=== PATIENT | male | born 1970 | race Caucasian/White ===

== ENCOUNTER 2020-11-07 16:34 | Emergency (ER) | payer SELFPAY ==
--- OUTSIDE RECORDS SUMMARY | 2020-11-07 16:38 | XMS REPORT | Continuity of Care Document ---
:1970 Author Organization [facility] t Address [address] [place] [address] Care Team Providers Name Role Phone DAVID Attending Clinician Unavailable LANA FABIAN Attending Clinician CHAGO Attending Clinician Unavailable Alba Coronado Attending Clinician Unavailable PROVIDER, TEMP Attending Clinician Unavailable Edita AYALA Attending Clinician Unavailable DAVID Admitting Clinician Unavailable Payers Payer Name Policy Type Policy Effective Date Expiration Date Sour ce Number MEDICAID [facility] PENDING [facility] Problems Condition Condition Condition Status Onset Resolution Last Treating Co mments Source Name Details Category Date Date Treatment Clinician Date Bipolar Bipolar Problem Active 2017-[address] [facility]) Suicidal Suicidal Problem [facility] Depressive Depressive Problem Active 2017-[address] [facility] ([facility]) 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[address] 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10[facility]09 [facility] ([facility]/SA) Allergies, Adverse Reactions, Alerts Allergy Allergy Status Severity Reaction(s) Onset Inactive Treating Comm ents Source Name Type Date Date Clinician No Known DA Active [facility] Social History Smoking Status Start Date Stop Date Source Never sm[facility] Medications This patient has no known medications. Immunizations Ordered Immunization Filled Immunization Date Status Commen ts Source Name Name NO UP TO DATE FLU NO UP TO DATE FLU Unknown Completed [facility] (LUF/LIOR/SA) Vital Signs Vital Name Observation Time Observation Value Comments Source Body Temperature 2018-08-08 05:01:00 98.9 F [facility] (LUF/LIOR/SA) Pulse Rate 2018-08-08 05:01:00 87 /min [facility] (LUF/LIOR/SA) Respiratory Rate 2018-08-08 05:01:00 18 /min [facility] (LUF/LIOR/SA) O2% BldC Oximetry 2018-08-08 05:01:00 98 % [facility] (LUF/LIOR/SA) BP Systolic 2018-08-08 05:01:00 160 mm[Hg] [facility] (LUF/LIOR/SA) BP Diastolic 2018-08-08 05:01:00 110 mm[Hg] [facility] (LUF/LIOR/SA) Height 2018-08-08 05:01:00 66 in [facility] (LUF/LIOR/SA) Weight Measured 2018-08-08 05:01:00 154.32 lbs [facility] Loren marsh [facility] (LUF/LIOR/SA) BMI (Body Mass Index) 2018-08-08 05:01:00 25 [facility] (LUF/LIOR/SA) Procedures This patient has no known procedures. Encounters Start End Encounter Admission Attending Care Care Encounter Source Date/Time Date/Time Type Type Clinicians Facility Department ID 2018-08-08 2018-08-08 Inpatient MARÍA ACICEDO [facility] [id number] [facility] [address] 04:58:00 11:31:00 [facility] - N, [address], [place]LU[place] [address] 2018-07-01 2018-07-01 Departed MIRELA SCHWARTZ [id number] [place] 19:23:00 20:28:00 [facility] Results Test Description Test Time Test Comments Results Result Comments Source SALICYLATES (Aspirin) 2018-08-08 06:47:00 Test Item Value Reference Range Interpretation Comme nts Salicylate (test code = SALI) 2.3 mg/dl 0.0-30.0 Salicylates Reference Ranges: Therapeutic 15 - 30 mg/dl Toxicity >30 mg/dl Lethal >70 mg/dl [id number] 06:42:00 Test Item Value Reference Range Interpretation Comments Glucose (test code 88 mg/dl 75-110 = GLU) BUN (test code = 15.0 mg/dl 6.0-17.0 BUN) Creatinine (test 0.8 mg/dl 0.4-1.2 code = CREA) Sodium (test code = 136 mmol/l 137-145 L NA) Potassium (test 3.6 mmol/l 3.5-5.0 code = K) Chloride (test code 102 mmol/l 98-107 = CL) CO2 (test code = 27 mmol/l 22-30 CO2) Calcium (test code 8.6 mg/dl 8.4-10.2 = CALC) T Protein (test 6.8 gm/dl 5.1-8.7 code = TP) Albumin (test code 3.6 gm/dl 3.5-4.6 = ALB) A/G Ratio (test 1.1 % 1.1-2.2 code = AGRAT) AST (SGOT) (test 20 U/L 11-36 code = AST) ALT (SGPT) (test 21 U/L 11-40 code = ALT) Alkaline Phos (test 63 U/L 47-114 code = ALKP) Total Bilirubin 0.6 mg/dl 0.2-1.2 (test code = TBIL) Globulin (test code 3.2 gm/dl 2.3-3.5 = GLOBU) Calcium, Corrected 8.9 mg/dl 8.4-10.2 Various f ormulas exist (test code = for corrected s isis CALCCORR) calcium results , each yielding differ ent values. This corrected resul t was based on the fo rmula: Corrected Calci um = SerumCalcium + [0.8 * ( 4 - SerumAlbu min)] EGFR if >60 Faroese (test code mL/min/1.73m\\ = EGFRAA) S\\2 EGFR if Non- >60 Estimate d Glomerular Faroese (test code mL/min/1.73m\\ Filtrat ion Rate (eGFR) = EGFRNA) S\\2 Reference Inter vals Decision Points for 18 years and older and average body ma ss: >= 60 Does not exc lude kidney disease. 30 - 59 Suggests modera te chronic kidney disease and indicat es the need for furthe r investigation including asses sment of proteinuria and cardiovascular factors. < 30 Usually in dicates a need for refe rral for assessment and management of c hronic kidney failure. ACETAMINOPHEN (Tyenol)2018-08-08 06:41:00 Test Item Value Reference Range Interpretation Comments Acetaminophen (test code = ACET) <2 ug/ml 10-25 L ALCOHOL, [id number] 06:41:00 Test Item Value Reference Range Interpretation Comments Alcohol % (test code = 0 % 0.00-0.00 N Dereck ol % 0.00 - 0.10 ALCPC) Sub-clinical 0.11 - 0.20 Emotional Instability 0.21 - 0.30 Confusion 0.31 - 0.40 Stupor 0.41 - 0.50 Coma >.50 Fatal CBC WITH AUTO [id number] 06:13:00 Test Item Value Reference Range Interpretation Comments WBC (test code = 11.63 4.80-10.80 H WBC) 10\\S\\3/ul RBC (test code = 4.80 10\\S\\6/ul 4.70-6.10 RBC) Hemoglobin (test 15.0 gm/dl 14.0-18.0 code = HGB) Hematocrit (test 43.4 % 42.0-50.0 code = HCT) MCV (test code = 90.4 fL 80.0-94.0 MCV) MCH (test code = 31.3 pg 27.0-31.0 H MCH) MCHC (test code = 34.6 gm/dl 33.0-37.0 MCHC) RDW (test code = 12.2 % 11.5-14.5 RDWVC) Platelet (test code 271 10\\S\\3/ul 130-400 = PLT) MPV (test code = 9.1 fL 7.4-10.4 A "NOT MEASUR ED" MPV) RESULTS ARE DIS PLAYED WHEN THE INSTRU MENT HAS A SUPPRESSE D OR UNREPORTABLE RE SULT. THIS WILL MOST OFTEN HAPPEN WITH THE MPV WHEN THERE IS A N ABNORMAL PLATEL ET DISTRIBUTION DU E TO A CRITICAL LOW VA LUE OR PLATELET CLUMPI NG. THE RDW MAY BE SUPPRESSED IF T HERE ARE MULTIPLE PE AKS PRESENT ON THE RBC HISTOGRAM. IN THIS CASE, A MANUAL REVIEW OF THE SLIDE WI LL BE PERFORMED, AND RBC MORPHOLOGY WILL BE NOTED ON THE RE PORT. NE% (test code = 76.5 % 42.0-75.0 H NE) LY% (test code = 11.9 % 13.0-42.0 L LY) MO% (test code = 9.3 % 4.0-14.0 MO) EO% (test code = 1.6 % 1.0-5.0 EO) BA% (test code = 0.3 % 0.0-3.0 BA) IG% (test code = 0.4 % 0.0-0.4 IG%) [id number] 08:45:00 Test Item Value Reference Range Interpretation Comments Coagulation (test 12.7 SEC 12.0-14.7 N code = PT-T) Coagulation (test 0.9 ATTENTION: code = INR) READ CAREFULLY-- The recommended the rapeutic ranges for oral anticoagulanttr eatments are: ------ Low Intensity: 1.5 - 2.0 Moderate In tensity: 2.0 - 3.0 High Intensity (1): 2.5 - 3.5 High In tensity (2): 3.0 - 4. 0 CRITICAL: > 4.0 Anticoagulant? NONEMedical Necessity SUSPECT COAGULOPATHYAnticoagulant? NONEMedical Necessity: SUSP [id number] 08:45:00 Test Item Value Reference Range Interpretation Comments Coagulation (test code = PTT) 27.2 SEC 22.9-36.1 N Anticoagulant? NONEMedical Necessity SUSPECT COAGULOPATHYAnticoagulant? NONEMedical Necessity: SUSP [id number] 08:44:00 Test Item Value Reference Range Interpretation Comments Chemistry (test 2.9 ng/mL 0-6.6 N code = CKMBM-T) Chemistry (test 0.015 ng/mL < 0.028 code = TROPI-T) Reference Ra nge 0.0 0 - 0.028 ng/mL Negative 0.0 29 - 0.29 ng/mL Indeterminate Greater or Equal to 0.3 ng/mL Strongly sugge sts [place] [id number] 08:40:00 Test Item Value Reference Range Interpretation Comments Chemistry (test 140 mmol/L 136-145 N code = NA-T) Chemistry (test 3.3 mmol/L 3.5-5.1 L code = K-T) Chemistry (test 104 mmol/L 98-107 N code = CL) Chemistry (test 27 mmol/L 22-29 N code = CO2) Chemistry (test 12 mmol/L 10-20 N code = ANGP) Chemistry (test 14 mg/dL 8.9-20.6 N code = BUN) Chemistry (test 0.85 mg/dL 0.7-1.3 N code = CREATT) Chemistry (test Greater than 90 Referenc e Range for code = EGFRMDRD) Estimated G FR: Gre ater than 90 mL/min/ 1.73 m2NOTE:The MDRD equation has no t been validated for use with theeld erly (over 70 years of age), women, patients with serious comorbi d condition or pe rsons with extremes o fbody size, muscle ma ss, or nutritional status. Chemistry (test 79 mg/dL 70-105 N code = GLU-T) Chemistry (test 9.1 mg/dL 7.8-10.44 N code = CA) Chemistry (test 0.7 mg/dL 0.2-1.2 N code = TBILI) Chemistry (test 6.7 g/dL 6.0-8.3 N code = TP) Chemistry (test 4.2 g/dL 3.5-5.0 N code = ALB) Chemistry (test 2.5 g/dL 2.4-3.5 N code = GLOB) Chemistry (test 1.7 g/dL 1.2-2.2 N code = AG) Chemistry (test 52 U/L 40-150 N code = ALP) Chemistry (test 18 U/L 5-34 N code = AST) Chemistry (test 17 U/L 8-55 N code = ALT) [id number] 08:40:00 Test Item Value Reference Range Interpretation Comments Chemistry (test code = CK) 119 U/L 30-200 N [id number] 08:23:00 Test Item Value Reference Range Interpretation Comments Hematology (test code = WBCT) 8.0 thou/uL 4.8-10.8 N Hematology (test code = RBCT) 5.16 mill/uL 4.70-6.10 N Hematology (test code = HGBT) 15.9 g/dL 14.0-18.0 N Hematology (test code = HCTT) 47.9 % 42.0-52.0 N Hematology (test code = MCV) 92.8 fL 78.0-98.0 N Hematology (test code = MCH) 30.8 pg 27.0-31.0 N Hematology (test code = MCHC) 33.2 g/dL 32.0-36.0 N Hematology (test code = RDW) 11.5 % 11.5-14.5 N Hematology (test code = PLTT) 331 thou/uL 130-400 N Hematology (test code = MPV) 6.6 fL 7.4-10.4 L Hematology (test code = %NEUT) 68.1 % 42.0-75.0 N Hematology (test code = %LYMPH) 20.7 % 21.0-51.0 L Hematology (test code = %MONO) 7.5 % 0.0-10.0 N Hematology (test code = %EOS) 2.6 % 0.0-10.0 N Hematology (test code = %BASO) 1.1 % 0.0-1.0 H Hematology (test code = NEUT#) 5.4 thou/uL 1.40-6.50 N Hematology (test code = LYMPH#) 1.7 thou/uL 1.20-3.40 N Hematology (test code = MONO#) 0.6 thou/uL 0.11-0.59 H Hematology (test code = EOS#) 0.2 thou/uL 0.0-0.7 N Hematology (test code = BASO#) 0.1 thou/uL 0.0-0.2 N [id number] 19:03:00 Test Item Value Reference Range Interpretation Comments Chemistry (test code 145 mmol/L 136-145 N = NA-T) Chemistry (test code 4.8 mmol/L 3.5-5.1 N = K-T) Chemistry (test code 106 mmol/L 98-107 N = CL) Chemistry (test code 27 mmol/L 22-29 N = CO2) Chemistry (test code 17 mmol/L 10-20 N = ANGP) Chemistry (test code 22 mg/dL 8.9-20.6 H = BUN) Chemistry (test code 1.25 mg/dL 0.7-1.3 N = CREATT) Chemistry (test code 62 Referen ce Range for = EGFRMDRD) Estimated GFR: Great er than 90 mL/min/1.73 m2NOTE:The MDRD equation has no t been validated for u se with theelderly (ove r 70 years of age), women, patientswith se rious comorbid condit ion or persons with ex tremes ofbody size, mu scle mass, or nutrit ional status. Chemistry (test code 101 mg/dL 70-105 N = GLU-T) Chemistry (test code 9.2 mg/dL 7.8-10.44 N = CA) Chemistry (test code 0.2 mg/dL 0.2-1.2 N = TBILI) Chemistry (test code 6.5 g/dL 6.0-8.3 N = TP) Chemistry (test code 4.0 g/dL 3.5-5.0 N = ALB) Chemistry (test code 2.5 g/dL 2.4-3.5 N = GLOB) Chemistry (test code 1.6 g/dL 1.2-2.2 N = AG) Chemistry (test code 51 U/L 40-150 N = ALP) Chemistry (test code 16 U/L 5-34 N = AST) Chemistry (test code 16 U/L 8-55 N = ALT) [id number] 18:46:00 Test Item Value Reference Range Interpretation Comments Hematology (test code = WBCT) 7.3 thou/uL 4.8-10.8 N Hematology (test code = RBCT) 4.70 mill/uL 4.70-6.10 N Hematology (test code = HGBT) 14.3 g/dL 14.0-18.0 N Hematology (test code = HCTT) 42.6 % 42.0-52.0 N Hematology (test code = MCV) 90.7 fL 78.0-98.0 N Hematology (test code = MCH) 30.5 pg 27.0-31.0 N Hematology (test code = MCHC) 33.6 g/dL 32.0-36.0 N Hematology (test code = RDW) 11.6 % 11.5-14.5 N Hematology (test code = PLTT) 257 thou/uL 130-400 N Hematology (test code = MPV) 6.6 fL 7.4-10.4 L Hematology (test code = %NEUT) 53.4 % 42.0-75.0 N Hematology (test code = %LYMPH) 32.7 % 21.0-51.0 N Hematology (test code = %MONO) 7.5 % 0.0-10.0 N Hematology (test code = %EOS) 5.4 % 0.0-10.0 N Hematology (test code = %BASO) 1.0 % 0.0-1.0 N Hematology (test code = NEUT#) 3.9 thou/uL 1.40-6.50 N Hematology (test code = LYMPH#) 2.4 thou/uL 1.20-3.40 N Hematology (test code = MONO#) 0.6 thou/uL 0.11-0.59 H Hematology (test code = EOS#) 0.4 thou/uL 0.0-0.7 N Hematology (test code = BASO#) 0.1 thou/uL 0.0-0.2 N [id number] 18:45:00 Test Item Value Reference Range Interpretation Comments Urinalysis (test code = UACLR) Yellow Yellow Urinalysis (test code = UACLY) Hazy Clear Urinalysis (test code = SPGR) 1.020 1.005-1.030 N Urinalysis (test code = CYNDI) 8.0 5.0-9.0 N Urinalysis (test code = UALEU) Trace Negative A Urinalysis (test code = UANIT) Negative Negative Urinalysis (test code = Negative mg/dL Neg-Trace PROUADIP) Urinalysis (test code = GLUCU) Negative mg/dL Negative Urinalysis (test code = KETU) Negative mg/dL Negative Urinalysis (test code = 1.0 mg/dL 0.2-1.0 UAUROB) Urinalysis (test code = UABIL) Negative Negative Urinalysis (test code = UABLD) Negative Negative Comment clear yellowUrine Source: Urine [id number] 18:45:00 Test Item Value Reference Range Interpretation Comments Urinalysis (test code = UARBC) 0-3 HPF 0-3 Urinalysis (test code = UAWBC) 4-6 HPF 0-3 A Urinalysis (test code = UASQUAM) 0-3 HPF 0-3 Urinalysis (test code = UABAC) 1+ HPF None Seen A Comment clear yellowUrine Source: Urine [id number] 20:56:00 Test Item Value Reference Range Interpretation Comments Urinalysis (test code = YELLOW Yellow UACLR) Urinalysis (test code = CLEAR Clear UACLY) Urinalysis (test code = 1.024 1.002-1.036 N SPGR) Urinalysis (test code = 6.0 5.0-9.0 N CYNDI) Urinalysis (test code = Moderate Negative A UALEU) Urinalysis (test code = Negative Negative UANIT) Urinalysis (test code = Negative mg/dL Neg-Trace PROUADIP) Urinalysis (test code = Negative mg/dL Negative GLUCU) Urinalysis (test code = Negative mg/dL Negative KETU) Urinalysis (test code = 1.0 mg/dL 0.2-1.0 UAUROB) Urinalysis (test code = Negative Negative UABIL) Urinalysis (test code = Negative Negative UABLD) Urinalysis (test code = 0-3 HPF 0-3 UARBC) Urinalysis (test code = 7-10 HPF 0-3 A UAWBC) Urinalysis (test code = 0-3 HPF 0-3 UASQUAM) Urinalysis (test code = None Seen HPF None Seen UABAC) Urinalysis (test code = 0-3 HYALINE CAST LPF 0-3 Hyaline UACAST) Urine Source: Urine [id number] 19:22:00 Test Item Value Reference Range Interpretation Comments Chemistry (test Less than < 0.028 code = TROPI-T) 0.010 ng/mL Reference Ra nge 0. 00 - 0.028 ng/mL Negative 0.029 - 0.29 n g/mL Indeterminate Greater or Equa l to 0.3 ng/mL [facility] Comment Pls draw at 7 pm.[id number] 16:36:00 Test Item Value Reference Range Interpretation Comments Coagulation (test 12.7 SEC 12.0-14.7 N code = PT-T) Coagulation (test 0.9 ATTENTION: code = INR) READ CAREFULLY-- The recommended the rapeutic ranges for oral anticoagulanttr eatments are: ------ Low Intensity: 1.5 - 2.0 Moderate In tensity: 2.0 - 3.0 High Intensity (1): 2.5 - 3.5 High In tensity (2): 3.0 - 4. 0 CRITICAL: > 4.0 Anticoagulant? NONEMedical Necessity SUSPECT COAGULOPATHYAnticoagulant? NONEMedical Necessity: SUSP [id number] 16:36:00 Test Item Value Reference Range Interpretation Comments Coagulation (test code = PTT) 26.2 SEC 22.9-36.1 N Anticoagulant? NONEMedical Necessity SUSPECT COAGULOPATHYAnticoagulant? NONEMedical Necessity: SUSP [id number] 16:34:00 Test Item Value Reference Range Interpretation Comments Chemistry (test 2.5 ng/mL 0-6.6 N code = CKMBM-T) Chemistry (test Less than < 0.028 code = TROPI-T) 0.010 ng/mL Reference Ra nge 0. 00 - 0.028 ng/mL Negative 0.029 - 0.29 n g/mL Indeterminate Greater or Equa l to 0.3 ng/mL [facility] [place] [id number] 16:31:00 Test Item Value Reference Range Interpretation Comments Chemistry (test code 142 mmol/L 136-145 N = NA-T) Chemistry (test code 3.7 mmol/L 3.5-5.1 N = K-T) Chemistry (test code 103 mmol/L 98-107 N = CL) Chemistry (test code 26 mmol/L 22-29 N = CO2) Chemistry (test code 17 mmol/L 10-20 N = ANGP) Chemistry (test code 16 mg/dL 8.9-20.6 N = BUN) Chemistry (test code 1.11 mg/dL 0.7-1.3 N = CREATT) Chemistry (test code 71 Referen ce Range for = EGFRMDRD) Estimated GFR: Great er than 90 mL/min/1.73 m2NOTE:The MDRD equation has no t been validated for u se with theelderly (ove r 70 years of age), women, patientswith se rious comorbid condit ion or persons with ex tremes ofbody size, mu scle mass, or nutrit ional status. Chemistry (test code 79 mg/dL 70-105 N = GLU-T) Chemistry (test code 9.7 mg/dL 7.8-10.44 N = CA) Chemistry (test code 0.5 mg/dL 0.2-1.2 N = TBILI) Chemistry (test code 7.1 g/dL 6.0-8.3 N = TP) Chemistry (test code 4.3 g/dL 3.5-5.0 N = ALB) Chemistry (test code 2.8 g/dL 2.4-3.5 N = GLOB) Chemistry (test code 1.5 g/dL 1.2-2.2 N = AG) Chemistry (test code 55 U/L 40-150 N = ALP) Chemistry (test code 19 U/L 5-34 N = AST) Chemistry (test code 17 U/L 8-55 N = ALT) [id number] 16:13:00 Test Item Value Reference Range Interpretation Comments Hematology (test code = WBCT) 7.9 thou/uL 4.8-10.8 N Hematology (test code = RBCT) 4.92 mill/uL 4.70-6.10 N Hematology (test code = HGBT) 15.3 g/dL 14.0-18.0 N Hematology (test code = HCTT) 44.5 % 42.0-52.0 N Hematology (test code = MCV) 90.5 fl 80.0-94.0 N Hematology (test code = MCH) 31.2 pg 27.0-31.0 H Hematology (test code = MCHC) 34.4 g/dL 32.0-36.0 N Hematology (test code = RDW) 11.6 % 11.5-14.5 N Hematology (test code = PLTT) 291 thou/uL 130-400 N Hematology (test code = MPV) 6.6 fL 7.4-10.4 L Hematology (test code = %NEUT) 62.7 % 42.0-75.0 N Hematology (test code = %LYMPH) 26.4 % 21.0-51.0 N Hematology (test code = %MONO) 5.6 % 0.0-10.0 N Hematology (test code = %EOS) 4.5 % 0.0-10.0 N Hematology (test code = %BASO) 0.8 % 0.0-1.0 N Hematology (test code = NEUT#) 5.0 thou/uL 1.40-6.50 N Hematology (test code = LYMPH#) 2.1 thou/uL 1.20-3.40 N Hematology (test code = MONO#) 0.4 thou/uL 0.11-0.59 N Hematology (test code = EOS#) 0.4 thou/uL 0.0-0.7 N Hematology (test code = BASO#) 0.1 thou/uL 0.0-0.2 N
--- NOTE | 2020-11-07 17:35 | ER ---
Nurse's Notes [facility] [place] Name: Jasmin Haley Age: 50 yrs Sex: Male : 1970 Arrival Date: 11/07/2020 Time: 16:48 Bed 6 Private MD: Diagnosis: Dental caries Presentation: 11/07 16:48 Chief complaint: Patient states: R lower jaw tooth pain for 3 days. No fever or ll1 swelling noted. Coronavirus screen: Client denies travel out of the [place] in the last 14 days. At this time, the client does not indicate any symptoms associated with coronavirus-19. Ebola Screen: Patient denies travel to an Ebola-affected area in the 21 days before illness onset. Initial Sepsis Screen: Does the patient meet any 2 criteria? HR > 90 bpm. No. Patient's initial sepsis screen is negative. Does the patient have a suspected source of infection? Yes: Other: tooth infection. Risk Assessment: Do you want to hurt yourself or someone else? Patient reports no desire to harm self or others. Onset of symptoms was November 05, 2020. 16:48 Method Of Arrival: Ambulatory ll1 16:48 Acuity: GISELA 4 ll1 Historical: - Allergies: 16:50 No Known Allergies; ll1 - PMHx: 16:50 bipolar/schizo; Hypertension; ll1 - PSHx: 16:50 None; ll1 - Immunization history:: Flu vaccine is not up to date. - Social history:: Smoking status: Patient reports the use of cigarette tobacco products, smokes one pack cigarettes per day. Vital Signs: 16:48 BP 147 / 108; Pulse 91; Resp 17; Temp 99.1; Pulse Ox 97% ; Weight 70.76 kg; Height 5 ll1 ft. 6 in. (167.64 cm); Pain 10/10; 16:48 Body Mass Index 25.18 (70.76 kg, 167.64 cm) ll1 ED Course: 16:48 Patient arrived in ED. ll1 16:49 Triage completed. ll1 16:50 Arm band placed on. ll1 17:25 Tony Palacio PA is PHCP. xiomara 17:25 Ravindra Glass MD is Attending Physician. xiomara Administered Medications: No medications were administered Outcome: 17:35 Discharge ordered by . xiomara 18:10 Patient left the ED. vg1 Signatures: Tony Palacio PA PA jmm Garcia, Victoria, RN RN vg1 Martha Schwartz RN RN ll1
--- NOTE | 2020-11-07 17:35 | EDPHYS ---
Physician Documentation [facility] Name: Jasmin Haley Age: 50 yrs Sex: Male : 1970 Arrival Date: 11/07/2020 Time: 16:48 Bed 6 Private MD: ED Physician Ravindra Glass HPI: 11/07 17:32 This 50 yrs old Male presents to ER via Ambulatory with complaints of jmm Toothache. 17:32 The patient presents with pain. Onset: The symptoms/episode began/occurred gradually, 2 jmm day(s) ago. Duration: The symptoms are continuous. Modifying factors: The symptoms are alleviated by nothing, the symptoms are aggravated by nothing. Associated signs and symptoms: Pertinent negatives: fever, redness in area, swelling, vomiting. Historical: - Allergies: 16:50 No Known Allergies; ll1 - PMHx: 16:50 bipolar/schizo; Hypertension; ll1 - PSHx: 16:50 None; ll1 - Immunization history:: Flu vaccine is not up to date. - Social history:: Smoking status: Patient reports the use of cigarette tobacco products, smokes one pack cigarettes per day. ROS: 17:32 Constitutional: Negative for fever, chills, and weight loss. jmm 17:32 Neck: Negative for injury, pain, and swelling, Cardiovascular: Negative for chest pain, palpitations, and edema, Respiratory: Negative for shortness of breath, cough, wheezing, and pleuritic chest pain, Abdomen/GI: Negative for abdominal pain, nausea, vomiting, diarrhea, and constipation, Back: Negative for injury and pain, Neuro: Negative for headache, weakness, numbness, tingling, and seizure. 17:32 ENT: Positive for dental pain. 17:32 All other systems are negative. Exam: 17:32 Constitutional: This is a well developed, well nourished patient who is awake, alert, jmm and in no acute distress. Head/Face: atraumatic. Eyes: EOMI, no conjunctival erythema appreciated 17:32 Chest/axilla: Normal chest wall appearance and motion. Cardiovascular: Regular rate and rhythm. No edema appreciated Respiratory: Normal respirations, no respiratory distress appreciated Abdomen/GI: Non distended, soft Back: Normal ROM Skin: General appearance color normal MS/ Extremity: Moves all extremities, no obvious deformities appreciated, no edema noted to the lower extremities Neuro: Awake and alert, normal gait Psych: Behavior is normal, Mood is normal, Patient is cooperative and pleasant 17:32 ENT: Dental exam: dental caries, that is moderate, specifically in the lower right first molar (#30) and lower right second molar (#31). Vital Signs: 16:48 BP 147 / 108; Pulse 91; Resp 17; Temp 99.1; Pulse Ox 97% ; Weight 70.76 kg; Height 5 ll1 ft. 6 in. (167.64 cm); Pain 10/10; 16:48 Body Mass Index 25.18 (70.76 kg, 167.64 cm) ll1 MDM: 17:32 Patient medically screened. [facility] 17:34 Data reviewed: vital signs, nurses notes. Counseling: I had a detailed discussion with xiomara the patient and/or guardian regarding: the historical points, exam findings, and any diagnostic results supporting the discharge/admit diagnosis, the need for outpatient follow up, to return to the emergency department if symptoms worsen or persist or if there are any questions or concerns that arise at home. ED course: Patient is alert and non toxic in appearance in the ED. No signs of resp distress or sepsis. . Administered Medications: No medications were administered Disposition: 11/08 07:24 Co-signature as Attending Physician, Ravindra Glass MD I agree with the assessment and kdr plan of care. Disposition: 11/07/20 17:35 Discharged to Home. Impression: Dental caries. - Condition is Stable. - Discharge Instructions: Dental Pain. - Prescriptions for Amoxicillin 875 mg Oral Tablet - take 1 tablet by ORAL route every 12 hours for 10 days; 20 tablet. Ultracet 37.5- 325 mg Oral Tablet - take 1 tablet by ORAL route every 6 hours - for up to 5 days; do not exceed 8 tablets per day.; 12 tablet. - Work release form, Medication Reconciliation Form, Thank You Letter, Antibiotic Education, Prescription Opioid Use form. - Follow up: Private Physician; When: 2 - 3 days; Reason: Recheck today's complaints, Continuance of care, Re-evaluation by your physician. Signatures: Ravindra Glass MD MD [facility] Tony Palacio PA PA jmm Garcia, Victoria, RN RN 1 Martha Schwartz RN RN ll1 Corrections: (The following items were deleted from the chart) 11/07 18:10 17:35 11/07/2020 17:35 Discharged to Home. Impression: Dental caries. Condition is vg1 Stable. Forms are Medication Reconciliation Form, Thank You Letter, Antibiotic Education, Prescription Opioid Use. Follow up: Private Physician; When: 2 - 3 days; Reason: Recheck today's complaints, Continuance of care, Re-evaluation by your physician. xiomara
[2020-11-08 10:19] VITALS: BP 147/108; TEMP 99.1; O2SAT 97
== END 2020-11-07 18:10 | disposition home or self-care (01) ==
LOC: ER 16:34
DX: K02.9 Dental caries, unspecified (principal); F17.210 Nicotine dependence, cigarettes, uncomplicated
CPT/HCPCS: 99281

== ENCOUNTER 2020-12-17 01:48 | Emergency (ER) | payer SELFPAY ==
--- OUTSIDE RECORDS SUMMARY | 2020-12-17 01:51 | XMS REPORT | Continuity of Care Document ---
:1970 Author Organization [facility] t Address [address] [place] [address] Care Team Providers Name Role Phone DAVID Attending Clinician Unavailable LANA FABIAN Attending Clinician CHAGO Attending Clinician Unavailable Alba Coronado Attending Clinician Unavailable PROVIDER, TEMRaj Attending Clinician Unavailable Edita AYALA Attending Clinician Unavailable DAVID Admitting Clinician Unavailable Payers Payer Name Policy Type Policy Effective Date Expiration Date Sour ce Number MEDICAID NA [facility] JOVANNA CARE NA [facility] Problems Condition Condition Condition Status Onset Resolution [...] NO UP TO DATE FLU Unknown Completed [facility] (LUF/LIOR/SA) Vital Signs Vital Name Observation Time Observation Value Comments Source Body Temperature 2018-08-08 05:01:00 98.9 F [facility] (LUF/LIOR/SA) Pulse Rate 2018-08-08 05:01:00 87 /min [facility] (LUF/LIOR/SA) Respiratory Rate 2018-08-08 05:01:00 18 /min [facility] (LUF/LIOR/SA) O2% BldC Oximetry 2018-08-08 05:01:00 98 % [facility] (LUF/LIOR/SA) BP Systolic 2018-08-08 05:01:00 160 mm[Hg] [facility] (LUF/LIOR/SA) BP Diastolic 2018-08-08 05:01:00 110 mm[Hg] [facility] (LUF/LIOR/SA) Height 2018-08-08 05:01:00 66 in [facility] (LUF/LIOR/SA) Weight Measured 2018-08-08 05:01:00 154.32 lbs [facility] (LUF/LIOR/SA) BMI (Body Mass Index) 2018-08-08 05:01:00 25 [facility] (LUF/LIOR/SA) Procedures This patient has no known procedures. Encounters Start End Encounter Admission Attending Care Care Encounter Source Date/Time Date/Time Type Type Clinicians Facility Department ID 2018-08-08 2018-08-08 Inpatient MARÍA CAICEDO [facility] [id number] [facility] [address] 04:58:00 11:31:00 [facility] [place], [address] [place], [place] [address] 2018-07-01 2018-07-01 Departed MIRELA SCHWARTZ [id number] [place] 19:23:00 20:28:00 Emergency [facility] [address] [facility] Results Test Description Test Time Test Comments Results Result Comments Source SALICYLATES (Aspirin) 2018-08-08 06:47:00 Test Item Value Reference Range Interpretation Comme nts Salicylate (test code = SALI) 2.3 mg/dl 0.0-30.0 Salicylates Reference Ranges: Therapeutic 15 - 30 mg/dl Toxicity >30 mg/dl Lethal >70 mg/dl [id number] 06:42:00 Test Item Value Reference Range Interpretation [...] 4 - SerumAlbu min)] EGFR if >60 [place] (test code mL/min/1.73m\\ = EGFRAA) S\\2 EGFR if Non- >60 Estimate d Glomerular [place] (test code mL/min/1.73m\\ Filtrat ion Rate (eGFR) [...] = ACET) <2 ug/ml 10-25 L ALCOHOL, [id number] 06:41:00 Test Item Value Reference Range Interpretation Comments Alcohol % (test code = 0 % 0.00-0.00 N Dereck ol % 0.00 - 0.10 ALCPC) Sub-clinical 0.11 - 0.20 Emotional Instability 0.21 - 0.30 Confusion 0.31 - 0.40 Stupor 0.41 - 0.50 Coma >.50 Fatal CBC WITH AUTO [id number] 06:13:00 Test Item Value Reference Range Interpretation [...] (test code = 0.4 % 0.0-0.4 IG%) [id number] 08:45:00 Test Item Value Reference Range Interpretation [...] NONEMedical Necessity SUSPECT COAGULOPATHYAnticoagulant? NONEMedical Necessity: SUSP [id number] 08:45:00 Test Item Value Reference Range Interpretation Comments Coagulation (test code = PTT) 27.2 SEC 22.9-36.1 N Anticoagulant? NONEMedical Necessity SUSPECT COAGULOPATHYAnticoagulant? NONEMedical Necessity: SUSP [id number] 08:44:00 Test Item Value Reference Range Interpretation Comments Chemistry (test 2.9 ng/mL 0-6.6 N code = CKMBM-T) Chemistry (test 0.015 ng/mL < 0.028 code = TROPI-T) Reference Ra nge 0.0 0 - 0.028 ng/mL Negative 0.0 29 - 0.29 ng/mL Indeterminate Greater or Equal to 0.3 ng/mL Strongly sugge sts NM [id number] 08:40:00 Test Item Value Reference Range Interpretation [...] 17 U/L 8-55 N code = ALT) [id number] 08:40:00 Test Item Value Reference Range Interpretation Comments Chemistry (test code = CK) 119 U/L 30-200 N [id number] 08:23:00 Test Item Value Reference Range Interpretation [...] code = BASO#) 0.1 thou/uL 0.0-0.2 N [id number] 19:03:00 Test Item Value Reference Range Interpretation [...] code 16 U/L 8-55 N = ALT) [id number] 18:46:00 Test Item Value Reference Range Interpretation [...] code = BASO#) 0.1 thou/uL 0.0-0.2 N [id number] 18:45:00 Test Item Value Reference Range Interpretation [...] Negative Negative Comment clear yellowUrine Source: Urine [id number] 18:45:00 Test Item Value Reference Range Interpretation Comments Urinalysis (test code = UARBC) 0-3 HPF 0-3 Urinalysis (test code = UAWBC) 4-6 HPF 0-3 A Urinalysis (test code = UASQUAM) 0-3 HPF 0-3 Urinalysis (test code = UABAC) 1+ HPF None Seen A Comment clear yellowUrine Source: Urine [id number] 20:56:00 Test Item Value Reference Range Interpretation [...] LPF 0-3 Hyaline UACAST) Urine Source: Urine [id number] 19:22:00 Test Item Value Reference Range Interpretation Comments Chemistry (test Less than < 0.028 code = TROPI-T) 0.010 ng/mL Reference Ra nge 0. 00 - 0.028 ng/mL Negative 0.029 - 0.29 n g/mL Indeterminate Greater or Equa l to 0.3 ng/mL [facility] Comment Pls draw at 7 pm.[id number] 16:36:00 Test Item Value Reference Range Interpretation [...] NONEMedical Necessity SUSPECT COAGULOPATHYAnticoagulant? NONEMedical Necessity: SUSP [id number] 16:36:00 Test Item Value Reference Range Interpretation Comments Coagulation (test code = PTT) 26.2 SEC 22.9-36.1 N Anticoagulant? NONEMedical Necessity SUSPECT COAGULOPATHYAnticoagulant? NONEMedical Necessity: SUSP [id number] 16:34:00 Test Item Value Reference Range Interpretation Comments Chemistry (test 2.5 ng/mL 0-6.6 N code = CKMBM-T) Chemistry (test Less than < 0.028 code = TROPI-T) 0.010 ng/mL Reference Ra nge 0. 00 - 0.028 ng/mL Negative 0.029 - 0.29 n g/mL Indeterminate Greater or Equa l to 0.3 ng/mL [facility] [place] suggests NM [id number] 16:31:00 Test Item Value Reference Range Interpretation [...] code 17 U/L 8-55 N = ALT) [id number] 16:13:00 Test Item Value Reference Range Interpretation [...]
--- NOTE | 2020-12-17 02:53 | ER ---
Nurse's Notes [facility] Name: Jasmin Haley Age: 50 yrs Sex: Male : 1970 Arrival Date: 12/17/2020 Time: 01:50 Bed 6 Private MD: Diagnosis: Dental caries Presentation: 12/17 02:17 Chief complaint: Patient states: he has had a toothache x 2 days now has swollen glands bb in jaw and he is unable to sleep. Coronavirus screen: At this time, the client does not indicate any symptoms associated with coronavirus-19. Ebola Screen: No symptoms or risks identified at this time. Initial Sepsis Screen: Does the patient meet any 2 criteria? No. Patient's initial sepsis screen is negative. Does the patient have a suspected source of infection? No. Patient's initial sepsis screen is negative. Risk Assessment: Do you want to hurt yourself or someone else? Patient reports no desire to harm self or others. Onset of symptoms was December 14, 2020. 02:17 Method Of Arrival: Ambulatory bb 02:17 Acuity: GISELA 2 bb Triage Assessment: 02:20 General: Appears in no apparent distress. uncomfortable, Behavior is calm, cooperative. bb Pain: Complains of pain in right lower jaw Pain currently is 10 out of 10 on a pain scale. EENT: Reports pain in right jaw. Neuro: Level of Consciousness is awake, alert, obeys commands, Oriented to person, place, time, situation. Cardiovascular: Reports he does not take his blood pressure medicine. Respiratory: Airway is patent Respiratory effort is even, unlabored, Respiratory pattern is regular. GI: No signs and/or symptoms were reported involving the gastrointestinal system. Derm: Skin is pink, warm \T\ dry. Musculoskeletal: Circulation, motion, and sensation intact. Historical: - Allergies: 02:20 No Known Allergies; bb - Home Meds: 02:20 None [Active]; bb - PMHx: 02:20 bipolar/schizo; Hypertension; bb - PSHx: 02:20 None; bb - Immunization history:: Adult Immunizations up to date. - Social history:: Smoking status: Patient reports the use of cigarette tobacco products, smokes 1.5 packs per day, Patient uses alcohol, occasionally. street drugs, marijuana, Patient/guardian denies using alcohol, street drugs, The patient lives with family. - Family history:: not pertinent. Screenin:31 Abuse screen: Denies threats or abuse. Nutritional screening: No deficits noted. bb Tuberculosis screening: No symptoms or risk factors identified. Fall Risk None identified. Assessment: 02:31 Reassessment: No changes from previously documented assessment. see triage assessment. Vital Signs: 02:17 BP 182 / 109; Pulse 67; Resp 16 S; Temp 98.2(O); Pulse Ox 99% on R/A; Weight 74.84 kg bb (R); Height 5 ft. 6 in. (167.64 cm) (R); Pain 10/10; 03:01 BP 169 / 105; Pulse 72; Resp 18; Pulse Ox 99% on R/A; wh 02:17 Body Mass Index 26.63 (74.84 kg, 167.64 cm) ED Course: 01:50 Patient arrived in ED. cl3 02:20 Triage completed. 02:20 Arm band placed on Patient placed in an exam room, on a stretcher. Family accompanied bb patient. 02:31 Patient has correct armband on for positive identification. Bed in low position. Call bb light in reach. Pulse ox on. NIBP on. Warm blanket given. 02:40 Nery Grey MD is Attending Physician. [facility] [place] 02:53 Joselito Orozco, GISELLE is Primary Nurse. 03:01 No provider procedures requiring assistance completed. Patient did not have IV access during this emergency room visit. Administered Medications: 03:00 Drug: [place] (HYDROcodone-acetaminophen) 10 mg-325 mg 1 tabs Route: PO; 03:02 Follow up: Response: No adverse reaction 03:01 Drug: Augmentin (Amoxicillin-Clavulanate) 875 mg Route: PO; 03:02 Follow up: Response: No adverse reaction Outcome: 02:53 Discharge ordered by . ma2 03:01 Discharged to home ambulatory, with family. 03:01 Condition: stable 03:01 Discharge instructions given to patient, family, Instructed on discharge instructions, follow up and referral plans. medication usage, POC Demonstrated understanding of instructions, follow-up care, medications, POC Prescriptions given X 2. 03:02 Patient left the ED. Signatures: Ana Paula Wilcox RN RN bb Habalo, Winsy, RN RN Nery Grey MD MD ma2 Navdeep Schwartz cl3
--- NOTE | 2020-12-17 02:53 | EDPHYS ---
Physician Documentation [facility] Name: Jasmin Haley Age: 50 yrs Sex: Male : 1970 Arrival Date: 12/17/2020 Time: 01:50 Bed 6 Private MD: ED Physician Nery Grey HPI: 12/17 02:51 This 50 yrs old Male presents to ER via Ambulatory with complaints of ma2 Toothache. 02:51 The patient presents with broken tooth/teeth. Onset: The symptoms/episode ma2 began/occurred suddenly, 2 day(s) ago. Associated signs and symptoms: Pertinent negatives: dysphagia, nausea, redness in area. Severity of symptoms: At their worst the symptoms were moderate, in the emergency department the symptoms are unchanged. The patient has experienced similar episodes in the past. Historical: - Allergies: 02:20 No Known Allergies; bb - Home Meds: 02:20 None [Active]; bb - PMHx: 02:20 bipolar/schizo; Hypertension; bb - PSHx: 02:20 None; bb - Immunization history:: Adult Immunizations up to date. - Social history:: Smoking status: Patient reports the use of cigarette tobacco products, smokes 1.5 packs per day, Patient uses alcohol, occasionally. street drugs, marijuana, Patient/guardian denies using alcohol, street drugs, The patient lives with family. - Family history:: not pertinent. ROS: 02:51 Constitutional: Negative for fever, chills, and weight loss. ma2 02:51 All other systems are negative. Exam: 02:51 Constitutional: This is a well developed, well nourished patient who is awake, alert, ma2 and in no acute distress. Head/Face: Normocephalic, atraumatic. Eyes: Pupils equal round and reactive to light, extra-ocular motions intact. Lids and lashes normal. Conjunctiva and sclera are non-icteric and not injected. Cornea within normal limits. Periorbital areas with no swelling, redness, or edema. ENT: broken uper right 2nd molar, with dental carries and erosion, Nares patent. No nasal discharge, no septal abnormalities noted. Tympanic membranes are normal and external auditory canals are clear. Oropharynx with no redness, swelling, or masses, exudates, or evidence of obstruction, uvula midline. Mucous membranes moist. Neck: Trachea midline, no thyromegaly or masses palpated, and no cervical lymphadenopathy. Supple, full range of motion without nuchal rigidity, or vertebral point tenderness. No Meningismus. Chest/axilla: Normal chest wall appearance and motion. Nontender with no deformity. No lesions are appreciated. Cardiovascular: Regular rate and rhythm with a normal S1 and S2. No gallops, murmurs, or rubs. Normal PMI, no JVD. No pulse deficits. Respiratory: Lungs have equal breath sounds bilaterally, clear to auscultation and percussion. No rales, rhonchi or wheezes noted. No increased work of breathing, no retractions or nasal flaring. Abdomen/GI: Soft, non-tender, with normal bowel sounds. No distension or tympany. No guarding or rebound. No evidence of tenderness throughout. Vital Signs: 02:17 BP 182 / 109; Pulse 67; Resp 16 S; Temp 98.2(O); Pulse Ox 99% on R/A; Weight 74.84 kg bb (R); Height 5 ft. 6 in. (167.64 cm) (R); Pain 10/10; 03:01 BP 169 / 105; Pulse 72; Resp 18; Pulse Ox 99% on R/A; wh 02:17 Body Mass Index 26.63 (74.84 kg, 167.64 cm) bb MDM: 02:40 Patient medically screened. ma2 02:51 Differential diagnosis: dental caries, gingivitis, pericoronitis, gingivostomatitis. ma2 Data reviewed: vital signs, nurses notes. Counseling: I had a detailed discussion with the patient and/or guardian regarding: the historical points, exam findings, and any diagnostic results supporting the discharge/admit diagnosis, the presence of at least one elevated blood pressure reading (>120/80) during this emergency department visit, the need for outpatient follow up. Response to treatment: the patient's symptoms have markedly improved after treatment. Administered Medications: 03:00 Drug: [place] (HYDROcodone-acetaminophen) 10 mg-325 mg 1 tabs Route: PO; 03:02 Follow up: Response: No adverse reaction 03:01 Drug: Augmentin (Amoxicillin-Clavulanate) 875 mg Route: PO; 03:02 Follow up: Response: No adverse reaction Disposition: 12/17/20 02:53 Discharged to Home. Impression: Dental caries. - Condition is Stable. - Discharge Instructions: Dental Pain. - Prescriptions for Augmentin 875- 125 mg Oral Tablet - take 1 tablet by ORAL route every 12 hours for 10 days; 20 tablet. Diclofenac Sodium 75 mg Oral Tablet Sustained Release - take 1 tablet by ORAL route 2 times per day; 30 tablet. - Medication Reconciliation Form, Thank You Letter, Antibiotic Education, Prescription Opioid Use form. - Follow up: Private Physician; When: Tomorrow; Reason: Wound Recheck, If symptoms return. Signatures: Ana Paula Wilcox RN RN bb Joselito Orozco RN RN wh Nery Grey MD MD ma2 Corrections: (The following items were deleted from the chart) 03:02 02:53 12/17/2020 02:53 Discharged to Home. Impression: Dental caries. Condition is wh Stable. Forms are Medication Reconciliation Form, Thank You Letter, Antibiotic Education, Prescription Opioid Use. Follow up: Private Physician; When: Tomorrow; Reason: Wound Recheck, If symptoms return. ma2
[2020-12-17] MEDS ORDERED: HYDROCODONE/APAP 10/325 TAB ONE (03:15)
[2020-12-17] MEDS ORDERED: AMOX/K CLAV 875 MG TAB ONE (03:15)
[2020-12-17 03:47] VITALS: TEMP 98.2; O2SAT 99
[2020-12-17 03:49] VITALS: BP 169/105
== END 2020-12-17 03:02 | disposition home or self-care (01) ==
LOC: ER 01:48
DX: K02.9 Dental caries, unspecified (principal); I10 Essential (primary) hypertension; F17.210 Nicotine dependence, cigarettes, uncomplicated
CPT/HCPCS: 99283

== ENCOUNTER 2021-01-18 15:11 | Emergency (ER) | payer SELFPAY ==
--- OUTSIDE RECORDS SUMMARY | 2021-01-18 15:15 | XMS REPORT | Continuity of Care Document ---
:1970 Author Organization [facility] t Address [address] [place] [address] Care Team Providers Name Role Phone DAVID Attending Clinician Unavailable LANA FABIAN Attending Clinician CHAGO Attending Clinician Unavailable Alba Coronado Attending Clinician Unavailable PROVIDER, TEMP Attending Clinician Unavailable Edita AYALA Attending Clinician Unavailable DAVID Admitting Clinician Unavailable Payers Payer Name Policy Type Policy Effective Date Expiration Date Sour ce Number MEDICAID [facility] PENDING [facility] JOVANNA CARE [facility]END[facility] Problems Condition Condition Condition Status Onset Resolution [...] NO UP TO DATE FLU Unknown Completed [facility] (LUF/LIOR/SA) Vital Signs Vital Name Observation Time Observation Value Comments Source Body Temperature 2018-08-08 05:01:00 98.9 F [facility] (LUF/LIOR/SA) Pulse Rate 2018-08-08 05:01:00 87 /min [facility] (LUF/LIOR/SA) Respiratory Rate 2018-08-08 05:01:00 18 /min [facility] (LUF/LIOR/SA) O2% BldC Oximetry 2018-08-08 05:01:00 98 % [facility] (LUF/LIOR/SA) BP Systolic 2018-08-08 05:01:00 160 mm[Hg] [facility] (LUF/LIOR/SA) BP Diastolic 2018-08-08 05:01:00 110 mm[Hg] [facility] (LUF/LIOR/SA) Height 2018-08-08 05:01:00 66 in [facility] (LUF/LIOR/SA) Weight Measured 2018-08-08 05:01:00 154.32 lbs [facility] Loren marsh [facility] (LUF/LIOR/SA) BMI (Body Mass Index) 2018-08-08 05:01:00 25 [facility] (LUF/LIOR/SA) Procedures This patient has no known procedures. Encounters Start End Encounter Admission Attending Care Care Encounter Source Date/Time Date/Time Type Type Clinicians Facility Department ID 2018-08-08 2018-08-08 Inpatient MARÍA CAICEDO [facility] [id number] [facility] [address] 04:58:00 11:31:00 [facility] - N, [address], [place] [address] 2018-07-01 2018-07-01 Departed MIRELA SCHWARTZ [id number] [place] 19:23:00 20:28:00 [facility] Results Test Description Test Time Test Comments Results Result Comments Source SALICYLATES (Aspirin) 2018-08-08 06:47:00 Test Item Value Reference Range Interpretation Comme nts Salicylate (test code = SALI) 2.3 mg/dl 0.0-30.0 Salicylates Reference Ranges: Therapeutic 15 - 30 mg/dl Toxicity >30 mg/dl Lethal >70 mg/dl [id number] 06:42:00 Test Item Value Reference Range Interpretation [...] 4 - SerumAlbu min)] EGFR if >60 German (test code mL/min/1.73m\\ = EGFRAA) S\\2 EGFR if Non- >60 Estimate d Glomerular German (test code mL/min/1.73m\\ Filtrat ion Rate (eGFR) [...] = ACET) <2 ug/ml 10-25 L ALCOHOL, [id number] 06:41:00 Test Item Value Reference Range Interpretation Comments Alcohol % (test code = 0 % 0.00-0.00 N Dereck ol % 0.00 - 0.10 ALCPC) Sub-clinical 0.11 - 0.20 Emotional Instability 0.21 - 0.30 Confusion 0.31 - 0.40 Stupor 0.41 - 0.50 Coma >.50 Fatal CBC WITH AUTO [id number] 06:13:00 Test Item Value Reference Range Interpretation [...] (test code = 0.4 % 0.0-0.4 IG%) [id number] 08:45:00 Test Item Value Reference Range Interpretation [...] NONEMedical Necessity SUSPECT COAGULOPATHYAnticoagulant? NONEMedical Necessity: SUSP [id number] 08:45:00 Test Item Value Reference Range Interpretation Comments Coagulation (test code = PTT) 27.2 SEC 22.9-36.1 N Anticoagulant? NONEMedical Necessity SUSPECT COAGULOPATHYAnticoagulant? NONEMedical Necessity: SUSP [id number] 08:44:00 Test Item Value Reference Range Interpretation Comments Chemistry (test 2.9 ng/mL 0-6.6 N code = CKMBM-T) Chemistry (test 0.015 ng/mL < 0.028 code = TROPI-T) Reference Ra nge 0.0 0 - 0.028 ng/mL Negative 0.0 29 - 0.29 ng/mL Indeterminate Greater or Equal to 0.3 ng/mL Strongly sugge sts SD [id number] 08:40:00 Test Item Value Reference Range Interpretation [...] 17 U/L 8-55 N code = ALT) [id number] 08:40:00 Test Item Value Reference Range Interpretation Comments Chemistry (test code = CK) 119 U/L 30-200 N [id number] 08:23:00 Test Item Value Reference Range Interpretation [...] code = BASO#) 0.1 thou/uL 0.0-0.2 N [id number] 19:03:00 Test Item Value Reference Range Interpretation [...] code 16 U/L 8-55 N = ALT) [id number] 18:46:00 Test Item Value Reference Range Interpretation [...] code = BASO#) 0.1 thou/uL 0.0-0.2 N [id number] 18:45:00 Test Item Value Reference Range Interpretation [...] Negative Negative Comment clear yellowUrine Source: Urine [id number] 18:45:00 Test Item Value Reference Range Interpretation Comments Urinalysis (test code = UARBC) 0-3 HPF 0-3 Urinalysis (test code = UAWBC) 4-6 HPF 0-3 A Urinalysis (test code = UASQUAM) 0-3 HPF 0-3 Urinalysis (test code = UABAC) 1+ HPF None Seen A Comment clear yellowUrine Source: Urine [id number] 20:56:00 Test Item Value Reference Range Interpretation [...] LPF 0-3 Hyaline UACAST) Urine Source: Urine [id number] 19:22:00 Test Item Value Reference Range Interpretation Comments Chemistry (test Less than < 0.028 code = TROPI-T) 0.010 ng/mL Reference Ra nge 0. 00 - 0.028 ng/mL Negative 0.029 - 0.29 n g/mL Indeterminate Greater or Equa l to 0.3 ng/mL [facility] Comment Pls draw at 7 pm.[id number] 16:36:00 Test Item Value Reference Range Interpretation [...] NONEMedical Necessity SUSPECT COAGULOPATHYAnticoagulant? NONEMedical Necessity: SUSP [id number] 16:36:00 Test Item Value Reference Range Interpretation Comments Coagulation (test code = PTT) 26.2 SEC 22.9-36.1 N Anticoagulant? NONEMedical Necessity SUSPECT COAGULOPATHYAnticoagulant? NONEMedical Necessity: SUSP [id number] 16:34:00 Test Item Value Reference Range Interpretation Comments Chemistry (test 2.5 ng/mL 0-6.6 N code = CKMBM-T) Chemistry (test Less than < 0.028 code = TROPI-T) 0.010 ng/mL Reference Ra nge 0. 00 - 0.028 ng/mL Negative 0.029 - 0.29 n g/mL Indeterminate Greater or Equa l to 0.3 ng/mL St [place] suggests SD [id number] 16:31:00 Test Item Value Reference Range Interpretation [...] code 17 U/L 8-55 N = ALT) [id number] 16:13:00 Test Item Value Reference Range Interpretation [...]
--- NOTE | 2021-01-18 15:59 | EDPHYS ---
Physician Documentation [facility] Name: Jasmin Haley Age: 50 yrs Sex: Male : 1970 Arrival Date: 01/18/2021 Time: 15:16 Bed 26 Private MD: ED Physician Avelino Sanford HPI: 01/18 16:19 This 50 yrs old Male presents to ER via Ambulatory with complaints of Skin kb Problem, Rash. 16:19 The patient's rash thought to be caused by Dermatitis. The rash is located on the right kb arm and left arm. The rash can be described as erythematous, papular. Onset: The symptoms/episode began/occurred 2 day(s) ago. Associated signs and symptoms: Pertinent positives: itching. Severity of symptoms: At their worst the symptoms were moderate in the emergency department the symptoms are unchanged. The patient has not experienced similar symptoms in the past. The patient has not recently seen a physician. Pt reports he got into poison [place] 2 days ago. c/o itchy rash to bilateral arms. Historical: - Allergies: 15:36 No Known Allergies; jd3 - Home Meds: 15:36 None [Active]; jd3 - PMHx: 15:36 bipolar/schizo; Hypertension; jd3 - PSHx: 15:36 None; jd3 - Immunization history:: Adult Immunizations up to date. - Social history:: Smoking status: Patient reports the use of cigarette tobacco products, smokes one-half pack cigarettes per day. ROS: 16:18 Constitutional: Negative for fever, chills, and weight loss, ENT: Negative for injury, kb pain, and discharge, Respiratory: Negative for shortness of breath, cough, wheezing, and pleuritic chest pain, MS/Extremity: Negative for injury and deformity, Neuro: Negative for headache, weakness, numbness, tingling, and seizure. 16:18 Skin: Positive for rash, swelling, of the left arm and right arm. Exam: 16:18 Constitutional: This is a well developed, well nourished patient who is awake, alert, kb and in no acute distress. Head/Face: Normocephalic, atraumatic. ENT: Moist Mucous membranes Respiratory: Respirations even and unlabored. No increased work of breathing, no retractions or nasal flaring. MS/ Extremity: Pulses equal, no cyanosis. Neurovascular intact. Full, normal range of motion. Neuro: Awake and alert, GCS 15, oriented to person, place, time, and situation. Moves all extremities. Normal gait. Psych: Awake, alert, with orientation to person, place and time. Behavior, mood, and affect are within normal limits. 16:18 Skin: rash a moderate rash is noted, consistent with contact dermatitis, on the right arm and left arm. Vital Signs: 15:36 BP 160 / 102; Pulse 81; Resp 18 S; Temp 98.0(TE); Pulse Ox 98% on R/A; Weight 71.67 kg jd3 (R); Height 5 ft. 6 in. (167.64 cm) (R); Pain 8/10; 15:36 Body Mass Index 25.50 (71.67 kg, 167.64 cm) jd3 MDM: 15:44 Patient medically screened. kb 16:18 Data reviewed: vital signs, nurses notes. Data interpreted: Pulse oximetry: on room air kb is 98 %. Interpretation: normal. Counseling: I had a detailed discussion with the patient and/or guardian regarding: the historical points, exam findings, and any diagnostic results supporting the discharge/admit diagnosis, the need for outpatient follow up, a family practitioner, to return to the emergency department if symptoms worsen or persist or if there are any questions or concerns that arise at home. Administered Medications: 16:11 Drug: predniSONE 40 mg Route: PO; zb 16:12 Follow up: Response: Medication administered at discharge. zb 16:11 Drug: Pepcid (famotidine) 20 mg Route: PO; zb 16:12 Follow up: Response: Medication administered at discharge. zb Disposition: 01/19 07:44 Co-signature as Attending Physician, Avelino Sanford MD I agree with the assessment and lilia plan of care. Disposition: 01/18/21 15:58 Discharged to Home. Impression: Allergic contact dermatitis due to plants, except food. - Condition is Stable. - Discharge Instructions: Poison [place] Dermatitis, Contact Dermatitis, Xcfs-tc-Kbqj. - Prescriptions for Pepcid 20 mg Oral Tablet - take 1 tablet by ORAL route every 12 hours for 5 days; 10 tablet. Prednisone 20 mg Oral Tablet - take 1 tablet by ORAL route once daily for 5 days; 5 tablet. - Medication Reconciliation Form, Thank You Letter, Antibiotic Education, Prescription Opioid Use form. - Follow up: Emergency Department; When: As needed; Reason: Worsening of condition. Follow up: Private Physician; When: 2 - 3 days; Reason: Recheck today's complaints, Continuance of care, Re-evaluation by your physician. Signatures: Dina Bowden, LIBRARY SPECIALIST-C LIBRARY SPECIALIST-Davidb Avelino Sanford MD MD cha Davies, Jonathon RN RN Jud Kyle RN RN zb Corrections: (The following items were deleted from the chart) 01/18 16:19 15:58 01/18/2021 15:58 Discharged to Home. Impression: Allergic contact dermatitis due zb to plants, except food. Condition is Stable. Forms are Medication Reconciliation Form, Thank You Letter, Antibiotic Education, Prescription Opioid Use. Follow up: Emergency Department; When: As needed; Reason: Worsening of condition. Follow up: Private Physician; When: 2 - 3 days; Reason: Recheck today's complaints, Continuance of care, Re-evaluation by your physician. kb
--- NOTE | 2021-01-18 15:59 | ER ---
Nurse's Notes [facility] Name: Jasmin Haley Age: 50 yrs Sex: Male : 1970 Arrival Date: 01/18/2021 Time: 15:16 Bed 26 Private MD: Diagnosis: Allergic contact dermatitis due to plants, except food Presentation: 01/18 15:34 Chief complaint: Patient states: "I got into some poison [place]ac while under a house for jd3 my job. I have two pretty bad spots on my arms.". Coronavirus screen: At this time, the client does not indicate any symptoms associated with coronavirus-19. Ebola Screen: Patient negative for fever greater than or equal to 101.5 degrees Fahrenheit, and additional compatible Ebola Virus Disease symptoms. Initial Sepsis Screen: Does the patient meet any 2 criteria? No. Patient's initial sepsis screen is negative. Does the patient have a suspected source of infection? No. Patient's initial sepsis screen is negative. Risk Assessment: Do you want to hurt yourself or someone else? Patient reports no desire to harm self or others. Onset of symptoms was January 15, 2021. 15:34 Method Of Arrival: Ambulatory jd3 15:34 Acuity: GISELA 4 jd3 Historical: - Allergies: 15:36 No Known Allergies; jd3 - Home Meds: 15:36 None [Active]; jd3 - PMHx: 15:36 bipolar/schizo; Hypertension; jd3 - PSHx: 15:36 None; jd3 - Immunization history:: Adult Immunizations up to date. - Social history:: Smoking status: Patient reports the use of cigarette tobacco products, smokes one-half pack cigarettes per day. Screenin:18 Abuse screen: Denies threats or abuse. Denies injuries from another. Nutritional zb screening: No deficits noted. Tuberculosis screening: No symptoms or risk factors identified. Fall Risk None identified. Assessment: 16:16 Reassessment:. General: Appears in no apparent distress. comfortable, Behavior is calm, zb cooperative, appropriate for age. Pain: Complains of pain in right arm and left arm Quality of pain is described as burning. Neuro: Level of Consciousness is awake, alert, obeys commands, Oriented to person, place, time, situation. Cardiovascular: Patient's skin is warm and dry. Respiratory: No deficits noted. GI: No deficits noted. : No deficits noted. EENT: No deficits noted. Derm: Wound noted palmar aspect of right forearm and left bicep Wound is black and scabbed. Musculoskeletal: Circulation, motion, and sensation intact. Range of motion: intact in all extremities. Vital Signs: 15:36 BP 160 / 102; Pulse 81; Resp 18 S; Temp 98.0(TE); Pulse Ox 98% on R/A; Weight 71.67 kg jd3 (R); Height 5 ft. 6 in. (167.64 cm) (R); Pain 8/10; 15:36 Body Mass Index 25.50 (71.67 kg, 167.64 cm) jd3 ED Course: 15:16 Patient arrived in ED. am2 15:35 Triage completed. jd3 15:37 Arm band placed on. jd3 15:44 Dina Bowden FNP-C is [facility]. kb 15:44 Avelino Sanford MD is Attending Physician. kb 15:58 Jud Crump RN is Primary Nurse. zb 16:18 No provider procedures requiring assistance completed. Patient did not have IV access zb during this emergency room visit. 16:19 Patient has correct armband on for positive identification. zb Administered Medications: 16:11 Drug: predniSONE 40 mg Route: PO; zb 16:12 Follow up: Response: Medication administered at discharge. zb 16:11 Drug: Pepcid (famotidine) 20 mg Route: PO; zb 16:12 Follow up: Response: Medication administered at discharge. zb Outcome: 15:58 Discharge ordered by . kb 16:18 Discharged to home ambulatory. zb 16:18 Condition: stable 16:18 Discharge instructions given to patient, Instructed on discharge instructions, follow up and referral plans. medication usage, Demonstrated understanding of instructions, follow-up care, medications, Prescriptions given X 2. 16:19 Patient left the ED. zb Signatures: Dina Bowden FNP-C FNP-Tasha Carlos am2 Avel Canales RN RN jd3 Brown, Zipporah, RN RN zb
[2021-01-18] MEDS ORDERED: FAMOTIDINE 20 MG TAB ONE (16:22)
[2021-01-18] MEDS ORDERED: predniSONE 20 MG TAB ONE (16:22)
[2021-01-18 16:49] VITALS: BP 160/102; TEMP 98; O2SAT 98
== END 2021-01-18 16:19 | disposition home or self-care (01) ==
LOC: ER 15:11
DX: L25.5 Unspecified contact dermatitis due to plants, except food (principal); F31.9 Bipolar disorder, unspecified; F20.9 Schizophrenia, unspecified; I10 Essential (primary) hypertension; F17.210 Nicotine dependence, cigarettes, uncomplicated
CPT/HCPCS: 99283; J7512

== ENCOUNTER 2021-01-25 11:39 | Emergency (ER) | payer SELFPAY ==
--- OUTSIDE RECORDS SUMMARY | 2021-01-25 11:42 | XMS REPORT | Continuity of Care Document ---
:1970 Author Organization [facility] t Address [address] [place] [address] Care Team Providers Name Role Phone DAVID Attending Clinician Unavailable LANA FABIAN Attending Clinician CHAGO Attending Clinician Unavailable Alba Coronado Attending Clinician Unavailable PROVIDER, TEMP Attending Clinician Unavailable Edita AYALA Attending Clinician Unavailable DAVID Admitting Clinician Unavailable Payers Payer Name Policy Type Policy Effective Date Expiration Date Sour ce Number MEDICAID [facility] PENDING [facility] JOVANNA CARE [facility] PENDING [facility] Problems Condition Condition Condition Status Onset Resolution [...] NO UP TO DATE FLU Unknown Completed [facility] (LUF/LIOR/SA) Vital Signs Vital Name Observation Time Observation Value Comments Source Body Temperature 2018-08-08 05:01:[address] [facility] (LUF/LIOR/SA) Pulse Rate 2018-08-08 05:01:00 87 /min [facility] (LUF/LIOR/SA) Respiratory Rate 2018-08-08 05:01:00 18 /min [facility] (LUF/LIOR/SA) O2% BldC Oximetry 2018-08-08 05:01:00 98 % [facility] (LUF/LIOR/SA) BP Systolic 2018-08-08 05:01:00 160 mm[Hg] [facility] (LUF/LIOR/SA) BP Diastolic 2018-08-08 05:01:00 110 mm[Hg] [facility] (LUF/LIOR/SA) Height 2018-08-08 05:01:00 66 in [facility] (LUF/LIOR/SA) Weight Measured 2018-08-08 05:01:00 154.32 lbs [facility] Loren marsh [facility] (LUF/LIOR/SA) BMI (Body Mass Index) 2018-08-08 05:01:[address] [facility] (LUF/LIOR/SA) Procedures This patient has no known procedures. Encounters Start End Encounter Admission Attending Care Care Encounter Source Date/Time Date/Time Type Type Clinicians Facility Department ID 2018-08-08 2018-08-08 Inpatient MARÍA CAICEDO [facility] [id number] [facility] [address] 04:58:00 11:31:00 [facility] - N, [address] [place] [address] 2018-07-01 2018-07-01 Departed MIRELA SCHWARTZ [id number] [place] 19:23:00 20:28:00 [facility] Results Test Description Test Time Test Comments Results Result Comments Source SALICYLATES (Aspirin) 2018-08-08 06:47:00 Test Item Value Reference Range Interpretation Comme nts Salicylate (test code = SALI) 2.3 mg/dl 0.0-30.0 Salicylates Reference Ranges: Therapeutic 15 - 30 mg/dl Toxicity >30 mg/dl Lethal >70 mg/dl [id number] 06:42:00 Test Item Value Reference Range Interpretation [...] 4 - SerumAlbu min)] EGFR if >60 Singaporean (test code mL/min/1.73m\\ = EGFRAA) S\\2 EGFR if Non- >60 Estimate d Glomerular Singaporean (test code mL/min/1.73m\\ Filtrat ion Rate (eGFR) [...] = ACET) <2 ug/ml 10-25 L ALCOHOL, [id number] 06:41:00 Test Item Value Reference Range Interpretation Comments Alcohol % (test code = 0 % 0.00-0.00 N Dereck ol % 0.00 - 0.10 ALCPC) Sub-clinical 0.11 - 0.20 Emotional Instability 0.21 - 0.30 Confusion 0.31 - 0.40 Stupor 0.41 - 0.50 Coma >.50 Fatal CBC WITH AUTO [id number] 06:13:00 Test Item Value Reference Range Interpretation [...] (test code = 0.4 % 0.0-0.4 IG%) [id number] 08:45:00 Test Item Value Reference Range Interpretation [...] NONEMedical Necessity SUSPECT COAGULOPATHYAnticoagulant? NONEMedical Necessity: SUSP [id number] 08:45:00 Test Item Value Reference Range Interpretation Comments Coagulation (test code = PTT) 27.2 SEC 22.9-36.1 N Anticoagulant? NONEMedical Necessity SUSPECT COAGULOPATHYAnticoagulant? NONEMedical Necessity: SUSP [id number] 08:44:00 Test Item Value Reference Range Interpretation Comments Chemistry (test 2.9 ng/mL 0-6.6 N code = CKMBM-T) Chemistry (test 0.015 ng/mL < 0.028 code = TROPI-T) Reference Ra nge 0.0 0 - 0.028 ng/mL Negative 0.0 29 - 0.29 ng/mL Indeterminate Greater or Equal to 0.3 ng/mL Strongly sugge sts NE [id number] 08:40:00 Test Item Value Reference Range Interpretation [...] 17 U/L 8-55 N code = ALT) [id number] 08:40:00 Test Item Value Reference Range Interpretation Comments Chemistry (test code = CK) 119 U/L 30-200 N [id number] 08:23:00 Test Item Value Reference Range Interpretation [...] code = BASO#) 0.1 thou/uL 0.0-0.2 N [id number] 19:03:00 Test Item Value Reference Range Interpretation [...] code 16 U/L 8-55 N = ALT) [id number] 18:46:00 Test Item Value Reference Range Interpretation [...] code = BASO#) 0.1 thou/uL 0.0-0.2 N [id number] 18:45:00 Test Item Value Reference Range Interpretation [...] Negative Negative Comment clear yellowUrine Source: Urine [id number] 18:45:00 Test Item Value Reference Range Interpretation Comments Urinalysis (test code = UARBC) 0-3 HPF 0-3 Urinalysis (test code = UAWBC) 4-6 HPF 0-3 A Urinalysis (test code = UASQUAM) 0-3 HPF 0-3 Urinalysis (test code = UABAC) 1+ HPF None Seen A Comment clear yellowUrine Source: Urine [id number] 20:56:00 Test Item Value Reference Range Interpretation [...] LPF 0-3 Hyaline UACAST) Urine Source: Urine [id number] 19:22:00 Test Item Value Reference Range Interpretation Comments Chemistry (test Less than < 0.028 code = TROPI-T) 0.010 ng/mL Reference Ra nge 0. 00 - 0.028 ng/mL Negative 0.029 - 0.29 n g/mL Indeterminate Greater or Equa l to 0.3 ng/mL [facility] Comment Pls draw at 7 pm.[id number] 16:36:00 Test Item Value Reference Range Interpretation [...] NONEMedical Necessity SUSPECT COAGULOPATHYAnticoagulant? NONEMedical Necessity: SUSP [id number] 16:36:00 Test Item Value Reference Range Interpretation Comments Coagulation (test code = PTT) 26.2 SEC 22.9-36.1 N Anticoagulant? NONEMedical Necessity SUSPECT COAGULOPATHYAnticoagulant? NONEMedical Necessity: SUSP [id number] 16:34:00 Test Item Value Reference Range Interpretation Comments Chemistry (test 2.5 ng/mL 0-6.6 N code = CKMBM-T) Chemistry (test Less than < 0.028 code = TROPI-T) 0.010 ng/mL Reference Ra nge 0. 00 - 0.028 ng/mL Negative 0.029 - 0.29 n g/mL Indeterminate Greater or Equa l to 0.3 ng/mL [facility] [place] suggests NE [id number] 16:31:00 Test Item Value Reference Range Interpretation [...] code 17 U/L 8-55 N = ALT) [id number] 16:13:00 Test Item Value Reference Range Interpretation [...]
--- NOTE | 2021-01-25 13:12 | EDPHYS ---
Physician Documentation [facility] Name: Jasmin Haley Age: 50 yrs Sex: Male : 1970 Arrival Date: 01/25/2021 Time: 11:40 Bed 21 Private MD: ED Physician Ravindra Glass HPI: 01/25 14:21 This 50 yrs old Male presents to ER via Ambulatory with complaints of Rash. jr8 14:21 Patient stated that he was treated last week for contact dermatitis. Stated that the jr8 prednisone helped but only had a prescription for 5 days. Still having rash and itching but overall has improved . Historical: - Allergies: 12:16 No Known Allergies; em - PMHx: 12:16 bipolar/schizo; Hypertension; em - PSHx: 12:16 None; em - Immunization history:: Adult Immunizations up to date. - Social history:: Smoking status: Patient reports the use of cigarette tobacco products, smokes one-half pack cigarettes per day. ROS: 14:21 Eyes: Negative for injury, pain, redness, and discharge, ENT: Negative for injury, jr8 pain, and discharge, Neck: Negative for injury, pain, and swelling, Cardiovascular: Negative for chest pain, palpitations, and edema, Respiratory: Negative for shortness of breath, cough, wheezing, and pleuritic chest pain, Abdomen/GI: Negative for abdominal pain, nausea, vomiting, diarrhea, and constipation, Back: Negative for injury and pain, MS/Extremity: Negative for injury and deformity, Neuro: Negative for headache, weakness, numbness, tingling, and seizure. 14:21 Skin: Positive for rash. Exam: 14:21 Constitutional: This is a well developed, well nourished patient who is awake, alert, jr8 and in no acute distress. Cardiovascular: Regular rate and rhythm with a normal S1 and S2. No gallops, murmurs, or rubs. Normal PMI, no JVD. No pulse deficits. Respiratory: Lungs have equal breath sounds bilaterally, clear to auscultation and percussion. No rales, rhonchi or wheezes noted. No increased work of breathing, no retractions or nasal flaring. MS/ Extremity: Pulses equal, no cyanosis. Neurovascular intact. Full, normal range of motion. Neuro: Awake and alert, GCS 15, oriented to person, place, time, and situation. 14:21 Skin: rash a mild rash is noted, rash can be described as erythematous, papular, on the right hand, left hand, right arm and left arm. Vital Signs: 12:12 BP 118 / 92; Pulse 75; Resp 18; Temp 97.8; Pulse Ox 98% on R/A; Weight 63.5 kg; Height em 5 ft. 6 in. (167.64 cm); Pain 0/10; 12:12 Body Mass Index 22.60 (63.50 kg, 167.64 cm) em MDM: 12:54 Patient medically screened. jr8 13:11 Data reviewed: vital signs, nurses notes, and as a result, I will discharge patient. jr8 Data interpreted: Pulse oximetry: on room air is 98 %. Interpretation: normal. Counseling: I had a detailed discussion with the patient and/or guardian regarding: the historical points, exam findings, and any diagnostic results supporting the discharge/admit diagnosis, the need for outpatient follow up, a family practitioner, to return to the emergency department if symptoms worsen or persist or if there are any questions or concerns that arise at home. Administered Medications: No medications were administered Disposition: 15:08 Co-signature as Attending Physician, Ravindra Glass MD I agree with the assessment and kdr plan of care. Disposition: 01/25/21 13:11 Discharged to Home. Impression: Allergic contact dermatitis. - Condition is Stable. - Discharge Instructions: Contact Dermatitis. - Prescriptions for Medrol (Alfredo) 4 mg Oral Tablets, Dose Pack - take 1 tablet by ORAL route as directed - follow package instructions; 1 packet. - Medication Reconciliation Form, Thank You Letter, Antibiotic Education, Prescription Opioid Use form. - Follow up: Private Physician; When: 1 week; Reason: Recheck today's complaints, Continuance of care, Re-evaluation by your physician. - Problem is new. - Symptoms have improved. Signatures: Ravindra Glass MD MD [facility] Regis Villagomez, RN RN em Kev Dolan PA PA jr8 Waqas Londono RN RN jl7 Corrections: (The following items were deleted from the chart) 13:31 13:11 01/25/2021 13:11 Discharged to Home. Impression: Allergic contact dermatitis. jl7 Condition is Stable. Forms are Medication Reconciliation Form, Thank You Letter, Antibiotic Education, Prescription Opioid Use. Follow up: Private Physician; When: 1 week; Reason: Recheck today's complaints, Continuance of care, Re-evaluation by your physician. Problem is new. Symptoms have improved. jr8
--- NOTE | 2021-01-25 13:12 | ER ---
Nurse's Notes [facility] Name: Jasmin Haley Age: 50 yrs Sex: Male : 1970 Arrival Date: 01/25/2021 Time: 11:40 Bed 21 Private MD: Diagnosis: Allergic contact dermatitis Presentation: 01/25 12:12 Chief complaint: Patient states: got into [facility] [place] 5 days ago, was given em Solu-Medrol and prednisone, reports itchiness on left arm, denies shortness of breath. Coronavirus screen: Client denies travel out of the [place] in the last 14 days. Ebola Screen: Patient negative for fever greater than or equal to 101.5 degrees Fahrenheit, and additional compatible Ebola Virus Disease symptoms Patient denies exposure to infectious person. Patient denies travel to an Ebola-affected area in the 21 days before illness onset. No symptoms or risks identified at this time. Initial Sepsis Screen: Does the patient meet any 2 criteria? No. Patient's initial sepsis screen is negative. Does the patient have a suspected source of infection? No. Patient's initial sepsis screen is negative. Risk Assessment: Do you want to hurt yourself or someone else? Patient reports no desire to harm self or others. Onset of symptoms was January 25, 2021. 12:12 Method Of Arrival: Ambulatory em 12:12 Acuity: GISELA 4 em Historical: - Allergies: 12:16 No Known Allergies; em - PMHx: 12:16 bipolar/schizo; Hypertension; em - PSHx: 12:16 None; em - Immunization history:: Adult Immunizations up to date. - Social history:: Smoking status: Patient reports the use of cigarette tobacco products, smokes one-half pack cigarettes per day. Screenin:00 Abuse screen: Denies threats or abuse. Denies injuries from another. Nutritional jl7 screening: No deficits noted. Tuberculosis screening: No symptoms or risk factors identified. Fall Risk None identified. Assessment: 13:00 General: Appears in no apparent distress. uncomfortable, Behavior is calm, cooperative, jl7 appropriate for age. Pain: Denies pain. Neuro: Level of Consciousness is awake, alert, obeys commands, Oriented to person, place, time, situation. Cardiovascular: Patient's skin is warm and dry. Respiratory: Airway is patent is compromised Respiratory effort is even, unlabored, Respiratory pattern is. Derm: Skin is pink, warm \T\ dry. Vital Signs: 12:12 BP 118 / 92; Pulse 75; Resp 18; Temp 97.8; Pulse Ox 98% on R/A; Weight 63.5 kg; Height em 5 ft. 6 in. (167.64 cm); Pain 0/10; 12:12 Body Mass Index 22.60 (63.50 kg, 167.64 cm) em ED Course: 11:40 Patient arrived in ED. ds1 12:15 Triage completed. em 12:16 Arm band placed on. em 12:41 Waqas Londono RN is Primary Nurse. jl7 12:53 Kev Dolan PA is PHCP. jr8 12:53 Ravindra Glass MD is Attending Physician. jr8 13:00 Patient has correct armband on for positive identification. Bed in low position. Call jl7 light in reach. Side rails up X 1. 13:30 No provider procedures requiring assistance completed. Patient did not have IV access jl7 during this emergency room visit. Administered Medications: No medications were administered Outcome: 13:11 Discharge ordered by . jr8 13:30 Discharged to home ambulatory. jl7 13:30 Condition: stable 13:30 Discharge instructions given to patient, Instructed on discharge instructions, follow up and referral plans. medication usage, Demonstrated understanding of instructions, follow-up care, medications, Prescriptions given X 1. 13:31 Patient left the ED. jl7 Signatures: Regis Villagomez, RN RN Nica Xiong ds1 Kev Dolan PA PA jrWaqas Torre RN RN jl7
[2021-01-25 13:39] VITALS: BP 118/92; TEMP 97.8; O2SAT 98
== END 2021-01-25 13:31 | disposition home or self-care (01) ==
LOC: ER 11:39
DX: L23.9 Allergic contact dermatitis, unspecified cause (principal); I10 Essential (primary) hypertension; F17.210 Nicotine dependence, cigarettes, uncomplicated
CPT/HCPCS: 99282

== ENCOUNTER 2021-03-07 01:09 | Emergency (ER) | payer SELFPAY ==
--- OUTSIDE RECORDS SUMMARY | 2021-03-07 01:15 | XMS REPORT | Continuity of Care Document ---
:1970 Author Organization [facility] t Address [address] [place] [address] Care Team Providers Name Role Phone DAVID Attending Clinician Unavailable LANA FABIAN Attending Clinician CHAGO Attending Clinician Unavailable Alba Coronado Attending Clinician Unavailable PROVIDER, TEMP Attending Clinician Unavailable Edita AYALA Attending Clinician Unavailable DAVID Admitting Clinician Unavailable Payers Payer Name Policy Type Policy Effective Date Expiration Date Sour ce Number MEDICAID [facility] PENDING [facility] JOVANNA CARE [facility] PENDING [facility] Problems Condition Condition Condition Status Onset Resolution [...] NO UP TO DATE FLU Unknown Completed [facility] (LUF/LIOR/SA) Vital Signs Vital Name Observation Time Observation Value Comments Source Body Temperature 2018-08-08 05:01:00 98.9 F [facility] (LUF/LIOR/SA) Pulse Rate 2018-08-08 05:01:00 87 /min [facility] (LUF/LIOR/SA) Respiratory Rate 2018-08-08 05:01:00 18 /min [facility] (LUF/LIOR/SA) O2% BldC Oximetry 2018-08-08 05:01:00 98 % [facility] (LUF/LIOR/SA) BP Systolic 2018-08-08 05:01:00 160 mm[Hg] [facility] (LUF/LIOR/SA) BP Diastolic 2018-08-08 05:01:00 110 mm[Hg] [facility] (LUF/LIOR/SA) Height 2018-08-08 05:01:00 66 in [facility] (LUF/LIOR/SA) Weight Measured 2018-08-08 05:01:00 154.32 lbs [facility] (LUF/LIOR/SA) BMI (Body Mass Index) 2018-08-08 05:01:00 25 [facility] (LUF/LIOR/SA) Procedures This patient has no known procedures. Encounters Start End Encounter Admission Attending Care Care Encounter Source Date/Time Date/Time Type Type Clinicians Facility Department ID 2018-08-08 2018-08-08 Inpatient MARÍA CAICEDO [facility] [id number] [facility] [address] 04:58:00 11:31:00 [facility] [place], [address], [place] [id number] 2018-07-01 2018-07-01 Departed MIRELA SCHWARTZ [id number] [place] 19:23:00 20:28:00 Emergency [facility] [address] [facility] Results Test Description Test Time Test Comments Results Result Comments Source SALICYLATES (Aspirin) 2018-08-08 06:47:00 Test Item Value Reference Range Interpretation Comme nts Salicylate (test code = SALI) 2.3 mg/dl 0.0-30.0 Salicylates Reference Ranges: Therapeutic 15 - 30 mg/dl Toxicity >30 mg/dl Lethal >70 mg/dl [id number] 06:42:00 Test Item Value Reference Range Interpretation [...] 4 - SerumAlbu min)] EGFR if >60 [place]i (test code mL/min/1.73m\\ = EGFRAA) S\\2 EGFR if Non- >60 Estimate d Glomerular [place]i (test code mL/min/1.73m\\ Filtrat ion Rate (eGFR) [...] = ACET) <2 ug/ml 10-25 L ALCOHOL, [id number] 06:41:00 Test Item Value Reference Range Interpretation Comments Alcohol % (test code = 0 % 0.00-0.00 N Dereck ol % 0.00 - 0.10 ALCPC) Sub-clinical 0.11 - 0.20 Emotional Instability 0.21 - 0.30 Confusion 0.31 - 0.40 Stupor 0.41 - 0.50 Coma >.50 Fatal CBC WITH AUTO [id number] 06:13:00 Test Item Value Reference Range Interpretation [...] (test code = 0.4 % 0.0-0.4 IG%) [id number] 08:45:00 Test Item Value Reference Range Interpretation [...] NONEMedical Necessity SUSPECT COAGULOPATHYAnticoagulant? NONEMedical Necessity: SUSP [id number] 08:45:00 Test Item Value Reference Range Interpretation Comments Coagulation (test code = PTT) 27.2 SEC 22.9-36.1 N Anticoagulant? NONEMedical Necessity SUSPECT COAGULOPATHYAnticoagulant? NONEMedical Necessity: SUSP [id number] 08:44:00 Test Item Value Reference Range Interpretation Comments Chemistry (test 2.9 ng/mL 0-6.6 N code = CKMBM-T) Chemistry (test 0.015 ng/mL < 0.028 code = TROPI-T) Reference Ra nge 0.0 0 - 0.028 ng/mL Negative 0.0 29 - 0.29 ng/mL Indeterminate Greater or Equal to 0.3 ng/mL Strongly sugge sts CO [id number] 08:40:00 Test Item Value Reference Range Interpretation [...] 17 U/L 8-55 N code = ALT) [id number] 08:40:00 Test Item Value Reference Range Interpretation Comments Chemistry (test code = CK) 119 U/L 30-200 N [id number] 08:23:00 Test Item Value Reference Range Interpretation [...] code = BASO#) 0.1 thou/uL 0.0-0.2 N [id number] 19:03:00 Test Item Value Reference Range Interpretation [...] code 16 U/L 8-55 N = ALT) [id number] 18:46:00 Test Item Value Reference Range Interpretation [...] code = BASO#) 0.1 thou/uL 0.0-0.2 N [id number] 18:45:00 Test Item Value Reference Range Interpretation [...] Negative Negative Comment clear yellowUrine Source: Urine [id number] 18:45:00 Test Item Value Reference Range Interpretation Comments Urinalysis (test code = UARBC) 0-3 HPF 0-3 Urinalysis (test code = UAWBC) 4-6 HPF 0-3 A Urinalysis (test code = UASQUAM) 0-3 HPF 0-3 Urinalysis (test code = UABAC) 1+ HPF None Seen A Comment clear yellowUrine Source: Urine [id number] 20:56:00 Test Item Value Reference Range Interpretation [...] LPF 0-3 Hyaline UACAST) Urine Source: Urine [id number] 19:22:00 Test Item Value Reference Range Interpretation Comments Chemistry (test Less than < 0.028 code = TROPI-T) 0.010 ng/mL Reference Ra nge 0. 00 - 0.028 ng/mL Negative 0.029 - 0.29 n g/mL Indeterminate Greater or Equa l to 0.3 ng/mL [facility] Comment Pls draw at 7 pm.[id number] 16:36:00 Test Item Value Reference Range Interpretation [...] NONEMedical Necessity SUSPECT COAGULOPATHYAnticoagulant? NONEMedical Necessity: SUSP [id number] 16:36:00 Test Item Value Reference Range Interpretation Comments Coagulation (test code = PTT) 26.2 SEC 22.9-36.1 N Anticoagulant? NONEMedical Necessity SUSPECT COAGULOPATHYAnticoagulant? NONEMedical Necessity: SUSP [id number] 16:34:00 Test Item Value Reference Range Interpretation Comments Chemistry (test 2.5 ng/mL 0-6.6 N code = CKMBM-T) Chemistry (test Less than < 0.028 code = TROPI-T) 0.010 ng/mL Reference Ra nge 0. 00 - 0.028 ng/mL Negative 0.029 - 0.29 n g/mL Indeterminate Greater or Equa l to 0.3 ng/mL [facility] suggests CO [id number] 16:31:00 Test Item Value Reference Range Interpretation [...] code 17 U/L 8-55 N = ALT) [id number] 16:13:00 Test Item Value Reference Range Interpretation [...]
[2021-03-07] MEDS ORDERED: NA CHLORIDE 0.9% 1,000 ML ONE (02:00)
[2021-03-07 02:02] LABS: Absolute Lymphocytes (CBC) 1.8 K/uL (0.7-4.9); Basophils % 0.7 % (0-1.3); Hematocrit 42.8 % (39.6-49.0); Lymphocytes % 13.5 % (15.3-44.8); MPV 7.6 fL (7.6-11.3); RBC Red Blood Cell Count 4.74 M/uL (4.33-5.43)
[2021-03-07 02:16] LABS: Protime INR 0.95
[2021-03-07 02:35] LABS: ALT/SGPT 24 U/L (12-78); Albumin 3.7 g/dL (3.4-5.0); Alkaline Phosphatase 57 U/L (45-117); BUN Blood Urea Nitrogen 24 mg/dL (7-18); Bicarbonate 29 mmol/L (21-32); Bilirubin Direct 0.1 mg/dL (0-0.2); Bilirubin Total 0.4 mg/dL (0.2-1.0); Glucose Level 87 mg/dL (74-106); Protein, Total 7.4 g/dL (6.4-8.2); Sodium Level 139 mmol/L (136-145)
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
[2021-03-07 02:41] LABS: AST/SGOT 21 U/L (15-37); Potassium 3.7 mmol/L (3.5-5.1)
[2021-03-07 03:39] VITALS: TEMP 97.7
[2021-03-07 03:44] VITALS: BP 124/69; O2SAT 99
--- NOTE | 2021-03-07 09:09 | RAD REPORT ---
EXAM DESCRIPTION: RAD - Wrist Left 3 View - 03/07/2021 2:26 am CLINICAL HISTORY: PAIN Pain COMPARISON: No comparisons FINDINGS: Fracture fragment along the ulnar aspect of the dorsal wrist is most compatible with a tri quetrum fracture. Mild soft tissue swelling is noted. No dislocation evident. IMPRESSION: Triquetrum fracture.
--- NOTE | 2021-03-08 06:21 | EKG ---
Test Date: 2021-03-07 Test Time: 01:47:43 Manager Special Events: SADAF MEASUREMENT RESULTS: Intervals: Rate: 66 LA: 160 QRSD: 84 QT: 444 QTc: 465 [place]: P: 67 LA: 160 QRS: 78 T: 72 INTERPRETIVE STATEMENTS: Normal sinus rhythm Minimal voltage criteria for LVH, may be normal variant Borderline ECG No previous ECG available for comparison Electronically Signed On 03-08-21 06:18:02 CDT by Mateus Gonsalez
== END 2021-03-07 03:28 | disposition home or self-care (01) ==
LOC: ER 01:09
DX: S63.592A Other specified sprain of left wrist, initial encounter (principal); W22.8XXA Striking against or struck by other objects, initial encounter; F17.210 Nicotine dependence, cigarettes, uncomplicated
CPT/HCPCS: 36415; 80048; 80076; 80320; 80329; 85025; 85610; 85730; 93005; 99284; J7030

== ENCOUNTER 2021-07-09 11:39 | Emergency (ER) | payer SELFPAY ==
[2021-07-09] MEDS ORDERED: KETOROLAC 30 MG/ML INJ ONE (13:29)
--- NOTE | 2021-07-09 13:49 | RAD REPORT ---
EXAM DESCRIPTION: RAD - Ribs Right - 07/09/2021 1:42 pm CLINICAL HISTORY: fall COMPARISON: No comparisons FINDINGS: No displaced rib fractures are seen. No underlying pneumothorax.
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
[2021-07-09 14:34] VITALS: TEMP 98.5
[2021-07-09 14:36] VITALS: BP 144/88; O2SAT 100
--- OUTSIDE RECORDS SUMMARY | 2021-07-20 08:09 | XMS REPORT | Continuity of Care Document ---
:[address] [facility] t Address [address] [place] [address] Care Team Providers Name Role Phone Stephen Attending Clinician Unavailable Bruno Attending Clinician Unavailable DAVID Attending Clinician Unavailable LANA FABIAN Attending Clinician CHAGO Attending Clinician Unavailable Alba Coronado Attending Clinician Unavailable PROVIDER, TEMRaj Attending Clinician Unavailable Edita AYALA Attending Clinician Unavailable DAVID Admitting Clinician Unavailable Payers Payer Name Policy Type Policy Effective Date Expiration Date Sour ce Number MEDICAID NA [place] PENDING [facility] JOVANNA CARE NA [place] PENDING [facility] Problems Condition Condition Condition Status Onset Resolution Last Treating Co mments Source Name Details Category Date Date Treatment Clinician Date Bipolar Bipolar Problem Active 2017-[address] [facility] [facility] (LUF/LI V/SA) Suicidal Suicidal Problem [facility] (LUF/LI V/SA) Depressive Depressive Problem Active 2017-[address] [facility] (LUF/LI V/SA) 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 Immunizations Ordered Immunization Filled Immunization Date Status Commen ts Source Name Name NO UP TO DATE FLU NO UP TO DATE FLU Unknown Completed [facility] (LUF/LIOR/SA) Vital Signs Vital Name Observation Time Observation Value Comments Source Body Temperature 2018-08-08 05:01:00 98.9 F [facility] (LUF/LIOR/SA) Pulse Rate 2018-08-08 05:01:00 87 /min [facility] (LUF/LIOR/SA) Respiratory Rate 2018-08-08 05:01:00 18 /min [facility] (LUF/LIOR/SA) O2% BldC Oximetry 2018-08-08 05:01:00 98 % [facility] (LUF/LIOR/SA) BP Systolic 2018-08-08 05:01:00 160 mm[Hg] [facility] (LUF/LIOR/SA) BP Diastolic 2018-08-08 05:01:00 110 mm[Hg] [facility] (LUF/LIOR/SA) Height 2018-08-08 05:01:00 66 in [facility] (LUF/LIOR/SA) Weight Measured 2018-08-08 05:01:[address] [facility] Loren [facility] (LUF/LIOR/SA) BMI (Body Mass Index) 2018-08-08 05:01:00 25 [facility] (F/LIOR/SA) Procedures This patient has no known procedures. Encounters Start End Encounter Admission Attending Care Care Encounter Source Date/Time Date/Time Type Type Clinicians Facility Department ID 2021-06-16 2021-06-16 Emergency ER StephenTOMI wahl [id number] [address] 02:24:00 02:24:00 Karlene [id number] [place] [facility] (Emigdio[facility] n) 2021-06-15 2021-06-15 Emergency ER Zafar TOMI PRIMITIVO [id number] 15:02:00 15:02:00 Karlene -[id number] [facility] ([place]) 2021-05-28 2021-05-28 Emergency ER TOMI Carr [id number] [address] 13:51:00 13:51:00 Roshni -[id number] [facility] (mEigdioiso n) 2018-08-08 2018-08-08 Inpatient MARÍA CAICEDO [facility] [id number] 04:58:00 11:31:00 [facility] L u[facility] - N, [address], [place] [address] 2018-07-01 2018-07-01 Departed MIRELA SCHWARTZ [facility] [id number] [place] 19:23:00 20:28:00 [facility] Results Test Description Test Time Test Comments Results Result Comments Source Chemistry 2021-06-15 16:05:00 Test Item Value Reference Range Interpretation Comme nts Chemistry (test code = CKMBM-T) 2.2 ng/mL 0-6.6 N [id number] 16:04:00 Test Item Value Reference Range Interpretation Comments Chemistry (test code 139 mmol/L 136-145 N = NA-T) Chemistry (test code 4.2 mmol/L 3.5-5.1 N = K-T) Chemistry (test code 101 mmol/L 98-107 N = CL) Chemistry (test code 27 mmol/L 22-29 N = CO2) Chemistry (test code 15 mmol/L 10-20 N = ANGP) Chemistry (test code 14 mg/dL 8.9-20.6 N = BUN) Chemistry (test code 1.05 mg/dL 0.7-1.3 N = CREATT) Chemistry (test code 75 Referen ce Range for = EGFRMDRD) Estimated GFR: Great er than 90 mL/min/1.73 m2NOTE:The MDRD equation has no t been validated for u se with theelderly (ove r 70 years of age), women, patientswith se rious comorbid condit ion or persons with ex tremes ofbody size, mu scle mass, or nutrit ional status. Chemistry (test code 148 mg/dL 70-105 H = GLU-T) Chemistry (test code 9.8 mg/dL 7.8-10.44 N = CA) Chemistry (test code 0.5 mg/dL 0.2-1.2 N = TBILI-T) Chemistry (test code 6.9 g/dL 6.0-8.3 N = TP) Chemistry (test code 4.2 g/dL 3.5-5.0 N = ALB) Chemistry (test code 2.7 g/dL 2.4-3.5 N = GLOB) Chemistry (test code 1.6 g/dL 1.2-2.2 N = AG) Chemistry (test code 49 U/L 40-110 N = ALP) Chemistry (test code 13 U/L 5-34 N = AST) Chemistry (test code 13 U/L 8-55 N = ALT) [id number] 16:04:00 Test Item Value Reference Range Interpretation Comments Chemistry (test code = CK) 95 U/L 30-200 N [id number] 16:04:00 Test Item Value Reference Range Interpretation Comments Chemistry (test Less than < 0.028 code = TROPI-R) 0.010 ng/mL Reference Ra nge 0. 00 - 0.028 ng/mL Negative 0.029 - 0.29 n g/mL Indeterminate Greater or Equa l to 0.3 ng/mL [facility] [id number] 15:47:00 Test Item Value Reference Range Interpretation Comments Hematology (test code = WBCT) 10.0 thou/uL 4.8-10.8 N Hematology (test code = RBCT) 5.06 mill/uL 4.70-6.10 N Hematology (test code = HGBT) 15.6 g/dL 14.0-18.0 N Hematology (test code = HCTT) 47.8 % 42.0-52.0 N Hematology (test code = MCV) 94.5 fL 78.0-98.0 N Hematology (test code = MCH) 30.8 pg 27.0-31.0 N Hematology (test code = MCHC) 32.6 g/dL 32.0-36.0 N Hematology (test code = RDW) 11.5 % 11.5-14.5 N Hematology (test code = PLTT) 319 thou/uL 130-400 N Hematology (test code = MPV) 6.4 fL 7.4-10.4 L Hematology (test code = %NEUT) 75.9 % 42.0-75.0 H Hematology (test code = %LYMPH) 13.6 % 21.0-51.0 L Hematology (test code = %MONO) 6.9 % 0.0-10.0 N Hematology (test code = %EOS) 2.4 % 0.0-10.0 N Hematology (test code = %BASO) 1.3 % 0.0-1.0 H Hematology (test code = NEUT#) 7.6 thou/uL 1.40-6.50 H Hematology (test code = LYMPH#) 1.4 thou/uL 1.20-3.40 N Hematology (test code = MONO#) 0.7 thou/uL 0.11-0.59 H Hematology (test code = EOS#) 0.2 thou/uL 0.0-0.7 N Hematology (test code = BASO#) 0.1 thou/uL 0.0-0.2 N SALICYLATES (Aspirin)2018-08-08 06:47:00 Test Item Value Reference Range Interpretation Comments Salicylate (test code 2.3 mg/dl 0.0-30.0 Salicy lates Reference = SALI) Ranges: Therap eutic 15 - 30 mg/dl Toxicity >30 mg/dl Leth al >70 mg/dl [id number] 06:42:00 Test Item Value Reference Range Interpretation [...] 4 - SerumAlbu min)] EGFR if >60 Cambodian (test code mL/min/1.73m\\ = EGFRAA) S\\2 EGFR if Non- >60 Estimate d Glomerular Cambodian (test code mL/min/1.73m\\ Filtrat ion Rate (eGFR) [...] = ACET) <2 ug/ml 10-25 L ALCOHOL, [id number] 06:41:00 Test Item Value Reference Range Interpretation Comments Alcohol % (test code = 0 % 0.00-0.00 N Dereck ol % 0.00 - 0.10 ALCPC) Sub-clinical 0.11 - 0.20 Emotional Instability 0.21 - 0.30 Confusion 0.31 - 0.40 Stupor 0.41 - 0.50 Coma >.50 Fatal CBC WITH AUTO [id number] 06:13:00 Test Item Value Reference Range Interpretation [...] (test code = 0.4 % 0.0-0.4 IG%) [id number] 08:45:00 Test Item Value Reference Range Interpretation [...] NONEMedical Necessity SUSPECT COAGULOPATHYAnticoagulant? NONEMedical Necessity: SUSP [id number] 08:45:00 Test Item Value Reference Range Interpretation Comments Coagulation (test code = PTT) 27.2 SEC 22.9-36.1 N Anticoagulant? NONEMedical Necessity SUSPECT COAGULOPATHYAnticoagulant? NONEMedical Necessity: SUSP [id number] 08:44:00 Test Item Value Reference Range Interpretation Comments Chemistry (test 2.9 ng/mL 0-6.6 N code = CKMBM-T) Chemistry (test 0.015 ng/mL < 0.028 code = TROPI-T) Reference Ra leandro 0.0 0 - 0.028 ng/mL Negative 0.0 29 - 0.29 ng/mL Indeterminate Greater or Equal to 0.3 ng/mL Strongly sugge sts [place] [id number] 08:40:00 Test Item Value Reference Range Interpretation [...] 17 U/L 8-55 N code = ALT) [id number] 08:40:00 Test Item Value Reference Range Interpretation Comments Chemistry (test code = CK) 119 U/L 30-200 N [id number] 08:23:00 Test Item Value Reference Range Interpretation [...] code = BASO#) 0.1 thou/uL 0.0-0.2 N [id number] 19:03:00 Test Item Value Reference Range Interpretation [...] code 16 U/L 8-55 N = ALT) [id number] 18:46:00 Test Item Value Reference Range Interpretation [...] code = BASO#) 0.1 thou/uL 0.0-0.2 N [id number] 18:45:00 Test Item Value Reference Range Interpretation [...] Negative Negative Comment clear yellowUrine Source: Urine [id number] 18:45:00 Test Item Value Reference Range Interpretation Comments Urinalysis (test code = UARBC) 0-3 HPF 0-3 Urinalysis (test code = UAWBC) 4-6 HPF 0-3 A Urinalysis (test code = UASQUAM) 0-3 HPF 0-3 Urinalysis (test code = UABAC) 1+ HPF None Seen A Comment clear yellowUrine Source: Urine [id number] 20:56:00 Test Item Value Reference Range Interpretation [...] LPF 0-3 Hyaline UACAST) Urine Source: Urine [id number] 19:22:00 Test Item Value Reference Range Interpretation Comments Chemistry (test Less than < 0.028 code = TROPI-T) 0.010 ng/mL Reference Ra nge 0. 00 - 0.028 ng/mL Negative 0.029 - 0.29 n g/mL Indeterminate Greater or Equa l to 0.3 ng/mL St [place] suggests [place] Comment Pls draw at 7 pm.[id number] 16:36:00 Test Item Value Reference Range Interpretation [...] NONEMedical Necessity SUSPECT COAGULOPATHYAnticoagulant? NONEMedical Necessity: SUSP [id number] 16:36:00 Test Item Value Reference Range Interpretation Comments Coagulation (test code = PTT) 26.2 SEC 22.9-36.1 N Anticoagulant? NONEMedical Necessity SUSPECT COAGULOPATHYAnticoagulant? NONEMedical Necessity: SUSP [id number] 16:34:00 Test Item Value Reference Range Interpretation Comments Chemistry (test 2.5 ng/mL 0-6.6 N code = CKMBM-T) Chemistry (test Less than < 0.028 code = TROPI-T) 0.010 ng/mL Reference Ra nge 0. 00 - 0.028 ng/mL Negative 0.029 - 0.29 n g/mL Indeterminate Greater or Equa l to 0.3 ng/mL St [place]ongly suggests [place] [id number] 16:31:00 Test Item Value Reference Range Interpretation [...] code 17 U/L 8-55 N = ALT) [id number] 16:13:00 Test Item Value Reference Range Interpretation [...] code = BASO#) 0.1 thou/uL 0.0-0.2 N XR Chest 1 View Portable [facility] : 1970 [facility]: [facility] Pt Name: KERRY QUIR[address]Z [address] Phys: Karl[place] [address] : 1970 Age: 50 SEX:M [phone] Exam Date: 06/15/21 Status: REG ER Acct: [id number] Loc: [facility] Pt Unit #: [id number] Report #: [id number] CC: aKrlene Stephen MD IMAGING SERVICES REPORT Order # Category/Exam [id number] RAD/XR Chest1 View Portable ([id number]): . Results XR Chest 1 View Portable History: Chest pain Comparison: None. Findings: Lungs are clear. No pneumothorax or effusion. Cardiac silhouetteand mediastinal contoursare within normal limits. Impression: No acute intrathoracic abnormality. Reported By: KARLENE COMER Electronically Signed Date/Time: 06/15/21 155 Technologist: Dictated Date/Time: 06/15/211550 Transcribed Date/Time:
== END 2021-07-09 14:26 | disposition home or self-care (01) ==
LOC: ER 11:39
DX: S20.211A Contusion of right front wall of thorax, initial encounter (principal); V18.0XXA Pedal cycle driver injured in noncollision transport accident in nontraffic accident, initial encounter; I10 Essential (primary) hypertension; F20.9 Schizophrenia, unspecified; F17.210 Nicotine dependence, cigarettes, uncomplicated; Z79.82 Long term (current) use of aspirin
CPT/HCPCS: 96372; 99284

== ENCOUNTER 2021-07-23 03:31 | Emergency (ER) | payer SELFPAY ==
--- OUTSIDE RECORDS SUMMARY | 2021-07-23 03:34 | XMS REPORT | Continuity of Care Document ---
:1970 Author Organization [facility] t Address [address] [place] [address] Care Team Providers Name Role Phone Zafar Attending Clinician Unavailable Bruno Attending Clinician Unavailable DAVID Attending Clinician Unavailable LANA FABIAN Attending Clinician CHAGO Attending Clinician Unavailable Alba Coronado Attending Clinician Unavailable PROVIDER, CAROLYN Attending Clinician Unavailable Edita AYALA Attending Clinician Unavailable DAVID Admitting Clinician Unavailable Payers Payer Name Policy Type Policy Effective Date Expiration Date Sour ce Number MEDICAID [facility] PENDING [facility] JOVANNA CARE NA [place] PENDING [facility] Problems Condition Condition Condition Status Onset Resolution Last Treating Co mments Source Name Details Category Date Date Treatment Clinician Date Bipolar Bipolar Problem Active 2017-[address] [facility] 2[facility] (LUF/LI V/SA) Suicidal Suicidal Problem [facility] (LUF/LI V/SA) Depressive Depressive Problem Active 2017-[address] [facility] disorder [facility] - [facility] [...] Start Date Stop Date Source Never smoker [facility] (LUF/LIOR/SA) Medications This patient has no known medications. Immunizations Ordered Immunization Filled Immunization Date Status Commen ts Source Name Name NO UP TO DATE FLU NO UP TO DATE FLU Unknown Completed [facility] (LUF/LIOR/SA) Vital Signs Vital Name Observation Time Observation Value Comments Source Body Temperature 2018-08-08 05:01:00 98.9 F [facility] (LUF/LIOR/SA) Pulse Rate 2018-08-08 05:01:00 87 /min [facility] (LUF/LIOR/SA) Respiratory Rate 2018-08-08 05:01:00 18 /min [facility] (LUF/LIOR/SA) O2% BldC Oximetry 2018-08-08 05:01:00 98 % [facility] (LUF/LIOR/SA) BP Systolic 2018-08-08 05:01:00 160 mm[Hg] [facility] (LUF/LIOR/SA) BP Diastolic 2018-08-08 05:01:00 110 mm[Hg] [facility] (LUF/LIOR/SA) Height 2018-08-08 05:01:00 66 in [facility] (LUF/LIOR/SA) Weight Measured 2018-08-08 05:01:00 154.32 lbs [facility] S [facility] (LUF/LIOR/SA) BMI (Body Mass Index) 2018-08-08 05:01:00 25 [facility] (LUF/LIOR/SA) Procedures This patient has no known procedures. Encounters Start End Encounter Admission Attending Care Care Encounter Source Date/Time Date/Time Type Type Clinicians Facility Department ID 2021-06-16 2021-06-16 Emergency ER TOMI Stephen [id number] [address] [facility] [address] 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 15:02:00 15:02:00 Karlene -[id number] [facility] ([place]) 2021-05-28 2021-05-28 Emergency ER TOMI Carr [id number] [address] 13:51:00 13:51:00 Roshni -[id number] [facility] ([place]) 2018-08-08 2018-08-08 Inpatient MARÍA CAICEDO [facility] [id number] 04:58:00 11:31:00 [facility] L [facility] - N, [address], [place] [address] 2018-07-01 2018-07-01 Departed MIRELA SCHWARTZ [facility] [id number] [place] 19:23:00 20:28:00 Emergency [facility] Results Test Description Test Time Test Comments Results Result Comments Source Chemistry 2021-06-15 16:05:00 Test Item Value Reference Range Interpretation Comme nts Chemistry (test code = CKMBM-T) 2.2 ng/mL 0-6.6 N [id number] 16:04:00 Test Item Value Reference Range Interpretation [...] code 13 U/L 8-55 N = ALT) [id number] 16:04:00 Test Item Value Reference Range Interpretation Comments Chemistry (test code = CK) 95 U/L 30-200 N [id number] 16:04:00 Test Item Value Reference Range Interpretation Comments Chemistry (test Less than < 0.028 code = TROPI-R) 0.010 ng/mL Reference Ra nge 0. 00 - 0.028 ng/mL Negative 0.029 - 0.29 n g/mL Indeterminate Greater or Equa l to 0.3 ng/mL St [place] suggests [place] [id number] 15:47:00 Test Item Value Reference Range Interpretation [...] Toxicity >30 mg/dl Leth al >70 mg/dl [id number] 06:42:00 Test Item Value Reference Range Interpretation [...] 4 - SerumAlbu min)] EGFR if >60 Nigerien (test code mL/min/1.73m\\ = EGFRAA) S\\2 EGFR if Non- >60 Estimate d Glomerular Nigerien (test code mL/min/1.73m\\ Filtrat ion Rate (eGFR) [...] = ACET) <2 ug/ml 10-25 L ALCOHOL, [id number] 06:41:00 Test Item Value Reference Range Interpretation Comments Alcohol % (test code = 0 % 0.00-0.00 N Dereck ol % 0.00 - 0.10 ALCPC) Sub-clinical 0.11 - 0.20 Emotional Instability 0.21 - 0.30 Confusion 0.31 - 0.40 Stupor 0.41 - 0.50 Coma >.50 Fatal CBC WITH AUTO [id number] 06:13:00 Test Item Value Reference Range Interpretation [...] (test code = 0.4 % 0.0-0.4 IG%) [id number] 08:45:00 Test Item Value Reference Range Interpretation [...] NONEMedical Necessity SUSPECT COAGULOPATHYAnticoagulant? NONEMedical Necessity: SUSP [id number] 08:45:00 Test Item Value Reference Range Interpretation Comments Coagulation (test code = PTT) 27.2 SEC 22.9-36.1 N Anticoagulant? NONEMedical Necessity SUSPECT COAGULOPATHYAnticoagulant? NONEMedical Necessity: SUSP [id number] 08:44:00 Test Item Value Reference Range Interpretation Comments Chemistry (test 2.9 ng/mL 0-6.6 N code = CKMBM-T) Chemistry (test 0.015 ng/mL < 0.028 code = TROPI-T) Reference Ra jaciele 0.0 0 - 0.028 ng/mL Negative 0.0 29 - 0.29 ng/mL Indeterminate Greater or Equal to 0.3 ng/mL Strongly sugge [facility] [id number] 08:40:00 Test Item Value Reference Range Interpretation [...] 17 U/L 8-55 N code = ALT) [id number] 08:40:00 Test Item Value Reference Range Interpretation Comments Chemistry (test code = CK) 119 U/L 30-200 N [id number] 08:23:00 Test Item Value Reference Range Interpretation [...] code = BASO#) 0.1 thou/uL 0.0-0.2 N [id number] 19:03:00 Test Item Value Reference Range Interpretation [...] code 16 U/L 8-55 N = ALT) [id number] 18:46:00 Test Item Value Reference Range Interpretation [...] code = BASO#) 0.1 thou/uL 0.0-0.2 N [id number] 18:45:00 Test Item Value Reference Range Interpretation [...] Negative Negative Comment clear yellowUrine Source: Urine [id number] 18:45:00 Test Item Value Reference Range Interpretation Comments Urinalysis (test code = UARBC) 0-3 HPF 0-3 Urinalysis (test code = UAWBC) 4-6 HPF 0-3 A Urinalysis (test code = UASQUAM) 0-3 HPF 0-3 Urinalysis (test code = UABAC) 1+ HPF None Seen A Comment clear yellowUrine Source: Urine [id number] 20:56:00 Test Item Value Reference Range Interpretation [...] LPF 0-3 Hyaline UACAST) Urine Source: Urine [id number] 19:22:00 Test Item Value Reference Range Interpretation Comments Chemistry (test Less than < 0.028 code = TROPI-T) 0.010 ng/mL Reference Ra nge 0. 00 - 0.028 ng/mL Negative 0.029 - 0.29 n g/mL Indeterminate Greater or Equa l to 0.3 ng/mL St [place] suggests [place] Comment Pls draw at 7 pm.[id number] 16:36:00 Test Item Value Reference Range Interpretation [...] NONEMedical Necessity SUSPECT COAGULOPATHYAnticoagulant? NONEMedical Necessity: SUSP [id number] 16:36:00 Test Item Value Reference Range Interpretation Comments Coagulation (test code = PTT) 26.2 SEC 22.9-36.1 N Anticoagulant? NONEMedical Necessity SUSPECT COAGULOPATHYAnticoagulant? NONEMedical Necessity: SUSP [id number] 16:34:00 Test Item Value Reference Range Interpretation Comments Chemistry (test 2.5 ng/mL 0-6.6 N code = CKMBM-T) Chemistry (test Less than < 0.028 code = TROPI-T) 0.010 ng/mL Reference Ra nge 0. 00 - 0.028 ng/mL Negative 0.029 - 0.29 n g/mL Indeterminate Greater or Equa l to 0.3 ng/mL St [place] suggests [place] [id number] 16:31:00 Test Item Value Reference Range Interpretation [...] code 17 U/L 8-55 N = ALT) [id number] 16:13:00 Test Item Value Reference Range Interpretation [...] 0.0-0.2 N XR Chest 1 View Portable [facility]: GBARIELLAKERRY BENIGNO : 1970 Sex: [facility] Pt Name: KERRY QUIROZ [address] Phys: [place] [address] : 1970 Age: 50 SEX:M [phone] Exam Date: 06/15/21 Status: REG ER Acct: [id number] Loc: [place] Pt Unit #: [id number] Report #: [id number] CC: Karlene Stephen MD IMAGING SERVICES REPORT Order # Category/Exam [id number] RAD/XR Chest1 View Portable ([id number]): . Results XR Chest 1 View Portable History: Chest pain Comparison: None. Findings: Lungs are clear. No pneumothorax or effusion. Cardiac silhouetteand mediastinal contoursare within normal limits. Impression: No acute intrathoracic abnormality. Reported By: KARLENE COMER Electronically Signed Date/Time: 06/15/211550 Technologist: Dictated Date/Time: 06/15/211550 Transcribed Date/Time:
[2021-07-23] MEDS ORDERED: METHYLPREDNISOLONE 125 MG INJ ONE (04:13)
[2021-07-23] MEDS ORDERED: NA CHLORIDE 0.9% 1,000 ML ONE (04:13)
[2021-07-23] MEDS ORDERED: NA CHLORIDE 0.9% 500 ML ONE (04:13)
[2021-07-23] MEDS ORDERED: IPRATROPIUM BROM 0.5MG/2.5ML ONE (04:13)
[2021-07-23] MEDS ORDERED: LEVALBUTEROL 1.25 MG/3 ML NEB ONE (04:13)
[2021-07-23] MEDS ORDERED: predniSONE 20 MG TAB ONE (04:13)
[2021-07-23 04:22] LABS: Basophils % 0.8 % (0-1.3); Hematocrit 43.8 % (39.6-49.0); Lymphocytes % 18.9 % (15.3-44.8); RBC Red Blood Cell Count 4.83 M/uL (4.33-5.43)
[2021-07-23 04:25] LABS: Protime INR 1.08
[2021-07-23] MEDS ORDERED: AMLODIPINE 10 MG TAB ONE (05:01)
[2021-07-23 05:17] LABS: ALT/SGPT 21 U/L (12-78); AST/SGOT 17 U/L (15-37); Albumin 3.7 g/dL (3.4-5.0); Alkaline Phosphatase 66 U/L (45-117); BUN Blood Urea Nitrogen 14 mg/dL (7-18); Bicarbonate 27 mmol/L (21-32); Bilirubin Direct 0.2 mg/dL (0-0.2); Bilirubin Total 0.5 mg/dL (0.2-1.0); Glucose Level 101 mg/dL (74-106); Magnesium 2.1 mg/dL (1.8-2.4); NT PRO-BNP 83 pg/mL (<125); Potassium 3.4 mmol/L (3.5-5.1); Protein, Total 7.3 g/dL (6.4-8.2); Sodium Level 142 mmol/L (136-145)
[2021-07-23 05:30] LABS: Troponin (Emerg Dept Use Only) < 0.02 ng/mL (0.0-0.045)
[2021-07-23] MEDS ORDERED: POTASSIUM 25 MEQ EFFERV TAB ONE (05:41)
--- NOTE | 2021-07-23 05:43 | EDPHYS ---
Physician Documentation [facility] Name: Jasmin Haley Age: 50 yrs Sex: Male : 1970 Arrival Date: 07/23/2021 Time: 03:36 Bed 13 Private MD: Avelino Diallo HPI: 07/23 04:14 This 50 yrs old Male presents to ER via Ambulatory with complaints of Cough. lilia 04:14 The patient or guardian reports cough, difficulty breathing. Onset: The lilia symptoms/episode began/occurred 2 day(s) ago. Historical: - Allergies: 03:44 No Known Allergies; df1 - Home Meds: 03:44 aspirin 81 mg Oral tab 81 mg daily [Active]; df1 - PMHx: 03:44 bipolar/schizo; Hypertension; stroke; df1 - PSHx: 03:44 None; df1 - Immunization history:: Adult Immunizations up to date, Client reports having NOT received the Covid vaccine. - Social history:: Smoking status: Patient reports the use of cigarette tobacco products, smokes one pack cigarettes per day. Patient uses alcohol, street drugs, marijuana. ROS: 04:16 Constitutional: Negative for fever, chills, and weight loss, Eyes: Negative for injury, lilia pain, redness, and discharge, ENT: Negative for injury, pain, and discharge, Neck: Negative for injury, pain, and swelling, Cardiovascular: Negative for chest pain, palpitations, and edema, Abdomen/GI: Negative for abdominal pain, nausea, vomiting, diarrhea, and constipation, Back: Negative for injury and pain, : Negative for injury, bleeding, discharge, and swelling, MS/Extremity: Negative for injury and deformity, Skin: Negative for injury, rash, and discoloration, Neuro: Negative for headache, weakness, numbness, tingling, and seizure, Psych: Negative for depression, anxiety, suicide ideation, homicidal ideation, and hallucinations, Allergy/Immunology: Negative for hives, rash, and allergies, Endocrine: Negative for neck swelling, polydipsia, polyuria, polyphagia, and marked weight changes, Hematologic/Lymphatic: Negative for swollen nodes, abnormal bleeding, and unusual bruising. 04:16 Respiratory: Positive for cough, with no reported sputum. Exam: 04:16 Constitutional: This is a well developed, well nourished patient who is awake, alert, lilia and in no acute distress. Head/Face: Normocephalic, atraumatic. Eyes: Pupils equal round and reactive to light, extra-ocular motions intact. Lids and lashes normal. Conjunctiva and sclera are non-icteric and not injected. Cornea within normal limits. Periorbital areas with no swelling, redness, or edema. ENT: Nares patent. No nasal discharge, no septal abnormalities noted. Tympanic membranes are normal and external auditory canals are clear. Oropharynx with no redness, swelling, or masses, exudates, or evidence of obstruction, uvula midline. Mucous membranes moist. Neck: Trachea midline, no thyromegaly or masses palpated, and no cervical lymphadenopathy. Supple, full range of motion without nuchal rigidity, or vertebral point tenderness. No Meningismus. Chest/axilla: Normal chest wall appearance and motion. Nontender with no deformity. No lesions are appreciated. Cardiovascular: Regular rate and rhythm with a normal S1 and S2. No gallops, murmurs, or rubs. Normal PMI, no JVD. No pulse deficits. Respiratory: Lungs have equal breath sounds bilaterally, clear to auscultation and percussion. No rales, rhonchi or wheezes noted. No increased work of breathing, no retractions or nasal flaring. Abdomen/GI: Soft, non-tender, with normal bowel sounds. No distension or tympany. No guarding or rebound. No evidence of tenderness throughout. Back: No spinal tenderness. No costovertebral tenderness. Full range of motion. Skin: Warm, dry with normal turgor. Normal color with no rashes, no lesions, and no evidence of cellulitis. MS/ Extremity: Pulses equal, no cyanosis. Neurovascular intact. Full, normal range of motion. Neuro: Awake and alert, GCS 15, oriented to person, place, time, and situation. Cranial nerves II-XII grossly intact. Motor strength 5/5 in all extremities. Sensory grossly intact. Cerebellar exam normal. Normal gait. Psych: Awake, alert, with orientation to person, place and time. Behavior, mood, and affect are within normal limits. 04:30 ECG was reviewed by the Attending Physician. [facility] Vital Signs: 03:42 BP 157 / 92; Pulse 85; Resp 20; Temp 98.4; Pulse Ox 98% on R/A; Weight 73.03 kg; Height df1 5 ft. 6 in. (167.64 cm); Pain 0/10; 04:26 BP 177 / 96; Pulse 80; Resp 18; Temp 98.6(O); Pulse Ox 100% on R/A; Pain 0/10; kc4 05:05 BP 153 / 108; Pulse 88; Resp 18; Temp 98.6; Pulse Ox 100% on R/A; Pain 0/10; kc4 05:38 BP 141 / 84 LA Sitting (auto/reg); Pulse 80; Resp 18; Temp 98.8(O); Pulse Ox 100% on kc4 R/A; Pain 0/10; 03:42 Body Mass Index 25.99 (73.03 kg, 167.64 cm) df1 Rahul Coma Score: 04:26 Eye Response: spontaneous(4). Verbal Response: oriented(5). Motor Response: obeys kc4 commands(6). Total: 15. MDM: 03:51 Patient medically screened. [facility] 04:31 Differential Diagnosis: Bronchitis Upper Respiratory Infection Pharyngitis Asthma lilia Exacerbation Viral Syndrome Pneumonia. Data reviewed: vital signs, nurses notes, lab test result(s), EKG, radiologic studies, plain films. Data interpreted: radiation monitor: rate is 80 beats/min, rhythm is regular, Pulse oximetry: on room air is 100 %. Test interpretation: by ED physician or midlevel provider: ECG, plain radiologic studies. Counseling: I had a detailed discussion with the patient and/or guardian regarding: the historical points, exam findings, and any diagnostic results supporting the discharge/admit diagnosis, lab results, radiology results, the need for outpatient follow up, for definitive care, a family practitioner, a glued wood tester. 07/23 04:06 Order name: Basic Metabolic Panel; Complete Time: 05:42 [facility] 07/23 04:06 Order name: CBC with Diff; Complete Time: 04:50 [facility] 07/23 04:06 Order name: LFT's; Complete Time: 05:42 [facility] 07/23 04:06 Order name: Magnesium; Complete Time: 05:42 [facility] 07/23 04:06 Order name: NT PRO-BNP; Complete Time: 05:42 [facility] 07/23 04:06 Order name: PT-INR; Complete Time: 04:50 [facility] 07/23 04:06 Order name: Troponin (emerg Dept Use Only); Complete Time: 05:42 [facility] 07/23 04:06 Order name: XRAY Chest (1 view) [facility] 07/23 04:15 Order name: D-Dimer [facility] 07/23 04:21 Order name: D-Dimer; Complete Time: 04:50 [facility] 07/23 04:06 Order name: EKG; Complete Time: 04:07 [facility] 07/23 04:06 Order name: Cardiac monitoring; Complete Time: 04:32 [facility] 07/23 04:06 Order name: EKG - Nurse/Tech; Complete Time: 04:32 [facility] 07/23 04:06 Order name: IV Saline Lock; Complete Time: 04:20 [facility] 07/23 04:06 Order name: Labs collected and sent; Complete Time: 04:20 [facility] 07/23 04:06 Order name: O2 Per Protocol; Complete Time: 04:20 [facility] 07/23 04:06 Order name: O2 Sat Monitoring; Complete Time: 04:20 [facility] EC:30 Rate is 69 beats/min. Rhythm is regular. QRS [place] is Normal. [place] interval is normal. QRS lilia interval is normal. QT interval is normal. No Q waves. T waves are Normal. No ST changes noted. Clinical impression: NSR w/ Non-specific ST/T Changes and No evidence of ischemia. Interpreted by me. Reviewed by me. Administered Medications: 04:19 Drug: NS 0.9% 500 ml Route: IV; Rate: bolus; Site: right antecubital; kc4 05:14 Follow up: Response: No adverse reaction kc4 05:56 Follow up: IV Status: Completed infusion kc4 04:19 Drug: SOLU-Medrol (methylPrednisoLONE) 125 mg Route: IVP; Site: right antecubital; kc4 05:13 Follow up: Response: No adverse reaction kc4 04:19 Drug: predniSONE 40 mg Route: PO; kc4 05:57 Follow up: Response: No adverse reaction kc4 04:19 Drug: Xopenex (levalbuterol) 3.75 mg Route: Inhalation; kc4 05:13 Follow up: Response: No adverse reaction kc4 04:19 Drug: AtroVENT (ipratropium) Aerosol 0.5 mg Route: Inhalation; kc4 05:13 Follow up: Response: No adverse reaction kc4 04:32 Drug: NS 0.9% 1000 ml Route: IV; Rate: 125 ml/hr; Site: right antecubital; kc4 05:54 Follow up: IV Status: Completed infusion kc4 05:54 Follow up: Response: No adverse reaction kc4 05:05 Drug: Norvasc (amlodipine) 10 mg Route: PO; kc4 05:51 Follow up: Response: No adverse reaction; Blood pressure is lowered kc4 05:46 Drug: Potassium Effervescent Tablet 25 mEq Route: PO; kc4 05:51 Follow up: Response: No adverse reaction kc4 Disposition Summary: 07/23/21 05:42 Discharge Ordered Location: Home lliia Problem: new lilia Symptoms: have improved lilia Condition: Stable lilia Diagnosis - Mild persistent asthma lilia - Cough lilia - Essential (primary) hypertension lilia - Hypokalemia lilia Followup: lilia - With: Private Physician - When: 2 - 3 days - Reason: Recheck today's complaints, Continuance of care, Re-evaluation by your physician Followup: lilia - With: - When: 2 - 3 days - Reason: Recheck today's complaints, Continuance of care, Re-evaluation by your physician Discharge Instructions: - Discharge Summary Sheet lilia - Asthma, Adult lilia - Cool Mist Vaporizer lilia - Hypertension, Adult lilia - Hypertension, Adult, [id number] lilia - Potassium Content of Foods lilia - Asthma, Adult, Nhsb-nq-Ntol lilia - Tobacco Use Disorder lilia - Cough, Adult, Odve-ex-Vudh lilia - Cough, Adult lilia - Smoking Tobacco Information, Adult lilia - Hypokalemia [facility] Forms: - Medication Reconciliation Form lilia - Thank You Letter lilia - Antibiotic Education lilia - Prescription Opioid Use lilia Prescriptions: - albuterol sulfate 90 mcg/actuation Inhalation HFA aerosol inhaler - inhale 2 puff by INHALATION route every 4-6 hours; 1 Pump; Refills: 0, Product lilia Selection Permitted - Norvasc 5 mg Oral Tablet - take 1 tablet by ORAL route once daily; 20 tablet; Refills: 0, Product lilia Selection Permitted - Albuterol Sulfate 2.5 mg /3 mL (0.083 %) Inhalation Solution for Nebulization - inhale 1 unit by NEBULIZATION route every 8 hours As needed; 1 box; Refills: 0, [facility] Product Selection Permitted - Zithromax Z-Alfredo 250 mg Oral Tablet - take 1 tablet by ORAL route as directed for 5 days Day 1 - take two (2) tablets lilia one time. Day 2, 3, 4 , 5 take one (1) tablet once daily.; 6 tablet; Refills: 0, Product Selection Permitted - Prednisone 20 mg Oral Tablet - take 2 tablets by ORAL route once daily for 5 days; 10 tablet; Refills: 0, lilia Product Selection Permitted - Guaifenesin AC 10-100 mg/5 mL Oral Liquid - take 10 milliliters by ORAL route every 4 hours As needed; 160 milliliter; lilia Refills: 0, Product Selection Permitted Signatures: Dispatcher [employer] EDAvelino Metzger MD MD cha Chuman, Kourtney kc4 Robyn Francisco df1 Corrections: (The following items were deleted from the chart) 04:20 04:15 D-Dimer ordered. [facility]
--- NOTE | 2021-07-23 05:43 | ER ---
Nurse's Notes [facility] Name: Jasmin Haley Age: 50 yrs Sex: Male : 1970 Arrival Date: 07/23/2021 Time: 03:36 Bed 13 Private MD: Diagnosis: Mild persistent asthma;Cough;Essential (primary) hypertension;Hypokalemia Presentation: 07/23 03:42 Chief complaint: Patient states: cough at night x 2 weeks difficult to sleep. df1 Coronavirus screen: Vaccine status: Patient reports being unvaccinated. Client denies travel out of the [place] in the last 14 days. Client presents with at least one sign or symptom that may indicate coronavirus-19. Standard/surgical mask placed on the client. Ebola Screen: Patient negative for fever greater than or equal to 101.5 degrees Fahrenheit, and additional compatible Ebola Virus Disease symptoms Patient denies exposure to infectious person. Patient denies travel to an Ebola-affected area in the 21 days before illness onset. Initial Sepsis Screen: Does the patient meet any 2 criteria? No. Patient's initial sepsis screen is negative. Does the patient have a suspected source of infection? No. Patient's initial sepsis screen is negative. Risk Assessment: Do you want to hurt yourself or someone else? Patient reports no desire to harm self or others. Onset of symptoms was July 08, 2021. 03:42 Method Of Arrival: Ambulatory df1 03:42 Acuity: GISELA 3 df1 Historical: - Allergies: 03:44 No Known Allergies; df1 - Home Meds: 03:44 aspirin 81 mg Oral tab 81 mg daily [Active]; df1 - PMHx: 03:44 bipolar/schizo; Hypertension; stroke; df1 - PSHx: 03:44 None; df1 - Immunization history:: Adult Immunizations up to date, Client reports having NOT received the Covid vaccine. - Social history:: Smoking status: Patient reports the use of cigarette tobacco products, smokes one pack cigarettes per day. Patient uses alcohol, street drugs, marijuana. Screenin:26 Abuse screen: Denies threats or abuse. Denies injuries from another. Nutritional kc4 screening: No deficits noted. On no prescribed diet Difficulty chewing/swallowing? No. Tuberculosis screening: No symptoms or risk factors identified. Never had TB. Possible symptoms: None Risk factors: None. Fall Risk None identified. No fall in past 12 months (0 pts). No secondary diagnosis (0 pts). IV access (20 points). Ambulatory Aid- None/Bed Rest/Nurse Assist (0 pts). Gait- Normal/Bed Rest/Wheelchair (0 pts) Mental Status- Oriented to own ability (0 pts). Total Connor Fall Scale indicates No Risk (0-24 pts). Assessment: 04:26 General: Appears in no apparent distress. comfortable, slender, well groomed, Behavior kc4 is calm, cooperative, appropriate for age. Pain: Denies pain. Neuro: No deficits noted. Cardiovascular: No deficits noted. Respiratory: Reports cough that is non-productive, dry, pain with cough since 2 weeks Airway is patent Trachea midline Respiratory effort is even, unlabored, Respiratory pattern is regular, symmetrical, Breath sounds are clear bilaterally. Denies shortness of breath labored breathing, pain with respiration, pain with movement, air hunger. GI: No deficits noted. No signs and/or symptoms were reported involving the gastrointestinal system. : No deficits noted. No signs and/or symptoms were reported regarding the genitourinary system. EENT: No deficits noted. No signs and/or symptoms were reported regarding the EENT system. Derm: No deficits noted. No signs and/or symptoms reported regarding the dermatologic system. Musculoskeletal: No deficits noted. No signs and/or symptoms reported regarding the musculoskeletal system. Vital Signs: 03:42 BP 157 / 92; Pulse 85; Resp 20; Temp 98.4; Pulse Ox 98% on R/A; Weight 73.03 kg; Height df1 5 ft. 6 in. (167.64 cm); Pain 0/10; 04:26 BP 177 / 96; Pulse 80; Resp 18; Temp 98.6(O); Pulse Ox 100% on R/A; Pain 0/10; kc4 05:05 BP 153 / 108; Pulse 88; Resp 18; Temp 98.6; Pulse Ox 100% on R/A; Pain 0/10; kc4 05:38 BP 141 / 84 LA Sitting (auto/reg); Pulse 80; Resp 18; Temp 98.8(O); Pulse Ox 100% on kc4 R/A; Pain 0/10; 03:42 Body Mass Index 25.99 (73.03 kg, 167.64 cm) df1 Vitals: 04:26 Cardiac Rhythm Assessment Regular Sinus rhythm. kc4 [place] Coma Score: 04:26 Eye Response: spontaneous(4). Verbal Response: oriented(5). Motor Response: obeys kc4 commands(6). Total: 15. ED Course: 03:36 Patient arrived in ED. wm 03:44 Triage completed. df1 03:51 Avelino Sanford MD is Attending Physician. lilia 04:15 Inserted saline lock: 18 gauge in right antecubital area, using aseptic technique. kc4 Blood collected. 04:19 Margarita Ayala is Primary Nurse. kc4 04:19 D-Dimer Sent. kc4 04:20 Basic Metabolic Panel Sent. kc4 04:20 CBC with Diff Sent. kc4 04:20 LFT's Sent. kc4 04:20 Magnesium Sent. kc4 04:20 NT PRO-BNP Sent. kc4 04:20 PT-INR Sent. kc4 04:20 Troponin (emerg Dept Use Only) Sent. kc4 04:22 XRAY Chest (1 view) In Process Unspecified. EDMS 04:26 Nebulizer. kc4 04:26 Patient has correct armband on for positive identification. Placed in gown. Bed in low kc4 position. Call light in reach. Side rails up X 1. Pulse ox on. NIBP on. 05:42 Louis Brizuela MD is Referral Physician. lilia 05:51 IV discontinued, intact, bleeding controlled, No redness/swelling at site. Pressure kc4 dressing applied. 05:53 Arm band placed on right wrist. kc4 Administered Medications: 04:19 Drug: NS 0.9% 500 ml Route: IV; Rate: bolus; Site: right antecubital; kc4 05:14 Follow up: Response: No adverse reaction kc4 05:56 Follow up: IV Status: Completed infusion kc4 04:19 Drug: SOLU-Medrol (methylPrednisoLONE) 125 mg Route: IVP; Site: right antecubital; kc4 05:13 Follow up: Response: No adverse reaction kc4 04:19 Drug: predniSONE 40 mg Route: PO; kc4 05:57 Follow up: Response: No adverse reaction kc4 04:19 Drug: Xopenex (levalbuterol) 3.75 mg Route: Inhalation; kc4 05:13 Follow up: Response: No adverse reaction kc4 04:19 Drug: AtroVENT (ipratropium) Aerosol 0.5 mg Route: Inhalation; kc4 05:13 Follow up: Response: No adverse reaction kc4 04:32 Drug: NS 0.9% 1000 ml Route: IV; Rate: 125 ml/hr; Site: right antecubital; kc4 05:54 Follow up: IV Status: Completed infusion kc4 05:54 Follow up: Response: No adverse reaction kc4 05:05 Drug: Norvasc (amlodipine) 10 mg Route: PO; kc4 05:51 Follow up: Response: No adverse reaction; Blood pressure is lowered kc4 05:46 Drug: Potassium Effervescent Tablet 25 mEq Route: PO; kc4 05:51 Follow up: Response: No adverse reaction kc4 Outcome: 05:42 Discharge ordered by MD. rodrigues 05:51 Discharged to home ambulatory, with family. kc4 05:51 Condition: stable 05:51 Discharge instructions given to patient, significant other, Instructed on discharge instructions, follow up and referral plans. medication usage, Demonstrated understanding of instructions, follow-up care, medications, Prescriptions given X 6 05:55 Patient left the ED. kc4 Signatures: Dispatcher [employer] EDMS Avelino Sanford MD MD cha Marsh, Wendy wm Chuman, Kourtney kc4 Robyn Francisco df1 Corrections: (The following items were deleted from the chart) 04:20 04:19 D-Dimer drawn and sent. 4 EDWI
[2021-07-23 06:11] VITALS: O2SAT 100
[2021-07-23 06:14] VITALS: BP 141/84; TEMP 98.8
--- NOTE | 2021-07-23 07:25 | RAD REPORT ---
EXAM DESCRIPTION: Layla Single View07/23/2021 4:22 am CLINICAL HISTORY: Cough COMPARISON: none FINDINGS: The lungs appear clear of acute infiltrate. The heart is normal size IMPRESSION: No acute abnormalities displayed
--- NOTE | 2021-07-23 16:52 | EKG ---
Test Date: 2021-07-23 Test Time: 04:25:37 Anode Rebuilder: ZOË MEASUREMENT RESULTS: Intervals: Rate: 69 ID: [id number] QRSD: 84 QT: 414 QTc: 443 [place]: P: 69 ID: [id number] QRS: 74 T: 74 INTERPRETIVE STATEMENTS: Normal sinus rhythm Normal ECG Compared to ECG 03/07/2021 01:47:43 Left ventricular hypertrophy no longer present Electronically Signed On 07-23-21 16:51:02 SUPPLIER ENGINEER by Mateus Gonsalez
== END 2021-07-23 05:55 | disposition home or self-care (01) ==
LOC: ER 03:31
DX: J45.31 Mild persistent asthma with (acute) exacerbation (principal); E87.6 Hypokalemia; I10 Essential (primary) hypertension
CPT/HCPCS: 36415; 71045; 80048; 80076; 83735; 83880; 84484; 85025; 85379; 85610; 93005; 96361; 96374; 99284; J2930; J7030; J7040; J7512

== ENCOUNTER 2021-09-18 08:22 | Emergency (ER) | payer SELFPAY ==
--- OUTSIDE RECORDS SUMMARY | 2021-09-18 08:26 | XMS REPORT | Continuity of Care Document ---
:1970 Author Organization [facility] t Address [address] [place] [address] Care Team Providers Name Role Phone Zafar Attending Clinician Unavailable Bruno Attending Clinician Unavailable DAVID Attending Clinician Unavailable LANA FABIAN Attending Clinician CHAGO Attending Clinician Unavailable Alba Coronado Attending Clinician Unavailable PROVIDER, CAROLYN Attending Clinician Unavailable Edita AYALA Attending Clinician Unavailable DAVID Admitting Clinician Unavailable Payers Payer Name Policy Type Policy Effective Date Expiration Date Sour ce Number MEDICAID [facility] PENDING [facility] JOVANNA CARE [facility] PENDING [facility] Problems Condition Condition Condition [...] NO UP TO DATE FLU Unknown Completed [facility] (LUF/LIOR/SA) Vital Signs Vital Name Observation Time Observation Value Comments Source Body Temperature 2018-08-08 05:01:00 98.9 F [facility] (LUF/LIOR/SA) Pulse Rate 2018-08-08 05:01:00 87 /min [facility] (LUF/LIOR/SA) Respiratory Rate 2018-08-08 05:01:00 18 /min [facility] (LUF/LIOR/SA) O2% BldC Oximetry 2018-08-08 05:01:00 98 % [facility] (LUF/LIOR/SA) BP Systolic 2018-08-08 05:01:00 160 mm[Hg] [facility] (LUF/LIOR/SA) BP Diastolic 2018-08-08 05:01:00 110 mm[Hg] [facility] (LUF/LIOR/SA) Height 2018-08-08 05:01:00 66 in [facility] (LUF/LIOR/SA) Weight Measured 2018-08-08 05:01:00 154.32 lbs S [facility] (LUF/LIOR/SA) BMI (Body Mass Index) 2018-08-08 05:01:00 25 [facility] (LUF/LIOR/SA) Procedures This patient has no known procedures. Encounters Start End Encounter Admission Attending Care Care Encounter Source Date/Time Date/Time Type Type Clinicians Facility Department ID 2021-06-16 2021-06-16 Emergency ER TOMI Stephen [id number] [address] 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 15:02:00 15:02:00 Karlene -[id number] [facility] ([place] 2021-05-28 2021-05-28 Emergency ER TOMI Carr [id number] [address] 13:51:00 13:51:00 Roshni -[id number] [facility] ([place]) 2018-08-08 2018-08-08 In[address]ÍA [address] [facility] [id number] 04:58:00 11:31:00 [facility] - [place], [address] [place], [place] [address] 2018-07-01 2018-07-01 Departed MIRELA SCHWARTZ [facility] [id number] [place] 19:23:00 20:28:00 Emergency [facility] Results Test Description Test Time Test Comments Results Result Comments Source Chemistry 2021-06-15 16:05:00 Test Item Value Reference Range Interpretation Comme nts Chemistry (test code = CKMBM-T) 2.2 ng/mL 0-6.6 N [id number] 16:04:00 Test Item Value Reference Range Interpretation [...] code 13 U/L 8-55 N = ALT) [id number] 16:04:00 Test Item Value Reference Range Interpretation Comments Chemistry (test code = CK) 95 U/L 30-200 N [id number] 16:04:00 Test Item Value Reference Range Interpretation Comments Chemistry (test Less than < 0.028 code = TROPI-R) 0.010 ng/mL Reference Ra nge 0. 00 - 0.028 ng/mL Negative 0.029 - 0.29 n g/mL Indeterminate Greater or Equa l to 0.3 ng/mL St rongly suggests ID [id number] 15:47:00 Test Item Value Reference Range Interpretation [...] Toxicity >30 mg/dl Leth al >70 mg/dl [id number] 06:42:00 Test Item Value Reference Range Interpretation [...] 4 - SerumAlbu min)] EGFR if >60 [place] (test code mL/min/1.73m\\ = EGFRAA) S\\2 EGFR if Non- >60 Estimate d Glomerular [place] (test code mL/min/1.73m\\ Filtrat ion Rate (eGFR) [...] = ACET) <2 ug/ml 10-25 L ALCOHOL, [id number] 06:41:00 Test Item Value Reference Range Interpretation Comments Alcohol % (test code = 0 % 0.00-0.00 N Dereck ol % 0.00 - 0.10 ALCPC) Sub-clinical 0.11 - 0.20 Emotional Instability 0.21 - 0.30 Confusion 0.31 - 0.40 Stupor 0.41 - 0.50 Coma >.50 Fatal CBC WITH AUTO [id number] 06:13:00 Test Item Value Reference Range Interpretation [...] (test code = 0.4 % 0.0-0.4 IG%) [id number] 08:45:00 Test Item Value Reference Range Interpretation [...] NONEMedical Necessity SUSPECT COAGULOPATHYAnticoagulant? NONEMedical Necessity: SUSP [id number] 08:45:00 Test Item Value Reference Range Interpretation Comments Coagulation (test code = PTT) 27.2 SEC 22.9-36.1 N Anticoagulant? NONEMedical Necessity SUSPECT COAGULOPATHYAnticoagulant? NONEMedical Necessity: SUSP [id number] 08:44:00 Test Item Value Reference Range Interpretation Comments Chemistry (test 2.9 ng/mL 0-6.6 N code = CKMBM-T) Chemistry (test 0.015 ng/mL < 0.028 code = TROPI-T) Reference Ra jaciele 0.0 0 - 0.028 ng/mL Negative 0.0 29 - 0.29 ng/mL Indeterminate Greater or Equal to 0.3 ng/mL Strongly sugge [facility] [id number] 08:40:00 Test Item Value Reference Range Interpretation [...] 17 U/L 8-55 N code = ALT) [id number] 08:40:00 Test Item Value Reference Range Interpretation Comments Chemistry (test code = CK) 119 U/L 30-200 N [id number] 08:23:00 Test Item Value Reference Range Interpretation [...] code = BASO#) 0.1 thou/uL 0.0-0.2 N [id number] 19:03:00 Test Item Value Reference Range Interpretation [...] code 16 U/L 8-55 N = ALT) [id number] 18:46:00 Test Item Value Reference Range Interpretation [...] code = BASO#) 0.1 thou/uL 0.0-0.2 N [id number] 18:45:00 Test Item Value Reference Range Interpretation [...] Negative Negative Comment clear yellowUrine Source: Urine [id number] 18:45:00 Test Item Value Reference Range Interpretation Comments Urinalysis (test code = UARBC) 0-3 HPF 0-3 Urinalysis (test code = UAWBC) 4-6 HPF 0-3 A Urinalysis (test code = UASQUAM) 0-3 HPF 0-3 Urinalysis (test code = UABAC) 1+ HPF None Seen A Comment clear yellowUrine Source: Urine [id number] 20:56:00 Test Item Value Reference Range Interpretation [...] LPF 0-3 Hyaline UACAST) Urine Source: Urine [id number] 19:22:00 Test Item Value Reference Range Interpretation Comments Chemistry (test Less than < 0.028 code = TROPI-T) 0.010 ng/mL Reference Ra nge 0. 00 - 0.028 ng/mL Negative 0.029 - 0.29 n g/mL Indeterminate Greater or Equa l to 0.3 ng/mL St rongly suggests ID Comment Pls draw at 7 pm.[id number] 16:36:00 Test Item Value Reference Range Interpretation [...] NONEMedical Necessity SUSPECT COAGULOPATHYAnticoagulant? NONEMedical Necessity: SUSP [id number] 16:36:00 Test Item Value Reference Range Interpretation Comments Coagulation (test code = PTT) 26.2 SEC 22.9-36.1 N Anticoagulant? NONEMedical Necessity SUSPECT COAGULOPATHYAnticoagulant? NONEMedical Necessity: SUSP [id number] 16:34:00 Test Item Value Reference Range Interpretation Comments Chemistry (test 2.5 ng/mL 0-6.6 N code = CKMBM-T) Chemistry (test Less than < 0.028 code = TROPI-T) 0.010 ng/mL Reference Ra nge 0. 00 - 0.028 ng/mL Negative 0.029 - 0.29 n g/mL Indeterminate Greater or Equa l to 0.3 ng/mL St rongly suggests ID [id number] 16:31:00 Test Item Value Reference Range Interpretation [...] code 17 U/L 8-55 N = ALT) [id number] 16:13:00 Test Item Value Reference Range Interpretation [...] 0.0-0.2 N XR Chest 1 View Portable [facility]: GABRIELLAKERRY BENIGNO : 1970 [facility] Pt Name: KERRY QUIROZ [address] Phys: [place] [address] : 1970 Age: 50 SEX:M [phone] Exam Date: 06/15/21 Status: REG ER Acct: [id number] Loc: [place] Pt Unit #: [id number] Report #: [id number] CC: Karlene Stephen MD IMAGING SERVICES REPORT Order # Category/Exam [id number] RAD/XR Chest1 View Portable ([id number]): . Results XR Chest 1 View Portable History: Chest pain Comparison: None. Findings: Lungs are clear. No pneumothorax or effusion. Cardiac silhouetteand mediastinal contoursare within normal limits. Impression: No acute intrathoracic abnormality. Reported By: KARLENE COMER Electronically Signed Date/Time: 06/15/211550 Technologist: Dictated Date/Time: 06/15/211550 Transcribed Date/Time:
[2021-09-18] MEDS ORDERED: NA CHLORIDE 0.9% 500 ML ONE (08:55)
[2021-09-18] MEDS ORDERED: LORazepam 2 MG/ML VIAL ONE (08:55)
[2021-09-18 09:10] LABS: Absolute Lymphocytes (CBC) 0.9 K/uL (0.7-4.9); Hematocrit 45.2 % (39.6-49.0); Lymphocytes % 17.3 % (15.3-44.8); MPV 7.1 fL (7.6-11.3); RBC Red Blood Cell Count 4.92 M/uL (4.33-5.43)
[2021-09-18 09:17] LABS: Protime INR 0.96
[2021-09-18 09:37] LABS: Magnesium 2.5 mg/dL (1.8-2.4); Potassium 3.4 mmol/L (3.5-5.1); Troponin High Sensitivity 8.5 pg/mL (<58.9)
--- NOTE | 2021-09-18 09:53 | ER ---
Nurse's Notes [facility] Name: Jasmin Haley Age: 51 yrs Sex: Male : 1970 Arrival Date: 09/18/2021 Time: 08:25 Bed 20 Private MD: Diagnosis: Essential (primary) hypertension;Adverse effect of amphetamines;Chest pain, unspecified Presentation: 09/18 08:30 Chief complaint: Patient states: High blood pressure this morning at 204 systolic, jl7 rested to try and get it to go down. Haven't taken my BP medication in about a month. Reports non-radiating CP started last night, feels like pressure. Coronavirus screen: At this time, the client does not indicate any symptoms associated with coronavirus-19. Ebola Screen: No symptoms or risks identified at this time. Initial Sepsis Screen: Does the patient meet any 2 criteria? No. Patient's initial sepsis screen is negative. Does the patient have a suspected source of infection? No. Patient's initial sepsis screen is negative. Risk Assessment: Do you want to hurt yourself or someone else? Patient reports no desire to harm self or others. Onset of symptoms was September 18, 2021. 08:30 Method Of Arrival: Ambulatory [facility] 08:30 Acuity: GISELA 2 7 08:33 Chief complaint: Pt reports "I was introduced to meth 4 days ago and maybe that's why jl7 it's high.". Triage Assessment: 08:33 General: Appears in no apparent distress. uncomfortable, Behavior is calm, cooperative, jl7 appropriate for age. Pain: Complains of pain in anterior aspect of left upper chest Pain does not radiate. Pain currently is 8 out of 10 on a pain scale. Historical: - Allergies: 08:33 No Known Allergies; jl7 - Home Meds: 08:33 aspirin 81 mg Oral tab 81 mg daily [Active]; jl7 - PMHx: 08:33 bipolar/schizo; Hypertension; stroke; jl7 - Immunization history:: Client reports receiving the 2nd dose of the Covid vaccine, Pfizer. - Social history:: Smoking status: Patient reports the use of cigarette tobacco products, smokes two packs cigarettes per day. Patient uses street drugs, marijuana, Methamphetamine (Meth). - Family history:: not pertinent. - Hospitalizations: : No recent hospitalization is reported. Screenin:30 Abuse screen: Denies threats or abuse. Denies injuries from another. Nutritional eo2 screening: No deficits noted. Tuberculosis screening: No symptoms or risk factors identified. Fall Risk None identified. Assessment: 09:31 General: Appears in no apparent distress. comfortable, Behavior is cooperative, eo2 anxious. Neuro: Level of Consciousness is awake, alert, obeys commands, Oriented to person, place, time, situation, Reports high blood pressure, states "I get in a mood, makes my body hot, and I get agitated". Pt also reports "I was introduced to meth", last use 4 days ago. Denies dizziness, headache. Neuro: Reports. Cardiovascular: Reports chest tightness Heart tones S1 S2 Capillary refill < 3 seconds Rhythm is sinus rhythm. Respiratory: Reports cough that is dry, mild SOB Airway is patent Breath sounds are clear bilaterally. GI: No deficits noted. No signs and/or symptoms were reported involving the gastrointestinal system. : No deficits noted. No signs and/or symptoms were reported regarding the genitourinary system. Vital Signs: 08:30 BP 157 / 108; Pulse 85; Resp 17; Temp 97.2; Pulse Ox 100% on R/A; Weight 69.4 kg; jl7 Height 5 ft. 5 in. (165.10 cm); Pain 8/10; 08:45 BP 161 / 109; Pulse 72; Resp 22; Pulse Ox 100% ; eo2 09:00 BP 176 / 107; Pulse 72; Resp 18; Pulse Ox 100% on R/A; eo2 09:30 BP 147 / 94; Pulse 68; Resp 16; Pulse Ox 100% ; Pain 8/10; eo2 08:30 Body Mass Index 25.46 (69.40 kg, 165.10 cm) jl7 Vitals: 09:31 Cardiac Rhythm Assessment Regular Sinus rhythm. eo2 ED Course: 08:25 Patient arrived in ED. as 08:33 Triage completed. jl7 08:33 Arm band placed on right wrist. jl7 08:36 Li Jurado, RN is Primary Nurse. eo2 08:36 Bairon Olsen MD is Attending Physician. rn 08:48 EKG done, by ED staff, reviewed by Bairon Olsen MD. lt3 09:04 Basic Metabolic Panel Sent. mh5 09:05 CBC with Diff Sent. mh5 09:05 Magnesium Sent. 5 09:05 PT-INR Sent. [facility] 09:05 Troponin HS Sent. [facility] 09:05 Initial lab(s) drawn, by me, sent to lab. EKG done, by ED staff, reviewed by Bairon Olsen MD. Inserted saline lock: 20 gauge in left antecubital area, using aseptic technique. Blood collected. 09:19 XRAY Chest (1 view) In Process Unspecified. EDMS 09:30 Patient has correct armband on for positive identification. traffic monitor specialist on. Pulse eo2 ox on. NIBP on. Door closed. Noise minimized. Warm blanket given. 09:30 No provider procedures requiring assistance completed. eo2 10:14 IV discontinued, intact. eo2 Administered Medications: 09:06 Drug: Ativan (LORazepam) 0.5 mg Route: IVP; Site: left antecubital; eo2 10:10 Follow up: Response: No adverse reaction; Anxiety decreased eo2 09:06 Drug: NS 0.9% 500 ml Route: IV; Rate: bolus; Site: left antecubital; eo2 10:00 Follow up: Response: No adverse reaction; IV Status: Completed infusion; IV Intake: eo2 500ml Intake: 10:00 IV: 500ml; Total: 500ml. eo2 Outcome: 09:53 Discharge ordered by . rn 10:14 Discharged to home ambulatory. eo2 10:14 Condition: stable 10:14 Discharge instructions given to patient, family, Instructed on discharge instructions, follow up and referral plans. medication usage, Demonstrated understanding of instructions, follow-up care, medications, Prescriptions given X 1. 10:15 Patient left the ED. eo2 Signatures: Dispatcher [employer] Ernestine Santiago Roman, MD MD rn Martinez, Maria mh5 Leal, Jahala RN RN nathan7 Anya Rodriguez Eunice RN RN eo2
--- NOTE | 2021-09-18 09:53 | EDPHYS ---
Physician Documentation [facility] Name: Jasmin Haley Age: 51 yrs Sex: Male : 1970 Arrival Date: 09/18/2021 Time: 08:25 Bed 20 Private MD: ED Physician Bairon Olsen HPI: 09/18 08:45 This 51 yrs old Male presents to ER via Ambulatory with complaints of High Blood rn Pressure. 08:45 The patient has elevated blood pressure and discovered this. rn 08:45 The patient or guardian reports chest pain that is located primarily in the anterior rn chest wall, left. Onset: 3 day(s) ago. The pain does not radiate. Associated signs and symptoms: Pertinent negatives: abdominal pain, cough, diaphoresis, headache, near syncope, palpitations, shortness of breath, syncope, vomiting. The chest pain is described as a pressure. Duration: The patient or guardian reports a single episode, that is still ongoing. Modifying factors: The symptoms are alleviated by nothing. the symptoms are aggravated by nothing. Severity of pain: At its worst the pain was mild in the emergency department the pain is unchanged. The patient has not experienced similar symptoms in the past. The patient has not recently seen a physician. Patient reports about 3 days of ongoing chest pain, has never gone away, started about the day or maybe the day after using meth for the first time. Also reports has hypertension and has not been on medication for some time. Also reports increased stress and lack of sleep over the last 2 days. Called 911 this morning and ambulance went by house, told him his blood pressure was high but patient did not want to be transported. convinced him to come in this morning for evaluation.. Historical: - Allergies: 08:33 No Known Allergies; jl7 - Home Meds: 08:33 aspirin 81 mg Oral tab 81 mg daily [Active]; jl7 - PMHx: 08:33 bipolar/schizo; Hypertension; stroke; jl7 - Immunization history:: Client reports receiving the 2nd dose of the Covid vaccine, Pfizer. - Social history:: Smoking status: Patient reports the use of cigarette tobacco products, smokes two packs cigarettes per day. Patient uses street drugs, marijuana, Methamphetamine (Meth). - Family history:: not pertinent. - Hospitalizations: : No recent hospitalization is reported. ROS: 08:45 Constitutional: Negative for fever, chills, and weight loss, Eyes: Negative for injury, rn pain, redness, and discharge, Neck: Negative for injury, pain, and swelling, Cardiovascular: Positive for chest pain Respiratory: Negative for shortness of breath, cough, wheezing, and pleuritic chest pain, Abdomen/GI: Negative for abdominal pain, nausea, vomiting, diarrhea, and constipation, Back: Negative for injury and pain, : Negative for injury, bleeding, discharge, and swelling, MS/Extremity: Negative for injury and deformity, Skin: Negative for injury, rash, and discoloration, Neuro: Negative for headache, weakness, numbness, tingling, and seizure. Exam: 08:45 Constitutional: This is a well developed, well nourished patient who is awake, alert, rn and in no acute distress. Ambulatory to room without assistance Head/Face: Normocephalic, atraumatic. Eyes: Periorbital areas with no swelling, redness, or edema. Neck: Trachea midline, no masses palpated, and no cervical lymphadenopathy. Supple, full range of motion without nuchal rigidity, or vertebral point tenderness. No Meningismus. Cardiovascular: Regular rate and rhythm. No pulse deficits. Respiratory: No increased work of breathing, no retractions or nasal flaring. Abdomen/GI: Soft, non-tender Skin: Warm, dry MS/ Extremity: Pulses equal, no cyanosis. Neurovascular intact. Full, normal range of motion. Equal circumference. Neuro: Awake and alert, GCS 15, oriented to person, place, time, and situation. Cranial nerves II-XII grossly intact. Motor strength 5/5 in all extremities. Sensory grossly intact. Cerebellar exam normal. Normal gait. 08:48 ECG was reviewed by the Attending Physician. rn Vital Signs: 08:30 BP 157 / 108; Pulse 85; Resp 17; Temp 97.2; Pulse Ox 100% on R/A; Weight 69.4 kg; jl7 Height 5 ft. 5 in. (165.10 cm); Pain 8/10; 08:45 BP 161 / 109; Pulse 72; Resp 22; Pulse Ox 100% ; eo2 09:00 BP 176 / 107; Pulse 72; Resp 18; Pulse Ox 100% on R/A; eo2 09:30 BP 147 / 94; Pulse 68; Resp 16; Pulse Ox 100% ; Pain 8/10; eo2 08:30 Body Mass Index 25.46 (69.40 kg, 165.10 cm) jl7 MDM: 08:36 Patient medically screened. rn 09:49 Differential diagnosis: acute myocardial infarction, acute pericarditis, anxiety, rn coronary artery disease gastroesophageal reflux disease (GERD), pleurisy, pneumothorax, stable angina. HEART Score: History: Slightly Suspicious (0), ECG: Normal (0), Age: > 45 and < 65 years (1), Risk Factors: 1 or 2 risk factors (1), Troponin: < or = 1 x Normal Limit (0), Total Score = 2. Data reviewed: vital signs, nurses notes, lab test result(s), EKG, radiologic studies, plain films, and as a result, I will discharge patient. Data interpreted: Pulse oximetry: on room air is 100 %. Interpretation: normal. Counseling: I had a detailed discussion with the patient and/or guardian regarding: the historical points, exam findings, and any diagnostic results supporting the discharge/admit diagnosis, lab results, radiology results, the need for outpatient follow up, to return to the emergency department if symptoms worsen or persist or if there are any questions or concerns that arise at home. Response to treatment: the patient's symptoms have markedly improved after treatment, and as a result, I will discharge patient. Special discussion: I discussed with the patient/guardian in detail that at this point there is no indication for admission to the hospital. It is understood, however, that if the symptoms persist or worsen the patient needs to return immediately for re-evaluation. Based on the history and exam findings, there is no indication for further emergent testing or inpatient evaluation. I discussed with the patient/guardian the need to see the ceramics machine operator for further evaluation of the symptoms. I discussed with the patient/guardian the need to see the primary care provider for further evaluation of the symptoms. ED course: No acute findings on blood work/chest x-ray/EKG. Will discharge home with counseling to stop drugs. We will refill his Norvasc. Patient comfortable, asymptomatic, sleeping comfortably, blood pressure now 147/94.. 09/18 08:43 Order name: Basic Metabolic Panel; Complete Time: 09:43 rn 09/18 08:43 Order name: CBC with Diff; Complete Time: 09:27 rn 09/18 08:43 Order name: Magnesium; Complete Time: 09:43 rn 09/18 08:43 Order name: PT-INR; Complete Time: 09:27 rn 09/18 08:43 Order name: Troponin HS; Complete Time: 09:43 rn 09/18 08:43 Order name: XRAY Chest (1 view); Complete Time: 10:00 rn 09/18 08:43 Order name: EKG; Complete Time: 08:44 rn 09/18 08:43 Order name: Cardiac monitoring; Complete Time: 08:48 rn 09/18 08:43 Order name: EKG - Nurse/Tech; Complete Time: 08:48 rn 09/18 08:43 Order name: IV Saline Lock; Complete Time: 09:04 rn 09/18 08:43 Order name: Labs collected and sent; Complete Time: 09:04 rn 09/18 08:43 Order name: O2 Per Protocol; Complete Time: 08:49 rn 09/18 08:43 Order name: O2 Sat Monitoring; Complete Time: 08:49 rn EC:48 Rate is 66 beats/min. Rhythm is regular. QRS [place] is Normal. [place] interval is normal. QRS rn interval is normal. QT interval is normal. No Q waves. T waves are Normal. No ST changes noted. Clinical impression: Normal ECG. Interpreted by me. Reviewed by me. Administered Medications: 09:06 Drug: Ativan (LORazepam) 0.5 mg Route: IVP; Site: left antecubital; eo2 10:10 Follow up: Response: No adverse reaction; Anxiety decreased eo2 09:06 Drug: NS 0.9% 500 ml Route: IV; Rate: bolus; Site: left antecubital; eo2 10:00 Follow up: Response: No adverse reaction; IV Status: Completed infusion; IV Intake: eo2 500ml Disposition Summary: 09/18/21 09:53 Discharge Ordered Location: Home rn Problem: new rn Symptoms: have improved rn Condition: Stable rn Diagnosis - Essential (primary) hypertension rn - Adverse effect of amphetamines rn - Chest pain, unspecified rn Followup: rn - With: Private Physician - When: As needed - Reason: Recheck today's complaints, Re-evaluation by your physician Discharge Instructions: - Discharge Summary Sheet rn - Nonspecific Chest Pain, Adult rn - Hypertension, Adult rn Forms: - Medication Reconciliation Form rn - Thank You Letter rn - Antibiotic rn psych - Prescription Opioid Use rn Prescriptions: - Norvasc 5 mg Oral Tablet - take 1 tablet by ORAL route once daily; 60 tablet; Refills: 0, Product rn Selection Permitted Signatures: Dispatcher [employer] Bairon Jones MD MD rn Leal, Jahala RN RN jl7 Li Jurado RN RN eo2
--- NOTE | 2021-09-18 09:56 | RAD REPORT ---
EXAM DESCRIPTION: RAD - Chest Single View - 09/18/2021 9:18 am CLINICAL HISTORY: CHEST PAIN COMPARISON: Portable 07/23/2021 TECHNIQUE: AP portable chest image was obtained 09/18/2021 9:18 am . FINDINGS: No peripheral mass consolidation. Perihilar interstitial markings are mildly prominent but not substantially different from comparison. Minimal peribronchial thickening changes are seen. Trac hea is midline. Heart and vasculature are normal. No measurable pleural effusion and no pneumothorax. No acute bony abnormality seen. No acute aortic findings suspected. IMPRESSION: Mild viral infiltrate changes are identifiable. No peripheral infiltrate to suspect bacterial pneumonia.
[2021-09-18 10:29] VITALS: TEMP 97.2; O2SAT 100
[2021-09-18 10:35] VITALS: BP 147/94
== END 2021-09-18 10:15 | disposition home or self-care (01) ==
LOC: ER 08:22
DX: I10 Essential (primary) hypertension (principal); T43.625A Adverse effect of amphetamines, initial encounter; F17.210 Nicotine dependence, cigarettes, uncomplicated; Z79.82 Long term (current) use of aspirin
CPT/HCPCS: 36415; 71045; 80048; 83735; 84484; 85025; 85610; 93005; J7040

== ENCOUNTER 2021-11-27 21:09 | Emergency (ER) | payer SELFPAY ==
--- OUTSIDE RECORDS SUMMARY | 2021-11-27 21:12 | XMS REPORT | Continuity of Care Document ---
:[address] [facility] t Address [address] [place] [address] Care Team Providers Name Role Phone Zafar Attending Clinician Unavailable Bruno Attending Clinician Unavailable DAVID Attending Clinician Unavailable LANA FABIAN Attending Clinician CHAGO Attending Clinician Unavailable Alba Coronado Attending Clinician Unavailable PROVIDER, CAROLYN Attending Clinician Unavailable Edita AYALA Attending Clinician Unavailable DAVID Ponceitting Clinician Unavailable Payers Payer Name Policy Type Policy Effective Date Expiration Date Sour ce Number MEDICAID NA [place] [facility] Problems Condition Condition Condition Status Onset [...] Start Date Stop Date Source Never smoker [facility] (LUF/LIOR/SA) Medications This patient has no known medications. Immunizations Ordered Immunization Filled Immunization Date Status Commen ts Source Name Name NO UP TO DATE FLU NO UP TO DATE FLU Unknown Completed [facility] (LUF/LIOR/SA) Vital Signs Vital Name Observation Time Observation Value Comments Source Body Temperature 2018-08-08 05:01:00 98.9 F [facility] (LUF/LIOR/SA) Pulse Rate 2018-08-08 05:01:00 87 /min [facility] (F/LIRO/SA) Respiratory Rate 2018-08-08 05:01:00 18 /min [facility] (F/LIOR/SA) O2% BldC Oximetry 2018-08-08 05:01:00 98 % [facility] (LUF/LIOR/SA) BP Systolic 2018-08-08 05:01:00 160 mm[Hg] [facility] (LUF/LIOR/SA) BP Diastolic 2018-08-08 05:01:00 110 mm[Hg] [facility] (LUF/LIOR/SA) Height 2018-08-08 05:01:00 66 in [facility] (F/LIOR/SA) Weight Measured 2018-08-08 05:01:[address] [facility] Loren [facility] (LUF/LIOR/SA) BMI (Body Mass Index) 2018-08-08 05:01:00 25 [facility] (F/LIOR/SA) Procedures This patient has no known procedures. Encounters Start End Encounter Admission Attending Care Care Encounter Source Date/Time Date/Time Type Type Clinicians Facility Department ID 2021-06-16 2021-06-16 Emergency ER TOMI Stephen LSJM [id number] [facility]. 02:24:00 02:24:00 Karlene [id number] [facility] ([place]) 2021-06-15 2021-06-15 Emergency ER TOMI Stephen STPRIMITIVOYvon [id number] 15:02:00 15:02:00 Karlene -[id number] Leighton Perla ([place]) 2021-05-28 2021-05-28 Emergency ER TOMI Carr STBRANDEE [id number] [address] 13:51:00 16:10:00 Roshni -[id number] Leighton Perla ([place]) 2018-08-08 2018-08-08 Inpatient MARÍA CAICEDO [facility] [id number] 04:58:00 11:31:00 [facility] [place], [address] [place], [place] [address] 2018-07-01 2018-07-01 Departed MIRELA SCHWARTZ [facility] [id number] [place] 19:23:00 20:28:00 [facility] Results Test Description Test Time Test Comments Results Result Comments Source Chemistry 2021-06-15 16:05:00 Test Item Value Reference Range Interpretation Comme nts Chemistry (test code = CKMBM-T) 2.2 ng/mL 0-6.6 N [id number] 16:04:00 Test Item Value Reference Range Interpretation [...] t been validated for u se with [facility] (ove r 70 years of age), women, [...] code 13 U/L 8-55 N = ALT) [id number] 16:04:00 Test Item Value Reference Range Interpretation Comments Chemistry (test code = CK) 95 U/L 30-200 N [id number] 16:04:00 Test Item Value Reference Range Interpretation Comments Chemistry (test Less than < 0.028 code = TROPI-R) 0.010 ng/mL Reference Ra nge 0. 00 - 0.028 ng/mL Negative 0.029 - 0.29 n g/mL Indeterminate Greater or Equa l to 0.3 ng/mL St rongly suggests NV [id number] 15:47:00 Test Item Value Reference Range Interpretation [...] Toxicity >30 mg/dl Leth al >70 mg/dl [id number] 06:42:00 Test Item Value Reference Range Interpretation [...] 4 - SerumAlbu min)] EGFR if >60 Belgian (test code mL/min/1.73m\\ = EGFRAA) S\\2 EGFR if Non- >60 Estimate d Glomerular Belgian (test code mL/min/1.73m\\ Filtrat ion Rate (eGFR) [...] = ACET) <2 ug/ml 10-25 L ALCOHOL, [id number] 06:41:00 Test Item Value Reference Range Interpretation Comments Alcohol % (test code = 0 % 0.00-0.00 N Dereck ol % 0.00 - 0.10 ALCPC) Sub-clinical 0.11 - 0.20 Emotional Instability 0.21 - 0.30 Confusion 0.31 - 0.40 Stupor 0.41 - 0.50 Coma >.50 Fatal CBC WITH AUTO [id number] 06:13:00 Test Item Value Reference Range Interpretation [...] (test code = 0.4 % 0.0-0.4 IG%) [id number] 08:45:00 Test Item Value Reference Range Interpretation [...] NONEMedical Necessity SUSPECT COAGULOPATHYAnticoagulant? NONEMedical Necessity: SUSP [id number] 08:45:00 Test Item Value Reference Range Interpretation Comments Coagulation (test code = PTT) 27.2 SEC 22.9-36.1 N Anticoagulant? NONEMedical Necessity SUSPECT COAGULOPATHYAnticoagulant? NONEMedical Necessity: SUSP [id number] 08:44:00 Test Item Value Reference Range Interpretation Comments Chemistry (test 2.9 ng/mL 0-6.6 N code = CKMBM-T) Chemistry (test 0.015 ng/mL < 0.028 code = TROPI-T) Reference Ra nge 0.0 0 - 0.028 ng/mL Negative 0.0 29 - 0.29 ng/mL Indeterminate Greater or Equal to 0.3 ng/mL Strongly sugge sts NV [id number] 08:40:00 Test Item Value Reference Range Interpretation [...] 17 U/L 8-55 N code = ALT) [id number] 08:40:00 Test Item Value Reference Range Interpretation Comments Chemistry (test code = CK) 119 U/L 30-200 N [id number] 08:23:00 Test Item Value Reference Range Interpretation [...] code = BASO#) 0.1 thou/uL 0.0-0.2 N [id number] 19:03:00 Test Item Value Reference Range Interpretation [...] code 16 U/L 8-55 N = ALT) [id number] 18:46:00 Test Item Value Reference Range Interpretation [...] code = BASO#) 0.1 thou/uL 0.0-0.2 N [id number] 18:45:00 Test Item Value Reference Range Interpretation [...] Negative Negative Comment clear yellowUrine Source: Urine [id number] 18:45:00 Test Item Value Reference Range Interpretation Comments Urinalysis (test code = UARBC) 0-3 HPF 0-3 Urinalysis (test code = UAWBC) 4-6 HPF 0-3 A Urinalysis (test code = UASQUAM) 0-3 HPF 0-3 Urinalysis (test code = UABAC) 1+ HPF None Seen A Comment clear yellowUrine Source: Urine [id number] 20:56:00 Test Item Value Reference Range Interpretation [...] LPF 0-3 Hyaline UACAST) Urine Source: Urine [id number] 19:22:00 Test Item Value Reference Range Interpretation Comments Chemistry (test Less than < 0.028 code = TROPI-T) 0.010 ng/mL Reference Ra nge 0. 00 - 0.028 ng/mL Negative 0.029 - 0.29 n g/mL Indeterminate Greater or Equa l to 0.3 ng/mL St felicitygly suggests NV Comment Pls draw at 7 pm.[id number] 16:36:00 Test Item Value Reference Range Interpretation [...] NONEMedical Necessity SUSPECT COAGULOPATHYAnticoagulant? NONEMedical Necessity: SUSP [id number] 16:36:00 Test Item Value Reference Range Interpretation Comments Coagulation (test code = PTT) 26.2 SEC 22.9-36.1 N Anticoagulant? NONEMedical Necessity SUSPECT COAGULOPATHYAnticoagulant? NONEMedical Necessity: SUSP [id number] 16:34:00 Test Item Value Reference Range Interpretation Comments Chemistry (test 2.5 ng/mL 0-6.6 N code = CKMBM-T) Chemistry (test Less than < 0.028 code = TROPI-T) 0.010 ng/mL Reference Ra nge 0. 00 - 0.028 ng/mL Negative 0.029 - 0.29 n g/mL Indeterminate Greater or Equa l to 0.3 ng/mL St rongly suggests NV [id number] 16:31:00 Test Item Value Reference Range Interpretation [...] code 17 U/L 8-55 N = ALT) [id number] 16:13:00 Test Item Value Reference Range Interpretation [...] 0.0-0.2 N XR Chest 1 View Portable [facility]Z : 1970 [facility] Pt Name: KERRY QUIROZ [address] Phys: [place] [address] : 1970 Age: 50 SEX:M [phone] Exam Date: 06/15/21 Status: REG ER Acct: [id number] Loc: [place] Pt Unit #: [id number] Report #: [id number] CC: Karlene Stephen MD IMAGING SERVICES REPORT Order # Category/Exam [id number] RAD/XR Chest1 View Portable ([id number]): . Results XR Chest 1 View Portable History: Chest pain Comparison: None. Findings: Lungs are clear. No pneumothorax or effusion. Cardiac silhouetteand mediastinal contoursare within normal limits. Impression: No acute intrathoracic abnormality. Reported By: KARLENE COMER Electronically Signed Date/Time: 06/15/21 155 Technologist: Dictated Date/Time: 06/15/211550 Transcribed Date/Time:
[2021-11-27 22:59] LABS: Absolute Lymphocytes (CBC) 2.6 K/uL (0.7-4.9); Hematocrit 39.2 % (39.6-49.0); MPV 7.1 fL (7.6-11.3); RBC Red Blood Cell Count 4.41 M/uL (4.33-5.43)
[2021-11-27 23:10] LABS: Magnesium 2.1 mg/dL (1.8-2.4); Potassium 4.1 mmol/L (3.5-5.1)
[2021-11-27 23:26] LABS: SARS-COV-2 RT PCR NEGATIVE (NEGATIVE)
--- NOTE | 2021-11-27 23:51 | EDPHYS ---
Physician Documentation [facility] Name: Jasmin Haley Age: 51 yrs Sex: Male : 1970 Arrival Date: 11/27/2021 Time: 21:12 Bed 13 Private MD: ED Physician Avelino Sanford HPI: 11/27 22:07 This 51 yrs old Male presents to ER via Ambulatory with complaints of Breathing jr8 Difficulty. 22:07 The patient has shortness of breath at rest, with light activity. Onset: The jr8 symptoms/episode began/occurred gradually, 1 month(s) ago. Duration: The symptoms are intermittent. The patient's shortness of breath is aggravated by light activity. Associated signs and symptoms: Pertinent positives: diaphoresis. Severity of symptoms: At their worst the symptoms were moderate. The patient has not experienced similar symptoms in the past. The patient has not recently seen a physician. This is a 51-year-old male patient with a history of hypertension, strokes, schizophrenia that presented to emergency room with ongoing complaints of shortness of breath both at rest and with exertion. Patient stated that he stopped smoking about a month and a half ago and since then has had increasing shortness of breath. Also noted to have on and off night sweats. Stated that he has not been able to follow-up with any sort of primary care but did recently establish to try and get back on his blood pressure medications and antipsychotics. Getting concerned that the shortness of breath is not going away. Historical: - Allergies: 21:35 No Known Allergies; lp1 - Home Meds: 21:35 None [Active]; lp1 - PMHx: 21:35 bipolar/schizo; Hypertension; stroke; CVA; lp1 - PSHx: 21:35 None; lp1 - Social history:: Smoking status: Patient/guardian denies using tobacco, Stopped _ months ago 1. ROS: 22:07 Eyes: Negative for injury, pain, redness, and discharge, ENT: Negative for injury, jr8 pain, and discharge, Neck: Negative for injury, pain, and swelling, Cardiovascular: Negative for chest pain, palpitations, and edema, Abdomen/GI: Negative for abdominal pain, nausea, vomiting, diarrhea, and constipation, Back: Negative for injury and pain, MS/Extremity: Negative for injury and deformity, Skin: Negative for injury, rash, and discoloration, Neuro: Negative for headache, weakness, numbness, tingling, and seizure. 22:07 Respiratory: Positive for dyspnea on exertion, shortness of breath. Exam: 22:07 Constitutional: This is a well developed, well nourished patient who is awake, alert, jr8 and in no acute distress. Neck: Trachea midline, no thyromegaly or masses palpated, and no cervical lymphadenopathy. Supple, full range of motion without nuchal rigidity, or vertebral point tenderness. No Meningismus. Chest/axilla: Normal chest wall appearance and motion. Nontender with no deformity. No lesions are appreciated. Cardiovascular: Regular rate and rhythm with a normal S1 and S2. No gallops, murmurs, or rubs. Normal PMI, no JVD. No pulse deficits. Abdomen/GI: Soft, non-tender, with normal bowel sounds. No distension or tympany. No guarding or rebound. No evidence of tenderness throughout. Back: No spinal tenderness. No costovertebral tenderness. Full range of motion. Skin: Warm, dry with normal turgor. Normal color with no rashes, no lesions, and no evidence of cellulitis. MS/ Extremity: Pulses equal, no cyanosis. Neurovascular intact. Full, normal range of motion. Neuro: Awake and alert, GCS 15, oriented to person, place, time, and situation. Cranial nerves II-XII grossly intact. Motor strength 5/5 in all extremities. Sensory grossly intact. Cerebellar exam normal. Normal gait. 22:07 Respiratory: the patient does not display signs of respiratory distress, Respirations: normal, Breath sounds: are clear throughout, no bronchial sounds, no decreased breath sounds, no rales, rhonchi, no stridor, no wheezing. Vital Signs: 21:32 BP 159 / 95; Pulse 69; Resp 22; Temp 98.2(O); Pulse Ox 98% on R/A; Weight 73.48 kg (R); lp1 Height 5 ft. 6 in. (167.64 cm); 22:30 BP 135 / 88; Pulse 69; Pulse Ox 96% on R/A; ab2 23:56 BP 145 / 91; Pulse 72; Resp 18; Temp 98.1; Pulse Ox 100% on R/A; ab2 21:32 Body Mass Index 26.15 (73.48 kg, 167.64 cm) lp1 MDM: 21:30 Patient medically screened. [facility] 23:27 Data reviewed: vital signs, nurses notes, lab test result(s), EKG, radiologic studies, jr8 plain films. Data interpreted: Pulse oximetry: on room air is 96 %. Interpretation: normal. Counseling: I had a detailed discussion with the patient and/or guardian regarding: the historical points, exam findings, and any diagnostic results supporting the discharge/admit diagnosis, lab results, radiology results, the need for outpatient follow up, a well drill operator, to return to the emergency department if symptoms worsen or persist or if there are any questions or concerns that arise at home. ED course: Discussed with patient that there is mild prominence in the pulmonary vasculature on his chest x-ray but that his BNP remains normal along with all other cardiac enzymes. Remainder of his labs also unremarkable. EKG without acute findings. Recommended following up with cardiology at this point to rule out any cardiac related problems that would be causing his shortness of breath. If normal needs to see pulmonology as well. Patient good with this and will follow up. Knows to come back if you are worse in any point time.. 11/27 21:51 Order name: Basic Metabolic Panel; Complete Time: 23:15 [facility] 11/27 21:51 Order name: CBC with Diff; Complete Time: 23:15 11/27 21:51 Order name: D-Dimer; Complete Time: 23:15 11/27 21:51 Order name: Magnesium; Complete Time: 23:15 11/27 21:51 Order name: NT PRO-BNP; Complete Time: 23:15 11/27 21:51 Order name: Troponin HS; Complete Time: 23:15 11/27 21:51 Order name: XRAY Chest (1 view) 11/27 21:51 Order name: EKG; Complete Time: 21:52 11/27 21:51 Order name: Cardiac monitoring; Complete Time: 23:30 11/27 21:51 Order name: EKG - Nurse/Tech; Complete Time: 22:42 11/27 21:51 Order name: IV Saline Lock; Complete Time: 23:30 11/27 21:51 Order name: Labs collected and sent; Complete Time: 22:42 jr8 11/27 21:51 Order name: O2 Per Protocol; Complete Time: 23:30 jr8 11/27 22:39 Order name: COVID-19/FLU A+B (Document "Date of Onset" if Symptomatic); Complete Time: cs9 23:29 11/27 21:51 Order name: O2 Sat Monitoring; Complete Time: 23:31 jr8 Administered Medications: No medications were administered Disposition Summary: 11/27/21 23:50 Discharge Ordered Location: Home jr8 Problem: new jr8 Symptoms: are unchanged jr8 Condition: Stable jr8 Diagnosis - Dyspnea jr8 Followup: jr8 - With: Mateus Gonsalez MD - When: 2 - 3 days - Reason: Recheck today's complaints, Continuance of care, Re-evaluation by your physician Followup: jr8 - With: Louis Brizuela MD - When: 2 - 3 days - Reason: Recheck today's complaints, Continuance of care, Re-evaluation by your physician Discharge Instructions: - Discharge Summary Sheet jr8 - Shortness of Breath, Adult jr8 Forms: - Medication Reconciliation Form jr8 - Thank You Letter jr8 - Antibiotic Education jr8 - Prescription Opioid Use jr8 Addendum: 11/29/2021 05:31 Co-signature as Attending Physician, Avelino Sanford MD I agree with the assessment and c wood plan of care. Signatures: Dispatcher [employer] Avelino Gonzales MD MD cha Pena, Laura, RN RN lp1 Kev Dolan PA PA jr8 Corrections: (The following items were deleted from the chart) 11/27 23:29 22:07 Respiratory: the patient does not display signs of respiratory distress, jr8 Respirations: normal, Breath sounds: rhonchi, that are mild, are scattered, jr8
--- NOTE | 2021-11-27 23:51 | ER ---
Nurse's Notes [facility] Name: Jasmin Haley Age: 51 yrs Sex: Male : 1970 Arrival Date: 11/27/2021 Time: 21:12 Bed 13 Private MD: Diagnosis: Dyspnea Presentation: 11/27 21:32 Chief complaint: Patient states: Difficulty breathing, fever at night with sweating x 1 lp1 week; Reports shortness of breath on exertion. Coronavirus screen: difficulty breathing, fever, shortness of breath. Ebola Screen: No symptoms or risks identified at this time. Initial Sepsis Screen: Does the patient meet any 2 criteria? No. Patient's initial sepsis screen is negative. Does the patient have a suspected source of infection? No. Patient's initial sepsis screen is negative. Risk Assessment: Do you want to hurt yourself or someone else? Patient reports no desire to harm self or others. Onset of symptoms was November 27, 2021. 21:32 Method Of Arrival: Ambulatory lp1 21:32 Acuity: GISELA 3 lp1 Triage Assessment: 22:00 General: Appears in no apparent distress. Behavior is fussy. Respiratory: Reports ab2 shortness of breath Onset: The symptoms/episode began/occurred today, the patient has mild shortness of breath. Historical: - Allergies: 21:35 No Known Allergies; lp1 - Home Meds: 21:35 None [Active]; lp1 - PMHx: 21:35 bipolar/schizo; Hypertension; stroke; CVA; lp1 - PSHx: 21:35 None; lp1 - Social history:: Smoking status: Patient/guardian denies using tobacco, Stopped _ months ago 1. Screenin:50 Abuse screen: Denies threats or abuse. Nutritional screening: No deficits noted. ab2 Tuberculosis screening: No symptoms or risk factors identified. Fall Risk None identified. Assessment: 22:30 Cardiovascular: Rhythm is sinus rhythm. Respiratory: Airway is patent Trachea midline ab2 Respiratory effort is even, unlabored, Breath sounds are clear bilaterally. 22:30 Pain: Denies pain. ab2 Vital Signs: 21:32 BP 159 / 95; Pulse 69; Resp 22; Temp 98.2(O); Pulse Ox 98% on R/A; Weight 73.48 kg (R); lp1 Height 5 ft. 6 in. (167.64 cm); 22:30 BP 135 / 88; Pulse 69; Pulse Ox 96% on R/A; ab2 23:56 BP 145 / 91; Pulse 72; Resp 18; Temp 98.1; Pulse Ox 100% on R/A; ab2 21:32 Body Mass Index 26.15 (73.48 kg, 167.64 cm) lp1 ED Course: 21:12 Patient arrived in ED. es 21:30 Kev Dolan PA is PHCP. jr8 21:30 Avelino Sanford MD is Attending Physician. jr8 21:34 Triage completed. lp1 21:34 Arm band placed on. lp1 21:34 Bed in low position. ab2 21:47 Rodríguez Evans RN is Primary Nurse. ke1 22:00 Primary Nurse role handed off by Rodríguez Evans RN ab2 22:00 Anderson Rios is Primary Nurse. ab2 22:20 Missed attempt(s): 20 gauge antecubital area. ab2 22:26 Missed attempt(s): 20 gauge in right antecubital area. ab2 22:42 CBC with Diff Sent. cs9 22:42 Basic Metabolic Panel Sent. cs9 22:42 COVID-19/FLU A+B (Document "Date of Onset" if Symptomatic) Sent. cs9 22:42 D-Dimer Sent. cs9 22:42 Magnesium Sent. cs9 22:42 NT PRO-BNP Sent. cs9 22:42 Troponin HS Sent. cs9 22:57 XRAY Chest (1 view) In Process Unspecified. EDMS 23:50 Mateus Gonsalez MD is Referral Physician. jr8 23:50 Louis Brziuela MD is Referral Physician. jr8 23:52 No provider procedures requiring assistance completed. ab2 11/28 00:01 IV discontinued. ab2 Administered Medications: No medications were administered Outcome: 11/27 23:50 Discharge ordered by . jr8 11/28 00:00 Discharged to home ambulatory. ab2 Condition: good Discharge instructions given to patient. 00:01 Patient left the ED. ab2 Signatures: Dispatcher [employer] EDMS Rehana Mackey Laura, RN RN lp1 Kev Dolan PA PA jrIwona Mayes9 Anderson Rios ab2 Rodríguez Evans, RN RN ke1 Corrections: (The following items were deleted from the chart) 11/27 23:59 23:56 BP 145 / 91; Pulse 72bpm; Resp 18bpm; Pulse Ox 100% RA; ab2 ab2
[2021-11-28 01:33] VITALS: BP 145/91; TEMP 98.1; O2SAT 100
--- NOTE | 2021-11-28 07:43 | EKG ---
Test Date: 2021-11-27 Test Time: 22:36:25 Ordering Machine Operator: ANUSHKA MEASUREMENT RESULTS: Intervals: Rate: 64 MS: 148 QRSD: 84 QT: 398 QTc: 410 [place]: P: 63 MS: 148 QRS: 66 T: 58 INTERPRETIVE STATEMENTS: Normal sinus rhythm Normal ECG Compared to ECG 09/18/2021 08:47:45 No significant changes Electronically Signed On 11-28-21 07:41:20 CDT by Mateus Gonsalez
--- NOTE | 2021-11-28 16:32 | RAD REPORT ---
EXAM DESCRIPTION: RAD - Chest Single View - 11/27/2021 10:55 pm CLINICAL HISTORY: 51-year-old male with dyspnea. TECHNIQUE: Single view, AP portable chest was obtained. COMPARISON: None. FINDINGS: Unremarkable cardiac and mediastinal silhouette. Heart size is normal. Tortuous atheroscle rotic thoracic aorta. Diffuse interstitial prominence raising the possibility of mild pulmonary vascular congestion versus viral/atypical infectious process. Lungs are clear without focal opacity, pneumothorax or pleural effusions. The visualized bones are within normal limits. IMPRESSION: Diffuse interstitial prominence raising the possibility of mild pulmonary vascular conge stion versus viral/atypical infectious process. Electronically signed by: Dang Weldon MD 11/27/2021 11:09 PM CDT Due to temporary technical issues with the PACS/Fluency reporting system, reports are being signed by the in house radiologists without review as a courtesy to insure prompt reporting. The interpreting radiologist is fully responsible for the content of the report.
== END 2021-11-28 00:01 | disposition home or self-care (01) ==
LOC: ER 21:09
DX: R06.00 Dyspnea, unspecified (principal); I10 Essential (primary) hypertension; Z87.891 Personal history of nicotine dependence; Z20.822 Contact with and (suspected) exposure to COVID-19
CPT/HCPCS: 0240U; 36415; 71045; 80048; 83735; 83880; 84484; 85025; 85379; 93005; 99284

== ENCOUNTER 2022-03-24 19:35 | Emergency (ER) | payer SELFPAY ==
--- NOTE | 2022-03-24 22:34 | ER ---
Nurse's Notes [facility] Name: Jasmin Haley Age: 51 yrs Sex: Male : 1970 Arrival Date: 03/24/2022 Time: 19:37 Bed Waiting Private MD: Diagnosis: Coronavirus infection, unspecified Presentation: 03/24 19:49 Chief complaint: Fever, cough, congestion, nausea, body aches, headache, and chills hb upon waking today. TMAX 104. Coronavirus screen: Client presents with at least one sign or symptom that may indicate coronavirus-19. Standard/surgical mask placed on the client. Provider contacted for isolation considerations. Ebola Screen: No symptoms or risks identified at this time. Initial Sepsis Screen: Does the patient meet any 2 criteria? No. Patient's initial sepsis screen is negative. Does the patient have a suspected source of infection? No. Patient's initial sepsis screen is negative. Risk Assessment: Do you want to hurt yourself or someone else? Patient reports no desire to harm self or others. Onset of symptoms was March 24, 2022. 19:49 Method Of Arrival: Ambulatory hb 19:49 Acuity: GISELA 4 hb Historical: - Allergies: 19:53 No Known Allergies; hb - PMHx: 19:53 bipolar/schizo; CVA; stroke; Hypertension; hb - Immunization history:: Client reports receiving the 2nd dose of the Covid vaccine. - Social history:: Smoking status: Patient reports the use of cigarette tobacco products, smokes one-half pack cigarettes per day. Vital Signs: 19:49 BP 111 / 75; Pulse 89; Resp 20; Temp 100.4(TE); Pulse Ox 96% on R/A; Weight 66.22 kg; hb Height 5 ft. 6 in. (167.64 cm); Pain 10/10; 19:49 Body Mass Index 23.56 (66.22 kg, 167.64 cm) hb ED Course: 19:37 Patient arrived in ED. jj6 19:38 [facility] Bowden [facility]-C [facility] kb 19:38 Bairon Olsen MD is Attending Physician. kb 19:49 Patient's name was called from ER lobby. No response. hb 19:53 Triage completed. hb 19:53 Arm band placed on. hb 22:30 Notified Nurse Practitioner and/or Physician Burner Technician of a critical lab result(s), bb Covid positive Dina Bowden RISK INVESTIGATOR notified. Administered Medications: No medications were administered Outcome: 22:33 Discharge ordered by . kb 22:37 Patient left the ED. hb Signatures: Dina Bowden, NATIVIDAD MEEKS-Ana Paula Puente, RN RN bb Lindy Stark RN RN Jeanette Ramsey jj6
--- NOTE | 2022-03-24 22:34 | EDPHYS ---
Physician Documentation [facility] Name: Jasmin Haley Age: 51 yrs Sex: Male : 1970 Arrival Date: 03/24/2022 Time: 19:37 Bed Waiting Private MD: ED Physician Bairon Olsen HPI: 03/25 00:48 This 51 yrs old Male presents to ER via Ambulatory with complaints of Fever, Chest kb Tightness. 00:48 The patient or guardian reports cough, that is intermittent, described as mild, flu kb symptoms, low-grade fever, myalgias. Onset: The symptoms/episode began/occurred today. Severity of symptoms: At their worst the symptoms were moderate, in the emergency department the symptoms are unchanged. Modifying factors: The symptoms are alleviated by nothing, the symptoms are aggravated by nothing. Associated signs and symptoms: Pertinent positives: fever. The patient has not experienced similar symptoms in the past. The patient has not recently seen a physician. Pt reports cough, congestion, bodyaches, fever, chills, headache and nausea that started today. Historical: - Allergies: 03/24 19:53 No Known Allergies; hb - PMHx: 19:53 bipolar/schizo; CVA; stroke; Hypertension; hb - Immunization history:: Client reports receiving the 2nd dose of the Covid vaccine. - Social history:: Smoking status: Patient reports the use of cigarette tobacco products, smokes one-half pack cigarettes per day. ROS: 03/25 00:47 Cardiovascular: Negative for chest pain, palpitations, and edema. kb Constitutional: Positive for body aches, chills, fatigue, fever, malaise. ENT: Positive for sinus congestion. Respiratory: Positive for cough, Negative for dyspnea on exertion, hemoptysis, orthopnea, pleurisy, shortness of breath, sputum production, wheezing. Abdomen/GI: Positive for nausea, Negative for abdominal pain, vomiting, diarrhea. Neuro: Positive for headache. All other systems are negative. Exam: 00:47 Constitutional: This is a well developed, well nourished patient who is awake, alert, kb and in no acute distress. Head/Face: Normocephalic, atraumatic. ENT: Moist Mucous membranes Cardiovascular: Regular rate and rhythm with a normal S1 and S2. No gallops, murmurs, or rubs. No pulse deficits. Respiratory: Respirations even and unlabored. No increased work of breathing. Talking in full sentences Abdomen/GI: Soft, non-tender. No distention Skin: Warm, dry with normal turgor. Normal color. MS/ Extremity: Pulses equal, no cyanosis. Neurovascular intact. Full, normal range of motion. Neuro: Awake and alert, GCS 15, oriented to person, place, time, and situation. Moves all extremities. Normal gait. Psych: Awake, alert, with orientation to person, place and time. Behavior, mood, and affect are within normal limits. Vital Signs: 03/24 19:49 BP 111 / 75; Pulse 89; Resp 20; Temp 100.4(TE); Pulse Ox 96% on R/A; Weight 66.22 kg; hb Height 5 ft. 6 in. (167.64 cm); Pain 10/10; 19:49 Body Mass Index 23.56 (66.22 kg, 167.64 cm) hb MDM: 19:54 Patient medically screened. kb 03/25 00:48 Data reviewed: vital signs, nurses notes. Data interpreted: Pulse oximetry: on room air kb is 96 %. Interpretation: normal. Counseling: I had a detailed discussion with the patient and/or guardian regarding: the historical points, exam findings, and any diagnostic results supporting the discharge/admit diagnosis, lab results, the need for outpatient follow up, a family practitioner, to return to the emergency department if symptoms worsen or persist or if there are any questions or concerns that arise at home. 03/24 19:54 Order name: Flu; Complete Time: 21:03 kb 03/24 19:54 Order name: COVID-19 SARS RT PCR (Document "Date of Onset" if Symptomatic); Complete kb Time: 22:32 Administered Medications: No medications were administered Disposition: 04:24 Co-signature as Attending Physician, Bairon Olsen MD. rn Disposition Summary: 03/24/22 22:33 Discharge Ordered Location: Home kb Condition: Stable kb Diagnosis - Coronavirus infection, unspecified kb Followup: kb - With: Emergency Department - When: As needed - Reason: Worsening of condition Followup: kb - With: Private Physician - When: 2 - 3 days - Reason: Recheck today's complaints, Continuance of care, Re-evaluation by your physician Discharge Instructions: - Discharge Summary Sheet kb - Viral Respiratory Infection, [id number] kb - COVID-19 kb Forms: - Medication Reconciliation Form kb - Thank You Letter kb - Antibiotic Education kb - Prescription Opioid Use kb Signatures: Dispatcher [employer] Dina La, MARIA DE JESUSC Bairon Cole MD MD rn Lindy Stark RN RN
[2022-03-24 23:10] VITALS: BP 111/75; TEMP 100.4; O2SAT 96
== END 2022-03-24 22:37 | disposition home or self-care (01) ==
LOC: ER 19:35
DX: U07.1 COVID-19 (principal); I10 Essential (primary) hypertension
CPT/HCPCS: 87804; 99281; U0003

== ENCOUNTER 2022-04-09 22:14 | Emergency (ER) | payer SELFPAY ==
--- OUTSIDE RECORDS SUMMARY | 2022-04-09 22:19 | XMS REPORT | Continuity of Care Document ---
:1970 Author Organization [facility] t Address [address] [place] [address] Care Team Providers Name Role Phone Pcp, Patient Does Not Have A Primary Care Physician [id number] Yadira Muniz DO Attending Clinician YADIRA MUNIZ Attending Clinician Unavailable Karlene Stephen Attending Clinician Unavailable Roshni Carr Attending Clinician Unavailable MARÍA HERNANDEZ Attending Clinician Unavailable MIMI SCHWARTZ MD Attending Clinician MARIUM ANDERS Attending Clinician Unavailable Daniel Coronado Attending Clinician Unavailable PROVIDER, ED TEMP Attending Clinician Unavailable JM AYALA Attending Clinician Unavailable MARÍA HERNANDEZ Admitting Clinician Unavailable Payers Payer Name Policy Type Policy Effective Date Expiration Date Sour ce Number MEDICAID NA [place] [facility] JOVANNA CARE NA [place] [facility] Problems Condition Condition Condition Status Onset Resolution Last Treating Co mments Source Name Details Category Date Date Treatment Clinician Date Bipolar Bipolar Problem Active 2017-[address] [facility] [address] [facility] ([facility]LI V/SA) Suicidal Suicidal Problem [facility] (LUF/LI V/SA) Depressive Depressive Problem Active 2017-[address] [facility] (LUF/LI V/SA) 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[address] 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[facility] abuse abuse [facility] (LUF/LI V/SA) Allergies, Adverse Reactions, Alerts Allergy Allergy Status Severity Reaction(s) Onset Inactive Treating Comm ents Source Name Type Date Date Clinician No Known DA Active [facility] NO KNOWN Drug Active [facility] ALLERGIE Class [facility] [place] [facility] Social History Social Habit Start Date Stop Date Quantity Comments Source Exposure to 2022-03-24 2022-04-03 Not sure [facility] SARS-CoV-2 (event) 00:00:00 00:24:00 Medica l Branch Sex Assigned At [birth year] [facility] 00:00:00 00:00:00 Medical Branch Smoking Status Start Date Stop Date Source Tobacco smoking consumption [facility] Medical unknown Branch Never smoker [facility] orisd ([facility]/LIOR/SA) Medications Ordered Filled Start Stop Current Ordering Indication Dosage Frequency Signature Comments Components Source Medication Medication Date Date Medication? Clinician (SIG) Name Name NaCl 0.9% 2021- No 500mL at 999 Univ ers (NS) bolus 04-03 mL/hr, 500 it y of infusion 07:00: 07:04 mL, IV [place] 500 mL 00 :00 Infusion, Medical ONCE, 1 Branch dose, On Thu04/03/22 at 0200, STAT maalox:diph 2021- No 15mL 15 mL, Uni vers enhydrAMINE 04-03 Oral, ity of :lidocaine 06:00: 06:12 ONCE, 1 Larry as 2 % viscous 00 :00 dose, On Medi von 1:1:1 Roxana Branch ([facility]OUT 04/03/22 at [facility] 0100, oral Routine suspension 15 mL Immunizations Ordered Immunization Filled Immunization Date Status Commen ts Source Name Name NO UP TO DATE FLU NO UP TO DATE FLU Unknown Completed [facility] (LUF/LIOR/SA) Vital Signs Vital Name Observation Time Observation Value Comments Source Systolic blood 2022-04-03 05:26:00 157 mm[Hg] Univer sity of pressure [facility] Diastolic blood 2022-04-03 05:26:00 100 mm[Hg] Unive rsity of pressure [facility] Heart rate 2022-04-03 05:26:00 71 /min [facility] Body temperature 2022-04-03 05:26:00 36.56 [facility] rate 2022-04-03 05:26:00 18 /min [facility] Body height 2022-04-03 05:26:00 167.6 cm [facility] Body weight 2022-04-03 05:26:00 66.225 kg [facility] BMI 2022-04-03 05:26:00 23.57 kg/m2 [facility] Oxygen saturation in 2022-04-03 05:26:00 97 /min [facility] Arterial blood by [facility] Pulse oximetry [place] Body Temperature 2018-08-08 05:01:00 98.9 F [facility] (F/LIOR/SA) Pulse Rate 2018-08-08 05:01:00 87 /min [facility] (F/LIOR/SA) Respiratory Rate 2018-08-08 05:01:00 18 /min [facility] (F/LIOR/SA) O2% BldC Oximetry 2018-08-08 05:01:00 98 % [facility] (F/LIOR/SA) BP Systolic 2018-08-08 05:01:00 160 mm[Hg] [facility] (LUF/LIOR/SA) BP Diastolic 2018-08-08 05:01:00 110 mm[Hg] [facility] (F/LIOR/SA) Height 2018-08-08 05:01:00 66 in [facility] (F/LIOR/SA) Weight Measured 2018-08-08 05:01:00 154.32 lbs [facility] S t [facility] (LUF/LIOR/SA) BMI (Body Mass 2018-08-08 05:01:00 25 [facility] (LUF/LIOR/SA) Procedures Procedure Date / Time Performed Performing Clinician Carlene e TROPONIN I 2022-04-03 06:11:00 Yadira Muniz [facility] COMP. METABOLIC PANEL 2022-04-03 06:11:00 Yadira Muniz [facility] ([id number]) [facility] CBC WITH DIFF 2022-04-03 06:11:00 Yadira Muniz [facility] NOTICE OF PRIVACY 2022-04-03 05:18:55 Doctor Unassigned, No Univ [facility] PRACTICES Name [facility] Branch CONSENT/REFUSAL FOR 2022-04-03 05:18:14 Doctor Unassigned, No [facility] DIAGNOSIS AND Name Medical Branch TREATMENT Encounters Start End Encounter Admission Attending Care Care Encounter Source Date/Time Date/Time Type Type Clinicians Facility Department ID 2022-04-03 2022-04-03 [facility] [id number] Univers 00:20:00 02:21:00 Yadira [place] [id number] i [facility] [id number] [facility] [id number] [facility] 084 Branch 2022-04-03 2022-04-03 Emergency X [facility] ERT [id number] Univers 00:20:00 02:21:00 YADIRA [facility] 2021-06-16 2021-06-16 Emergency ER [facility] [id number] 02:24:00 02:24:00 Karlene [id number] [facility] 2021-06-15 2021-06-15 Emergency ER Stephen, STLSJ [facility] [id number] 15:02:00 15:02:00 Karlene [id number] [facility] 2021-05-28 2021-05-28 Emergency ER Bruno, STPRIMITIVOJ [facility] [id number] 13:51:00 16:10:00 Roshni [id number] [facility] 2018-08-08 2018-08-08 Inpatient MARÍA CAICEDO [facility] [id number] 04:58:00 11:31:00 [place] REY L ukes N, [address] [place], (LUF/LI [place] V/SA) KARON Holm [id number] 2018-07-01 2018-07-01 Departed MIRELA SCHWARTZ [facility] [id number] [place] 19:23:00 20:28:00 Emergency [facility] Results Test Description Test Time Test Comments Results Result Comments Source TROPONIN I 2022-04-03 06:45:15 Test Item Value Reference Range Interpretation Comme nts TROPONIN I (test code = 0.001 ng/mL See_Comment [Au tomated message] The 8390197493) system which ge nerated this result tra nsmitted reference range : <=0.034. The reference r paul was not used to int erpret this result as normal/abnormal . APOLINAR (test code = APOLINAR) Reference (Normal) Range (defined by the 99th percentile reference limit): <= 0.034 ng/mL Note: Cardiac troponin begins to rise 3-4 hours after the onset of ischemia. Repeat in 4-6 hours if the sample was drawn within 3-4 hours of the onset of the symptom and found normal. Diagnosis of myocardial injury is made with acute changes in cTn concentrations with at least one serial sample above the 99th percentile upper reference limit (URL), taken together with the patient's clinical presentation. Biotin has been reported to cause a negative bias, interpret results relative to patient's use of biotin. Lab Interpretation Normal (test code = 93634-4) [facility]. METABOLIC PANEL ([id number])2022-04-03 06:33:58 Test Item Value Reference Range Interpretation Comments NA (test code = 138 mmol/L 135-145 1371159870) K (test code = 3.8 mmol/L 3.5-5 8268169932) CL (test code = 106 mmol/L 98-108 7295157793) CO2 TOTAL (test code = 26 mmol/L 23-31 7373214170) AGAP (test code = 2-16 6620685128) BUN (test code = 16 mg/dL 7-23 2995262833) GLUCOSE (test code = 118 mg/dL 70-110 H 0623977432) CREATININE (test code = 0.96 mg/dL 0.6-1.25 6921424096) TOTAL BILI (test code = 0.1 mg/dL 0.1-1.2 4399638884) CALCIUM (test code = 8.5 mg/dL 8.6-10.6 L 5767377122) T PROTEIN (test code = 5.5 g/dL 6.3-8.2 L 1018283240) ALBUMIN (test code = 3.4 g/dL 3.5-5 L 1132018182) ALK PHOS (test code = 45 U/L 34-122 4100784145) ALTv (test code = 16 U/L 5-50 1742-6) AST(SGOT) (test code = 16 U/L 13-40 5435111566) eGFR (test code = mL/min/1.73m2 7663793780) APOLINAR (test code = APOLINAR) Association of Glomerular Filtration Rate (GFR) and Staging of Kidney Disease* + --+ --+ ------+| GFR (mL/min/1.73 m2) ?| With Kidney Damage ?| ?Without Kidney Damage+ --------+ --------+ +| ?>90 ?| ?Stage one ?| ? Normal ?+ ---+ ---+ -------+| ?60-89 ?| ?Stage two ?| ? Decreased GFR ? + --+ --+ ------+| ?30-59 ?| ?Stage three ?| ? Stage three ? + --+ --+ ------+| ?15-29 ?| ?Stage four ? | ? Stage four ?+ ---+ ---+ -------+| ?<15 (or dialysis) ? ?| ?Stage five ? | ? Stage five ?+ ---+ ---+ -------+ *Each stage assumes the associated GFR level has been in effect for at least three months. ?Stages 1 to 5, with or without kidney disease, indicate chronic kidney disease. Notes: Determination of stages one and two (with eGFR >59mL/min/1.73 m2) requires estimation of kidney damage for at least three months as defined by structural or functional abnormalities of the kidney, manifested by either:Pathological abnormalities or Markers of kidney damage (including abnormalities in the composition of the blood or urine or abnormalities in imaging tests). Lab Interpretation Abnormal (test code = 07376-5) [facility] WITH [id number] 06:21:14 Test Item Value Reference Range Interpretation Comments WBC (test code = See_Comment [Automated 6690-2) message] The sy stem which generated this result transmitted reference range : 4.20 - 10.70 10*3/?L. The reference range was not used to interpret this result as normal/abnormal . RBC (test code = See_Comment [Automated 789-8) message] The sy stem which generated this result transmitted reference range : 4.26 - 5.52 10*6/?L. The reference range was not used to interpret this result as normal/abnormal . HGB (test code = 13.5 g/dL 12.2-16.4 718-7) HCT (test code = 38.8 % 38.4-49.3 4544-3) MCV (test code = 89.6 fL 81.7-95.6 787-2) MCH (test code = 31.2 pg 26.1-32.7 785-6) MCHC (test code = 34.8 g/dL 31.2-35 786-4) RDW-SD (test code = 39.1 fL 38.5-51.6 38712-5) RDW-CV (test code = 11.9 % 12.1-15.4 L 788-0) PLT (test code = See_Comment [Automated 777-3) message] The sy stem which generated this result transmitted reference range : 150 - 328 10*3/ ?L. The reference r paul was not used to interpret this result as normal/abnormal . MPV (test code = 9.6 fL 9.8-13 L 30755-1) NRBC/100 WBC (test See_Comment [Automat ed code = 5112450971) message] The system which generated this result transmitted reference range : 0.0 - 10.0 /100 WBCs. The refer ence range was not u sed to interpret th is result as normal/abnormal . NRBC x10^3 (test code See_Comment [Auto mated = 5343748641) message] The s ystem which generated this result transmitted reference range : 10*3/?L. The reference range was not used to interpret this result as normal/abnormal . GRAN MAT (NEUT) % 53.1 % (test code = 770-8) IMM GRAN % (test code 0.20 % = 8208393078) LYMPH % (test code = 33.2 % 736-9) MONO % (test code = 7.6 % 5905-5) EOS % (test code = 5.7 % 713-8) BASO % (test code = 0.2 % 706-2) GRAN MAT x10^3(ANC) 3.37 10*3/uL 1.99-6.95 (test code = 0598497118) IMM GRAN x10^3 (test 0-0.06 code = 4467467401) LYMPH x10^3 (test code 2.10 10*3/uL 1.09-3.23 = 731-0) MONO x10^3 (test code 0.48 10*3/uL 0.36-1.02 = 742-7) EOS x10^3 (test code = 0.36 10*3/uL 0.06-0.53 711-2) BASO x10^3 (test code 0.01-0.09 = 704-7) Lab Interpretation Abnormal (test code = 29486-6) [facility] 16:05:00 Test Item Value Reference Range Interpretation Comments Chemistry (test code = CKMBM-T) 2.2 ng/mL 0-6.6 N [id number] 16:04:00 Test Item Value Reference Range Interpretation [...] ce Range for = EGFRMDRD) Estimated GFR: Greater than 90 mL/min/ 1.73 m2NOTE:The MDRD equation has no t been validated for u se with theelderly (ove r 70 years of age), women, patients with serious comorbi d condition or pe rsons with extremes o fbody size, muscle ma ss, or nutritional sta tus. Chemistry (test code 148 mg/dL 70-105 H [...] code 13 U/L 8-55 N = ALT) [id number] 16:04:00 Test Item Value Reference Range Interpretation Comments Chemistry (test code = CK) 95 U/L 30-200 N [id number] 16:04:00 Test Item Value Reference Range Interpretation Comments Chemistry (test Less than < 0.028 code = TROPI-R) 0.010 ng/mL Reference Ra nge 0.00 - 0.028 ng /mL Negative 0.029 - 0.29 ng/mL Indetermi jakob Greater or Equa l to 0.3 ng/mL Stron gly suggests ND [id number] 15:47:00 Test Item Value Reference Range Interpretation [...] 0.0-30.0 Salicy lates Reference = SALI) Ranges: Therape utic 15 - 30 mg/dl [place] >30 mg/dl Nesha l >70 mg/dl [id number] 06:42:00 Test Item Value Reference Range Interpretation [...] , each yielding differ ent values. This co rrected result was base d on the formula: Co rrected Calcium = Serum Calcium + [0.8 * ( 4 - SerumAlbumin)] EGFR if >60 [place] (test code mL/min/1.73m\\ = EGFRAA) S\\2 EGFR if Non- >60 Estimate d Glomerular [place] (test code mL/min/1.73m\\ Filtrat ion Rate (eGFR) = EGFRNA) S\\2 Reference Inter vals Decision Points for 18 years and older and average body ma ss: >= 60 Does not exc lude kidney disease. 30 - 59 Suggests mod erate chronic kidney disease and indicates t he need for further investigation including asses sment of proteinuria and cardiovascular factors. < 30 U sually indicates a nee d for referral for assessment and management of c hronic kidney failure. ACETAMINOPHEN (Tyenol)2018-08-08 06:41:00 Test Item Value Reference Range Interpretation Comments Acetaminophen (test code = ACET) <2 ug/ml 10-25 L ALCOHOL, [id number] 06:41:00 Test Item Value Reference Range Interpretation Comments Alcohol % (test code = 0 % 0.00-0.00 N Dereck ol % 0.00 - 0.10 ALCPC) Sub-clinical 0. 11 - 0.20 Emotional Insta bility 0.21 - 0.30 Confusio n 0.31 - 0.40 Stupor 0.4 1 - 0.50 Coma >.50 Fatal CBC WITH AUTO [id number] 06:13:00 Test Item Value Reference Range Interpretation [...] AKS PRESENT ON THE RBC HISTOGRAM. IN T HIS CASE, A MANUAL REVIEW OF THE SLIDE [...] (test code = 0.4 % 0.0-0.4 IG%) [id number] 08:45:00 Test Item Value Reference Range Interpretation Comments Coagulation (test 12.7 SEC 12.0-14.7 N code = PT-T) Coagulation (test 0.9 ATTE NTION: READ code = INR) CAREFULLY-- The recommended the rapeutic ranges for oral anticoagulanttr eatments are: ------ Low Inte nsity: 1.5 - 2.0 Moderate In tensity: 2.0 - 3.0 High Intens ity (1): 2.5 - 3.5 High Intens ity (2): 3.0 - 4.0 CRITICAL: > 4.0 Anticoagulant? NONEMedical Necessity SUSPECT COAGULOPATHYAnticoagulant? NONEMedical Necessity: SUSP [id number] 08:45:00 Test Item Value Reference Range Interpretation Comments Coagulation (test code = PTT) 27.2 SEC 22.9-36.1 N Anticoagulant? NONEMedical Necessity SUSPECT COAGULOPATHYAnticoagulant? NONEMedical Necessity: SUSP [id number] 08:44:00 Test Item Value Reference Range Interpretation Comments Chemistry (test 2.9 ng/mL 0-6.6 N code = CKMBM-T) Chemistry (test 0.015 ng/mL < 0.028 code = TROPI-T) Reference Ra nge 0.00 - 0.028 ng /mL Negative 0.029 - 0.29 ng/mL Indetermi jakob Greater or Equa l to 0.3 ng/mL Strongly suggests ND [id number] 08:40:00 Test Item Value Reference Range Interpretation [...] = CREATT) Chemistry (test Greater than 90 Reference Range for code = EGFRMDRD) Estimated G FR: Greater than 90 mL/min/1.73 m2NOTE:The MDRD equation has [...] 17 U/L 8-55 N code = ALT) [id number] 08:40:00 Test Item Value Reference Range Interpretation Comments Chemistry (test code = CK) 119 U/L 30-200 N [id number] 08:23:00 Test Item Value Reference Range Interpretation [...] code = BASO#) 0.1 thou/uL 0.0-0.2 N [id number] 19:03:00 Test Item Value Reference Range Interpretation [...] ce Range for = EGFRMDRD) Estimated GFR: Greater than 90 mL/min/ 1.73 m2NOTE:The MDRD equation has no t been validated for u se with theelderly (ove r 70 years of age), women, patients with serious comorbi d condition or pe rsons with extremes o fbody size, muscle ma ss, or nutritional sta tus. Chemistry (test code 101 mg/dL 70-105 N [...] code 16 U/L 8-55 N = ALT) [id number] 18:46:00 Test Item Value Reference Range Interpretation [...] code = BASO#) 0.1 thou/uL 0.0-0.2 N [id number] 18:45:00 Test Item Value Reference Range Interpretation [...] Negative Negative Comment clear yellowUrine Source: Urine [id number] 18:45:00 Test Item Value Reference Range Interpretation Comments Urinalysis (test code = UARBC) 0-3 HPF 0-3 Urinalysis (test code = UAWBC) 4-6 HPF 0-3 A Urinalysis (test code = UASQUAM) 0-3 HPF 0-3 Urinalysis (test code = UABAC) 1+ HPF None Seen A Comment clear yellowUrine Source: Urine [id number] 20:56:00 Test Item Value Reference Range Interpretation [...] LPF 0-3 Hyaline UACAST) Urine Source: Urine [id number] 19:22:00 Test Item Value Reference Range Interpretation Comments Chemistry (test Less than < 0.028 code = TROPI-T) 0.010 ng/mL Reference Ra nge 0.00 - 0.028 ng /mL Negative 0.029 - 0.29 ng/mL Indetermi jakob Greater or Equa l to 0.3 ng/mL Stron gly suggests ND Comment Pls draw at 7 pm.[id number] 16:36:00 Test Item Value Reference Range Interpretation Comments Coagulation (test 12.7 SEC 12.0-14.7 N code = PT-T) Coagulation (test 0.9 ATTE NTION: READ code = INR) CAREFULLY-- The recommended the rapeutic ranges for oral anticoagulanttr eatments are: ------ Low Inte nsity: 1.5 - 2.0 Moderate In tensity: 2.0 - 3.0 High Intens ity (1): 2.5 - 3.5 High Intens ity (2): 3.0 - 4.0 CRITICAL: > 4.0 Anticoagulant? NONEMedical Necessity SUSPECT COAGULOPATHYAnticoagulant? NONEMedical Necessity: SUSP [id number] 16:36:00 Test Item Value Reference Range Interpretation Comments Coagulation (test code = PTT) 26.2 SEC 22.9-36.1 N Anticoagulant? NONEMedical Necessity SUSPECT COAGULOPATHYAnticoagulant? NONEMedical Necessity: SUSP [id number] 16:34:00 Test Item Value Reference Range Interpretation Comments Chemistry (test 2.5 ng/mL 0-6.6 N code = CKMBM-T) Chemistry (test Less than < 0.028 code = TROPI-T) 0.010 ng/mL Reference Ra nge 0.00 - 0.028 n g/mL Negative 0.029 - 0.29 ng/mL Indetermi jakob Greater or Equa l to 0.3 ng/mL Stron gly suggests ND [id number] 16:31:00 Test Item Value Reference Range Interpretation [...] ce Range for = EGFRMDRD) Estimated GFR: Greater than 90 mL/min/ 1.73 m2NOTE:The MDRD equation has no t been validated for u se with theelderly (ove r 70 years of age), women, patients with serious comorbi d condition or pe rsons with extremes o fbody size, muscle ma ss, or nutritional sta tus. Chemistry (test code 79 mg/dL 70-105 N [...] code 17 U/L 8-55 N = ALT) [id number] 16:13:00 Test Item Value Reference Range Interpretation [...] 0.0-0.2 N XR Chest 1 [facility] Portable [facility] 1970 Sex: [facility] Pt Name: KERRY QUIROZ [address] Phys: [place] [address] : 1970 Age: 50 SEX:M [phone] Exam Date: 06/15/21 Status: REG ER Acct: [id number] Loc: [facility] Pt Unit #: [id number] Report #: [id number] CC: Karlene Stephen MDIMAGING SERVICES REPORT Order # Category/Exam [id number] RAD/XR Chest 1 View Portable ([id number]): . Results XR Chest 1 View Portable History: Chest pain Comparison: None. Findings: Lungs are clear. Nopneumothorax or effusion. Cardiac silhouette and mediastinal contoursare within normal limits. Impression: No acute intrathoracic abnormality. Reported By: KARLENE HARP Electronically Signed Date/Time: 06/15/21 155 Technologist: Dictated Date/Time: 06/15/211550 Transcribed Date/Time:
--- NOTE | 2022-04-09 22:29 | ER ---
Nurse's Notes [facility] Name: Jasmin Haley Age: 51 yrs Sex: Male : 1970 Arrival Date: 04/09/2022 Time: 22:15 Bed Waiting Private MD: Diagnosis: Pain in throat;Disorder of teeth and supporting structures, unspecified Presentation: 04/09 22:21 Chief complaint: Patient states: "I have been clean for two years, I was at a gathering tw5 and the drinks had something in them and I have not been able to eat for three days.". Coronavirus screen: Vaccine status: Patient reports receiving the 2nd dose of the covid vaccine. m2p-labs. Ebola Screen:. Initial Sepsis Screen: Does the patient meet any 2 criteria? No. Patient's initial sepsis screen is negative. Does the patient have a suspected source of infection? No. Patient's initial sepsis screen is negative. Risk Assessment: Do you want to hurt yourself or someone else? Patient reports no desire to harm self or others. Onset of symptoms was April 07, 2022. 22:21 Method Of Arrival: Ambulatory tw5 22:21 Acuity: GISELA 5 tw5 Triage Assessment: 22:25 General: Appears uncomfortable, Behavior is calm, cooperative, appropriate for age. tw5 Pain: Complains of pain in tongue and lower right second molar Pain currently is 10 out of 10 on a pain scale. GI: Reports intolerance of food. Historical: - Allergies: 22:25 No Known Allergies; tw5 - PMHx: 22:25 bipolar/schizo; CVA; Hypertension; stroke; tw5 - Immunization history:: Flu vaccine is not up to date. - Social history:: Smoking status: Patient reports the use of cigarette tobacco products, smokes one pack cigarettes per day. Screenin:26 Abuse screen: Denies threats or abuse. Denies injuries from another. Nutritional tw5 screening: No deficits noted. Tuberculosis screening: No symptoms or risk factors identified. Fall Risk None identified. Assessment: 22:27 GI: Bowel sounds present X 4 quads. Abd is soft and non tender. tw5 Vital Signs: 22:21 BP 161 / 100; Pulse 82; Resp 18; Temp 98.4; Pulse Ox 97% on R/A; Weight 64.41 kg; tw5 Height 5 ft. 6 in. (167.64 cm); Pain 10/10; 22:21 Body Mass Index 22.92 (64.41 kg, 167.64 cm) tw5 ED Course: 22:15 Patient arrived in ED. ja2 22:16 Dina Bowden FNP-C is PSYCHIATRICP. kb 22:16 Bairon Olsen MD is Attending Physician. kb 22:25 Triage completed. tw5 22:25 Arm band placed on. tw5 22:26 Patient has correct armband on for positive identification. tw5 22:26 No provider procedures requiring assistance completed. Patient did not have IV access tw5 during this emergency room visit. Administered Medications: 22:36 Drug: GI Cocktail without - (Maalox Suspension 30 ml, Lidocaine Liquid 2 % 15 tw5 ml) Route: PO; 22:38 Follow up: Response: No adverse reaction; Medication administered at discharge. tw5 22:38 Drug: traMADol 50 mg Route: PO; tw5 22:38 Follow up: Response: No adverse reaction; Medication administered at discharge.; RASS: tw5 Alert and Calm (0) Medication: 22:27 VIS not applicable for this client. tw5 Outcome: 22:29 Discharge ordered by . kb 22:40 Patient left the ED. tw5 22:40 Discharged to home ambulatory, with family. tw5 22:40 Condition: good 22:40 Discharge instructions given to patient, Instructed on discharge instructions, follow up and referral plans. medication usage, Demonstrated understanding of instructions, follow-up care, medications, Prescriptions given X 1. Signatures: Dina Bowden FNP-C FNP-Lindy Taylor 2 Roxy Waggoner tw5 Corrections: (The following items were deleted from the chart) 22:38 22:34 traMADol 50 mg PO tw5 tw5 22:38 22:38 Response: No adverse reaction; Adverse reaction, Physician notified; Medication tw5 administered at discharge. tw5
--- NOTE | 2022-04-09 22:29 | EDPHYS ---
Physician Documentation [facility] Name: Jasmin Haley Age: 51 yrs Sex: Male : 1970 Arrival Date: 04/09/2022 Time: 22:15 Bed Waiting Private MD: ED Physician Bairon Olsen HPI: 04/10 00:39 This 51 yrs old Male presents to ER via Ambulatory with complaints of Abdominal Pain, kb Decreased Appetite. 00:39 The patient presents with sore throat. The patient describes throat pain as constant. kb Onset: The symptoms/episode began/occurred 3 day(s) ago. Severity of symptoms: At their worst the symptoms were moderate, in the emergency department the symptoms are unchanged. Modifying factors: The symptoms are alleviated by nothing, the symptoms are aggravated by swallowing, Patient's oral intake status: unable to tolerate foods. Associated signs and symptoms: Pertinent positives: Sore throat. The patient has not experienced similar symptoms in the past. The patient has not recently seen a physician. Historical: - Allergies: 04/09 22:25 No Known Allergies; tw5 - PMHx: 22:25 bipolar/schizo; CVA; Hypertension; stroke; tw5 - Immunization history:: Flu vaccine is not up to date. - Social history:: Smoking status: Patient reports the use of cigarette tobacco products, smokes one pack cigarettes per day. ROS: 04/10 00:38 Abdomen/GI: Negative for abdominal pain, nausea, vomiting, diarrhea, and constipation. kb Constitutional: Positive for body aches, malaise, poor PO intake. ENT: Positive for dental pain, sore throat. All other systems are negative. Exam: 00:38 Constitutional: This is a well developed, well nourished patient who is awake, alert, kb and in no acute distress. Head/Face: Normocephalic, atraumatic. ENT: Moist Mucous membranes Cardiovascular: Regular rate and rhythm with a normal S1 and S2. No gallops, murmurs, or rubs. No pulse deficits. Respiratory: Respirations even and unlabored. No increased work of breathing. Talking in full sentences Abdomen/GI: Soft, non-tender. No distention Skin: Warm, dry with normal turgor. Normal color. MS/ Extremity: Pulses equal, no cyanosis. Neurovascular intact. Full, normal range of motion. Neuro: Awake and alert, GCS 15, oriented to person, place, time, and situation. Moves all extremities. Normal gait. Psych: Awake, alert, with orientation to person, place and time. Behavior, mood, and affect are within normal limits. 00:38 ENT: Dental exam: dental caries, that is mild, diffusely, pain, that is moderate, specifically in the lower right second molar (#31). Vital Signs: 04/09 22:21 BP 161 / 100; Pulse 82; Resp 18; Temp 98.4; Pulse Ox 97% on R/A; Weight 64.41 kg; tw5 Height 5 ft. 6 in. (167.64 cm); Pain 10/10; 22:21 Body Mass Index 22.92 (64.41 kg, 167.64 cm) tw5 MDM: 22:27 Patient medically screened. kb 04/10 00:38 Data reviewed: vital signs, nurses notes. Data interpreted: Pulse oximetry: on room air kb is 97 %. Interpretation: normal. Counseling: I had a detailed discussion with the patient and/or guardian regarding: the historical points, exam findings, and any diagnostic results supporting the discharge/admit diagnosis, the need for outpatient follow up, a family practitioner, to return to the emergency department if symptoms worsen or persist or if there are any questions or concerns that arise at home. Administered Medications: 04/09 22:36 Drug: GI Cocktail without - (Maalox Suspension 30 ml, Lidocaine Liquid 2 % 15 tw5 ml) Route: PO; 22:38 Follow up: Response: No adverse reaction; Medication administered at discharge. tw5 22:38 Drug: traMADol 50 mg Route: PO; tw5 22:38 Follow up: Response: No adverse reaction; Medication administered at discharge.; RASS: tw5 Alert and Calm (0) Disposition: 04/10 00:39 Co-signature as Attending Physician, Bairon Olsen MD. rn Disposition Summary: 04/09/22 22:29 Discharge Ordered Location: Home kb Condition: Stable kb Diagnosis - Pain in throat kb - Disorder of teeth and supporting structures, unspecified kb Followup: kb - With: Emergency Department - When: As needed - Reason: Worsening of condition Followup: kb - With: Private Physician - When: 2 - 3 days - Reason: Recheck today's complaints, Continuance of care, Re-evaluation by your physician Discharge Instructions: - Discharge Summary Sheet kb - Dental Pain, Dlxz-ic-Kxuw kb - Sore Throat, Rskx-is-Evvw kb Forms: - Medication Reconciliation Form kb - Thank You Letter kb - Antibiotic Education kb - Prescription Opioid Use kb Prescriptions: - Augmentin 875-125 mg Oral Tablet - take 1 tablet by ORAL route every 12 hours for 10 days; 20 tablet; Refills: 0, kb Product Selection Permitted Signatures: Dina Bowden, Bairon Diaz MD MD rn Wood, Tiffany tw5
[2022-04-09] MEDS ORDERED: LIDOCAINE VISCOUS 2% SOLN 15 ML UDC ONE (22:38)
[2022-04-09] MEDS ORDERED: MAGNES/ALUMIN/SIMET 30ML UCUP ONE (22:38)
[2022-04-09] MEDS ORDERED: TRAMADOL HCL 50 MG TAB ONE (22:38)
[2022-04-09 23:45] VITALS: BP 161/100; TEMP 98.4; O2SAT 97
== END 2022-04-09 22:40 | disposition home or self-care (01) ==
LOC: ER 22:14
DX: R07.0 Pain in throat (principal); K08.89 Other specified disorders of teeth and supporting structures; I10 Essential (primary) hypertension; F17.210 Nicotine dependence, cigarettes, uncomplicated

== ENCOUNTER 2022-04-23 22:14 | Emergency (ER) | payer SELFPAY ==
--- OUTSIDE RECORDS SUMMARY | 2022-04-23 22:17 | XMS REPORT | Continuity of Care Document ---
:1970 Author Organization [facility] t Address [address] [place] [address] Care Team Providers Name Role Phone PCP, PATIENT DOES NOT HAVE A Primary Care Physician Unavaila TANYA Buckner Attending Clinician Unavailable Tanya Muniz DO Attending Clinician Karlene Stephen Attending Clinician Unavailable Roshni Carr Attending Clinician Unavailable MARÍA HERNANDEZ Attending Clinician Unavailable MIMI SCHWARTZ MD Attending Clinician MARIUM ANDERS Attending Clinician Unavailable Daniel Coronado Attending Clinician Unavailable PROVIDER, ED TEMP Attending Clinician Unavailable JM AYALA Attending Clinician Unavailable MARÍA HERNANDEZ Admitting Clinician Unavailable Payers Payer Name Policy Type Policy Effective Date Expiration Date Sour ce Number MEDICAID NA [place] PENDING [facility] JOVANNA CARE NA Lafe PENDING [facility] Problems Condition Condition Condition Status Onset [...] Active 2017-[address] disorder disorder 2[facility]02 [facility] (LUF/LI V/SA) [...] Active [facility] [place] [facility] Social History Social Habit Start Date Stop Date Quantity Comments Source Exposure to 2022-03-24 2022-04-03 Not sure [facility] SARS-CoV-2 (event) 00:00:00 00:24:00 Medica l Branch Sex Assigned At [birth year] [facility] 00:00:00 00:00:00 Medical Branch Smoking Status Start Date Stop Date Source Tobacco smoking consumption [facility] Medical unknown Branch Never smoker [facility] oriwi ([facility]/LIOR/SA) Medications Ordered Filled Start Stop Current Ordering Indication Dosage Frequency Signature Comments Components Source Medication Medication Date Date Medication? Clinician (SIG) Name Name NaCl 0.9% 2021- No 500mL at 999 Univ ers (NS) bolus 04-03 mL/hr, 500 it y of infusion 07:00: 07:04 mL, IV [place] 500 mL 00 :00 Infusion, Medical ONCE, 1 Branch dose, On Roxana 04/03/22 at 0200, STAT maalox:diph 2021- No 15mL 15 mL, Uni vers enhydrAMINE 04-03 Oral, ity of :lidocaine 06:00: 06:12 ONCE, 1 Larry as 2 % viscous 00 :00 dose, On Medi von 1:1:1 [place] Branch ([facility] 04/03/22 at [facility]) 0100, oral Routine suspension 15 mL Immunizations Ordered Immunization Filled Immunization Date Status Commen ts Source Name Name NO UP TO DATE FLU NO UP TO DATE FLU Unknown Completed [facility] ([facility]/LIOR/SA) Vital Signs Vital Name Observation Time Observation Value Comments Source Systolic blood 2022-04-03 05:26:00 157 mm[Hg] Univer sity of pressure [facility] Diastolic blood 2022-04-03 05:26:00 100 mm[Hg] Unive rsity of pressure [facility] Heart rate 2022-04-03 05:26:00 71 /min [facility] Body temperature 2022-04-03 05:26:00 36.56 [facility] Respiratory rate 2022-04-03 05:26:00 18 /min [facility] Body height 2022-04-03 05:26:00 167.6 cm [facility] Body weight 2022-04-03 05:26:00 66.225 kg [facility] BMI 2022-04-03 05:26:00 23.57 kg/m2 [facility] Oxygen saturation in 2022-04-03 05:26:00 97 /min [facility] Arterial blood by [facility] Pulse oximetry [place] Body Temperature 2018-08-08 05:01:00 98.9 F [facility] (LUF/LIOR/SA) Pulse Rate 2018-08-08 05:01:00 87 /min [facility] ([facility]/LIOR/) Respiratory Rate 2018-08-08 05:01:00 18 /min [facility] (F/LIOR/SA) O2% BldC Oximetry 2018-08-08 05:01:00 98 % [facility] (F/LIOR/SA) BP Systolic 2018-08-08 05:01:00 160 mm[Hg] [facility] (F/LIOR/SA) BP Diastolic 2018-08-08 05:01:00 110 mm[Hg] [facility] (F/LIOR/SA) Height 2018-08-08 05:01:00 66 in [facility] ([facility]/LIOR/SA) Weight Measured 2018-08-08 05:01:00 154.32 lbs [facility] (F/LIOR/SA) BMI (Body Mass 2018-08-08 05:01:00 25 [facility] (LUF/LIOR/SA) Procedures Procedure Date / Time Performed Performing Clinician Sourc e TROPONIN I 2022-04-03 06:11:00 Tanya [facility] COMP. METABOLIC PANEL 2022-04-03 06:11:00 Tanya Muniz [facility] ([id number]) [facility] CBC WITH DIFF 2022-04-03 06:11:00 Tanya [facility] NOTICE OF PRIVACY 2022-04-03 05:18:55 Doctor Unassigned, No Univ [facility] PRACTICES Name [facility] Branch CONSENT/REFUSAL FOR 2022-04-03 05:18:14 Doctor Unassigned, No [facility] DIAGNOSIS AND Name [facility] TREATMENT Encounters Start End Encounter Admission Attending Care Care Encounter Source Date/Time Date/Time Type Type Clinicians Facility Department ID 2022-04-03 2022-04-03 Emergency X FLAVIO FLBRITTNEY ERT [id number] [facility] 00:20:00 02:21:00 TANYA sanders [facility] 2022-04-03 2022-04-03 Emergency Flavio [facility] [id number] Univers 00:20:00 02:21:00 Tanya GOLDEN [id number] i [facility] [id number] [facility] [id number] [address] 2021-06-16 2021-06-16 Emergency ER Zafar, STPRIMITIVOJM [facility] [id number] 02:24:00 02:24:00 Karlene [id number] [facility] 2021-06-15 2021-06-15 Emergency ER [facility] [id number] 15:02:00 15:02:00 Karlene [id number] [facility] 2021-05-28 2021-05-28 Emergency ER Bruno, STPRIMITIVOJYvon [facility] [id number] 13:51:00 16:10:00 Roshni [id number] [facility] 2018-08-08 2018-08-08 Inpatient MARÍA CAICEDO [facility] [id number] 04:58:00 11:31:00 [place] REY L aimee N, [address], [place]LUF[place] [address] 2018-07-01 2018-07-01 Departed MIRELA SCHWARTZ [facility] [id number] 19:23:00 20:28:00 Emergency [facility] Results Test Description Test Time Test Comments Results Result Comments Source TROPONIN I 2022-04-03 06:45:15 Test Item Value Reference Range Interpretation Comme nts TROPONIN I (test code = 0.001 ng/mL See_Comment [Au tomated message] The [id number]) system which ge nerated this result tra [...] biotin. Lab Interpretation Normal (test code = 34762-4) [facility]. METABOLIC PANEL (90635)2022-04-03 06:33:58 Test Item Value Reference Range Interpretation Comments NA (test code = 138 mmol/L 135-145 2782297457) K (test code = 3.8 mmol/L 3.5-5 5924933805) CL (test code = 106 mmol/L 98-108 3229861921) CO2 TOTAL (test code = 26 mmol/L 23-31 7858479201) AGAP (test code = 2-16 9705930715) BUN (test code = 16 mg/dL 7-23 8163257969) GLUCOSE (test code = 118 mg/dL 70-110 H 3625495886) CREATININE (test code = 0.96 mg/dL 0.6-1.25 8321590399) TOTAL BILI (test code = 0.1 mg/dL 0.1-1.9 0853642946) CALCIUM (test code = 8.5 mg/dL 8.6-10.6 L 1830449241) T PROTEIN (test code = 5.5 g/dL 6.3-8.2 L 7775085785) ALBUMIN (test code = 3.4 g/dL 3.5-5 L 3025386190) ALK PHOS (test code = 45 U/L 34-122 4052291941) ALTv (test code = 16 U/L 5-50 1742-6) AST(SGOT) (test code = 16 U/L 13-40 0519788992) eGFR (test code = mL/min/1.73m2 0969822224) APOLINAR (test code = APOLINAR) Association of [...] tests). Lab Interpretation Abnormal (test code = 63925-0) [facility] WITH [id number] 06:21:14 Test Item Value Reference Range Interpretation [...] RDW-SD (test code = 39.1 fL 38.5-51.6 76492-9) RDW-CV (test code = 11.9 % 12.1-15.4 L 788-0) PLT (test code = See_Comment [Automated 777-3) message] The sy stem which generated this result transmitted reference range : 150 - 328 10*3/ ?L. The reference r paul was not used to interpret this result as normal/abnormal . MPV (test code = 9.6 fL 9.8-13 L 95187-6) NRBC/100 WBC (test See_Comment [Automat ed code = 2637720388) message] The system which generated this result transmitted reference range : 0.0 - 10.0 /100 WBCs. The refer ence range was not u sed to interpret th is result as normal/abnormal . NRBC x10^3 (test code See_Comment [Auto mated = 5375151776) message] The s ystem which generated this result transmitted reference range : 10*3/?L. The reference range was not used to interpret this result as normal/abnormal . GRAN MAT (NEUT) % 53.1 % (test code = 770-8) IMM GRAN % (test code 0.20 % = 6812506505) LYMPH % (test code = 33.2 % 736-9) MONO % (test code = 7.6 % 5905-5) EOS % (test code = 5.7 % 713-8) BASO % (test code = 0.2 % 706-2) GRAN MAT x10^3(ANC) 3.37 10*3/uL 1.99-6.95 (test code = 8439092614) IMM GRAN x10^3 (test 0-0.06 code = 5284651808) LYMPH x10^3 (test code 2.10 10*3/uL 1.09-3.23 = 731-0) MONO x10^3 (test code 0.48 10*3/uL 0.36-1.02 = 742-7) EOS x10^3 (test code = 0.36 10*3/uL 0.06-0.53 711-2) BASO x10^3 (test code 0.01-0.09 = 704-7) Lab Interpretation Abnormal (test code = 16198-3) [facility]00 Test Item Value Reference Range Interpretation Comments Chemistry (test code = CKMBM-T) 2.2 ng/mL 0-6.6 N [id number] 16:04:00 Test Item Value Reference Range Interpretation [...] code 13 U/L 8-55 N = ALT) [id number] 16:04:00 Test Item Value Reference Range Interpretation Comments Chemistry (test code = CK) 95 U/L 30-200 N [id number] 16:04:00 Test Item Value Reference Range Interpretation Comments Chemistry (test Less than < 0.028 code = TROPI-R) 0.010 ng/mL Reference Ra nge 0.00 - 0.028 ng /mL Negative 0.029 - 0.29 ng/mL Indetermi jakob Greater or Equa l to 0.3 ng/mL Stron gly suggests [place] [id number] 15:47:00 Test Item Value Reference Range Interpretation [...] city >30 mg/dl Nesha l >70 mg/dl [id number] 06:42:00 Test Item Value Reference Range Interpretation [...] ( 4 - SerumAlbumin)] EGFR if >60 [place] (test code mL/min/1.73m\\ = EGFRAA) S\\2 EGFR if Non- >60 Estimate d Glomerular [place] (test code mL/min/1.73m\\ Filtrat ion Rate (eGFR) [...] = ACET) <2 ug/ml 10-25 L ALCOHOL, [id number] 06:41:00 Test Item Value Reference Range Interpretation Comments Alcohol % (test code = 0 % 0.00-0.00 N Dereck ol % 0.00 - 0.10 ALCPC) Sub-clinical 0. 11 - 0.20 Emotional Insta bility 0.21 - 0.30 Confusio n 0.31 - 0.40 Stupor 0.4 1 - 0.50 Coma >.50 Fatal CBC WITH AUTO [id number] 06:13:00 Test Item Value Reference Range Interpretation [...] (test code = 0.4 % 0.0-0.4 IG%) [id number] 08:45:00 Test Item Value Reference Range Interpretation [...] NONEMedical Necessity SUSPECT COAGULOPATHYAnticoagulant? NONEMedical Necessity: SUSP [id number] 08:45:00 Test Item Value Reference Range Interpretation Comments Coagulation (test code = PTT) 27.2 SEC 22.9-36.1 N Anticoagulant? NONEMedical Necessity SUSPECT COAGULOPATHYAnticoagulant? NONEMedical Necessity: SUSP [id number] 08:44:00 Test Item Value Reference Range Interpretation Comments Chemistry (test 2.9 ng/mL 0-6.6 N code = CKMBM-T) Chemistry (test 0.015 ng/mL < 0.028 code = TROPI-T) Reference Ra nge 0.00 - 0.028 ng /mL Negative 0.029 - 0.29 ng/mL Indetermi jakob Greater or Equa l to 0.3 ng/mL Strongly suggests [place] [id number] 08:40:00 Test Item Value Reference Range Interpretation [...] 17 U/L 8-55 N code = ALT) [id number] 08:40:00 Test Item Value Reference Range Interpretation Comments Chemistry (test code = CK) 119 U/L 30-200 N [id number] 08:23:00 Test Item Value Reference Range Interpretation [...] code = BASO#) 0.1 thou/uL 0.0-0.2 N [id number] 19:03:00 Test Item Value Reference Range Interpretation [...] code 16 U/L 8-55 N = ALT) [id number] 18:46:00 Test Item Value Reference Range Interpretation [...] code = BASO#) 0.1 thou/uL 0.0-0.2 N [id number] 18:45:00 Test Item Value Reference Range Interpretation [...] Negative Negative Comment clear yellowUrine Source: Urine [id number] 18:45:00 Test Item Value Reference Range Interpretation Comments Urinalysis (test code = UARBC) 0-3 HPF 0-3 Urinalysis (test code = UAWBC) 4-6 HPF 0-3 A Urinalysis (test code = UASQUAM) 0-3 HPF 0-3 Urinalysis (test code = UABAC) 1+ HPF None Seen A Comment clear yellowUrine Source: Urine [id number] 20:56:00 Test Item Value Reference Range Interpretation [...] LPF 0-3 Hyaline UACAST) Urine Source: Urine [id number] 19:22:00 Test Item Value Reference Range Interpretation Comments Chemistry (test Less than < 0.028 code = TROPI-T) 0.010 ng/mL Reference Ra nge 0.00 - 0.028 ng /mL Negative 0.029 - 0.29 ng/mL Indetermi jakob Greater or Equa l to 0.3 ng/mL Stron gly suggests [place] Comment Pls draw at 7 pm.[id number] 16:36:00 Test Item Value Reference Range Interpretation [...] NONEMedical Necessity SUSPECT COAGULOPATHYAnticoagulant? NONEMedical Necessity: SUSP [id number] 16:36:00 Test Item Value Reference Range Interpretation Comments Coagulation (test code = PTT) 26.2 SEC 22.9-36.1 N Anticoagulant? NONEMedical Necessity SUSPECT COAGULOPATHYAnticoagulant? NONEMedical Necessity: SUSP [id number] 16:34:00 Test Item Value Reference Range Interpretation Comments Chemistry (test 2.5 ng/mL 0-6.6 N code = CKMBM-T) Chemistry (test Less than < 0.028 code = TROPI-T) 0.010 ng/mL Reference Ra nge 0.00 - 0.028 n g/mL Negative 0.029 - 0.29 ng/mL Indetermi jakob Greater or Equa l to 0.3 ng/mL Stron gly suggests [place] [id number] 16:31:00 Test Item Value Reference Range Interpretation [...] code 17 U/L 8-55 N = ALT) [id number] 16:13:00 Test Item Value Reference Range Interpretation [...] 0.0-0.2 N XR Chest 1 [facility] Portable [facility] 1970 [facility] Pt Name: KERRY QUIROZ [address] Phys: [place] [address] : 1970 Age: 50 SEX:M [phone] Exam Date: 06/15/21 Status: REG ER Acct: [id number] Loc: [facility] Pt Unit #: [id number] Report #: [id number] CC: Karlene Stephen MDIMAGING SERVICES REPORT Order # Category/Exam [id number] RAD/XR Chest 1 View Portable ([id number]): . Results XR Chest 1 View Portable History: Chest pain Comparison: None. Findings: Lungs are clear. Nopneumothorax or effusion. Cardiac silhouette and mediastinal contoursare within normal limits. Impression: No acute intrathoracic abnormality. Reported By: KARLENE HARP Electronically Signed Date/Time: 06/15/211550 Technologist: Dictated Date/Time: 06/15/211550 Transcribed Date/Time:
--- NOTE | 2022-04-23 23:14 | EDPHYS ---
Physician Documentation [facility] Name: Jasmin Haley Age: 51 yrs Sex: Male : 1970 Arrival Date: 04/23/2022 Time: 22:16 Bed 9 Private MD: ED Physician Bairon Olsen HPI: 04/23 23:04 This 51 yrs old Male presents to ER via Unassigned with complaints of POSSIBLE SHINGLES jmm ON TORSO/LOW EXTREMITIES. 23:04 The patient's rash thought to be caused by an unknown cause. The rash is located on the jmm body diffusely. 23:12 Onset: The symptoms/episode began/occurred gradually. Associated signs and symptoms: jmm Pertinent positives: itching, Pertinent negatives: swelling of lips, swelling of throat, swelling of tongue, vomiting, wheezing. The patient has experienced a previous episode. Historical: - Allergies: 23:16 No Known Allergies; vc1 - Home Meds: 23:16 lithium carbonate 300 mg Oral tab 1 tab 2 times per day [Active]; prazosin 1 mg Oral vc1 cap 1 cap nightly [Active]; - PMHx: 23:16 bipolar/schizo; CVA; Hypertension; stroke; vc1 - PSHx: 23:16 None; vc1 - Immunization history:: Adult Immunizations up to date, Client reports having NOT received the Covid vaccine. - Social history:: Smoking status: unknown. ROS: 23:12 Constitutional: Negative for fever, chills, and weight loss, Cardiovascular: Negative jmm for chest pain, palpitations, and edema, Respiratory: Negative for shortness of breath, cough, wheezing, and pleuritic chest pain. 23:12 Skin: Positive for rash. 23:12 All other systems are negative. Exam: 23:12 Constitutional: This is a well developed, well nourished patient who is awake, alert, jmm and in no acute distress. Head/Face: atraumatic. Eyes: EOMI, no conjunctival erythema appreciated ENT: Moist Mucus Membranes Neck: Trachea midline, Supple Chest/axilla: Normal chest wall appearance and motion. Cardiovascular: Regular rate and rhythm. No edema appreciated Respiratory: Normal respirations, no respiratory distress appreciated Abdomen/GI: Non distended Back: Normal ROM 23:12 Skin: Diffuse papular erythematous rash noted to the trunk including the right and left axillary regions, the lower back.. 23:12 Neuro: Orientation: is normal, Mentation: is normal, Memory: is normal. 23:12 Psych: Behavior/mood is pleasant, cooperative. Vital Signs: 23:03 BP 130 / 74; Pulse 71; Resp 16; Temp 97.9; Pulse Ox 98% ; Weight 66.22 kg; Height 5 ft. zm 6 in. (167.64 cm); 23:03 Body Mass Index 23.56 (66.22 kg, 167.64 cm) zm MDM: 23:04 Patient medically screened. [facility] 23:13 Data reviewed: vital signs, nurses notes. Counseling: I had a detailed discussion with xiomara the patient and/or guardian regarding: the historical points, exam findings, and any diagnostic results supporting the discharge/admit diagnosis, the need for outpatient follow up, to return to the emergency department if symptoms worsen or persist or if there are any questions or concerns that arise at home. Administered Medications: 23:24 Drug: Decadron (dexamethasone) 10 mg Route: IM; Site: right deltoid; vc1 23:29 Drug: hydrOXYzine 50 mg Route: PO; vc1 Disposition: 04/24 03:33 Co-signature as Attending Physician, Bairon Olsen MD. rn Disposition Summary: 04/23/22 23:13 Discharge Ordered Location: Home [facility] Condition: Stable [facility] Diagnosis - Rash and other nonspecific skin eruption [facility] Followup: [facility] - With: Private Physician - When: 2 - 3 days - Reason: Recheck today's complaints, Continuance of care, Re-evaluation by your physician Discharge Instructions: - Discharge Summary Sheet [facility] - Rash, Adult m Forms: - Medication Reconciliation Form [facility] - Thank You Letter [facility] - Antibiotic Education [facility] - Prescription Opioid Use [facility] Prescriptions: - Elimite 5 % Topical Cream - apply 1 application by TOPICAL route one time Wash after 12 hours.; 60 gram; [facility] Refills: 0, Product Selection Permitted - Hydroxyzine HCl 25 mg Oral Tablet - take 1 tablet by ORAL route every 6 hours As needed; 30 tablet; Refills: 0, [facility] Product Selection Permitted - Prednisone 20 mg Oral Tablet - take 3 tablets by ORAL route once daily for 5 days; 15 tablet; Refills: 0, [facility] Product Selection Permitted Signatures: Tony Palacio PA PA jmm Nieto, Roman, MD MD rn CalcLucretia brandt RN RN vc1
--- NOTE | 2022-04-23 23:14 | ER ---
Nurse[facility] Name: Jasmin Haley Age: 51 yrs Sex: Male : 1970 Arrival Date: 04/23/2022 Time: 22:16 Bed 9 Private MD: Diagnosis: Rash and other nonspecific skin eruption Presentation: 04/23 23:13 Chief complaint: Patient states: "About 4-5 days ago I started breaking out with this vc1 rash, I am not sure if it is shingles or not but I have tried all kinds of creams and nothing is helping.". Coronavirus screen: At this time, the client does not indicate any symptoms associated with coronavirus-19. Ebola Screen: No symptoms or risks identified at this time. Initial Sepsis Screen: Does the patient meet any 2 criteria? No. Patient's initial sepsis screen is negative. Does the patient have a suspected source of infection? No. Patient's initial sepsis screen is negative. Risk Assessment: Do you want to hurt yourself or someone else? Patient reports no desire to harm self or others. Onset of symptoms is unknown. 23:13 Method Of Arrival: Ambulatory vc1 23:13 Acuity: GISELA 5 vc1 Triage Assessment: 23:14 General: Appears in no apparent distress. uncomfortable, slender, Behavior is calm, vc1 cooperative, appropriate for age. Pain: Denies pain. EENT: No deficits noted. Neuro: Level of Consciousness is awake, alert, obeys commands, Oriented to person, place, time, situation, Appropriate for age. Cardiovascular: No deficits noted. Respiratory: Airway is patent Respiratory effort is even, unlabored, Respiratory pattern is regular, symmetrical. GI: No deficits noted. : No deficits noted. Derm: Rash noted that is itchy, red, on low back area, anterior aspect of left lateral abdomen and posterior aspect of left lateral abdomen. Historical: - Allergies: 23:16 No Known Allergies; vc1 - Home Meds: 23:16 lithium carbonate 300 mg Oral tab 1 tab 2 times per day [Active]; prazosin 1 mg Oral vc1 cap 1 cap nightly [Active]; - PMHx: 23:16 bipolar/schizo; CVA; Hypertension; stroke; vc1 - PSHx: 23:16 None; vc1 - Immunization history:: Adult Immunizations up to date, Client reports having NOT received the Covid vaccine. - Social history:: Smoking status: unknown. Screenin:14 Abuse screen: Denies threats or abuse. Nutritional screening: No deficits noted. vc1 Tuberculosis screening: No symptoms or risk factors identified. Fall Risk None identified. Assessment: 23:15 Reassessment: See triage assessment. vc1 Vital Signs: 23:03 BP 130 / 74; Pulse 71; Resp 16; Temp 97.9; Pulse Ox 98% ; Weight 66.22 kg; Height 5 ft. zm 6 in. (167.64 cm); 23:03 Body Mass Index 23.56 (66.22 kg, 167.64 cm) ED Course: 22:16 Patient arrived in ED. [email or web address] 22:21 Tony Palacio PA is PHCP. xiomara 22:22 Bairon Olsen MD is Attending Physician. [facility] 23:14 Triage completed. vc1 23:16 Arm band placed on right wrist. vc1 23:16 Patient has correct armband on for positive identification. vc1 23:16 No provider procedures requiring assistance completed. Patient did not have IV access vc1 during this emergency room visit. Administered Medications: 23:24 Drug: Decadron (dexamethasone) 10 mg Route: IM; Site: right deltoid; vc1 23:29 Drug: hydrOXYzine 50 mg Route: PO; vc1 Medication: 23:18 VIS not applicable for this client. vc1 Outcome: 23:13 Discharge ordered by . jm 23:16 Condition: good vc1 23:33 Discharged to home ambulatory, with significant other. vc1 23:33 Discharge instructions given to patient, Instructed on discharge instructions, follow up and referral plans. medication usage, Demonstrated understanding of instructions, follow-up care, medications, Prescriptions given X 3. 23:34 Patient left the ED. vc1 Signatures: Tony Palacio PA PA jmm Jeffries, Jennifer [id number] Lucretia Carrizales RN RN vc1 Manuela Pride
[2022-04-23] MEDS ORDERED: hydrOXYzine HCL 25 MG TAB ONE (23:30)
[2022-04-23] MEDS ORDERED: dexAMETHasone 10 MG/ML VIAL ONE (23:31)
[2022-04-24 02:45] VITALS: BP 130/74; TEMP 97.9; O2SAT 98
== END 2022-04-23 23:34 | disposition home or self-care (01) ==
LOC: ER 22:14
DX: R21 Rash and other nonspecific skin eruption (principal); I10 Essential (primary) hypertension; F20.9 Schizophrenia, unspecified; Z86.73 Personal history of transient ischemic attack (TIA), and cerebral infarction without residual deficits
CPT/HCPCS: J1100

== ENCOUNTER → 2023-11-23 | Emergency (ER) | payer SELFPAY ==
[~2023-11-23] MED LIST: LORAZEPAM 1 MG TABLET ONE
--- OUTSIDE RECORDS SUMMARY | 2023-11-23 14:06 | XMS REPORT | Continuity of Care Document ---
Author Name Unknown Address [address] [facility] [address] [place] [address] [facility] thconnect Address [address] [facility] [address] [place] [address] Care Team Providers Care Research Psychologist Name Role Phone PCP, PATIENT DOES NOT HAVE A Primary Care Physic floyd Unavailable TANYA MUNIZ Attending Clinician Unavailab Tanya Estevez DO Attending Clinician [phone] Karlene Stephen Attending Clinician Unavailable Roshni Carr Attending Clinician Unavailable MARÍA HERNANDEZ Attending Clinician Unavailable MIMI SCHWARTZ MD Attending Clinician [phone] MARIUM ANDERS Attending Clinician Unavailable Daniel Coronado Attending Clinician Unavailable PROVIDER, ED TEMP Attending Clinician UnavailJM Tracy Attending Clinician UnavailMARÍA Trujillo Admitting Clinician Unavailable Payers Payer Name Policy Type Policy Number Effective Date Expiration Date Source MEDICAID PENDING NA [facility] Problems Condition Name Condition Details Condition Category Status Onset Date Resolution Date Last Treatment Date Treating Clinician Comments Source Bipolar disorder Bipolar disorder Problem Active 2017-09 00:00: [address] [facility] (LUF[facility]LI V/SA) Suicidal Suicidal Problem Active 2017-09 00:00: [address] [facility] (LUF/LI V/SA) Depressive disorder Depressive disorder Problem Active 2017-09 00:00: [address] [facility] (LUF/LI V/SA) 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 2017-09 00:00: [address] [facility] (LUF/LI V/SA) Allergies, Adverse Reactions, Alerts Allergy Name Allergy Type Status Severity Reaction(s) Onset Date Inactive Date Treating Clinician Comments Source No Known Allergie s DA Active U 09-09 00:00: 00 [facility] NO KNOWN ALLERGIE S Drug Class Active [facility] Social History Social Habit Start Date Stop Date Quantity Comments Source Exposure to SARS-CoV-2 (event) 2022-03-24 00:00:00 2022-04-03 00:24:00 Not sure [facility] Sex Assigned At 1970 00:00:00 1970 00:00:00 [facility] Smoking Status Start Date Stop Date Source Never smoker [facility] (LUF/LIOR/SA) Tobacco smoking consumption unknown [facility] Medications Ordered Medication Name Filled Medication Name Start Date Stop Date Current Medication? Ordering Clinician Indication Dosage Frequency Signature (SIG) Comments Components Source NaCl 0.9% (NS) bolus infusion 500 mL 04-03 07:00: 00 04-03 07:04 :00 No 500mL at 999 mL/hr, 500 mL, IV Infusion, ONCE, 1 dose, On Thu04/03/22 at 0200, STAT [facility] maalox:diph enhydrAMINE :lidocaine 2 % viscous 1:1:1 (FIRST-MOUT HWASH BLM) oral suspension 15 mL 04-03 06:00: 00 04-03 06:12 :00 No 15mL 15 mL, Oral, ONCE, 1 dose, On Thu04/03/22 at 0100, Routine [facility] Vital Signs Vital Name Observation Time Observation Value Comments S ource Systolic blood pressure 2022-04-03 05:26:00 157 [facility]Hg[facility] Diastolic blood pressure 2022-04-03 05:26:00 100 mm[Hg[facility] Heart rate 2022-04-03 05:26:00 71 /min [facility] Body temperature 2022-04-03 05:26:00 36.56 Sylvie [facility] Respiratory rate 2022-04-03 05:26:00 18 /min [facility] Body height 2022-04-03 05:26:00 167.6 cm [facility] Body weight 2022-04-03 05:26:00 66.225 kg [facility] BMI 2022-04-03 05:26:00 23.57 kg/m2 [facility] Oxygen saturation in Arterial blood by Pulse oximetry 2022-04-03 05:26:00 97 /min [facility] Body Temperature 2018-08-08 05:01:00 98.9 F [facility] (LUF/LIOR/SA) Pulse Rate 2018-08-08 05:01:00 87 /min [facility] (LUF/LIOR/SA) Respiratory Rate 2018-08-08 05:01:00 18 /min [facility] (F/LIOR/SA) O2% BldC Oximetry 2018-08-08 05:01:00 98 % [facility] (LUF/LIOR/SA) BP Systolic 2018-08-08 05:01:00 160 mm[Hg] [facility] (LUF/LIOR/SA) BP Diastolic 2018-08-08 05:01:00 110 mm[Hg] [facility] (LUF/LIOR/SA) Height 2018-08-08 05:01:00 66 in [facility] S t [facility] (LUF/LIOR/SA) Weight Measured 2018-08-08 05:01:00 154.32 lbs [facility] (LUF/LIOR/SA) BMI (Body Mass Index) 2018-08-08 05:01:00 25 [facility] (LUF/LIOR/SA) Procedures Procedure Date / Time Performed Performing Clinicia n Source TROPONIN I 2022-04-03 06:11:00 Tanya Muniz [facility] COMP. METABOLIC PANEL ([id number]) 2022-04-03 06:11:00 Tanya Muniz [facility] CBC WITH DIFF 2022-04-03 06:11:00 Tanya Muniz U [facility] NOTICE OF PRIVACY PRACTICES 2022-04-03 05:18:55 Doctor Unassigned, [place] [facility] CONSENT/REFUSAL FOR DIAGNOSIS AND TREATMENT 2022-04-03 05:18:14 Doctor Unassigned, [place] [facility] Encounters Start Date/Time End Date/Time Encounter Type Admission Type Attending [facility] Facility Care Department Encounter ID Source 2022-04-03 00:20:00 2022-04-03 02:21:00 Emergency X TANYA MUNIZ [facility] ERT [id number] [facility] 2022-04-03 00:20:00 2022-04-03 02:21:00 Emergency Tanya Muniz [facility] [id number] [facility] 2021-06-16 02:24:00 2021-06-16 02:24:00 Emergency ER Karlene Stephen [facility] [id number] [facility] 2021-06-15 15:02:00 2021-06-15 15:02:00 Emergency ER Karlene Stephen [facility] [id number] [facility] 2021-05-28 13:51:00 2021-05-28 16:10:00 Emergency ER Roshni Carr [facility] [id number] [facility] 2018-08-08 04:58:00 2018-08-08 11:31:00 Inpatient Wilman HERNANDEZ [facility], [facility], [place] [id number] FOR[facility]LY [facility] [id number] [facility] Jairo garcia (LUKarlene/KALINA V/SA) 2018-07-01 19:23:00 2018-07-01 20:28:00 Departed Emergency MIMI SCHWARTZ [facility] [id number] [address] [facility] Results Test Description Test Time Test Comments Results Result Co mments Source [facility]. METABOLIC PANEL ([id number])2022-04-03 06:33:58* Test Item Value Reference Range Interpretation Comme nts NA (test code = 2470604343) 138 mmol/L 135-145 K (test code = 5811401809) 3.8 mmol/L 3.5-5 CL (test code = 0154957290) 106 mmol/L 98-108 CO2 TOTAL (test code = 0746157681) 26 mmol/L 23-31 AGAP (test code = 1227581497) 2-16 BUN (test code = 6331843415) 16 mg/dL 7-23 GLUCOSE (test code = 2893124719) 118 mg/dL 70-110 H CREATININE (test code = 0371634152) 0.96 mg/dL 0.6-1.25 TOTAL BILI (test code = 7377864386) 0.1 mg/dL 0.1-1.1 CALCIUM (test code = 3449157961) 8.5 mg/dL 8.6-10.6 L T PROTEIN (test code = 7418324244) 5.5 g/dL 6.3-8.2 L ALBUMIN (test code = 6823084071) 3.4 g/dL 3.5-5 L ALK PHOS (test code = 7531433921) 45 U/L 34-122 ALTv (test code = 1742-6) 16 U/L 5-50 AST(SGOT) (test code = 9568518039) 16 U/L 13-40 eGFR (test code = 4958760632) mL/min/1.73m2 APOLINAR (test code = APOLINAR) Association of [...] or abnormalities in imaging tests). Lab Interpretation (test code = 64917-1) Abnormal [facility] WITH [id number] 06:21:14* Test Item Value Reference Range Interpretation Comme nts WBC (test code = 6690-2) See_Comment [HealthT[employer]] The system which generated this result transmitted reference range: 4.20 - 10.70 10*3/?L. The reference range was not used to interpret this result as normal/abnormal. RBC (test code = 789-8) See_Comment [[employer]] The system which generated this result transmitted reference range: 4.26 - 5.52 10*6/?L. The reference range was not used to interpret this result as normal/abnormal. HGB (test code = 718-7) 13.5 g/dL 12.2-16.4 HCT (test code = 4544-3) 38.8 % 38.4-49.3 MCV (test code = 787-2) 89.6 fL 81.7-95.6 MCH (test code = 785-6) 31.2 pg 26.1-32.7 MCHC (test code = 786-4) 34.8 g/dL 31.2-35 RDW-SD (test code = 66443-5) 39.1 fL 38.5-51.6 RDW-CV (test code = 788-0) 11.9 % 12.1-15.4 L PLT (test code = 777-3) See_Comment [Automated messa ge] The system which generated this result transmitted reference range: 150 - 328 10*3/?L. The reference range was not used to interpret this result as normal/abnormal. MPV (test code = 27573-9) 9.6 fL 9.8-13 L NRBC/100 WBC (test code = 4691185569) See_Comment [Automated Boyibang ssage] The system which generated this result transmitted reference range: 0.0 - 10.0 /100 WBCs. The reference range was not used to interpret this result as normal/abnormal. NRBC x10^3 (test code = 6617652523) See_Comment [Automated Streemioa ge] The system which generated this result transmitted reference range: 10*3/?L. The reference range was not used to interpret this result as normal/abnormal. GRAN MAT (NEUT) % (test code = 770-8) 53.1 % IMM GRAN % (test code = 3068896408) 0.20 % LYMPH % (test code = 736-9) 33.2 % MONO % (test code = 5905-5) 7.6 % EOS % (test code = 713-8) 5.7 % BASO % (test code = 706-2) 0.2 % GRAN MAT x10^3(ANC) (test code = 5855810795) 3.37 10*3/uL 1.99-6.95 IMM GRAN x10^3 (test code = 8678466652) 0-0.06 LYMPH x10^3 (test code = 731-0) 2.10 10*3/uL 1.09-3.23 MONO x10^3 (test code = 742-7) 0.48 10*3/uL 0.36-1.02 EOS x10^3 (test code = 711-2) 0.36 10*3/uL 0.06-0.53 BASO x10^3 (test code = 704-7) 0.01-0.09 Lab Interpretation (test code = 89613-8) [facility]:05:00* Test Item Value Reference Range Interpretation Comme nts Chemistry (test code = CKMBM-T) 2.2 ng/mL 0-6.6 N Otnzqmxzm5548-23-32 16:04:00* Test Item Value Reference Range Interpretation Comme nts Chemistry (test code = NA-T) 139 mmol/L 136-145 N Chemistry (test code = K-T) 4.2 mmol/L 3.5-5.1 N Chemistry (test code = CL) 101 mmol/L 98-107 N Chemistry (test code = CO2) 27 mmol/L 22-29 N Chemistry (test code = ANGP) 15 mmol/L 10-20 N Chemistry (test code = BUN) 14 mg/dL 8.9-20.6 N Chemistry (test code = CREATT) 1.05 mg/dL 0.7-1.3 N Chemistry (test code = EGFRMDRD) 75 Reference Range for Estimated GFR: Greater than 90 mL/min/1.73 m2NOTE:The MDRD equation has not been validated for use with theelderly (over 70 years of age), women, patientswith serious comorbid condition or persons with extremes ofbody size, muscle mass, or nutritional status. Chemistry (test code = GLU-T) 148 mg/dL 70-105 H Chemistry (test code = CA) 9.8 mg/dL 7.8-10.44 N Chemistry (test code = TBILI-T) 0.5 mg/dL 0.2-1.2 N Chemistry (test code = TP) 6.9 g/dL 6.0-8.3 N Chemistry (test code = ALB) 4.2 g/dL 3.5-5.0 N Chemistry (test code = GLOB) 2.7 g/dL 2.4-3.5 N Chemistry (test code = AG) 1.6 g/dL 1.2-2.2 N Chemistry (test code = ALP) 49 U/L 40-110 N Chemistry (test code = AST) 13 U/L 5-34 N Chemistry (test code = ALT) 13 U/L 8-55 N Oarmzrlwg2873-52-92 16:04:00* Test Item Value Reference Range Interpretation Comme nts Chemistry (test code = CK) 95 U/L 30-200 N Ulhbdnguq6115-97-65 16:04:00* Test Item Value Reference Range Interpretation Comme [facility] Chemistry (test code = TROPI-R) Less than 0.010 ng/mL < 0.028 * Reference Range 0.00 - 0.028 ng/mL Negative 0.029 - 0.29 ng/mL Indeterminate Greater or Equal to 0.3 ng/mL Strongly suggests AL Nztfwlbvuu9980-67-98 15:47:00* Test Item Value Reference Range Interpretation Comme [facility] Hematology (test code = WBCT) 10.0 thou/uL [...] BASO#) 0.1 thou/uL 0.0-0.2 N SALICYLATES (Aspirin)2018-08-08 06:47:00* Test Item Value Reference Range Interpretation Comme nts Salicylate (test code = SALI) 2.3 mg/dl 0.0-30.0 Salicylates Refe rence Ranges: Therapeutic 15 - 30 mg/dl Toxicity >30 mg/dl Lethal >70 mg/dl [facility]* Test Item Value Reference Range Interpretation Comme nts Glucose (test code = GLU) 88 mg/dl 75-110 BUN (test code = BUN) 15.0 mg/dl 6.0-17.0 Creatinine (test code = CREA) 0.8 mg/dl 0.4-1.2 Sodium (test code = NA) 136 mmol/l 137-145 L Potassium (test code = K) 3.6 mmol/l 3.5-5.0 Chloride (test code = CL) 102 mmol/l 98-107 CO2 (test code = CO2) 27 mmol/l 22-30 Calcium (test code = CALC) 8.6 mg/dl 8.4-10.2 T Protein (test code = TP) 6.8 gm/dl 5.1-8.7 Albumin (test code = ALB) 3.6 gm/dl 3.5-4.6 A/G Ratio (test code = AGRAT) 1.1 % 1.1-2.2 AST (SGOT) (test code = AST) 20 U/L 11-36 ALT (SGPT) (test code = ALT) 21 U/L 11-40 Alkaline Phos (test code = ALKP) 63 U/L 47-114 Total Bilirubin (test code = TBIL) 0.6 mg/dl 0.2-1.2 Globulin (test code = GLOBU) 3.2 gm/dl 2.3-3.5 Calcium, Corrected (test code = CALCCORR) 8.9 mg/dl 8.4-10.2 Various formulas exist for corrected serum calcium results, each yielding different values. This corrected result was based on the formula: Corrected Calcium = SerumCalcium + [0.8 * ( 4 - SerumAlbumin)] EGFR if (test code = EGFRAA) >60 mL/min/1.73m\\ S\\2 EGFR if Non- (test code = EGFRNA) >60 mL/min/1.73m\\ S\\2 Estimated Glomerular Filtration Rate (eGFR) Reference Intervals Decision Points for 18 years and older and average body mass: >= 60 Does not exclude kidney disease. 30 - 59 Suggests moderate chronic kidney disease and indicates the need for further investigation including assessment of proteinuria and cardiovascular factors. < 30 Usually indicates a need for referral for assessment and management of chronic kidney failure. [facility]2018-08-08 06:41:00* Test Item Value Reference Range Interpretation Comme nts Acetaminophen (test code = ACET) <2 ug/ml 10-25 L [facility]AL[facility], [id number] 06:41:00* Test Item Value Reference Range Interpretation Comme nts Alcohol % (test code = ALCPC) 0 % 0.00-0.00 N Ethanol % 0.00 - 0.10 Sub-clinical 0.11 - 0.20 Emotional Instability 0.21 - 0.30 Confusion 0.31 - 0.40 Stupor 0.41 - 0.50 Coma >.50 Fatal [facility] WITH AUTO [id number] 06:13:00* Test Item Value Reference Range Interpretation Comme nts WBC (test code = WBC) 11.63 10\\S\\3/ul 4.80-10.80 H RBC (test code = RBC) 4.80 10\\S\\6/ul 4.70-6.10 Hemoglobin (test code = HGB) 15.0 gm/dl 14.0-18.0 Hematocrit (test code = HCT) 43.4 % 42.0-50.0 MCV (test code = MCV) 90.4 fL 80.0-94.0 MCH (test code = MCH) 31.3 pg 27.0-31.0 H MCHC (test code = MCHC) 34.6 gm/dl 33.0-37.0 RDW (test code = RDWVC) 12.2 % 11.5-14.5 Platelet (test code = PLT) 271 10\\S\\3/ul 130-400 MPV (test code = MPV) 9.1 fL 7.4-10.4 A "NOT MEASURED" RESULTS ARE DISPLAYED WHEN THE INSTRUMENT HAS A SUPPRESSED OR UNREPORTABLE RESULT. THIS WILL MOST OFTEN HAPPEN WITH THE MPV WHEN THERE IS AN ABNORMAL PLATELET DISTRIBUTION DUE TO A CRITICAL LOW VALUE OR PLATELET CLUMPING. THE RDW MAY BE SUPPRESSED IF THERE ARE MULTIPLE PEAKS PRESENT ON THE RBC HISTOGRAM. IN THIS CASE, A MANUAL REVIEW OF THE SLIDE WILL BE PERFORMED, AND RBC MORPHOLOGY WILL BE NOTED ON THE REPORT. NE% (test code = NE) 76.5 % 42.0-75.0 H LY% (test code = LY) 11.9 % 13.0-42.0 L MO% (test code = MO) 9.3 % 4.0-14.0 EO% (test code = EO) 1.6 % 1.0-5.0 BA% (test code = BA) 0.3 % 0.0-3.0 IG% (test code = IG%) 0.4 % 0.0-0.4 [facility] Hospital[facility]rd[facility]hl-[id number] 08:45:00* Test Item Value Reference Range Interpretation Comme nts Coagulation (test code = PT-T) 12.7 SEC 12.0-14.7 N Coagulation (test code = INR) 0.9 ATTENTION: READ CAREFULLY The recommended therapeutic ranges for oral anticoagulanttreatments are: ------ Low Intensity: 1.5 - 2.0 Moderate Intensity: 2.0 - 3.0 High Intensity (1): 2.5 - 3.5 High Intensity (2): 3.0 - 4.0 CRITICAL: > 4.0 Anticoagulant? NONEMedical Necessity SUSPECT COAGULOPATHYAnticoagulant? NONEMedical Necessity: [id number] 08:45:00* Test Item Value Reference Range Interpretation Comme [facility] Coagulation (test code = PTT) 27.2 SEC 22.9-36.1 N Anticoagulant? NONEMedical Necessity SUSPECT COAGULOPATHYAnticoagulant? NONEMedical Necessity: DTBJTKFZSgskfrqlj5517-57-22 08:44:00* Test Item Value Reference Range Interpretation Comme [facility] Chemistry (test code = CKMBM-T) 2.9 ng/mL 0-6.6 N Chemistry (test code = TROPI-T) 0.015 ng/mL < 0.028 Reference Range 0.00 - 0.028 ng/mL Negative 0.029 - 0.29 ng/mL Indeterminate Greater or Equal to 0.3 ng/mL Strongly suggests AL [id number] 08:40:00* Test Item Value Reference Range Interpretation Comme [facility] Chemistry (test code = NA-T) 140 mmol/L 136-145 N Chemistry (test code = K-T) 3.3 mmol/L 3.5-5.1 L Chemistry (test code = CL) 104 mmol/L 98-107 N Chemistry (test code = CO2) 27 mmol/L 22-29 N Chemistry (test code = ANGP) 12 mmol/L 10-20 N Chemistry (test code = BUN) 14 mg/dL 8.9-20.6 N Chemistry (test code = CREATT) 0.85 mg/dL 0.7-1.3 N Chemistry (test code = EGFRMDRD) Greater than 90 Reference Range for Estimated GFR: Greater than 90 mL/min/1.73 m2NOTE:The MDRD equation has not been validated for use with theelderly (over 70 years of age), women, patientswith serious comorbid condition or persons with extremes ofbody size, muscle mass, or nutritional status. Chemistry (test code = GLU-T) 79 mg/dL 70-105 N Chemistry (test code = CA) 9.1 mg/dL 7.8-10.44 N Chemistry (test code = TBILI) 0.7 mg/dL 0.2-1.2 N Chemistry (test code = TP) 6.7 g/dL 6.0-8.3 N Chemistry (test code = ALB) 4.2 g/dL 3.5-5.0 N Chemistry (test code = GLOB) 2.5 g/dL 2.4-3.5 N Chemistry (test code = AG) 1.7 g/dL 1.2-2.2 N Chemistry (test code = ALP) 52 U/L 40-150 N Chemistry (test code = AST) 18 U/L 5-34 N Chemistry (test code = ALT) 17 U/L 8-55 N [id number] 08:40:00* Test Item Value Reference Range Interpretation Comme nts Chemistry (test code = CK) 119 U/L 30-200 N Wggkgjubmy5259-92-93 08:23:00* Test Item Value Reference Range Interpretation Comme nts Hematology (test code = WBCT) 8.0 thou/uL [...] code = BASO#) 0.1 thou/uL 0.0-0.2 N [id number] 19:03:00* Test Item Value Reference Range Interpretation Comme nts Chemistry (test code = NA-T) 145 mmol/L 136-145 N Chemistry (test code = K-T) 4.8 mmol/L 3.5-5.1 N Chemistry (test code = CL) 106 mmol/L 98-107 N Chemistry (test code = CO2) 27 mmol/L 22-29 N Chemistry (test code = ANGP) 17 mmol/L 10-20 N Chemistry (test code = BUN) 22 mg/dL 8.9-20.6 H Chemistry (test code = CREATT) 1.25 mg/dL 0.7-1.3 N Chemistry (test code = EGFRMDRD) 62 Reference Range for Estimated GFR: Greater than 90 mL/min/1.73 m2NOTE:The MDRD equation has not been validated for use with theelderly (over 70 years of age), women, patientswith serious comorbid condition or persons with extremes ofbody size, muscle mass, or nutritional status. Chemistry (test code = GLU-T) 101 mg/dL 70-105 N Chemistry (test code = CA) 9.2 mg/dL 7.8-10.44 N Chemistry (test code = TBILI) 0.2 mg/dL 0.2-1.2 N Chemistry (test code = TP) 6.5 g/dL 6.0-8.3 N Chemistry (test code = ALB) 4.0 g/dL 3.5-5.0 N Chemistry (test code = GLOB) 2.5 g/dL 2.4-3.5 N Chemistry (test code = AG) 1.6 g/dL 1.2-2.2 N Chemistry (test code = ALP) 51 U/L 40-150 N Chemistry (test code = AST) 16 U/L 5-34 N Chemistry (test code = ALT) 16 U/L 8-55 N [id number] 18:46:00* Test Item Value Reference Range Interpretation Comme nts Hematology (test code = WBCT) 7.3 thou/uL [...] code = BASO#) 0.1 thou/uL 0.0-0.2 N [id number] 18:45:00* Test Item Value Reference Range Interpretation Comme nts Urinalysis (test code = UACLR) Yellow Yellow Urinalysis (test code = UACLY) Hazy Clear Urinalysis (test code = SPGR) 1.020 1.005-1.030 N Urinalysis (test code = CYNDI) 8.0 5.0-9.0 N Urinalysis (test code = UALEU) Trace Negative A Urinalysis (test code = UANIT) Negative Negative Urinalysis (test code = PROUADIP) Negative mg/dL Neg-Trace Urinalysis (test code = GLUCU) Negative mg/dL Negative Urinalysis (test code = KETU) Negative mg/dL Negative Urinalysis (test code = UAUROB) 1.0 mg/dL 0.2-1.0 Urinalysis (test code = UABIL) Negative Negative Urinalysis (test code = UABLD) Negative Negative Comment clear yellowUrine Source: Urine FgrijeOqawomwdcg0154-06-54 18:45:00* Test Item Value Reference Range Interpretation Comme nts Urinalysis (test code = UARBC) 0-3 HPF 0-3 Urinalysis (test code = UAWBC) 4-6 HPF 0-3 A Urinalysis (test code = UASQUAM) 0-3 HPF 0-3 Urinalysis (test code = UABAC) 1+ HPF None Seen A Comment clear yellowUrine Source: Urine BlawjmFkyqveugtr8633-00-31 20:56:00* Test Item Value Reference Range Interpretation Comme nts Urinalysis (test code = UACLR) YELLOW Yellow Urinalysis (test code = UACLY) CLEAR Clear Urinalysis (test code = SPGR) 1.024 1.002-1.036 N Urinalysis (test code = CYNDI) 6.0 5.0-9.0 N Urinalysis (test code = UALEU) Moderate Negative A Urinalysis (test code = UANIT) Negative Negative Urinalysis (test code = PROUADIP) Negative mg/dL Neg-Trace Urinalysis (test code = GLUCU) Negative mg/dL Negative Urinalysis (test code = KETU) Negative mg/dL Negative Urinalysis (test code = UAUROB) 1.0 mg/dL 0.2-1.0 Urinalysis (test code = UABIL) Negative Negative Urinalysis (test code = UABLD) Negative Negative Urinalysis (test code = UARBC) 0-3 HPF 0-3 Urinalysis (test code = UAWBC) 7-10 HPF 0-3 A Urinalysis (test code = UASQUAM) 0-3 HPF 0-3 Urinalysis (test code = UABAC) None Seen HPF None Seen Urinalysis (test code = UACAST) 0-3 HYALINE CAST LPF 0-3 Hyaline Urine Source: Urine [id number] 19:22:00* Test Item Value Reference Range Interpretation Comme [facility] Chemistry (test code = TROPI-T) Less than 0.010 ng/mL < 0.028 * Reference Range 0.00 - 0.028 ng/mL Negative 0.029 - 0.29 ng/mL Indeterminate Greater or Equal to 0.3 ng/mL Strongly suggests AL Comment Pls draw at 7 pm.[id number] 16:36:00* Test Item Value Reference Range Interpretation Comme [facility] Coagulation (test code = PT-T) 12.7 SEC 12.0-14.7 N Coagulation (test code = INR) 0.9 ATTENTION: READ CAREFULLY The recommended therapeutic ranges for oral anticoagulanttreatments are: ------ Low Intensity: 1.5 - 2.0 Moderate Intensity: 2.0 - 3.0 High Intensity (1): 2.5 - 3.5 High Intensity (2): 3.0 - 4.0 CRITICAL: > 4.0 Anticoagulant? NONEMedical Necessity SUSPECT COAGULOPATHYAnticoagulant? NONEMedical Necessity: JHQNILWSQqwbpccdmxc4427-03-91 16:36:00* Test Item Value Reference Range Interpretation Comme [facility] Coagulation (test code = PTT) 26.2 SEC 22.9-36.1 N Anticoagulant? NONEMedical Necessity SUSPECT COAGULOPATHYAnticoagulant? NONEMedical Necessity: KJWCQXJDMvbkogctg6054-49-90 16:34:00* Test Item Value Reference Range Interpretation Comme nts Chemistry (test code = CKMBM-T) 2.5 ng/mL 0-6.6 N Chemistry (test code = TROPI-T) Less than 0.010 ng/mL < 0.028 * Reference Range 0.00 - 0.028 ng/mL Negative 0.029 - 0.29 ng/mL Indeterminate Greater or Equal to 0.3 ng/mL Strongly suggests AL [id number] 16:31:00* Test Item Value Reference Range Interpretation Comme nts Chemistry (test code = NA-T) 142 mmol/L 136-145 N Chemistry (test code = K-T) 3.7 mmol/L 3.5-5.1 N Chemistry (test code = CL) 103 mmol/L 98-107 N Chemistry (test code = CO2) 26 mmol/L 22-29 N Chemistry (test code = ANGP) 17 mmol/L 10-20 N Chemistry (test code = BUN) 16 mg/dL 8.9-20.6 N Chemistry (test code = CREATT) 1.11 mg/dL 0.7-1.3 N Chemistry (test code = EGFRMDRD) 71 Reference Range for Estimated GFR: Greater than 90 mL/min/1.73 m2NOTE:The MDRD equation has not been validated for use with theelderly (over 70 years of age), women, patientswith serious comorbid condition or persons with extremes ofbody size, muscle mass, or nutritional status. Chemistry (test code = GLU-T) 79 mg/dL 70-105 N Chemistry (test code = CA) 9.7 mg/dL 7.8-10.44 N Chemistry (test code = TBILI) 0.5 mg/dL 0.2-1.2 N Chemistry (test code = TP) 7.1 g/dL 6.0-8.3 N Chemistry (test code = ALB) 4.3 g/dL 3.5-5.0 N Chemistry (test code = GLOB) 2.8 g/dL 2.4-3.5 N Chemistry (test code = AG) 1.5 g/dL 1.2-2.2 N Chemistry (test code = ALP) 55 U/L 40-150 N Chemistry (test code = AST) 19 U/L 5-34 N Chemistry (test code = ALT) 17 U/L 8-55 N [id number] 16:13:00* Test Item Value Reference Range Interpretation Comme nts Hematology (test code = WBCT) 7.9 thou/uL [...] 0.0-0.2 N XR Chest 1 [facility] Portable [facility] 1970 [facility]: KERRY QUIROZ [address] Phys: [place] [address] : 1970 Age: 50 SEX:[phone] Exam Date: 06/15/21 Status: REG ER Acct: [id number] Loc: [facility] Pt Unit #: [id number] Report #: [id number] CC: Karlene Stephen MD IMAGING SERVICES REPORT Order # Category/Exam [id number] RAD/XR Chest 1 View Portable ([id number]): . Results XR Chest 1 View Portable History: Chest pain Comparison: None. Findings: Lungs are clear. No pneumothorax or effusion. Cardiac silhouette and mediastinal contoursare within normal limits. Impression: No acute intrathoracic abnormality. Reported By: KARLENE HARP Electronically Signed Date/Time: 06/15/21 1551 Technologist: Dictated Date/Time: 06/15/21 1551 Transcribed Date/Time: Notes Date/Time Note Provider Source 2018-08-08 11:31:00 [id number]: 31:00Discharge Instructions 2Discharge Diagnosismethamphetamine abuse / bipolar disorderImportant InformationConsult your physician or return to the Emergency Department immediately if worse, if not better as expected, or if any problems arise.Follow Up CareYesImportant InformationPlease understand that you have received care only on an emergency basis. If your condition does not improve, you should call your personal physician for follow-up care. If you do not have a physician, you may call the referred physician listed.If you have questions about your care or these discharge instructions, you may call the Emergency Department. Please take your discharge paperwork with you to any follow-up appointments.Follow-Up With:Primary Care PhysicianActivity LevelAs tolerated, unrestrictedDietRegularPrescriptions Given Via:N/APatient TeachingPatient education providedDischarge InstructionsDischarge InstructionsDischarge Instructions 2018-08-08 (Encounter: [id number] for patient careSTLMHereford Regional Medical Center ([facility])[id number] [facility] ([facility])
--- NOTE | 2023-11-23 14:28 | EDPHYS ---
Physician Documentation [facility] Name: Jasmin Haley Age: 53 yrs Sex: Male : 1970 Arrival Date: 11/23/2023 Time: 14:02 Bed IW2 Private MD: ED Physician Kenny Florez HPI: 11/22 14:32 This 53 yrs old Male presents to ER via Ambulatory with complaints of Psych Problem. sb4 14:32 Patient reports a history of schizophrenia. He is prescribed lithium but he has not sb4 been taking it for about a year now. He comes in today because his hallucinations and paranoia have returned. He cannot get into see [facility] for another week. He denies any suicidal or homicidal ideations. Patient displays adequate decision-making skills. Historical: - Allergies: 14:20 PENICILLINS; iw - Home Meds: 14:27 lithium carbonate 300 mg Oral tab 1 tab 2 times per day [Active]; prazosin 1 mg Oral iw cap 1 cap nightly [Active]; - PMHx: 14:20 bipolar/schizo; CVA; Hypertension; stroke; iw - PSHx: 14:20 None; iw - Immunization history:: Adult Immunizations up to date. - Social history:: Smoking status: Patient reports the use of cigarette tobacco products, smokes one-half pack cigarettes per day. ROS: 14:32 Constitutional: Negative for fever, chills, and weight loss, sb4 14:32 Psych: Positive for auditory hallucinations, visual hallucinations, 14:32 All other systems are negative, Exam: 14:32 Constitutional: This is a well developed, well nourished patient who is awake, alert, sb4 and in no acute distress. Head/Face: Normocephalic, atraumatic. Eyes: Extra-ocular motions intact. Periorbital areas with no swelling, redness, or edema. ENT: Mucous membranes moist. MS/ Extremity: Pulses equal, no cyanosis. Neurovascular intact. Full, normal range of motion. Neuro: Awake and alert, GCS 15, oriented to person, place, time, and situation. Motor strength 5/5 in all extremities. Sensory grossly intact. Psych: Awake, alert, with orientation to person, place and time. Behavior, mood, and affect are within normal limits. Vital Signs: 14:18 BP 188 / 112; Pulse 81; Resp 16; Temp 97.4; Pulse Ox 98% on R/A; Weight 73.94 kg; iw Height 5 ft. 6 in. ; 14:18 Body Mass Index 26.31 (73.94 kg, 167.64 cm) iw MDM: 14:28 Patient medically screened. sb4 14:32 Data reviewed: vital signs, nurses notes, and as a result, I will discharge patient. sb4 Counseling: I had a detailed discussion with the patient and/or guardian regarding the historical points, exam findings, and any diagnostic results supporting the discharge/admit diagnosis, the need for outpatient follow up, a psychiatrist, to return to the emergency department if symptoms worsen or persist or if there are any questions or concerns that arise at home. Administered Medications: 14:36 Drug: LORazepam PO 1 mg PO once Route: PO; ph 14:38 Follow up: Response: No adverse reaction; Medication administered at discharge. ph Disposition: 18:24 I was immediately available on-site in the Emergency Department for consultation in the ms3 care of the patient. Disposition Summary: 11/23/23 14:28 Discharge Ordered Notes: Location: Home sb4 Problem: new sb4 Symptoms: have improved sb4 Condition: Stable sb4 Diagnosis - Schizophrenia, unspecified sb4 Followup: sb4 - With: Timoteo Bell MD - When: As needed - Reason: Recheck today's complaints, Re-evaluation by your physician Discharge Instructions: - Discharge Summary Sheet sb4 - Schizophrenia sb4 Forms: - Thank You Letter sb4 - Patient Portal Instructions sb4 - Leadership Thank You Letter sb4 Prescriptions: - lithium carbonate 300 mg Oral tablet, extended release - take 1 tablet ORAL route every day in the morning and at bedtime; 14 tablet; sb4 Refills: 0, Product Selection Permitted - Prazosin 1 mg Oral capsule - take 1 capsule ORAL route once daily; 20 capsule; Refills: 0, Product Selection sb4 Permitted Signatures: Zenaida Hendrickson RN RN Jessica Bay RN RN Kenny Florez, DO ms3 Francoise Crump PA-C PA-C sb4
--- NOTE | 2023-11-23 14:28 | ER ---
Nurse's Notes [facility] Name: Jasmin Haley Age: 53 yrs Sex: Male : 1970 Arrival Date: 11/23/2023 Time: 14:02 Bed IW2 Private MD: Diagnosis: Schizophrenia, unspecified Presentation: 11/22 14:18 Chief complaint: Patient states: schizophrenia is kicking in, has been off his meds for iw 11 months, just moved back into town, has been seen by [facility] and was told they could get him seen in a week, denies SI or HI. He sometimes will see or hear things that are not there. Coronavirus screen: At this time, the client does not indicate any symptoms associated with coronavirus-19. Ebola Screen: Patient negative for fever greater than or equal to 101.5 degrees Fahrenheit, and additional compatible Ebola Virus Disease symptoms Patient denies exposure to infectious person. Patient denies travel to an Ebola-affected area in the 21 days before illness onset. No symptoms or risks identified at this time. Initial Sepsis Screen: Does the patient meet any 2 criteria? No. Patient's initial sepsis screen is negative. Does the patient have a suspected source of infection? No. Patient's initial sepsis screen is negative. Risk Assessment: Do you want to hurt yourself or someone else? Patient reports no desire to harm self or others. Onset of symptoms was November 23, 2023. 14:18 Method Of Arrival: Ambulatory iw 14:18 Acuity: GISELA 3 iw Triage Assessment: 14:28 General: Appears in no apparent distress. General: Behavior is cooperative, anxious. iw Pain: Denies pain. Neuro: Level of Consciousness is awake, alert, obeys commands, Oriented to person, place, time, situation. Historical: - Allergies: 14:20 PENICILLINS; iw - Home Meds: 14:27 lithium carbonate 300 mg Oral tab 1 tab 2 times per day [Active]; prazosin 1 mg Oral iw cap 1 cap nightly [Active]; - PMHx: 14:20 bipolar/schizo; CVA; Hypertension; stroke; iw - PSHx: 14:20 None; iw - Immunization history:: Adult Immunizations up to date. - Social history:: Smoking status: Patient reports the use of cigarette tobacco products, smokes one-half pack cigarettes per day. Screenin:26 [facility] ED Fall Risk Assessment (Adult) History of falling in the last 3 months, iw including since admission No falls in past 3 months (0 pts) Confusion or Disorientation No (0 pts) Intoxicated or Sedated No (0 pts) Impaired Gait No (0 pts) Mobility Assist Device Used No (0 pt) Altered Elimination No (0 pt) Score/Fall Risk Level 0 - 2 = Low Risk Oriented to surroundings, Maintained a safe environment, Provided non-skid footwear, Hourly rounding (assess needs \T\ fall precautionary measures) done. Abuse screen: Denies threats or abuse. Denies injuries from another. Nutritional screening: No deficits noted. Tuberculosis screening: No symptoms or risk factors identified. Assessment: 14:30 General: SEE TRIAGE ASSESSMENT. ph Vital Signs: 14:18 BP 188 / 112; Pulse 81; Resp 16; Temp 97.4; Pulse Ox 98% on R/A; Weight 73.94 kg; iw Height 5 ft. 6 in. ; 14:18 Body Mass Index 26.31 (73.94 kg, 167.64 cm) iw ED Course: 14:04 Patient arrived in ED. rg4 14:07 Francoise Crump PA-C is PHCP. sb4 14:07 Kenny Florez DO is Attending Physician. sb4 14:20 Triage completed. iw 14:20 Arm band placed on. iw 14:26 Patient has correct armband on for positive identification. Bed in low position. Call iw light in reach. Side rails up X 1. 14:28 Timoteo Bell MD is Referral Physician. sb4 14:36 Jessica Bay, GISELLE is Primary Nurse. ph 14:37 No provider procedures requiring assistance completed. Patient did not have IV access ph during this emergency room visit. Administered Medications: 14:36 Drug: LORazepam PO 1 mg PO once Route: PO; ph 14:38 Follow up: Response: No adverse reaction; Medication administered at discharge. ph Medication: 14:35 VIS not applicable for this client. ph Outcome: 14:28 Discharge ordered by . sb4 14:36 Discharged to home ambulatory, with significant other, ph 14:36 Condition: good 14:36 Discharge instructions given to patient, Instructed on discharge instructions, follow up and referral plans. medication usage, Demonstrated understanding of instructions, follow-up care, medications, Prescriptions given X 2, 14:37 Patient left the ED. ph Signatures: Zenaida Hendrickson RN RN iw Jessica Bay RN RN ph Yandel, Katie rg4 Francoise Crump PA-C PA-C sb4 Corrections: (The following items were deleted from the chart) 14:20 14:18 Chief complaint: Patient states: schizophrenia is kicking in, has been off his iw meds for 11 months, just moved back into town, has been seen by [facility] and was told they could get him seen in a week, denies SI or HI. He sometimes will see or hear things that are not there iw 14:21 14:18 Pulse 81bpm; Resp 16bpm; Pulse Ox 98% RA; Temp 97.4F; iw iw 14:24 14:18 Pulse 81bpm; Resp 16bpm; Pulse Ox 98% RA; Temp 97.4F; 73.94 kg; Height 5 ft. 6 iw in.; BMI: 26.3; iw
[2023-11-23 15:01] VITALS: BP 188/112; TEMP 97.4; O2SAT 98
== END ==
LOC: ER 14:02
DX: F20.9 Schizophrenia, unspecified (principal)
CPT/HCPCS: 99283

== ENCOUNTER 2024-01-11 21:04 | Emergency (ER) | payer OTHER, SELFPAY ==
--- OUTSIDE RECORDS SUMMARY | 2024-01-11 21:08 | XMS REPORT | Continuity of Care Document ---
Author Name Unknown Address [address] [facility] [address] [place] [address] [facility] thconnect Address [address] [facility] [address] [place] [address] Care Team Providers Care Electrician Journeyman Wireman Name Role Phone PCP, PATIENT DOES NOT HAVE A Primary Care Physic floyd Unavailable TANYA MUNIZ Attending Clinician Unavailab Tanya Estevez DO Attending Clinician [phone] Karlene Stephen Attending Clinician Unavailable Roshni Carr Attending Clinician Unavailable MARÍA HERNANDEZ Attending Clinician Unavailable MIMI SCHWARTZ MD Attending Clinician MARIUM ANDERS Attending Clinician Unavailable Daniel Coronado Attending Clinician Unavailable PROVIDER, ED TEMP Attending Clinician UnavailJM Tracy Attending Clinician UnavailMARÍA Trujillo Admitting Clinician Unavailable Payers Payer Name Policy Type Policy Number Effective Date Expiration Date Source MEDICAID PENDING NA [facility] JOVANNA CARE PENDING NA [facility] Problems Condition Name Condition Details Condition Category [...] s DA Active U 09-09 00:00: 00 [facility] NO KNOWN ALLERGIE S Drug Class Active [facility] Social History Social Habit Start Date Stop Date Quantity Comments Source Exposure to SARS-CoV-2 (event) 2022-03-24 00:00:00 2022-04-03 00:24:00 Not sure [facility] Sex Assigned At 1970 00:00[birth year]00 1970 00:00:00 [facility] Smoking Status Start Date Stop Date Source Tobacco smoking consumption unknown [facility] Never smoker [facility] (LUF/LIOR/SA) Medications Ordered Medication Name Filled Medication Name Start Date Stop Date Current Medication? Ordering Clinician Indication Dosage Frequency Signature (SIG) Comments Components Source NaCl 0.9% (NS) bolus infusion 500 mL 04-03 07:00: 00 04-03 07:04 :00 No 500mL at 999 mL/hr, 500 mL, IV Infusion, ONCE, 1 dose, On Thu04/03/22 at 0200, STAT [facility] maalox:diph enhydrAMINE :lidocaine 2 % viscous 1:1:1 (FIRST-MOUT HWASH BLM) oral suspension 15 mL 04-03 06:00: 00 04-03 06:12 :00 No 15mL 15 mL, Oral, ONCE, 1 dose, On Thu04/03/22 at 0100, Routine [facility] Vital Signs Vital Name Observation Time Observation Value Comments S ource Systolic blood pressure 2022-04-03 05:26:00 157 mm[Hg] [facility] Diastolic blood pressure 2022-04-03 05:26:00 100 mm[Hg] [facility] Heart rate 2022-04-03 05:26:00 71 /min [facility] Body temperature 2022-04-03 05:26:00 36.56 Sylvie [facility] Respiratory rate 2022-04-03 05:26:00 18 /min [facility] Body height 2022-04-03 05:26:00 167.6 cm [facility] Body weight 2022-04-03 05:26:00 66.225 kg [facility] BMI 2022-04-03 05:26:00 23.57 kg/m2 [facility] Oxygen saturation in Arterial blood by Pulse oximetry 2022-04-03 05:26:00 97 /min [facility] Body Temperature 2018-08-08 05:01:00 98.9 F [facility] (LUF/LIOR/SA) Pulse Rate 2018-08-08 05:01:00 87 /min [facility] (LUF/LIOR/SA) Respiratory Rate 2018-08-08 05:01:00 18 /min [facility] (F/LIOR/SA) O2% BldC Oximetry 2018-08-08 05:01:00 98 % [facility] (LUF/LIOR/SA) BP Systolic 2018-08-08 05:01:00 160 mm[Hg] [facility] (LUF/LIOR/SA) BP Diastolic 2018-08-08 05:01:00 110 mm[Hg] [facility] (LUF/LIOR/SA) Height 2018-08-08 05:01:00 66 in [facility] S t [facility] (LUF/LIOR/SA) Weight Measured 2018-08-08 05:01:00 154.32 lbs [facility] (LUF/LIOR/SA) BMI (Body Mass Index) 2018-08-08 05:01:00 25 [facility] (LUF/LIOR/SA) Procedures Procedure Date / Time Performed Performing Clinicia n Source TROPONIN I 2022-04-03 06:11:00 Faulconer, Tanya Un [facility] COMP. METABOLIC PANEL (27864) 2022-04-03 06:11:00 Tanya Muniz [facility] CBC WITH DIFF 2022-04-03 06:11:00 Tanya Muniz [facility] NOTICE OF PRIVACY PRACTICES 2022-04-03 05:18:55 Doctor Unassigned, [place] [facility] CONSENT/REFUSAL FOR DIAGNOSIS AND TREATMENT 2022-04-03 05:18:14 Doctor Unassigned, [place] [facility] Encounters Start Date/Time End Date/Time Encounter Type Admission Type Attending [facility] Facility Care Department Encounter ID Source 2022-04-03 00:20:00 2022-04-03 02:21:00 Emergency X TANYA MUNIZ [facility] ERT [id number] [facility] 2022-04-03 00:20:00 2022-04-03 02:21:00 Emergency Tanya Muniz [facility] [id number] [facility] 2021-06-16 02:24:00 2021-06-16 02:24:00 Emergency ER Karlene Stephen [facility] [id number] [facility] 2021-06-15 15:02:00 2021-06-15 15:02:00 Emergency ER Karlene Stephen [facility] [id number] [facility] 2021-05-28 13:51:00 2021-05-28 16:10:00 Emergency ER Roshni Carr [facility] [id number] [facility] 2018-08-08 04:58:00 2018-08-08 11:31:00 Inpatient MARÍA CAICEDO [facility] N, [facility] [place] [address] [facility] [id number] [facility] Jairo garcia (ALL/LI V/SA) 2018-07-01 19:23:00 2018-07-01 20:28:00 Departed Emergency MIMI SCHWARTZ [facility] [id number] [facility] Results Test Description Test Time Test Comments Results Result Co mments Source [facility]. METABOLIC PANEL ([id number])2022-04-03 06:33:58* Test Item Value Reference Range Interpretation Comme nts NA (test code = 4152482612) 138 mmol/L 135-145 K (test code = 8133113142) 3.8 mmol/L 3.5-5 CL (test code = 7461748095) 106 mmol/L 98-108 CO2 TOTAL (test code = 5144033238) 26 mmol/L 23-31 AGAP (test code = 4295450711) 2-16 BUN (test code = 5712508571) 16 mg/dL 7-23 GLUCOSE (test code = 1054497644) 118 mg/dL 70-110 H CREATININE (test code = 9009945614) 0.96 mg/dL 0.6-1.25 TOTAL BILI (test code = 0685529493) 0.1 mg/dL 0.1-1.1 CALCIUM (test code = 6463526435) 8.5 mg/dL 8.6-10.6 L T PROTEIN (test code = 1608939226) 5.5 g/dL 6.3-8.2 L ALBUMIN (test code = 1076400780) 3.4 g/dL 3.5-5 L ALK PHOS (test code = 2180651652) 45 U/L 34-122 ALTv (test code = 1742-6) 16 U/L 5-50 AST(SGOT) (test code = 5039624286) 16 U/L 13-40 eGFR (test code = 5082207084) mL/min/1.73m2 APOLINAR (test code = APOLINAR) Association [...] imaging tests). Lab Interpretation (test code = 51357-2) Abnormal [facility] WITH [id number] 06:21:14* Test Item Value Reference Range Interpretation Comme nts WBC (test code = 6690-2) See_Comment [PeerJ] The system which generated this result transmitted reference range: 4.20 - 10.70 10*3/?L. The reference range was not used to interpret this result as normal/abnormal. RBC (test code = 789-8) See_Comment [PeerJ] The system which generated this result transmitted [...] 34.8 g/dL 31.2-35 RDW-SD (test code = 59188-0) 39.1 fL 38.5-51.6 RDW-CV (test code = 788-0) 11.9 % 12.1-15.4 L PLT (test code = 777-3) See_Comment [Automated messa ge] The system which generated this result transmitted reference range: 150 - 328 10*3/?L. The reference range was not used to interpret this result as normal/abnormal. MPV (test code = 69195-4) 9.6 fL 9.8-13 L NRBC/100 WBC (test code = 4097722251) See_Comment [Automated CommProve ssage] The system which generated this result transmitted reference range: 0.0 - 10.0 /100 WBCs. The reference range was not used to interpret this result as normal/abnormal. NRBC x10^3 (test code = 1342359619) See_Comment [Automated messa ge] The system which generated this result transmitted reference range: 10*3/?L. The reference range was not used to interpret this result as normal/abnormal. GRAN MAT (NEUT) % (test code = 770-8) 53.1 % IMM GRAN % (test code = 0851663602) 0.20 % LYMPH % (test code = 736-9) 33.2 % MONO % (test code = 5905-5) 7.6 % EOS % (test code = 713-8) 5.7 % BASO % (test code = 706-2) 0.2 % GRAN MAT x10^3(ANC) (test code = 3970798639) 3.37 10*3/uL 1.99-6.95 IMM GRAN x10^3 (test code = 3734078908) 0-0.06 LYMPH x10^3 (test code = 731-0) 2.10 10*3/uL 1.09-3.23 MONO x10^3 (test code = 742-7) 0.48 10*3/uL 0.36-1.02 EOS x10^3 (test code = 711-2) 0.36 10*3/uL 0.06-0.53 BASO x10^3 (test code = 704-7) 0.01-0.09 Lab Interpretation (test code = 92639-2) [facility]:05:00* Test Item Value Reference Range Interpretation Comme nts Chemistry (test code = CKMBM-T) 2.2 ng/mL 0-6.6 N Zxiqtzldz6021-92-80 16:04:00* Test Item Value Reference Range Interpretation [...] code = ALT) 13 U/L 8-55 N Sfojnuqgt6635-95-64 16:04:00* Test Item Value Reference Range Interpretation Comme nts Chemistry (test code = CK) 95 U/L 30-200 N Qngpewlur2568-02-41 16:04:00* Test Item Value Reference Range Interpretation Comme [facility] Chemistry (test code = TROPI-R) Less than 0.010 ng/mL < 0.028 * Reference Range 0.00 - 0.028 ng/mL Negative 0.029 - 0.29 ng/mL Indeterminate Greater or Equal to 0.3 ng/mL Strongly suggests NE Yjbsjmpdxa5272-25-32 15:47:00* Test Item Value Reference Range Interpretation Comme [facility] Hematology (test code = WBCT) 10.0 [...] mg/dl Toxicity >30 mg/dl Lethal >70 mg/dl [facility] 06:42:00* Test Item Value Reference Range Interpretation [...] assessment and management of chronic kidney failure. [facility]2018-08-08 06:41:00* Test Item Value Reference Range Interpretation Comme nts Acetaminophen (test code = ACET) <2 ug/ml 10-25 L [facility]ALCO[facility], ISMYY9927-77-61 06:41:00* Test Item Value Reference Range Interpretation Comme nts Alcohol % (test code = ALCPC) 0 % 0.00-0.00 N Ethanol % 0.00 - 0.10 Sub-clinical 0.11 - 0.20 Emotional Instability 0.21 - 0.30 Confusion 0.31 - 0.40 Stupor 0.41 - 0.50 Coma >.50 Fatal [facility] WITH AUTO [id number] 06:13:00* Test Item Value Reference Range Interpretation [...] (test code = IG%) 0.4 % 0.0-0.4 [facility] CenterCqxhod-AtzpxotvyeHyrzfhpbrge7925-88-11 08:45:00* Test Item Value Reference Range Interpretation [...] Anticoagulant? NONEMedical Necessity SUSPECT COAGULOPATHYAnticoagulant? NONEMedical Necessity: BOJBSJVOBvbixrqqyrp2571-38-34 08:45:00* Test Item Value Reference Range Interpretation Comme [facility] Coagulation (test code = PTT) 27.2 SEC 22.9-36.1 N Anticoagulant? NONEMedical Necessity SUSPECT COAGULOPATHYAnticoagulant? NONEMedical Necessity: LKOIINMTBbkttlvui2621-53-07 08:44:00* Test Item Value Reference Range Interpretation Comme [facility] Chemistry (test code = CKMBM-T) 2.9 ng/mL 0-6.6 N Chemistry (test code = TROPI-T) 0.015 ng/mL < 0.028 Reference Range 0.00 - 0.028 ng/mL Negative 0.029 - 0.29 ng/mL Indeterminate Greater or Equal to 0.3 ng/mL Strongly suggests NE Meukqxdbs2400-47-74 08:40:00* Test Item Value Reference Range Interpretation Comme [facility] Chemistry (test code = NA-T) 140 [...] code = ALT) 17 U/L 8-55 N Hdyjdmuke5414-45-89 08:40:00* Test Item Value Reference Range Interpretation Comme nts Chemistry (test code = CK) 119 U/L 30-200 N Mhkwewdhca5849-65-15 08:23:00* Test Item Value Reference Range Interpretation [...] code = BASO#) 0.1 thou/uL 0.0-0.2 N Torbzpglu4860-47-00 19:03:00* Test Item Value Reference Range Interpretation [...] code = ALT) 16 U/L 8-55 N Iwfukbqiom7534-22-39 18:46:00* Test Item Value Reference Range Interpretation [...] code = BASO#) 0.1 thou/uL 0.0-0.2 N Mzxkkckzus3959-50-75 18:45:00* Test Item Value Reference Range Interpretation [...] Negative Negative Comment clear yellowUrine Source: Urine KewwokJcxsmkvwsz8110-24-64 18:45:00* Test Item Value Reference Range Interpretation Comme nts Urinalysis (test code = UARBC) 0-3 HPF 0-3 Urinalysis (test code = UAWBC) 4-6 HPF 0-3 A Urinalysis (test code = UASQUAM) 0-3 HPF 0-3 Urinalysis (test code = UABAC) 1+ HPF None Seen A Comment clear yellowUrine Source: Urine QrmqgrYqycedlfew0651-55-01 20:56:00* Test Item Value Reference Range Interpretation [...] CAST LPF 0-3 Hyaline Urine Source: Urine CcfnmuLroubptee0793-02-02 19:22:00* Test Item Value Reference Range Interpretation Comme [facility] Chemistry (test code = TROPI-T) Less than 0.010 ng/mL < 0.028 * Reference Range 0.00 - 0.028 ng/mL Negative 0.029 - 0.29 ng/mL Indeterminate Greater or Equal to 0.3 ng/mL Strongly suggests NE Comment Pls draw at 7 pm.Lzapxeppvys0457-41-26 16:36:00* Test Item Value Reference Range Interpretation [...] Anticoagulant? NONEMedical Necessity SUSPECT COAGULOPATHYAnticoagulant? NONEMedical Necessity: ZOUSQAQOCtszgzjggda1700-66-89 16:36:00* Test Item Value Reference Range Interpretation Comme [facility] Coagulation (test code = PTT) 26.2 SEC 22.9-36.1 N Anticoagulant? NONEMedical Necessity SUSPECT COAGULOPATHYAnticoagulant? NONEMedical Necessity: CEIBXEFOXifjgbeia4996-35-16 16:34:00* Test Item Value Reference Range Interpretation Comme [facility] Chemistry (test code = CKMBM-T) 2.5 ng/mL 0-6.6 N Chemistry (test code = TROPI-T) Less than 0.010 ng/mL < 0.028 * Reference Range 0.00 - 0.028 ng/mL Negative 0.029 - 0.29 ng/mL Indeterminate Greater or Equal to 0.3 ng/mL Strongly suggests NE Eculxyyrg7235-86-12 16:31:00* Test Item Value Reference Range Interpretation [...] code = ALT) 17 U/L 8-55 N Nczhncmnli8346-86-33 16:13:00* Test Item Value Reference Range Interpretation [...] 0.0-0.2 N XR Chest 1 View Portable [facility] 1970 [facility] K[facility] QUIROZ [address] Phys: [place] [address] : 1970 Age: 50 SEX:M [phone] Exam Date: 06/15/21 Status: REG ER Acct: [id number] Loc: [facility] Pt Unit #: [id number] Report #: [id number] CC: Karlene Stephen MD IMAGING SERVICES REPORT Order # Category/Exam [id number] RAD/XR Chest 1 View Portable ([id number]): . Results XR Chest 1 View Portable History: Chest pain Comparison: None. Findings: Lungs are clear. No pneumothorax or effusion. Cardiac silhouette and mediastinal contoursare within normal limits. Impression: No acute intrathoracic abnormality. Reported By: KARLENE HARP Electronically Signed Date/Time: 06/15/211550 Technologist: Dictated Date/Time: 06/15/211550 Transcribed Date/Time: Notes Date/Time Note Provider Source 2018-08-08 11:31:00 [id number]/VqyeGPY+X dh5N 1HcE8LDP/mXJCFDTMJaw3cAyHOpiHo4763-46-79L77: 31:00Discharge Instructions 2Discharge Diagnosismethamphetamine abuse / bipolar [...] education providedDischarge InstructionsDischarge InstructionsDischarge Instructions 2018-08-08 (Encounter: [id number] for patient careSTLMMemorial [facility] ([facility]/LIOR/SA)6036-16-38Z70:39:43 [facility] ([facility]/LIOR/SA)
[2024-01-11] MEDS ORDERED: KETOROLAC 30 MG/ML INJ ONE (22:18)
[2024-01-11] MEDS ORDERED: cloNIDine HCL 0.1 MG TAB ONE (22:18)
[2024-01-11] MEDS ORDERED: predniSONE 20 MG TAB ONE (22:18)
--- NOTE | 2024-01-11 22:22 | RAD REPORT ---
EXAM DESCRIPTION: RAD - Knee Right 3 View - 01/11/2024 10:13 pm CLINICAL HISTORY: R knee pain Pain and swelling COMPARISON: No comparisons FINDINGS: No fracture, dislocation or joint effusion. There is a large amount of soft tissue swellin g anterior to the patella.
--- NOTE | 2024-01-11 22:52 | EDPHYS ---
Physician Documentation [facility] Name: Jasmin Haley Age: 53 yrs Sex: Male : 1970 Arrival Date: 01/11/2024 Time: 21:04 Bed DX2 Private MD: ED Physician Migel Linares HPI: 01/10 21:09 This 53 yrs old Male presents to ER via Unassigned with complaints of Knee sp4 Pain, Swelling of Lower Extremity. 01/11 05:22 Patient 3-year-old male comes in with acute right anterior knee swelling starting 4 sp4 days ago. . Historical: - Allergies: 01/10 21:29 PENICILLINS; as6 - PMHx: 21:29 bipolar/schizo; CVA; Hypertension; as6 - PSHx: 21:29 None; as6 - Immunization history:: Adult Immunizations up to date. - Infectious Disease History:: Denies. - Social history:: Smoking status: Patient reports the use of cigarette tobacco products, smokes one-half pack cigarettes per day. - Family history:: not pertinent. ROS: 01/11 05:22 Constitutional: Negative for fever, chills, and weight loss, positive right anterior sp4 knee swelling atraumatic All other systems are negative, Exam: 05:22 Constitutional: This is a well developed, well nourished patient who is awake, alert, sp4 and in no acute distress. Head/Face: Normocephalic, atraumatic. Eyes: Pupils equal round and reactive to light, extra-ocular motions intact. Lids and lashes normal. Conjunctiva and sclera are not injected. Cornea within normal limits. Periorbital areas with no swelling, redness, or edema. ENT: Nares patent. No nasal discharge, no septal abnormalities noted. Tympanic membranes are normal and external auditory canals are clear. Oropharynx with no redness, swelling, or masses, exudates, or evidence of obstruction, uvula midline. Mucous membranes moist. Neck: Trachea midline, no thyromegaly or masses palpated, and no cervical lymphadenopathy. Supple, full range of motion without nuchal rigidity, or vertebral point tenderness. Chest/axilla: Normal chest wall appearance and motion. Nontender with no deformity. No lesions are appreciated. Cardiovascular: Regular rate and rhythm with a normal S1 and S2. No gallops, murmurs, or rubs. Normal PMI, no JVD. No pulse deficits. Respiratory: Lungs have equal breath sounds bilaterally, clear to auscultation and percussion. No rales, rhonchi or wheezes noted. No increased work of breathing, no retractions or nasal flaring. Abdomen/GI: Soft, with normal bowel sounds. No distension or tympany. No guarding or rebound. No evidence of tenderness throughout. Back: No spinal tenderness. No costovertebral tenderness. Skin: Warm, dry with normal turgor. Normal color with no rashes, no lesions, and no evidence of cellulitis. MS/ Extremity: Pulses equal, no cyanosis. Neurovascular intact. Full, normal range of motion. Positive swelling anterior to the right patella consistent with acute bursitis, suprapatellar bursitis Neuro: Awake and alert, GCS 15, oriented to person, place, time, and situation. Cranial nerves II-XII grossly intact. Motor strength 5/5 in all extremities. Sensory grossly intact. Psych: Awake, alert, with orientation to person, place and time. Behavior, mood, and affect are within normal limits Vital Signs: 01/10 21:28 BP 171 / 107; Pulse 71; Resp 18 S; Temp 97.7; Pulse Ox 96% on R/A; Weight 73.94 kg (R); as6 Height 5 ft. 6 in. (R); 23:00 BP 147 / 91; Pulse 64; Resp 18; Temp 97.6; Pulse Ox 96% ; vc1 21:28 Body Mass Index 26.31 (73.94 kg, 167.64 cm) as6 [place] Coma Score: 01/11 05:22 Eye Response: spontaneous(4). Motor Response: obeys commands(6). Verbal Response: sp4 oriented(5). Total: 15. MDM: 01/10 21:12 Patient medically screened. sp4 01/11 05:22 Differential diagnosis: closed fracture, contusion, abrasion, tendonitis. Data sp4 reviewed: vital signs, nurses notes, old medical records, radiologic studies, plain films. ED course: Consistent with suprapatellar bursitis. Stable for discharge home with p.o. prednisone and meloxicam. Patient's prazosin was prescribed for him until he can get a refill. 05:25 ED course: EXAM DESCRIPTION: RAD - Knee Right 3 View - 01/11/2024 10:13 pm CLINICAL sp4 HISTORY: R knee pain Pain and swelling COMPARISON: No comparisons FINDINGS: No fracture, dislocation or joint effusion. There is a large amount of soft tissue swelling anterior to the patella. Signed By: Jake Vela MD . 01/10 21:40 Order name: Knee Right 3 View XRAY; Complete Time: 22:47 sp4 Administered Medications: 01/10 22:24 Drug: Ketorolac IM 60 mg IM once Route: IM; Site: right deltoid; me1 22:24 Drug: predniSONE PO 60 mg PO once Route: PO; me1 22:24 Drug: cloNIDine PO 0.1 mg PO once Route: PO; me1 Disposition Summary: 01/11/24 22:51 Discharge Ordered Notes: Location: Home sp4 Problem: new sp4 Symptoms: have improved sp4 Condition: Stable sp4 Diagnosis - Other bursitis of knee, right knee sp4 - Acute suprapatellar bursitis of right knee, elevated blood pressure sp4 Followup: sp4 - With: Private Physician - When: 7 - 10 days - Reason: Recheck today's complaints Discharge Instructions: - Discharge Summary Sheet sp4 - Bursitis sp4 Forms: - Patient Portal Instructions sp4 Prescriptions: - meloxicam 15 mg Oral tablet - take 1 tablet ORAL route daily daily PRN pain; 30 tablet; Refills: 0, Product sp4 Selection Permitted - Prazosin 1 mg Oral capsule - take 1 capsule ORAL route once daily; 30 capsule; Refills: 0, Product Selection sp4 Permitted - Prednisone 20 mg Oral Tablet - take 2 tablets ORAL route once daily for 5 days; 10 tablet; Refills: 0, Product sp4 Selection Permitted Signatures: Dispatcher [employer] EDAnshul Mayorga RN RN as6 Migel Linares MD MD sp4 Yanelis Virgen RN RN me1 Corrections: (The following items were deleted from the chart) 21:30 21:29 PMHx: stroke; as6 as6 21:40 21:40 Knee Right 3 View+RAD.RAD.BRZ ordered. EDMS EDMS
--- NOTE | 2024-01-11 22:52 | ER ---
Nurse's Notes [facility] Name: Jasmin Haley Age: 53 yrs Sex: Male : 1970 Arrival Date: 01/11/2024 Time: 21:04 Bed DX2 Private MD: Diagnosis: Other bursitis of knee, right knee;Acute suprapatellar bursitis of right knee, elevated blood pressure Presentation: 01/10 21:28 Chief complaint: Patient states: swelling to right knee. unknown injury. Coronavirus as6 screen: At this time, the client does not indicate any symptoms associated with coronavirus-19. Ebola Screen: No symptoms or risks identified at this time. Initial Sepsis Screen: Does the patient meet any 2 criteria? No. Patient's initial sepsis screen is negative. Does the patient have a suspected source of infection? No. Patient's initial sepsis screen is negative. Risk Assessment: Do you want to hurt yourself or someone else? Patient reports no desire to harm self or others. Onset of symptoms was December 2023. 21:28 Acuity: GISELA 4 as6 21:28 Method Of Arrival: Ambulatory as6 Historical: - Allergies: 21:29 PENICILLINS; as6 - PMHx: 21:29 bipolar/schizo; CVA; Hypertension; as6 - PSHx: 21:29 None; as6 - Immunization history:: Adult Immunizations up to date. - Infectious Disease History:: Denies. - Social history:: Smoking status: Patient reports the use of cigarette tobacco products, smokes one-half pack cigarettes per day. - Family history:: not pertinent. Screenin:24 [facility] ED Fall Risk Assessment (Adult) History of falling in the last 3 months, me1 including since admission No falls in past 3 months (0 pts) Confusion or Disorientation No (0 pts) Intoxicated or Sedated No (0 pts) Impaired Gait No (0 pts) Mobility Assist Device Used No (0 pt) Altered Elimination No (0 pt) Score/Fall Risk Level 0 - 2 = Low Risk Maintained a safe environment, Provided non-skid footwear, Hourly rounding (assess needs \T\ fall precautionary measures) done. Abuse screen: Denies threats or abuse. Nutritional screening: No deficits noted. Tuberculosis screening: No symptoms or risk factors identified. Assessment: 22:24 General: Appears comfortable, well developed, well nourished, Behavior is calm, me1 cooperative, appropriate for age, Reports right knee swelling that has worsened today. Pain: Denies pain. Neuro: Level of Consciousness is awake, alert, obeys commands, Oriented to person, place, time, situation, Appropriate for age. Cardiovascular: Capillary refill < 3 seconds Patient's skin is warm and dry. Respiratory: Airway is patent Respiratory effort is even, unlabored, Respiratory pattern is regular, symmetrical. GI: No signs and/or symptoms were reported involving the gastrointestinal system. : No signs and/or symptoms were reported regarding the genitourinary system. EENT: No signs and/or symptoms were reported regarding the EENT system. Derm: Skin is intact, is healthy with good turgor, Skin is pink, warm \T\ dry. Musculoskeletal: Swelling present in right knee. 23:01 Reassessment: Patient and/or family updated on plan of care and expected duration. Pain vc1 level reassessed. Patient is alert, oriented x 3, equal unlabored respirations, skin warm/dry/pink. Patient states feeling better. Patient states symptoms have improved. Vital Signs: 21:28 BP 171 / 107; Pulse 71; Resp 18 S; Temp 97.7; Pulse Ox 96% on R/A; Weight 73.94 kg (R); as6 Height 5 ft. 6 in. (R); 23:00 BP 147 / 91; Pulse 64; Resp 18; Temp 97.6; Pulse Ox 96% ; vc1 21:28 Body Mass Index 26.31 (73.94 kg, 167.64 cm) as6 [place] Coma Score: 0507 05:22 Eye Response: spontaneous(4). Motor Response: obeys commands(6). Verbal Response: sp4 oriented(5). Total: 15. ED Course: 01/10 21:08 Patient arrived in ED. gm2 21:09 Migel Linares MD is Attending Physician. sp4 21:27 Arm band placed on. as6 21:29 Triage completed. as6 22:14 Knee Right 3 View XRAY In Process Unspecified. EDMS 22:24 Patient has correct armband on for positive identification. Provided Education on: POC. me1 Verbalized understanding.. 22:24 No provider procedures requiring assistance completed. me1 22:24 Patient did not have IV access during this emergency room visit. me1 Administered Medications: 22:24 Drug: Ketorolac IM 60 mg IM once Route: IM; Site: right deltoid; me1 22:24 Drug: predniSONE PO 60 mg PO once Route: PO; me1 22:24 Drug: cloNIDine PO 0.1 mg PO once Route: PO; me1 Medication: 22:24 VIS not applicable for this client. fl1 Outcome: 22:51 Discharge ordered by . vicky 23:01 Discharged to home ambulatory, with significant other, vc1 23:01 Condition: good 23:01 Discharge instructions given to patient, Instructed on discharge instructions, follow up and referral plans. medication usage, Demonstrated understanding of instructions, follow-up care, medications, Prescriptions given X 3, 23:01 Patient left the ED. vc1 Signatures: Dispatcher [employer] EDAnshul Mayorga RN RN as6 Lucretia Carrizales RN RN vc1 Migel Linares MD MD sp4 Yanelis Virgen RN RN me1 Farzana Joiner 2 Corrections: (The following items were deleted from the chart) 21:30 21:29 PMHx: stroke; as6 as6
[2024-01-11 23:29] VITALS: BP 171/107; TEMP 97.7; O2SAT 96
== END 2024-01-11 23:01 | disposition home or self-care (01) ==
LOC: ER 21:04
DX: M71.561 Other bursitis, not elsewhere classified, right knee (principal); I10 Essential (primary) hypertension; F17.210 Nicotine dependence, cigarettes, uncomplicated; Z88.0 Allergy status to penicillin
CPT/HCPCS: 96372; 99284; J7512

== ENCOUNTER 2024-01-18 10:49 | Emergency (ER) | payer SELFPAY ==
--- OUTSIDE RECORDS SUMMARY | 2024-01-18 10:54 | XMS REPORT | Continuity of Care Document ---
Author Name Unknown Address [address] [place] [address] [facility] thconnect Address [address] [address] [place] [address] Care Team Providers Care Spring Layer Name Role Phone PCP, PATIENT DOES NOT HAVE A Primary Care Physic floyd Unavailable TANYA MUNIZ Attending Clinician Unavailab Tanya Estevez DO Attending Clinician [phone] Karlene Stephen Attending Clinician Unavailable Roshni Carr Attending Clinician Unavailable MARÍA HERNANDEZ Attending Clinician Unavailable MIMI SCHWARTZ MD Attending Clinician MARIUM ANDERS Attending Clinician Unavailable Daniel Coronado Attending Clinician Unavailable PROVIDER, ED TEMP Attending Clinician UnavailJM Tracy Attending Clinician UnavailMARÍA Trujillo Admitting Clinician Unavailable Payers Payer Name Policy Type Policy Number Effective Date Expiration Date Source MEDICAID PENDING NA [facility] JOVANNA CARE PENDING [facility] Problems Condition Name Condition Details Condition Category [...] s DA Active U 09-09 00:00: 00 [facility] NO KNOWN ALLERGIE S Drug Class Active [facility] Social History Social Habit Start Date Stop Date Quantity Comments Source Exposure to SARS-CoV-2 (event) 2022-03-24 00:00:00 2022-04-03 00:24:00 Not sure [facility] Sex Assigned At 1970 00:00:00 1970 00:00:00 [facility] Smoking Status Start Date Stop Date Source Tobacco smoking consumption unknown [facility] Never smoker [facility] (LUF/LIOR/SA) Medications Ordered Medication Name Filled Medication Name Start Date Stop Date Current Medication? Ordering Clinician Indication Dosage Frequency Signature (SIG) Comments Components Source NaCl 0.9% (NS) bolus infusion 500 mL 04-03 07:00: 00 04-03 07:04 :00 No 500mL at 999 mL/hr, 500 mL, IV Infusion, ONCE, 1 dose, On Thu04/03/22 at 0200, STAT [facility] maalox:diph enhydrAMINE :lidocaine 2 % viscous 1:1:1 ([facility]) oral suspension 15 mL 04-03 06:00: 00 04-03 06:12 :00 No 15mL 15 mL, Oral, ONCE, 1 dose, On Thu04/03/22 at 0100, Routine [facility] Vital Signs Vital Name Observation Time Observation Value Comments S ource Systolic blood pressure 2022-04-03 05:26:00 157 mm[Hg] [place] [facility] Diastolic blood pressure 2022-04-03 05:26:00 100 mm[Hg] [facility] Heart rate 2022-04-03 05:26:00 71 /min [facility] Body temperature 2022-04-03 05:26:00 36.56 Sylvie [facility] Respiratory rate 2022-04-03 05:26:00 18 /min [facility] Body height 2022-04-03 05:26:00 167.6 cm [facility] Body weight 2022-04-03 05:26:00 66.225 kg [facility] BMI 2022-04-03 05:26:00 23.57 kg/m2 [facility] Oxygen saturation in Arterial blood by Pulse oximetry 2022-04-03 05:26:00 97 /min [facility] Body Temperature 2018-08-08 05:01:00 98.9 F [facility] (LUF/LIOR/SA) Pulse Rate 2018-08-08 05:01:00 87 /min [facility] (LUF/LIOR/SA) Respiratory Rate 2018-08-08 05:01:00 18 /min [facility] (F/LIOR/SA) O2% BldC Oximetry 2018-08-08 05:01:00 98 % [facility] (LUF/LIOR/SA) BP Systolic 2018-08-08 05:01:00 160 mm[Hg] [facility] (LUF/LIOR/SA) BP Diastolic 2018-08-08 05:01:00 110 mm[Hg] [facility] (LUF/LIOR/SA) Height 2018-08-08 05:01:00 66 in [facility] (LUF/LIOR/SA) Weight Measured 2018-08-08 05:01:00 154.32 lbs [facility] (LUF/LIOR/SA) BMI (Body Mass Index) 2018-08-08 05:01:00 25 [facility] (F/LIOR/SA) Procedures Procedure Date / Time Performed Performing Clinicia n Source TROPONIN I 2022-04-03 06:11:00 [facility]. METABOLIC PANEL (51786) 2022-04-03 06:11:00 Tanya Muniz [facility] CBC WITH DIFF 2022-04-03 06:11:00 Tanya Muniz [facility] NOTICE OF PRIVACY PRACTICES 2022-04-03 05:18:55 Doctor Unassigned, [place] [facility] CONSENT/REFUSAL FOR DIAGNOSIS AND TREATMENT 2022-04-03 05:18:14 Doctor Unassigned, [place] [facility] Encounters Start Date/Time End Date/Time Encounter Type Admission Type Attending [facility] Facility Care Department Encounter ID Source 2022-04-03 00:20:00 2022-04-03 02:21:00 Emergency X TANYA MUNIZ [facility] ERT [id number] [facility] 2022-04-03 00:20:00 2022-04-03 02:21:00 Emergency Tanya Muniz [facility] [id number] [facility] 2021-06-16 02:24:00 2021-06-16 02:24:00 Emergency ER Karlene Stephen [facility] [id number] [facility] 2021-06-15 15:02:00 2021-06-15 15:02:00 Emergency ER Karlene Stephen [facility] [id number] [facility] 2021-05-28 13:51:00 2021-05-28 16:10:00 Emergency ER Roshni Carr [facility] [id number] [facility] 2018-08-08 04:58:00 2018-08-08 11:31:00 [facility]patient [facility], [address] [place] [address] [facility] [id number] [facility] Jairo garcia (ALL/KALINA Nava/) 2018-07-01 19:23:00 2018-07-01 20:28:00 Departed Emergency MIMI SCHWARTZ [facility] [id number] [address] [facility] Results Test Description Test Time Test Comments Results Result Co mments Source [facility] (81806)2022-04-03 06:33:58* Test Item Value Reference Range Interpretation Comme nts NA (test code = 4338659744) 138 mmol/L 135-145 K (test code = 5209702098) 3.8 mmol/L 3.5-5 CL (test code = 4573157902) 106 mmol/L 98-108 CO2 TOTAL (test code = 0476926898) 26 mmol/L 23-31 AGAP (test code = 4742592090) 2-16 BUN (test code = 5301633594) 16 mg/dL 7-23 GLUCOSE (test code = 7855307139) 118 mg/dL 70-110 H CREATININE (test code = 3389814880) 0.96 mg/dL 0.6-1.25 TOTAL BILI (test code = 8273667830) 0.1 mg/dL 0.1-1.1 CALCIUM (test code = 0322340959) 8.5 mg/dL 8.6-10.6 L T PROTEIN (test code = 9873239764) 5.5 g/dL 6.3-8.2 L ALBUMIN (test code = 0179843983) 3.4 g/dL 3.5-5 L ALK PHOS (test code = 4278897299) 45 U/L 34-122 ALTv (test code = 1742-6) 16 U/L 5-50 AST(SGOT) (test code = 1492499896) 16 U/L 13-40 eGFR (test code = 6172162273) mL/min/1.73m2 APOLINAR (test code = APOLINAR) Association [...] imaging tests). Lab Interpretation (test code = 56852-3) Abnormal [facility] WITH VOYE1848-95-04 06:21:14* Test Item Value Reference Range Interpretation Comme nts WBC (test code = 6690-2) See_Comment [KDS] The system which generated this result transmitted reference range: 4.20 - 10.70 10*3/?L. The reference range was not used to interpret this result as normal/abnormal. RBC (test code = 789-8) See_Comment [KDS] The system which generated this result transmitted [...] 34.8 g/dL 31.2-35 RDW-SD (test code = 83602-5) 39.1 fL 38.5-51.6 RDW-CV (test code = 788-0) 11.9 % 12.1-15.4 L PLT (test code = 777-3) See_Comment [Automated messa ge] The system which generated this result transmitted reference range: 150 - 328 10*3/?L. The reference range was not used to interpret this result as normal/abnormal. MPV (test code = 57962-6) 9.6 fL 9.8-13 L NRBC/100 WBC (test code = 7696512561) See_Comment [Automated MediaV ssage] The system which generated this result transmitted reference range: 0.0 - 10.0 /100 WBCs. The reference range was not used to interpret this result as normal/abnormal. NRBC x10^3 (test code = 9955139569) See_Comment [Automated ComCrowda ge] The system which generated this result transmitted reference range: 10*3/?L. The reference range was not used to interpret this result as normal/abnormal. GRAN MAT (NEUT) % (test code = 770-8) 53.1 % IMM GRAN % (test code = 2485339105) 0.20 % LYMPH % (test code = 736-9) 33.2 % MONO % (test code = 5905-5) 7.6 % EOS % (test code = 713-8) 5.7 % BASO % (test code = 706-2) 0.2 % GRAN MAT x10^3(ANC) (test code = 9650458037) 3.37 10*3/uL 1.99-6.95 IMM GRAN x10^3 (test code = 2908216940) 0-0.06 LYMPH x10^3 (test code = 731-0) 2.10 10*3/uL 1.09-3.23 MONO x10^3 (test code = 742-7) 0.48 10*3/uL 0.36-1.02 EOS x10^3 (test code = 711-2) 0.36 10*3/uL 0.06-0.53 BASO x10^3 (test code = 704-7) 0.01-0.09 Lab Interpretation (test code = 61041-3) [facility]normal [facility] 16:05:00* Test Item Value Reference Range Interpretation Comme nts Chemistry (test code = CKMBM-T) 2.2 ng/mL 0-6.6 N Tpyedtinc9822-93-09 16:04:00* Test Item Value Reference Range Interpretation [...] code = ALT) 13 U/L 8-55 N Klwskkfaf8477-72-08 16:04:00* Test Item Value Reference Range Interpretation Comme nts Chemistry (test code = CK) 95 U/L 30-200 N Bsmjxhipb2929-58-85 16:04:00* Test Item Value Reference Range Interpretation Comme nts Chemistry (test code = TROPI-R) Less than 0.010 ng/mL < 0.028 * Reference Range 0.00 - 0.028 ng/mL Negative 0.029 - 0.29 ng/mL Indeterminate Greater or Equal to 0.3 ng/mL Strongly suggests [place] Jxjppdlprr0756-40-46 15:47:00* Test Item Value Reference Range Interpretation Comme nts Hematology (test code = WBCT) 10.0 thou/uL [...] mg/dl Toxicity >30 mg/dl Lethal >70 mg/dl [facility]2018-[facility] 06:42:00* Test Item Value Reference Range Interpretation [...] assessment and management of chronic kidney failure. [facility] CenterACETAMINOPHEN (Tyenol)2018-08-08 06:41:00* Test Item Value Reference Range Interpretation Comme nts Acetaminophen (test code = ACET) <2 ug/ml 10-25 L [facility] CenterALCOHOL, QTPFX6067-70-07 06:41:00* Test Item Value Reference Range Interpretation Comme nts Alcohol % (test code = ALCPC) 0 % 0.00-0.00 N Ethanol % 0.00 - 0.10 Sub-clinical 0.11 - 0.20 Emotional Instability 0.21 - 0.30 Confusion 0.31 - 0.40 Stupor 0.41 - 0.50 Coma >.50 Fatal [facility] CenterCB WITH AUTO ABKJ8149-15-25 06:13:00* Test Item Value Reference Range Interpretation [...] (test code = IG%) 0.4 % 0.0-0.4 [facility] CenterFwepxv-WrugyvujurSjfxvlyzvut2949-11-11 08:45:00* Test Item Value Reference Range Interpretation [...] Anticoagulant? NONEMedical Necessity SUSPECT COAGULOPATHYAnticoagulant? NONEMedical Necessity: MSTIZQUQTuhwpkgzmzb9232-28-76 08:45:00* Test Item Value Reference Range Interpretation Comme [facility] Coagulation (test code = PTT) 27.2 SEC 22.9-36.1 N Anticoagulant? NONEMedical Necessity SUSPECT COAGULOPATHYAnticoagulant? NONEMedical Necessity: ZPPNPNFXEobzmswms3230-15-53 08:44:00* Test Item Value Reference Range Interpretation Comme [facility] Chemistry (test code = CKMBM-T) 2.9 ng/mL 0-6.6 N Chemistry (test code = TROPI-T) 0.015 ng/mL < 0.028 Reference Range 0.00 - 0.028 ng/mL Negative 0.029 - 0.29 ng/mL Indeterminate Greater or Equal to 0.3 ng/mL Strongly suggests [place] Gdinkgqim0666-01-54 08:40:00* Test Item Value Reference Range Interpretation Comme [facility] Chemistry (test code = NA-T) 140 [...] code = ALT) 17 U/L 8-55 N Lmdddpoiy0650-62-19 08:40:00* Test Item Value Reference Range Interpretation Comme nts Chemistry (test code = CK) 119 U/L 30-200 N Xvlsyddljn3045-47-22 08:23:00* Test Item Value Reference Range Interpretation [...] code = BASO#) 0.1 thou/uL 0.0-0.2 N Sovgszhxk9031-61-70 19:03:00* Test Item Value Reference Range Interpretation [...] code = ALT) 16 U/L 8-55 N Vgzoajlxph3239-03-73 18:46:00* Test Item Value Reference Range Interpretation [...] code = BASO#) 0.1 thou/uL 0.0-0.2 N Bclwwrumnl9165-31-45 18:45:00* Test Item Value Reference Range Interpretation [...] Negative Negative Comment clear yellowUrine Source: Urine QdlmypNhtydrdyza5277-71-11 18:45:00* Test Item Value Reference Range Interpretation Comme nts Urinalysis (test code = UARBC) 0-3 HPF 0-3 Urinalysis (test code = UAWBC) 4-6 HPF 0-3 A Urinalysis (test code = UASQUAM) 0-3 HPF 0-3 Urinalysis (test code = UABAC) 1+ HPF None Seen A Comment clear yellowUrine Source: Urine DapjbvXbmfbklxkc0007-06-53 20:56:00* Test Item Value Reference Range Interpretation [...] CAST LPF 0-3 Hyaline Urine Source: Urine HbftsvJzngwrafy1068-98-16 19:22:00* Test Item Value Reference Range Interpretation Comme nts Chemistry (test code = TROPI-T) Less than 0.010 ng/mL < 0.028 * Reference Range 0.00 - 0.028 ng/mL Negative 0.029 - 0.29 ng/mL Indeterminate Greater or Equal to 0.3 ng/mL Strongly suggests [place] Comment Pls draw at 7 pm.Mrzkwvtywqe5367-03-27 16:36:00* Test Item Value Reference Range Interpretation [...] Anticoagulant? NONEMedical Necessity SUSPECT COAGULOPATHYAnticoagulant? NONEMedical Necessity: ONDRVJWGPvdxxwchtky5241-15-72 16:36:00* Test Item Value Reference Range Interpretation Comme [facility] Coagulation (test code = PTT) 26.2 SEC 22.9-36.1 N Anticoagulant? NONEMedical Necessity SUSPECT COAGULOPATHYAnticoagulant? NONEMedical Necessity: OPCKRQFHZmsjpmydr2216-34-30 16:34:00* Test Item Value Reference Range Interpretation Comme [facility] Chemistry (test code = CKMBM-T) 2.5 ng/mL 0-6.6 N Chemistry (test code = TROPI-T) Less than 0.010 ng/mL < 0.028 * Reference Range 0.00 - 0.028 ng/mL Negative 0.029 - 0.29 ng/mL Indeterminate Greater or Equal to 0.3 ng/mL Strongly suggests [place] Tulwughzc2476-64-23 16:31:00* Test Item Value Reference Range Interpretation Comme [facility] Chemistry (test code = NA-T) 142 mmol/L [...] code = ALT) 17 U/L 8-55 N Fymbpxulhn3532-60-46 16:13:00* Test Item Value Reference Range Interpretation [...] 0.0-0.2 N XR [facility] 1970 [facility] [place] Pt Name: KERRY QUIROZ [address] Phys: [place] [address] : 1970 Age: 50 SEX:M [phone] Exam Date: 06/15/21 Status: REG ER Acct: [id number] Loc: [facility] Pt Unit #: [id number] Report #: [id number] CC: Karlene Stephen MD IMAGING SERVICES REPORT Order # Category/Exam [id number] RAD/XR Chest 1 View Portable ([id number]): . Results XR Chest 1 View Portable History: Chest pain Comparison: None. Findings: Lungs are clear. No pneumothorax or effusion. Cardiac silhouette and mediastinal contoursare within normal limits. Impression: No acute intrathoracic abnormality. Reported By: KARLENE HARP Electronically Signed Date/Time: 06/15/211550 Technologist: Dictated Date/Time: 06/15/211550 Transcribed Date/Time: Notes Date/Time Note Provider Source 2018-08-08 11:31:00 [id number]/VqyeGPY+X dh5N 5QjG1JEZ/vQMMMPZXWly5mLfPMnfOg2531-36-43I07: 31:00Discharge Instructions 2Discharge Diagnosismethamphetamine abuse / bipolar [...] education providedDischarge InstructionsDischarge InstructionsDischarge Instructions 2018-08-08 (Encounter: [id number] for patient careSTLMCorpus Christi [facility] ([facility]/SA)[id number]:39:43 [facility] ([facility]/[place])
[2024-01-18] MEDS ORDERED: TDAP (DIPHTH,PERTUSS(ACELL),TET VAC) 0.5 ML VIAL IMVAC ONE (12:04)
[2024-01-18] MEDS ORDERED: HYDROCODONE/APAP 5/325 MG TAB ONE (12:04)
[2024-01-18] MEDS ORDERED: DERMABOND SKIN ADHESIVE TOP ONE (12:06)
--- NOTE | 2024-01-18 12:13 | RAD REPORT ---
EXAM DESCRIPTION: RAD - Forearm Right - 01/18/2024 11:56 am CLINICAL HISTORY: Pain;Smash injury COMPARISON: No comparisons TECHNIQUE: Right forearm, 2 views. FINDINGS: No fracture is identified. There is no dislocation or periosteal reaction noted. No foreign body or other soft tissue abnormality. IMPRESSION: Negative right forearm examination.
--- NOTE | 2024-01-18 12:29 | ER ---
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 Coronavirus screen: At this time, bp the client does not indicate any symptoms associated with coronavirus-19. Ebola Screen: No symptoms or risks identified at this time. Complicating Factors: METAL TOOL. Initial Sepsis Screen: Does the patient meet any 2 criteria? No. Patient's initial sepsis screen is negative. Does the patient have a suspected source of infection? No. Patient's initial sepsis screen is negative. Risk Assessment: Do you want to hurt yourself or someone else? Patient reports no desire to harm self or others. Onset of symptoms was January 18, 2024 at 10:30. 10:56 Method Of Arrival: Ambulatory bp 10:56 Acuity: GISELA 3 bp Historical: - Allergies: 10:57 PENICILLINS; bp - PMHx: 10:57 bipolar/schizo; CVA; Hypertension; bp Historical Immunization: - Administered Vaccines 12:17 Tetanus-Diphtheria Toxoid IM Adult 0.5 ml tl4 Cosmetology Educator: [employer]; Exp: ThuSep 22 2025; Lot #: [id number]; Series: 1 of 1; Patient Consent: Obtained; Date/Time: ; Source Name: Jasmin Haley; Source Relationship: Self; Address Information: [address] [place] [address]; ; Education: Provided; VIS Presented Date: ; VIS Publication: Tetanus/Diphtheria (Td) Vaccine VIS 12/16/2016 (historic) 12:17 HYDROcodone-acetaminophen PO 5 mg-325 mg 1 tabs tl4 - Immunization history:: Adult Immunizations. - Infectious Disease History:: Denies. - Social history:: Smoking status: Patient reports the use of cigarette tobacco products, unknown amount. Screenin:[facility] ED Fall Risk Assessment (Adult) History of falling in the last 3 months, ph including since admission No falls in past 3 months (0 pts) Confusion or Disorientation No (0 pts) Intoxicated or Sedated No (0 pts) Impaired Gait No (0 pts) Mobility Assist Device Used No (0 pt) Altered Elimination No (0 pt) Score/Fall Risk Level 0 - 2 = Low Risk Oriented to surroundings, Maintained a safe environment, Hourly rounding (assess needs \T\ fall precautionary measures) done. Abuse screen: Denies threats or abuse. Denies injuries from another. Nutritional screening: No deficits noted. Tuberculosis screening: No symptoms or risk factors identified. Assessment: 12:12 General: Appears in no apparent distress. Behavior is calm, cooperative. Pain: ph Complains of pain in dorsal aspect of right forearm. Neuro: Level of Consciousness is awake, alert, obeys commands, Oriented to person, place, time, situation. Musculoskeletal: Circulation, motion, and sensation intact. Range of motion: intact in all extremities. Injury Description: Laceration sustained to dorsal aspect of right forearm is 0.5 to 2.5 cm long, not bleeding, is bleeding no active bleeding noted. 12:40 Reassessment: No changes from previously documented assessment. Patient and/or family ll1 updated on plan of care and expected duration. Pain level reassessed. Patient is alert, oriented x 3, equal unlabored respirations, skin warm/dry/pink. Vital Signs: 10:56 BP 165 / 102; Pulse 66; Resp 16; Temp 98; Pulse Ox 99% ; Weight 73.94 kg; Height 5 ft. bp 6 in. ; 12:40 BP 161 / 91; Pulse 66; Resp 16; Pulse Ox 99% on R/A; ll1 10:56 Body Mass Index 26.31 (73.94 kg, 167.64 cm) bp ED Course: 10:52 Patient arrived in ED. mr 10:55 [facility] jh7 10:55 Kenny Florez DO is Attending Physician. jh7 10:57 Triage completed. bp 10:58 Jessica Bay, GISELLE is Primary Nurse. ph 10:58 Arm band placed on Patient placed in an exam room. ph 11:00 Patient has correct armband on for positive identification. Bed in low position. Call light in reach. Side rails up X 1. Pulse ox on. NIBP on. Door closed. Noise minimized. 11:45 Wound care: was cleaned with Hibiclens. em1 11:58 XRAY Forearm RIGHT In Process Unspecified. EDKS 12:00 Report given to GISELLE Malave. ph 12:40 Provided Education on: n/a. ll1 12:40 No provider procedures requiring assistance completed. Patient did not have IV access ll1 during this emergency room visit. Administered Medications: 12:17 Drug: Tetanus-Diphtheria Toxoid IM Adult 0.5 ml IM once; Provide Vaccine Information tl4 Statement (VIS). {Cosmetology Educator: GEOLID; Exp: ThuSep 22 2025; Lot #: [id number]; Series: 1 of ; Patient Consent: Obtained; Date/Time: ; Source Name: Jasmin Haley; Source Relationship: Self; Address Information: [address] [place] [address]; ; Education: Provided; VIS Presented Date: ; VIS Publication: Tetanus/Diphtheria (Td) Vaccine VIS 12/16/2016 (historic)} {Note: Actual VIS date is 04/12/2021.} Route: IM; Site: right deltoid; 12:41 Follow up: Response: No adverse reaction ll1 12:17 Drug: HYDROcodone-acetaminophen PO 5 mg-325 mg 1 tabs PO once Route: PO; tl4 12:41 Follow up: Response: No adverse reaction; Pain is decreased; RASS: Alert and Calm (0) ll1 Medication: 11:00 VIS not applicable for this client. Outcome: 12:28 Discharge ordered by MD. rich 12:40 Discharged to home ambulatory, 1 12:40 Condition: stable 12:40 Discharge instructions given to patient, Instructed on discharge instructions, follow up and referral plans. wound care, Demonstrated understanding of instructions, follow-up care, wound care, 12:41 Patient left the ED. 1 Signatures: Dispatcher [employer] EDKS Mikaela Merchant, Reg Reg Bandar Gonzales em1 Jessica Bay RN RN Donis Luong RN RN bp Lewis, Lynsay, RN RN ll1 Jeanette Prakash FNP FNP Lin Logdahl, Ananda, RN RN tl4
--- NOTE | 2024-01-18 12:29 | EDPHYS ---
Physician Documentation [facility] Name: Jasmin Haley Age: 53 yrs Sex: Male : 1970 Arrival Date: 01/18/2024 Time: 10:49 Bed 16 Private MD: ED Physician Kenny Florez HPI: 01/17 10:56 This 53 yrs old Male presents to ER via Ambulatory with complaints of Laceration To Arm.7 10:56 53-year-old male with a past medical history of CVA and hypertension presents to the ER [facility] for right forearm laceration. He reports that he was working on a trailer and that the hitch struck the top of his right forearm. Complains of pain and small flap laceration to the dorsal right forearm. No other symptoms at this time.. Historical: - Allergies: 10:57 PENICILLINS; bp - PMHx: 10:57 bipolar/schizo; CVA; Hypertension; bp - Immunization history:: Adult Immunizations. - Infectious Disease History:: Denies. - Social history:: Smoking status: Patient reports the use of cigarette tobacco products, unknown amount. ROS: 10:56 Constitutional: Per HPI 7 Exam: 10:56 Constitutional: This is a well developed, well nourished patient who is awake, alert, jh7 and in no acute distress. Head/Face: Normocephalic, atraumatic. Neck: Trachea midline, no thyromegaly or masses palpated, and no cervical lymphadenopathy. Supple, full range of motion without nuchal rigidity, or vertebral point tenderness. No Meningismus. Cardiovascular: Regular rate and rhythm with a normal S1 and S2. No gallops, murmurs, or rubs. Normal PMI, no JVD. No pulse deficits. Respiratory: Lungs have equal breath sounds bilaterally, clear to auscultation and percussion. No rales, rhonchi or wheezes noted. No increased work of breathing, no retractions or nasal flaring. Abdomen/GI: Soft, non-tender, with normal bowel sounds. No distension or tympany. No guarding or rebound. No evidence of tenderness throughout. Neuro: Awake and alert, GCS 15, oriented to person, place, time, and situation. Motor strength 5/5 in all extremities. Sensory grossly intact. Normal gait. 10:56 Musculoskeletal/extremity: Circulation is intact in all extremities. Sensation intact. 10:56 Skin: injury, laceration(s), the wound is approximately 1 cm(s), of the right dorsal forearm, Vital Signs: 10:56 BP 165 / 102; Pulse 66; Resp 16; Temp 98; Pulse Ox 99% ; Weight 73.94 kg; Height 5 ft. bp 6 in. ; 12:40 BP 161 / 91; Pulse 66; Resp 16; Pulse Ox 99% on R/A; ll1 10:56 Body Mass Index 26.31 (73.94 kg, 167.64 cm) bp Laceration: 12:15 Wound Repair of 0.5cm ( 0.2in ) subcutaneous laceration to dorsal aspect of right jh7 forearm. Distal neuro/vascular/tendon intact. Wound prep: Moderate cleansing with hibiclenz by behavioral technician. Skin closed with 3 steristrips Adhesive skin closure using Dermabond. Dressed with non-adherent dressing. Patient tolerated well. MDM: 10:55 Patient medically screened. [facility] 12:25 Differential diagnosis: superficial laceration, fracture. Data reviewed: vital signs, [facility] nurses notes, radiologic studies, plain films. I considered the following discharge prescriptions or medication management in the emergency department Medications were administered in the Emergency Department. See MAR. Independent interpretation of the following test(s) in the Emergency Department X-Ray: My interpretation is no acute fracture. Care significantly affected by the following chronic conditions: Hypertension. Counseling: I had a detailed discussion with the patient and/or guardian regarding the historical points, exam findings, and any diagnostic results supporting the discharge/admit diagnosis, to return to the emergency department if symptoms worsen or persist or if there are any questions or concerns that arise at home. Response to treatment: the patient's symptoms have markedly improved after treatment. 01/17 11:00 Order name: XRAY Forearm RIGHT; Complete Time: 12:19 [facility] 01/17 11:00 Order name: Misc. Order: clean wound; Complete Time: 11:45 [facility] 01/17 11:57 Order name: Dermabond; Complete Time: 12:16 [facility] 01/17 11:57 Order name: Misc. Order: steri-strips, scissors; Complete Time: 12:16 [facility] Administered Medications: 12:17 Drug: Tetanus-Diphtheria Toxoid IM Adult 0.5 ml IM once; Provide Vaccine Information tl4 Statement (VIS). {Estate Planning Paralegal: [employer]; Exp: ThuSep 22 2025; Lot #: [id number]; Series: 1 of 1; Patient Consent: Obtained; Date/Time: ; Source Name: Jasmin Haley; Source Relationship: Self; Address Information: [address] [place] [address]; ; Education: Provided; VIS Presented Date: ; VIS Publication: Tetanus/Diphtheria (Td) Vaccine VIS 12/16/2016 (historic)} {Note: Actual VIS date is 04/12/2021.} Route: IM; Site: right deltoid; 12:41 Follow up: Response: No adverse reaction ll1 12:17 Drug: HYDROcodone-acetaminophen PO 5 mg-325 mg 1 tabs PO once Route: PO; tl4 12:41 Follow up: Response: No adverse reaction; Pain is decreased; RASS: Alert and Calm (0) ll1 Disposition: 18:15 I was immediately available on-site in the Emergency Department for consultation in the ms3 care of the patient. Disposition Summary: 01/18/24 12:28 Discharge Ordered Notes: Location: Home [facility] Problem: new [facility] Symptoms: have improved [facility] Condition: Stable [facility] Diagnosis - Laceration without foreign body of right forearm [facility] Followup: [facility] - With: Private Physician - When: 2 - 3 days - Reason: Recheck today's complaints Discharge Instructions: - Discharge Summary Sheet [facility] - Nonsutured Laceration Care [facility] Forms: - Medication Reconciliation Form [facility] - Antibiotic Education [facility] - Patient Portal Instructions [facility] - Leadership Thank You Letter [facility] Signatures: Dispatcher [employer] EDDonis Harry, RN RN Kenny Grossman DO DO ms3 Jeanette Prakash FNP [employer] MANAGEMENT TECHNICIAN [facility] Ananda Doe RN RN tl4 Martha Schwartz RN ll1 Corrections: (The following items were deleted from the chart) 11:01 11:01 Forearm Right+[email or web address] ordered. EDMS EDMS
[2024-01-18 13:09] VITALS: BP 161/91; TEMP 98; O2SAT 99
== END 2024-01-18 12:41 | disposition home or self-care (01) ==
LOC: ER 10:49
PROC: 0HQDXZZ Repair Right Lower Arm Skin, External Approach (ICD-10-PCS; principal; 2024-01-18)
DX: S51.811A Laceration without foreign body of right forearm, initial encounter (principal); Z23 Encounter for immunization
CPT/HCPCS: 90471; 99284

== ENCOUNTER 2024-02-05 13:11 | Emergency (ER) | payer SELFPAY ==
--- OUTSIDE RECORDS SUMMARY | 2024-02-05 13:15 | XMS REPORT | Continuity of Care Document ---
Author Name Unknown Address [address] [place] [address] [facility] thconnect Address [address] [place] [address] Care Team Providers Care Colleter Name Role Phone PCP, PATIENT DOES NOT HAVE A Primary Care Physic floyd Unavailable TANYA MUNIZ Attending Clinician Unavailab Tanya Estevez DO Attending Clinician [phone] Karlene Stephen Attending Clinician Unavailable Roshni Carr Attending Clinician Unavailable MARÍA HERNANDEZ Attending Clinician Unavailable MIMI SCHWARTZ MD Attending Clinician MARIUM ANDERS Attending Clinician Unavailable Daniel Coronado Attending Clinician Unavailable PROVIDER, ED TEMP Attending Clinician UnavailJM Tracy Attending Clinician UnavailMARÍA Trujillo Admitting Clinician Unavailable Payers Payer Name Policy Type Policy Number Effective Date Expiration Date Source MEDICAID PENDING NA [facility] JOVANNA CARE PENDING NA [facility] Problems Condition Name Condition Details [...] s DA Active U 09-09 00:00: 00 [facility] NO KNOWN ALLERGIE S Drug Class Active [facility] Social History Social Habit Start Date Stop Date Quantity Comments Source Exposure to SARS-CoV-2 (event) 2022-03-24 00:00:00 2022-04-03 00:24:00 Not sure [facility] Sex Assigned At 1970 00:00:00 1970 00:00:00 [facility] Smoking Status Start Date Stop Date Source Tobacco smoking consumption unknown [facility] Never smoker [facility] (LUF/LIOR/SA) Medications Ordered Medication Name Filled Medication Name Start Date Stop Date Current Medication? Ordering Clinician Indication Dosage Frequency Signature (SIG) Comments Components Source NaCl 0.9% (NS) bolus infusion 500 mL 04-03 07:00: 00 04-03 07:04 :00 No 500mL at 999 mL/hr, 500 mL, IV Infusion, ONCE, 1 dose, On Thu04/03/22 at 0200, STAT [facility] maalox:diph enhydrAMINE :lidocaine 2 % viscous 1:1:1 ([facility]) oral suspension 15 mL 04-03 06:00: 00 04-03 06:12 :00 No 15mL 15 mL, Oral, ONCE, 1 dose, On Thu04/03/22 at 0100, Routine [facility] Vital Signs Vital Name Observation Time Observation Value Comments S anna Systolic blood pressure 2022-04-03 05:26:00 157 mm[Hg] [facility] Diastolic blood pressure 2022-04-03 05:26:00 100 mm[Hg] [facility] Heart rate 2022-04-03 05:26:00 71 /min [facility] 2022-04-03 05:26:00 36.56 Sylvie [facility] Respiratory rate 2022-04-03 05:26:00 18 /min [facility] Body height 2022-04-03 05:26:00 167.6 cm [facility] Body weight 2022-04-03 05:26:00 66.225 kg [facility] BMI 2022-04-03 05:26:00 23.57 kg/m2 [facility] Oxygen saturation in Arterial blood by Pulse oximetry 2022-04-03 05:26:00 97 /min [facility] Body Temperature 2018-08-08 05:01:00 98.9 F [facility] (LUF/LIOR/SA) Pulse Rate 2018-08-08 05:01:00 87 /min [facility] (LUF/LIOR/SA) Respiratory Rate 2018-08-08 05:01:00 18 /min [facility] (F/LIOR/SA) O2% BldC Oximetry 2018-08-08 05:01:00 98 % [facility] (LUF/LIOR/SA) BP Systolic 2018-08-08 05:01:00 160 mm[Hg] [facility] (LUF/LIOR/SA) BP Diastolic 2018-08-08 05:01:00 110 mm[Hg] [facility] (F/LIOR/SA) Height 2018-08-08 05:01:00 66 in [facility] (LUF/LIOR/SA) Weight Measured 2018-08-08 05:01:00 154.32 lbs [facility] (LUF/LIOR/SA) BMI (Body Mass Index) 2018-08-08 05:01:00 25 [facility] ([facility]/LIOR/SA) Procedures Procedure Date / Time Performed Performing Clinicia n Source TROPONIN I 2022-04-03 06:11:00 Tanya Muniz [facility] COMP. METABOLIC PANEL (19259) 2022-04-03 06:11:00 Faulconer, Tanya [facility] CBC WITH DIFF 2022-04-03 06:11:00 Tanya Muniz [facility] NOTICE OF PRIVACY PRACTICES 2022-04-03 05:18:55 Doctor Unassigned, Kosse [facility] CONSENT/REFUSAL FOR DIAGNOSIS AND TREATMENT 2022-04-03 05:18:14 Doctor Unassigned, Kosse [facility] Encounters Start Date/Time End Date/Time Encounter Type Admission Type Attending [facility] Care Facility Care Department Encounter ID Source 2022-04-03 00:20:00 2022-04-03 02:21:00 Emergency X ALTONMAS[facility]IA[facility] [id number] [facility] 2022-04-03 00:20:00 2022-04-03 02:21:00 Emergency Tanya Muniz [facility] [id number] [facility] 2021-06-16 02:24:00 2021-06-16 02:24:[address]ene Stephen [facility] [id number] [facility] 2021-06-15 15:02:00 2021-06-15 15:02:00 Emergency ER Karlene Stephen [facility] [id number] [facility] 2021-05-28 13:51:00 2021-05-28 16:10:[address] Roshni Carr [facility] [id number] [facility] 2018-08-08 04:58:00 2018-08-08 11:31:00 Inpatient MARÍA CAICEDO [facility], [address], [place] [address] [facility] [id number] [facility] Jairo l (ALL/KALINA Nava/SA) 2018-07-01 19:23:00 2018-07-01 20:28:00 Departed Emergency MIMI SCHWARTZ [facility] [id number] [address] [facility] [facility] Results Test Description Test Time Test Comments Results Result Co mments Source [facility]. METABOLIC PANEL ([id number])2022-04-03 06:33:58* Test Item Value Reference Range Interpretation Comme nts NA (test code = 9646157839) 138 mmol/L 135-145 K (test code = 5110037105) 3.8 mmol/L 3.5-5 CL (test code = 7484625681) 106 mmol/L 98-108 CO2 TOTAL (test code = 5051004069) 26 mmol/L 23-31 AGAP (test code = 3357339719) 2-16 BUN (test code = 8994707893) 16 mg/dL 7-23 GLUCOSE (test code = 1881276891) 118 mg/dL 70-110 H CREATININE (test code = 4750368073) 0.96 mg/dL 0.6-1.25 TOTAL BILI (test code = 4182244427) 0.1 mg/dL 0.1-1.1 CALCIUM (test code = 0405384506) 8.5 mg/dL 8.6-10.6 L T PROTEIN (test code = 9384454584) 5.5 g/dL 6.3-8.2 L ALBUMIN (test code = 4282939891) 3.4 g/dL 3.5-5 L ALK PHOS (test code = 8881514817) 45 U/L 34-122 ALTv (test code = 1742-6) 16 U/L 5-50 AST(SGOT) (test code = 6861510116) 16 U/L 13-40 eGFR (test code = 8785534420) mL/min/1.73m2 APOLINAR (test code = APOLINAR) Association [...] imaging tests). Lab Interpretation (test code = 46157-0) Abnormal [facility] WITH SLDK7905-38-18 06:21:14* Test Item Value Reference Range Interpretation Comme nts WBC (test code = 6690-2) See_Comment [Automated [employer]] The system which generated this result transmitted reference range: 4.20 - 10.70 10*3/?L. The reference range was not used to interpret this result as normal/abnormal. RBC (test code = 789-8) See_Comment [[employer]] The system which generated this result transmitted [...] 34.8 g/dL 31.2-35 RDW-SD (test code = 66542-6) 39.1 fL 38.5-51.6 RDW-CV (test code = 788-0) 11.9 % 12.1-15.4 L PLT (test code = 777-3) See_Comment [Automated messa ge] The system which generated this result transmitted reference range: 150 - 328 10*3/?L. The reference range was not used to interpret this result as normal/abnormal. MPV (test code = 79164-3) 9.6 fL 9.8-13 L NRBC/100 WBC (test code = 1876863055) See_Comment [Automated [employer] ssage] The system which generated this result transmitted reference range: 0.0 - 10.0 /100 WBCs. The reference range was not used to interpret this result as normal/abnormal. NRBC x10^3 (test code = 7329161939) See_Comment [Automated messa ge] The system which generated this result transmitted reference range: 10*3/?L. The reference range was not used to interpret this result as normal/abnormal. GRAN MAT (NEUT) % (test code = 770-8) 53.1 % IMM GRAN % (test code = 4069083335) 0.20 % LYMPH % (test code = 736-9) 33.2 % MONO % (test code = 5905-5) 7.6 % EOS % (test code = 713-8) 5.7 % BASO % (test code = 706-2) 0.2 % GRAN MAT x10^3(ANC) (test code = 1625195532) 3.37 10*3/uL 1.99-6.95 IMM GRAN x10^3 (test code = 0012606629) 0-0.06 LYMPH x10^3 (test code = 731-0) 2.10 10*3/uL 1.09-3.23 MONO x10^3 (test code = 742-7) 0.48 10*3/uL 0.36-1.02 EOS x10^3 (test code = 711-2) 0.36 10*3/uL 0.06-0.53 BASO x10^3 (test code = 704-7) 0.01-0.09 Lab Interpretation (test code = 07352-8) [facility]:05[facility]* Test Item Value Reference Range Interpretation Comme nts Chemistry (test code = CKMBM-T) 2.2 ng/mL 0-6.6 N Wdgldjcmh5116-98-33 16:04:00* Test Item Value Reference Range Interpretation [...] code = ALT) 13 U/L 8-55 N Mgqgrtzki7870-24-77 16:04:00* Test Item Value Reference Range Interpretation Comme nts Chemistry (test code = CK) 95 U/L 30-200 N Yntwchrvg9350-71-26 16:04:00* Test Item Value Reference Range Interpretation Comme nts Chemistry (test code = TROPI-R) Less than 0.010 ng/mL < 0.028 * Reference Range 0.00 - 0.028 ng/mL Negative 0.029 - 0.29 ng/mL Indeterminate Greater or Equal to 0.3 ng/mL Strongly suggests DC Tfbqkfiyzf3448-91-57 15:47:00* Test Item Value Reference Range Interpretation Comme [facility] Hematology (test code = WBCT) 10.0 thou/uL [...] mg/dl Toxicity >30 mg/dl Lethal >70 mg/dl [facility] 06:42[facility]00* Test Item Value Reference [...] assessment and management of chronic kidney failure. [facility]ET[facility] (Tyenol)2018-08-08 06:41:00* Test Item Value Reference Range Interpretation Comme nts Acetaminophen (test code = ACET) <2 ug/ml 10-25 L [facility], MACMQ3471-75-10 06:41:00* Test Item Value Reference Range Interpretation Comme nts Alcohol % (test code = ALCPC) 0 % 0.00-0.00 N Ethanol % 0.00 - 0.10 Sub-clinical 0.11 - 0.20 Emotional Instability 0.21 - 0.30 Confusion 0.31 - 0.40 Stupor 0.41 - 0.50 Coma >.50 Fatal [facility] WITH AUTO QZYI3906-08-78 06:13:00* Test Item Value Reference Range Interpretation [...] (test code = IG%) 0.4 % 0.0-0.4 [facility] HospitalXznabp-XeqsaxwcleFphynxwhprv4694-06-11 08:45:00* Test Item Value Reference Range Interpretation [...] Anticoagulant? NONEMedical Necessity SUSPECT COAGULOPATHYAnticoagulant? NONEMedical Necessity: EDZPYNWJOqentcgfrif5228-99-05 08:45:00* Test Item Value Reference Range Interpretation Comme [facility] Coagulation (test code = PTT) 27.2 SEC 22.9-36.1 N Anticoagulant? NONEMedical Necessity SUSPECT COAGULOPATHYAnticoagulant? NONEMedical Necessity: HGXYJEMANktqkvgbs7951-16-34 08:44:00* Test Item Value Reference Range Interpretation Comme nts Chemistry (test code = CKMBM-T) 2.9 ng/mL 0-6.6 N Chemistry (test code = TROPI-T) 0.015 ng/mL < 0.028 Reference Range 0.00 - 0.028 ng/mL Negative 0.029 - 0.29 ng/mL Indeterminate Greater or Equal to 0.3 ng/mL Strongly suggests DC Fldrxrojw3272-87-49 08:40:00* Test Item Value Reference Range Interpretation Comme nts Chemistry (test code = NA-T) 140 mmol/L [...] code = ALT) 17 U/L 8-55 N Innxzfsjx8092-02-85 08:40:00* Test Item Value Reference Range Interpretation Comme nts Chemistry (test code = CK) 119 U/L 30-200 N Clagmbwlyx4016-73-17 08:23:00* Test Item Value Reference Range Interpretation [...] code = BASO#) 0.1 thou/uL 0.0-0.2 N Zuwvbpdoo4101-61-33 19:03:00* Test Item Value Reference Range Interpretation [...] code = ALT) 16 U/L 8-55 N Akbmwynkph4299-17-67 18:46:00* Test Item Value Reference Range Interpretation [...] code = BASO#) 0.1 thou/uL 0.0-0.2 N Tecpnnadkl7978-16-16 18:45:00* Test Item Value Reference Range Interpretation [...] Negative Negative Comment clear yellowUrine Source: Urine EiuzbdCqayxexmbh1817-38-47 18:45:00* Test Item Value Reference Range Interpretation Comme nts Urinalysis (test code = UARBC) 0-3 HPF 0-3 Urinalysis (test code = UAWBC) 4-6 HPF 0-3 A Urinalysis (test code = UASQUAM) 0-3 HPF 0-3 Urinalysis (test code = UABAC) 1+ HPF None Seen A Comment clear yellowUrine Source: Urine HrdurrDmzzrzgazy9072-89-14 20:56:00* Test Item Value Reference Range Interpretation [...] CAST LPF 0-3 Hyaline Urine Source: Urine YsayykZvhlbblkm2387-62-98 19:22:00* Test Item Value Reference Range Interpretation Comme nts Chemistry (test code = TROPI-T) Less than 0.010 ng/mL < 0.028 * Reference Range 0.00 - 0.028 ng/mL Negative 0.029 - 0.29 ng/mL Indeterminate Greater or Equal to 0.3 ng/mL Strongly suggests DC Comment Pls draw at 7 pm.Qhgpnivptjk2060-75-46 16:36:00* Test Item Value Reference Range Interpretation [...] Anticoagulant? NONEMedical Necessity SUSPECT COAGULOPATHYAnticoagulant? NONEMedical Necessity: LSMATXIZNkblftswtyt3041-98-67 16:36:00* Test Item Value Reference Range Interpretation Comme [facility] Coagulation (test code = PTT) 26.2 SEC 22.9-36.1 N Anticoagulant? NONEMedical Necessity SUSPECT COAGULOPATHYAnticoagulant? NONEMedical Necessity: QSDBZVDJFngchkjbw7361-15-53 16:34:00* Test Item Value Reference Range Interpretation Comme [facility] Chemistry (test code = CKMBM-T) 2.5 ng/mL 0-6.6 N Chemistry (test code = TROPI-T) Less than 0.010 ng/mL < 0.028 * Reference Range 0.00 - 0.028 ng/mL Negative 0.029 - 0.29 ng/mL Indeterminate Greater or Equal to 0.3 ng/mL Strongly suggests DC Tpkrtvyyx0072-01-55 16:31:00* Test Item Value Reference Range Interpretation Comme [facility] Chemistry (test code = NA-T) 142 mmol/L [...] code = ALT) 17 U/L 8-55 N Tofsupwljj0049-97-83 16:13:00* Test Item Value Reference Range Interpretation [...] 0.0-0.2 N XR Chest 1 [facility] Portable [facility] 1970 [facility] Pt Name: KERRY QUIROZ [address] Phys: [place] [address] : 1970 Age: 50 SEX:M [phone] Exam Date: 06/15/21 Status: REG ER Acct: [id number] Loc: [facility] Pt Unit #: [id number] Report #: [id number] CC: Karlene Stephen MD IMAGING SERVICES REPORT Order # Category/Exam [id number] RAD/XR Chest 1 View Portable ([id number]): . Results XR Chest 1 View Portable History: Chest pain Comparison: None. Findings: Lungs are clear. No pneumothorax or effusion. Cardiac silhouette and mediastinal contoursare within normal limits. Impression: No acute intrathoracic abnormality. Reported By: KARLENE HARP Electronically Signed Date/Time: 06/15/211550 Technologist: Dictated Date/Time: 06/15/211550 Transcribed Date/Time: Notes Date/Time Note Provider Source 2018-08-08 11:31:00 [id number]/VqyeGPY+[id number] dh5N 9TsL3SJN/bDYXILOZRsp6oBwJSpgXi2466-98-54S98: 31:00Discharge Instructions 2Discharge Diagnosismethamphetamine abuse / bipolar [...] education providedDischarge InstructionsDischarge InstructionsDischarge Instructions 2018-08-08 (Encounter: [id number] for patient careSTLMLCFormerly [facility] ([facility]/[place])1714-98-08S36:39:43 [facility] ([facility]/[place])
[2024-02-05] MEDS ORDERED: SMZ./TMP. 800/160 MG TABLET ONE (13:21)
--- NOTE | 2024-02-05 13:22 | ER ---
Nurse's Notes [facility] Name: Jasmin Haley Age: 53 yrs Sex: Male : 1970 Arrival Date: 02/05/2024 Time: 13:11 Bed IW3 Private MD: Diagnosis: Right elbow cellulitis Presentation: 02/04 13:15 Chief complaint: Patient states: right elbow swelling. noticed today, denies injury. as6 Coronavirus screen: At this time, the client does not indicate any symptoms associated with coronavirus-19. Ebola Screen: No symptoms or risks identified at this time. Initial Sepsis Screen: Does the patient meet any 2 criteria? No. Patient's initial sepsis screen is negative. Does the patient have a suspected source of infection? No. Patient's initial sepsis screen is negative. Risk Assessment: Do you want to hurt yourself or someone else? Patient reports no desire to harm self or others. Onset of symptoms was February 05, 2024. 13:15 Method Of Arrival: Ambulatory as6 13:15 Acuity: GISELA 4 as6 Triage Assessment: 13:26 General: Appears in no apparent distress. comfortable, Behavior is calm, cooperative. as6 Pain: Complains of pain in right elbow. Musculoskeletal: Swelling present in right elbow. Historical: - Allergies: 13:16 PENICILLINS; as6 - Home Meds: 13:16 lithium carbonate 300 mg Oral tab 1 tab 2 times per day [Active]; as6 - PMHx: 13:16 bipolar/schizo; CVA; Hypertension; as6 - Immunization history:: Adult Immunizations up to date. - Infectious Disease History:: Denies. - Social history:: Smoking status: Patient reports the use of cigarette tobacco products, smokes one pack cigarettes per day. Screenin:26 [place] [facility] Fall Risk Assessment (Adult) History of falling in the last 3 months, as6 including since admission No falls in past 3 months (0 pts) Confusion or Disorientation No (0 pts) Intoxicated or Sedated No (0 pts) Impaired Gait No (0 pts) Mobility Assist Device Used No (0 pt) Altered Elimination No (0 pt) Score/Fall Risk Level 0 - 2 = Low Risk Oriented to surroundings, Maintained a safe environment, Educated pt \T\ family on fall prevention, incl call for assistance when getting out of bed, Assessed \T\ reinforced patient's understanding of fall precautions. Abuse screen: Denies threats or abuse. Denies injuries from another. Nutritional screening: No deficits noted. Tuberculosis screening: No symptoms or risk factors identified. Vital Signs: 13:15 BP 161 / 108; Pulse 76; Resp 18 S; Temp 97.1(TE); Pulse Ox 96% on R/A; Weight 73.94 kg as6 (R); Height 5 ft. 6 in. (R); Pain 6/10; 13:15 Body Mass Index 26.31 (73.94 kg, 167.64 cm) as6 13:15 Pain Scale: Adult as6 ED Course: 13:13 Patient arrived in ED. rg4 13:15 Kenny Florez DO is Attending Physician. ms3 13:16 Triage completed. as6 13:17 Arm band placed on. as6 13:20 Home Rob DO is Referral Physician. ms3 13:25 Anshul Victor, GISELLE is Primary Nurse. as6 13:26 Patient has correct armband on for positive identification. Provided Education on: abx as6 teaching . 13:26 No provider procedures requiring assistance completed. Patient did not have IV access as6 during this emergency room visit. Administered Medications: 13:25 Drug: Trimethoprim-Sulfamethoxazole PO (160 mg-800 mg (DS) 1 tablet PO once Route: PO; as6 13:25 Follow up: Response: No adverse reaction as6 Medication: 13:27 VIS not applicable for this client. as6 Outcome: 13:20 Discharge ordered by . ms3 13:26 Discharged to home ambulatory, with significant other, as6 13:26 Condition: stable 13:26 Discharge instructions given to patient, Instructed on discharge instructions, follow up and referral plans. medication usage, Demonstrated understanding of instructions, follow-up care, medications, Prescriptions given X 1, 13:27 Patient left the ED. as6 Signatures: Katie Humphries rg4 Kenny Florez DO DO ms3 Anshul Victor, RN RN as6
--- NOTE | 2024-02-05 13:22 | EDPHYS ---
Physician Documentation [facility] Name: Jasmin Haley Age: 53 yrs Sex: Male : 1970 Arrival Date: 02/05/2024 Time: 13:11 Bed IW3 Private MD: ED Physician Kenny Florez HPI: 02/04 14:37 This 53 yrs old Male presents to ER via Ambulatory with complaints of Elbow Swelling. ms3 14:37 33-year-old male with past medical history of bipolar disorder, schizophrenia, CVA, ms3 hypertension presents to the emergency department for right elbow swelling. Patient states he noticed the discomfort today. Patient states leaning on his elbow makes the pain worse. Patient denies trauma.. Historical: - Allergies: 13:16 PENICILLINS; as6 - Home Meds: 13:16 lithium carbonate 300 mg Oral tab 1 tab 2 times per day [Active]; as6 - PMHx: 13:16 bipolar/schizo; CVA; Hypertension; as6 - Immunization history:: Adult Immunizations up to date. - Infectious Disease History:: Denies. - Social history:: Smoking status: Patient reports the use of cigarette tobacco products, smokes one pack cigarettes per day. ROS: 14:37 Constitutional: Negative for fever, and chills. Neck: Negative for injury, pain, and ms3 swelling, Cardiovascular: Negative for chest pain, and palpitations. Respiratory: Negative for shortness of breath, cough, wheezing, and pleuritic chest pain, Abdomen/GI: Negative for abdominal pain, nausea, vomiting, diarrhea, and constipation, 14:37 MS/extremity: Positive for right elbow swelling, Exam: 14:37 Constitutional: This is a well developed, well nourished patient who is awake, alert, ms3 and in no acute distress. Head/Face: Normocephalic, atraumatic. Chest/axilla: Normal chest wall appearance and motion. Nontender with no deformity. Cardiovascular: Regular rate and rhythm with a normal S1 and S2. No gallops, murmurs, or rubs. Normal PMI, no JVD. No pulse deficits. Respiratory: Lungs have equal breath sounds bilaterally, clear to auscultation and percussion. No rales, rhonchi or wheezes noted. No increased work of breathing, no retractions or nasal flaring. Abdomen/GI: Soft, non-tender, with normal bowel sounds. No distension or tympany. No guarding or rebound. No evidence of tenderness throughout. 14:37 Skin: Appearance: abscess, cellulitis, that is mild, on the right elbow, Vital Signs: 13:15 BP 161 / 108; Pulse 76; Resp 18 S; Temp 97.1(TE); Pulse Ox 96% on R/A; Weight 73.94 kg as6 (R); Height 5 ft. 6 in. (R); Pain 6/10; 13:15 Body Mass Index 26.31 (73.94 kg, 167.64 cm) as6 13:15 Pain Scale: Adult as6 MDM: 13:20 Patient medically screened. ms3 14:37 Differential diagnosis: Cellulitis vs bursitis vs elbow pain. ms3 14:45 Data reviewed: vital signs, nurses notes, and as a result, I will discharge patient. I ms3 considered the following discharge prescriptions or medication management in the emergency department Medications were administered in the Emergency Department. See MAR. Counseling: I had a detailed discussion with the patient and/or guardian regarding the historical points, exam findings, and any diagnostic results supporting the discharge/admit diagnosis, the need for outpatient follow up, to return to the emergency department if symptoms worsen or persist or if there are any questions or concerns that arise at home. ED course: Discussed physical exam findings with patient. Patient to follow-up with primary care physician in 2 to 3 days. Patient understands and agrees with plan. All questions were answered. Return precautions discussed include worsening symptoms, or any other concerns.. Administered Medications: 13:25 Drug: Trimethoprim-Sulfamethoxazole PO (160 mg-800 mg (DS) 1 tablet PO once Route: PO; as6 13:25 Follow up: Response: No adverse reaction as6 Disposition Summary: 02/05/24 13:20 Discharge Ordered Notes: Location: Home ms3 Condition: Stable ms3 Diagnosis - Right elbow cellulitis ms3 Followup: ms3 - With: Home Rob DO - When: 2 - 3 days - Reason: Recheck today's complaints Discharge Instructions: - Discharge Summary Sheet ms3 - Cellulitis, Adult, Ppqf-dt-Bytf ms3 Forms: - Work release form iw - Medication Reconciliation Form ms3 - Antibiotic Education ms3 - Prescription Opioid Use ms3 - Patient Portal Instructions ms3 - Leadership Thank You Letter ms3 Prescriptions: - Bactrim DS 800-160 mg Oral Tablet - take 1 tablet ORAL route every 12 hours for 7 days; 14 tablet; Refills: 0, ms3 Product Selection Permitted Signatures: Kenny Florez DO DO ms3 Anshul Victor, RN RN as6
[2024-02-05 13:45] VITALS: BP 161/108; TEMP 97.1; O2SAT 96
== END 2024-02-05 13:27 | disposition home or self-care (01) ==
LOC: ER 13:11
DX: L03.113 Cellulitis of right upper limb (principal)
CPT/HCPCS: 99283

== ENCOUNTER 2024-02-17 11:43 | Emergency (ER) | payer SELFPAY ==
--- OUTSIDE RECORDS SUMMARY | 2024-02-17 11:50 | XMS REPORT | Continuity of Care Document ---
Author Name Unknown Address [address] [facility] [address] [place] [address] [facility] thconnect Address [address] [facility] [address] [place] [address] Care Team Providers Care Flexographic Press Set Up Operator Name Role Phone PCP, PATIENT DOES NOT HAVE A Primary Care Physic floyd Unavailable TANYA MUNIZ Attending Clinician Unavailab Tanya Estevez DO Attending Clinician [phone] Karlene Stephen Attending Clinician Unavailable Roshni Carr Attending Clinician Unavailable MARÍA HERNANDEZ Attending Clinician Unavailable MIMI SCHWARTZ MD Attending Clinician MARIUM ANDERS Attending Clinician Unavailable Daniel Coronado Attending Clinician Unavailable PROVIDER, ED TEMP Attending Clinician UnavailJM Tracy Attending Clinician UnavailMARÍA Trujillo Admitting Clinician Unavailable Payers Payer Name Policy Type Policy Number Effective Date Expiration Date Source MEDICAID PENDING NA [facility] JOVANNA CARE PENDING [facility] Problems Condition Name Condition Details Condition Category [...] s DA Active U 09-09 00:00: 00 [facility] NO KNOWN ALLERGIE S Drug Class Active [facility] Social History Social Habit Start Date Stop Date Quantity Comments Source Exposure to SARS-CoV-2 (event) 2022-03-24 00:00:00 2022-04-03 00:24:00 Not sure [facility] Sex Assigned At 1970 00:00:00 1970 00:00:00 [facility] Smoking Status Start Date Stop Date Source Tobacco smoking consumption unknown [facility] Never smoker [facility] (LUF/LIOR/SA) Medications Ordered Medication Name Filled Medication Name Start Date Stop Date Current Medication? Ordering Clinician Indication Dosage Frequency Signature (SIG) Comments Components Source NaCl 0.9% (NS) bolus infusion 500 mL 04-03 07:00: 00 04-03 07:04 :00 No 500mL at 999 mL/hr, 500 mL, IV Infusion, ONCE, 1 dose, On Thu04/03/22 at 0200, STAT [facility] maalox:diph enhydrAMINE :lidocaine 2 % viscous 1:1:1 (FIRST-MOUT HWASH BLM) oral suspension 15 mL 04-03 06:00: 00 04-03 06:12 :00 No 15mL 15 mL, Oral, ONCE, 1 dose, On Thu04/03/22 at 0100, Routine [facility] Vital Signs Vital Name Observation Time Observation Value Comments S ource Systolic blood pressure 2022-04-03 05:26:00 157 mm[Hg] [facility] Diastolic blood pressure 2022-04-03 05:26:00 100 mm[Hg] [facility] Heart rate 2022-04-03 05:26:00 71 /min [facility] Body temperature 2022-04-03 05:26:00 36.56 Sylvie [facility] Respiratory rate 2022-04-03 05:26:00 18 /min [facility] Body height 2022-04-03 05:26:[address] [facility] Body weight 2022-04-03 05:26:[address] [facility] BMI 2022-04-03 05:26:00 23.57 kg/m2 [facility] Oxygen saturation in Arterial blood by Pulse oximetry 2022-04-03 05:26:00 97 /min [facility] Body Temperature 2018-08-08 05:01:00 98.9 F [facility] (LUF/LIOR/SA) Pulse Rate 2018-08-08 05:01:00 87 /min [facility] S [facility] (LUF/LIOR/SA) Respiratory Rate 2018-08-08 05:01:00 18 /min [facility] (F/LIOR/SA) O2% BldC Oximetry 2018-08-08 05:01:00 98 % [facility] (LUF/LIOR/SA) BP Systolic 2018-08-08 05:01:00 160 mm[Hg] [facility] (LUF/LIOR/SA) BP Diastolic 2018-08-08 05:01:00 110 mm[Hg] [facility] (LUF/LIOR/SA) Height 2018-08-08 05:01:00 66 in [facility] S t [facility] (LUF/LIOR/SA) Weight Measured 2018-08-08 05:01:00 154.32 lbs [facility] (LUF/LIOR/SA) BMI (Body Mass Index) 2018-08-08 05:01:00 25 [facility] (LUF/LIOR/SA) Procedures Procedure Date / Time Performed Performing Clinicia n Source TROPONIN I 2022-04-03 06:11:00 Faulconer, Tanya Un [facility] COMP. METABOLIC PANEL (04870) 2022-04-03 06:11:00 Tanya Muniz [facility] CBC WITH DIFF 2022-04-03 06:11:00 Tanya Muniz [facility] NOTICE OF PRIVACY PRACTICES 2022-04-03 05:18:55 Doctor Unassigned, [place] [facility] CONSENT/REFUSAL FOR DIAGNOSIS AND TREATMENT 2022-04-03 05:18:14 Doctor Unassigned, [place] [facility] Encounters Start Date/Time End Date/Time Encounter Type Admission Type Attending [facility] Care Department Encounter ID Source 2022-04-03 00:20:00 2022-04-03 02:21:00 Emergency X TANYA MUNIZ [facility] ERT [id number] [facility] 2022-04-03 00:20:00 2022-04-03 02:21:00 Emergency Tanya Muniz [facility] [id number] [facility] 2021-06-16 02:24:00 2021-06-16 02:24:00 Emergency ER Karlene Stephen [facility] [id number] [facility] 2021-06-15 15:02:00 2021-06-15 15:02:[address] Karlene Stephen [facility] [id number] [facility] 2021-05-28 13:51:00 2021-05-28 16:10:00 Emergency ER Roshni Carr [facility] [id number] [facility] 2018-08-08 04:58:00 2018-08-08 11:31:00 Inpatient MARÍA CAICEDO [facility] N, [facility] [place] [address] [facility] [id number] [facility] Jairo garcia (ALL/KALINA V/SA) 2018-07-01 19:23:00 2018-07-01 20:28:00 Departed Emergency MIMI SCHWARTZ [facility] [id number] [address] [facility] Results Test Description Test Time Test Comments Results Result Co mments Source [facility]. METABOLIC PANEL (63097)2022-04-03 06:33:58* Test Item Value Reference Range Interpretation Comme nts NA (test code = 1111210533) 138 mmol/L 135-145 K (test code = 3227299305) 3.8 mmol/L 3.5-5 CL (test code = 9559590643) 106 mmol/L 98-108 CO2 TOTAL (test code = 2964054879) 26 mmol/L 23-31 AGAP (test code = 4500272009) 2-16 BUN (test code = 9614635419) 16 mg/dL 7-23 GLUCOSE (test code = 7953822148) 118 mg/dL 70-110 H CREATININE (test code = 2731702092) 0.96 mg/dL 0.6-1.25 TOTAL BILI (test code = 3007662201) 0.1 mg/dL 0.1-1.1 CALCIUM (test code = 1052802972) 8.5 mg/dL 8.6-10.6 L T PROTEIN (test code = 7957153541) 5.5 g/dL 6.3-8.2 L ALBUMIN (test code = 7915921949) 3.4 g/dL 3.5-5 L ALK PHOS (test code = 2488506676) 45 U/L 34-122 ALTv (test code = 1742-6) 16 U/L 5-50 AST(SGOT) (test code = 7380692986) 16 U/L 13-40 eGFR (test code = 8325640921) mL/min/1.73m2 APOLINAR (test code = APOLINAR) Association [...] imaging tests). Lab Interpretation (test code = 00120-2) Abnormal [facility] WITH [id number] 06:21:14* Test Item Value Reference Range Interpretation Comme nts WBC (test code = 6690-2) See_Comment [[employer]ance[employer]] The system which generated this result transmitted reference range: 4.20 - 10.70 10*3/?L. The reference range was not used to interpret this result as normal/abnormal. RBC (test code = 789-8) See_Comment [[employer]] The system which generated this result transmitted [...] 34.8 g/dL 31.2-35 RDW-SD (test code = 69402-4) 39.1 fL 38.5-51.6 RDW-CV (test code = 788-0) 11.9 % 12.1-15.4 L PLT (test code = 777-3) See_Comment [Automated messa ge] The system which generated this result transmitted reference range: 150 - 328 10*3/?L. The reference range was not used to interpret this result as normal/abnormal. MPV (test code = 88795-9) 9.6 fL 9.8-13 L NRBC/100 WBC (test code = 6172185178) See_Comment [Automated [employer] ssage] The system which generated this result transmitted reference range: 0.0 - 10.0 /100 WBCs. The reference range was not used to interpret this result as normal/abnormal. NRBC x10^3 (test code = 8923070016) See_Comment [Automated messa ge] The system which generated this result transmitted reference range: 10*3/?L. The reference range was not used to interpret this result as normal/abnormal. GRAN MAT (NEUT) % (test code = 770-8) 53.1 % IMM GRAN % (test code = 8168943440) 0.20 % LYMPH % (test code = 736-9) 33.2 % MONO % (test code = 5905-5) 7.6 % EOS % (test code = 713-8) 5.7 % BASO % (test code = 706-2) 0.2 % GRAN MAT x10^3(ANC) (test code = 6175321922) 3.37 10*3/uL 1.99-6.95 IMM GRAN x10^3 (test code = 5243541071) 0-0.06 LYMPH x10^3 (test code = 731-0) 2.10 10*3/uL 1.09-3.23 MONO x10^3 (test code = 742-7) 0.48 10*3/uL 0.36-1.02 EOS x10^3 (test code = 711-2) 0.36 10*3/uL 0.06-0.53 BASO x10^3 (test code = 704-7) 0.01-0.09 Lab Interpretation (test code = 58990-3) [facility]normal [facility] 16:05:00* Test Item Value Reference Range Interpretation Comme nts Chemistry (test code = CKMBM-T) 2.2 ng/mL 0-6.6 N Gpnzazqii0010-63-80 16:04:00* Test Item Value Reference Range Interpretation [...] code = ALT) 13 U/L 8-55 N Mhbyfkrkr4381-71-53 16:04:00* Test Item Value Reference Range Interpretation Comme nts Chemistry (test code = CK) 95 U/L 30-200 N Rdlzuygsy4332-69-96 16:04:00* Test Item Value Reference Range [facility]ation [facility] (test code = TROPI-R) Less than 0.010 ng/mL < 0.028 * Reference Range 0.00 - 0.028 ng/mL Negative 0.029 - 0.29 ng/mL Indeterminate Greater or Equal to 0.3 ng/mL Strongly suggests IA Mvrerskgtp6762-57-46 15:47:00* Test Item Value Reference Range Interpretation Com[facility] Hematology (test code = WBCT) 10.0 [...] mg/dl Toxicity >30 mg/dl Lethal >70 mg/dl [facility] 06:42:00* Test Item Value Reference Range [...] assessment and management of chronic kidney failure. [facility] CenterACETAMINOPHEN (Tyenol)2018-08-08 06:41:00* Test Item Value Reference Range Interpretation Comme nts Acetaminophen (test code = ACET) <2 ug/ml 10-25 L [facility] CenterALCOHOL, KDYUX1872-23-40 06:41:00* Test Item Value Reference Range Interpretation Comme nts Alcohol % (test code = ALCPC) 0 % 0.00-0.00 N Ethanol % 0.00 - 0.10 Sub-clinical 0.11 - 0.20 Emotional Instability 0.21 - 0.30 Confusion 0.31 - 0.40 Stupor 0.41 - 0.50 Coma >.50 Fatal [facility] CenterCBC WITH AUTO [id number] 06:13:00* Test Item Value Reference Range Interpretation [...] (test code = IG%) 0.4 % 0.0-0.4 [facility] CenterYlqgmg-EhqatcsvlpZzcbfqpaoax1017-81-11 08:45:00* Test Item Value Reference Range Interpretation [...] Anticoagulant? NONEMedical Necessity SUSPECT COAGULOPATHYAnticoagulant? NONEMedical Necessity: LHNBTNGARvtqopztnua5701-09-81 08:45:00* Test Item Value Reference Range Interpretation Comme [facility] Coagulation (test code = PTT) 27.2 SEC 22.9-36.1 N Anticoagulant? NONEMedical Necessity SUSPECT COAGULOPATHYAnticoagulant? NONEMedical Necessity: KPBFDLPTZxgwxolmp9151-14-42 08:44:00* Test Item Value Reference Range Interpretation Comme [facility] Chemistry (test code = CKMBM-T) 2.9 ng/mL 0-6.6 N Chemistry (test code = TROPI-T) 0.015 ng/mL < 0.028 Reference Range 0.00 - 0.028 ng/mL Negative 0.029 - 0.29 ng/mL Indeterminate Greater or Equal to 0.3 ng/mL Strongly suggests IA Kvpabxmwg2572-82-28 08:40:00* Test Item Value Reference Range Interpretation Comme [facility] Chemistry (test code = NA-T) 140 [...] code = ALT) 17 U/L 8-55 N Dpcpzddfl4403-83-65 08:40:00* Test Item Value Reference Range Interpretation Comme nts Chemistry (test code = CK) 119 U/L 30-200 N Nlfuvlwhqi6204-33-43 08:23:00* Test Item Value Reference Range Interpretation [...] code = BASO#) 0.1 thou/uL 0.0-0.2 N Tellozpcl2482-09-82 19:03:00* Test Item Value Reference Range Interpretation [...] code = ALT) 16 U/L 8-55 N Cxvvgfjomt2718-81-67 18:46:00* Test Item Value Reference Range Interpretation [...] code = BASO#) 0.1 thou/uL 0.0-0.2 N Chlvjfvkny4785-00-08 18:45:00* Test Item Value Reference Range Interpretation [...] Negative Negative Comment clear yellowUrine Source: Urine EuubsmJtnoieiuzk4090-04-92 18:45:00* Test Item Value Reference Range Interpretation Comme nts Urinalysis (test code = UARBC) 0-3 HPF 0-3 Urinalysis (test code = UAWBC) 4-6 HPF 0-3 A Urinalysis (test code = UASQUAM) 0-3 HPF 0-3 Urinalysis (test code = UABAC) 1+ HPF None Seen A Comment clear yellowUrine Source: Urine SdbyacTmdyvidjbz2811-69-03 20:56:00* Test Item Value Reference Range Interpretation [...] CAST LPF 0-3 Hyaline Urine Source: Urine XlckttNilkocfma3365-20-33 19:22:00* Test Item Value Reference Range Interpretation Comme [facility] Chemistry (test code = TROPI-T) Less than 0.010 ng/mL < 0.028 * Reference Range 0.00 - 0.028 ng/mL Negative 0.029 - 0.29 ng/mL Indeterminate Greater or Equal to 0.3 ng/mL Strongly suggests IA Comment Pls draw at 7 pm.Ejutcmujmci3534-24-42 16:36:00* Test Item Value Reference Range Interpretation [...] Anticoagulant? NONEMedical Necessity SUSPECT COAGULOPATHYAnticoagulant? NONEMedical Necessity: MCBOSRMIScefbwhlivd9218-13-81 16:36:00* Test Item Value Reference Range Interpretation Comme [facility] Coagulation (test code = PTT) 26.2 SEC 22.9-36.1 N Anticoagulant? NONEMedical Necessity SUSPECT COAGULOPATHYAnticoagulant? NONEMedical Necessity: TBXGPNILOipvlgnwn8402-83-49 16:34:00* Test Item Value Reference Range Interpretation Comme [facility] Chemistry (test code = CKMBM-T) 2.5 ng/mL 0-6.6 N Chemistry (test code = TROPI-T) Less than 0.010 ng/mL < 0.028 * Reference Range 0.00 - 0.028 ng/mL Negative 0.029 - 0.29 ng/mL Indeterminate Greater or Equal to 0.3 ng/mL Strongly suggests IA Tnfoutooi2069-57-25 16:31:00* Test Item Value Reference Range Interpretation Comme [facility] Chemistry (test code = NA-T) 142 [...] code = ALT) 17 U/L 8-55 N Vhhmyanorv9744-76-59 16:13:00* Test Item Value Reference Range Interpretation [...] N [facility]R [facility] 1970 [facility]: KERRY QUIROZ [address] Phys: [place] [address] : 1970 Age: 50 SEX:M [phone] Exam Date: 06/15/21 Status: REG ER Acct: [id number] Loc: [facility] Pt Unit #: [id number] Report #: [id number] CC: Karlene Stephen MD IMAGING SERVICES REPORT Order # Category/Exam [id number] RAD/XR Chest 1 View Portable ([id number]): . Results XR Chest 1 View Portable History: Chest pain Comparison: None. Findings: Lungs are clear. No pneumothorax or effusion. Cardiac silhouette and mediastinal contoursare within normal limits. Impression: No acute intrathoracic abnormality. Reported By: KARLENE HARP Electronically Signed Date/Time: 06/15/211550 Technologist: Dictated Date/Time: 06/15/21 1551 Transcribed Date/Time: Notes Date/Time Note Provider Source 2018-08-08 11:31:00 [id number]+[id number] [id number]/[id number]: 31:00Discharge Instructions 2Discharge Diagnosismethamphetamine abuse / bipolar [...] education providedDischarge InstructionsDischarge InstructionsDischarge Instructions 2018-08-08 (Encounter: [id number] for patient careSTLMTexas Health Allen ([facility]/LIOR/SA)3841-63-93J01:39:[address] [facility] ([facility]/LIOR/SA)
[2024-02-17 12:33] LABS: Absolute Basophils 0.1 K/uL (0-0.5); Absolute Eosinophils 0.6 K/uL (0-0.5); Absolute Lymphocytes (CBC) 1.7 K/uL (0.7-4.9); Absolute Monocytes 0.6 K/uL (0.1-1.3); Absolute Neutrophil 5.4 K/uL (1.8-8.0); Basophils % 1.3 % (0-1.3); Eosinophils % 7.5 % (0-4.4); Hematocrit 45.7 % (39.6-49.0); Hemoglobin 15.4 g/dL (13.6-17.9); Lymphocytes % 20.1 % (15.3-44.8); MCH 30.7 pg (27.0-35.0); MCHC 33.6 g/dL (32.0-36.0); MCV 91.4 fL (80-100); MPV 7.7 fL (7.6-11.3); Monocytes % 6.9 % (3.3-12.3); Neutrophils % 64.2 % (41.7-73.7); Platelets 342 thou/uL (152-406); Red Cell Distribution Width 13.2 % (12.1-15.2)
--- NOTE | 2024-02-17 12:33 | RAD REPORT ---
EXAM DESCRIPTION: CT - Head Brain Wo Cont - 02/17/2024 12:27 pm CLINICAL HISTORY: dizziness, blurry vision Headache drowsiness, blurry vision COMPARISON: Head angio dated 02/17/2024 TECHNIQUE: All CT scans are performed using dose optimization technique as appropriate and may inclu de automated exposure control or mA/KV adjustment according to patient size. FINDINGS: No intracranial hemorrhage, hydrocephalus or extra-axial fluid collection.No areas of brai n edema or evidence of midline shift. Small volume of fluid is seen in the left maxillary antrum and left nasal airway. The calvarium is in tact. IMPRESSION: No acute intracranial abnormality.
--- NOTE | 2024-02-17 12:36 | RAD REPORT ---
EXAM DESCRIPTION: CT - Head angio - 02/17/2024 12:27 pm CLINICAL HISTORY: dizzy, blurry vision, neck pain COMPARISON: Head Brain Wo Cont dated 02/17/2024; Neck Angio dated 02/17/2024 TECHNIQUE: CT angiography of the head was performed with MIPs. All CT scans are performed using dose optimization technique as appropriate and may include automated exposure control or mA/KV adjustment according to patient size. FINDINGS: No evidence of large vessel occlusion. No evidence of aneurysm is detected. No flow-limiti ng stenosis or vascular malformation identified. Antegrade flow is seen in the vertebral arteries. The vertebral arteries are codominant. The visualized dural venous sinuses are patent. IMPRESSION: No significant flow abnormality is detected.
[2024-02-17 12:37] LABS: PT Prothrombin Time 10.9 SECONDS (9.5-12.5); PTT, Activated Partial Thromb 32.3 SECONDS (24.3-36.9); Protime INR 0.99
--- NOTE | 2024-02-17 12:38 | RAD REPORT ---
EXAM DESCRIPTION: CT - Neck Angio - 02/17/2024 12:27 pm CLINICAL HISTORY: dizzy, neck pain, blurry vision, previous CVA Headache, drowsiness COMPARISON: No comparisons TECHNIQUE: CT angiography of the neck vessels was performed with MIPs. All CT scans are performed using dose optimization technique as appropriate and may include automated exposure control or mA/KV adjustment according to patient size. FINDINGS: A left aortic arch is identified with normal three vessel configuration of the great vesse ls. No significant flow abnormality is seen of the common carotid bilaterally. No significant stenosis is identified involving the cervical segments of both internal carotid arteri es. Normal flow is seen within both vertebral arteries. IMPRESSION: No significant flow abnormality of the neck vessels is identified. NASCET criteria used. Mild 0-49% stenosis Moderate 50-69% stenosis Severe 70-99% stenosis
[2024-02-17] MEDS ORDERED: ACETAMINOPHEN 500 MG TAB ONE (12:39)
[2024-02-17 12:46] LABS: Anion Gap 8.5 mEq/L (5.0-15.0); Potassium 3.5 mEq/L (3.5-5.1); Troponin High Sensitivity 5.4 pg/mL (<58.9)
--- NOTE | 2024-02-17 13:20 | ER ---
[facility]'s Notes [facility]: Jasmin Haley Age: 53 yrs Sex: Male : 1970 Arrival Date: 02/17/2024 Time: 11:43 Bed 7 Private MD: Diagnosis: Essential (primary) hypertension;Headache;Dizziness;Neck pain Presentation: 02/16 11:51 Chief complaint: Patient states: "For the past 3 days, I've had dizziness, blurred mb9 vision, and high BP. I've been out of my BP medicine for 1 month now.". Coronavirus screen: Vaccine status: Patient reports being unvaccinated. Ebola Screen: No symptoms or risks identified at this time. Initial Sepsis Screen: Does the patient meet any 2 criteria? No. Patient's initial sepsis screen is negative. Does the patient have a suspected source of infection? No. Patient's initial sepsis screen is negative. Risk Assessment: Do you want to hurt yourself or someone else? Patient reports no desire to harm self or others. Onset of symptoms was February 17, 2024. 11:51 Method Of Arrival: Ambulatory mb9 11:51 Acuity: GISELA 3 mb9 Triage Assessment: 11:52 General: Appears in no apparent distress. Behavior is calm, cooperative. Pain: Denies mb9 pain. Neuro: Reports blurred vision dizziness. Neuro: Level of Consciousness is awake, alert, obeys commands, Oriented to person, place, time, situation, Appropriate for age. Cardiovascular: Denies chest pain, shortness of breath. Respiratory: Airway is patent Respiratory effort is even, unlabored, Respiratory pattern is regular, symmetrical. Historical: - Allergies: 11:52 No Known Allergies; mb9 - Home Meds: 11:45 prazosin 1 mg Oral cap 1 cap nightly [Active]; lithium carbonate 300 mg Oral tab 1 tab mb9 2 times per day [Active]; - PMHx: 11:45 bipolar/schizo; CVA; Hypertension; mb9 - PSHx: 11:52 None; mb9 - Immunization history:: Adult Immunizations up to date. - Infectious Disease History:: Denies. - Social history:: Smoking status: Patient reports the use of cigarette tobacco products, smokes one pack cigarettes per day. Screenin:00 [facility] ED Fall Risk Assessment (Adult) History of falling in the last 3 months, ko1 including since admission No falls in past 3 months (0 pts) Confusion or Disorientation No (0 pts) Intoxicated or Sedated No (0 pts) Impaired Gait No (0 pts) Mobility Assist Device Used No (0 pt) Altered Elimination No (0 pt) Score/Fall Risk Level 0 - 2 = Low Risk Oriented to surroundings, Maintained a safe environment, Educated pt \\T\\ family on fall prevention, incl call for assistance when getting out of bed, Assessed \\T\\ reinforced patient's understanding of fall precautions, Provided non-skid footwear, Hourly rounding (assess needs \\T\\ fall precautionary measures) done. Abuse screen: Denies threats or abuse. Denies injuries from another. Nutritional screening: No deficits noted. Tuberculosis screening: No symptoms or risk factors identified. Assessment: 12:00 General: Appears in no apparent distress. unkempt, Behavior is cooperative, appropriate ko1 for age. Pain: Denies pain. Neuro: Reports dizziness, headache. Cardiovascular: No deficits noted. Respiratory: No deficits noted. GI: No deficits noted. : No deficits noted. EENT: No deficits noted. Derm: No deficits noted. Musculoskeletal: No deficits noted. Vital Signs: 11:51 BP 181 / 95; Pulse 79; Resp 18; Temp 98.2(T); Pulse Ox 100% on R/A; Weight 75.3 kg; mb9 Height 5 ft. 6 in. ; 12:00 BP 141 / 91; Pulse 75; Resp 16; Pulse Ox 99% ; ko1 11:51 Body Mass Index 26.79 (75.30 kg, 167.64 cm) mb9 ED Course: 11:44 Patient arrived in ED. im 11:45 Kenny Florez DO is Attending Physician. ms3 11:52 Triage completed. mb9 11:52 Arm band placed on. mb9 12:00 Patient has correct armband on for positive identification. Bed in low position. Call ko1 light in reach. Side rails up X 1. Provided Education on: labs/call light. Client placed on continuous cardiac and pulse oximetry monitoring. NIBP monitoring applied. vacuum cleaner operator on. Door closed. Noise minimized. Lights dimmed. Warm blanket given. Pillow given. 12:00 No provider procedures requiring assistance completed. ko1 12:00 Initial lab(s) drawn, by me, sent to lab. Inserted saline lock: 20 gauge in right ko1 antecubital area, using aseptic technique. Blood collected. 12:29 CT Head Brain wo Cont In Process Unspecified. EDMS 12:29 CT Head Angio In Process Unspecified. EDMS 12:29 CT Neck Angio In Process Unspecified. EDMS 13:19 Home Rob DO is Referral Physician. ms3 13:21 Isa Ly, RN is Primary Nurse. ko1 13:24 IV discontinued, intact, bleeding controlled, No redness/swelling at site. Pressure ko1 dressing applied. Administered Medications: 12:45 Drug: Acetaminophen PO 1000 mg PO once Route: PO; ld1 13:29 Follow up: Response: No adverse reaction ko1 Medication: 12:00 VIS not applicable for this client. ko1 Outcome: 13:20 Discharge ordered by MD. ms3 13:25 Discharged to home ambulatory, with family, ko1 13:25 Condition: stable 13:25 Discharge instructions given to patient, Instructed on discharge instructions, follow up and referral plans. medication usage, Demonstrated understanding of instructions, follow-up care, medications, Prescriptions given X 1, 13:29 Patient left the ED. ko1 Signatures: Dispatcher [employer] EDMS Kenny Florez DO DO ms3 Sussy Florez RN RN ld1 Isa Ly, RN RN ko1 Mikaela Mccann RN RN christen9 Aurea Lemon Corrections: (The following items were deleted from the chart) 11:52 11:45 Allergies: PENICILLINS; shannon mb9
--- NOTE | 2024-02-17 13:20 | EDPHYS ---
Physician Documentation [facility] Name: Jasmin Haley Age: 53 yrs Sex: Male : 1970 Arrival Date: 02/17/2024 Time: 11:43 Bed 7 Private MD: ED Physician Kenny Florez HPI: 02/16 12:05 This 53 yrs old Male presents to ER via Ambulatory with complaints of High Blood ms3 Pressure, Blurred Vision. 12:05 53-year-old male with past medical history of bipolar/schizophrenia, CVA, hypertension ms3 presents to the emergency department for 4 days of elevated blood pressure with intermittent episodes of dizziness and blurred vision. Patient states he has been off his blood pressure medications for 1 month. Patient denies chest pain or shortness of breath. Patient endorses bilateral neck pain.. Historical: - Allergies: 11:52 No Known Allergies; mb9 - Home Meds: 11:45 prazosin 1 mg Oral cap 1 cap nightly [Active]; lithium carbonate 300 mg Oral tab 1 tab mb9 2 times per day [Active]; - PMHx: 11:45 bipolar/schizo; CVA; Hypertension; mb9 - PSHx: 11:52 None; mb9 - Immunization history:: Adult Immunizations up to date. - Infectious Disease History:: Denies. - Social history:: Smoking status: Patient reports the use of cigarette tobacco products, smokes one pack cigarettes per day. ROS: 12:05 Constitutional: Negative for fever, and chills. Cardiovascular: Negative for chest ms3 pain, and palpitations. Respiratory: Negative for shortness of breath, cough, wheezing, and pleuritic chest pain, Abdomen/GI: Negative for abdominal pain, nausea, vomiting, diarrhea, and constipation, 12:05 Neuro: Positive for dizziness, Exam: 12:05 Constitutional: This is a well developed, well nourished patient who is awake, alert, ms3 and in no acute distress. Chest/axilla: Normal chest wall appearance and motion. Nontender with no deformity. Cardiovascular: Regular rate and rhythm with a normal S1 and S2. No gallops, murmurs, or rubs. Normal PMI, no JVD. No pulse deficits. Respiratory: Lungs have equal breath sounds bilaterally, clear to auscultation and percussion. No rales, rhonchi or wheezes noted. No increased work of breathing, no retractions or nasal flaring. Abdomen/GI: Soft, non-tender, with normal bowel sounds. No distension or tympany. No guarding or rebound. No evidence of tenderness throughout. Skin: Warm, dry with normal turgor. Normal color with no rashes, no lesions, and no evidence of cellulitis. MS/ Extremity: Pulses equal, no cyanosis. Neurovascular intact. Full, normal range of motion. 12:05 Neuro: Orientation: is normal, to person, place, time \T\ situation. Mentation: is normal, Memory: is normal, Cranial nerves: CN I not tested, CN II- XII are normal as tested, Cerebellar function: is grossly normal, normal finger to nose testing, Motor: is normal, Sensation: is normal, Gait: is steady, at a normal pace, 12:10 ECG was reviewed by the Attending Physician. ms3 Vital Signs: 11:51 BP 181 / 95; Pulse 79; Resp 18; Temp 98.2(T); Pulse Ox 100% on R/A; Weight 75.3 kg; mb9 Height 5 ft. 6 in. ; 12:00 BP 141 / 91; Pulse 75; Resp 16; Pulse Ox 99% ; ko1 11:51 Body Mass Index 26.79 (75.30 kg, 167.64 cm) mb9 MDM: 11:52 Patient medically screened. ms3 12:05 Differential diagnosis: hypertensive crisis, intracerebral hemorrhage, Vertebral artery ms3 dissection. 13:20 Data reviewed: vital signs, nurses notes, and as a result, I will discharge patient. I ms3 considered the following discharge prescriptions or medication management in the emergency department Medications were administered in the Emergency Department. See MAR. Independent interpretation of the following test(s) in the Emergency Department CT Scan: My interpretation is CT Head without contrast images reviewed do not reveal ICH. Counseling: I had a detailed discussion with the patient and/or guardian regarding the historical points, exam findings, and any diagnostic results supporting the discharge/admit diagnosis, lab results, radiology results, to return to the emergency department if symptoms worsen or persist or if there are any questions or concerns that arise at home. Special discussion: I discussed with the patient/guardian in detail that at this point there is no indication for admission to the hospital. It is understood, however, that if the symptoms persist or worsen the patient needs to return immediately for re-evaluation. ED course: Discussed labs, ekg and imaging with patient. Patient to follow up with PMD as discussed. Patient given Rx for Amlodipine 10 mg daily. All question were answered. Return precautions discussed to include worsening symptoms, or any other concerns. On re-evaluation patient is asymptomatic, in nad, non-toxic, ambulatory in ED.. 02/16 11:52 Order name: Basic Metabolic Panel; Complete Time: 12:53 ms3 02/16 11:52 Order name: CBC with Diff; Complete Time: 12:53 ms3 02/16 11:52 Order name: High Sensitivity Troponin; Complete Time: 12:53 ms3 02/16 11:52 Order name: Protime (+inr); Complete Time: 12:53 ms3 02/16 11:52 Order name: Ptt, Activated; Complete Time: 12:53 ms3 02/16 11:53 Order name: CT Head Brain wo Cont; Complete Time: 12:53 ms3 02/16 11:53 Order name: CT Head Angio; Complete Time: 12:53 ms3 02/16 11:53 Order name: CT Neck Angio; Complete Time: 12:53 ms3 02/16 11:52 Order name: EKG; Complete Time: 11:52 ms3 02/16 11:52 Order name: Accucheck; Complete Time: 12:45 ms3 02/16 11:52 Order name: Cardiac monitoring; Complete Time: 11:56 ms3 02/16 11:52 Order name: EKG - Nurse/Tech; Complete Time: 11:56 ms3 02/16 11:52 Order name: IV Saline Lock; Complete Time: 12:38 ms3 02/16 11:52 Order name: Labs collected and sent; Complete Time: 12:38 ms3 02/16 11:52 Order name: NPO; Complete Time: 11:56 ms3 02/16 11:52 Order name: O2 Per Protocol; Complete Time: 11:56 ms3 02/16 11:52 Order name: O2 Sat Monitoring; Complete Time: 11:56 ms3 02/16 11:52 Order name: Stroke Swallow Screen; Complete Time: 12:45 ms3 EC:10 Rate is 83 beats/min. Rhythm is regular. QRS Emmet is Normal. CO interval is normal. QRS ms3 interval is normal. QT interval is normal. Clinical impression: Normal ECG. Interpreted by me. Reviewed by me. Administered Medications: 12:45 Drug: Acetaminophen PO 1000 mg PO once Route: PO; ld1 13:29 Follow up: Response: No adverse reaction ko1 Disposition Summary: 02/17/24 13:20 Discharge Ordered Notes: Location: Home ms3 Condition: Stable ms3 Diagnosis - Essential (primary) hypertension ms3 - Headache ms3 - Dizziness ms3 - Neck pain ms3 Followup: ms3 - With: Home Rob DO - When: 2 - 3 days - Reason: Recheck today's complaints Discharge Instructions: - Discharge Summary Sheet ms3 - General Headache Without Cause ms3 - Hypertension, Adult ms3 - DASH Eating Plan ms3 Forms: - Medication Reconciliation Form ms3 - Antibiotic Education ms3 - Prescription Opioid Use ms3 - Patient Portal Instructions ms3 - Leadership Thank You Letter ms3 - Work release form ko1 Prescriptions: - amlodipine 10 mg Oral tablet - take 1 tablet ORAL route daily; 20 tablet; Refills: 0, Product Selection ms3 Permitted Signatures: Dispatcher [employer] EDMS Kenny Florez DO DO ms3 Sussy Florez RN RN ld1 Mikaela Mccann RN RN mb9 Isa Ly RN ko1 Corrections: (The following items were deleted from the chart) 11:52 11:45 Allergies: PENICILLINS; mb9 mb9 11:52 11:52 BASIC METABOLIC PANEL+C.LAB.BRZ ordered. EDMS EDMS 11:52 11:52 CBC+H.LAB.BRZ ordered. EDMS EDMS 11:52 11:52 Troponin High Sensitivity+C.LAB.BRZ ordered. EDMS EDMS 11:52 11:52 PROTIME (+INR)+COAG.LAB.BRZ ordered. EDMS EDMS 11:52 11:52 PTT, ACTIVATED+COAG.LAB.BRZ ordered. EDMS EDMS 11:53 11:53 Head Brain Wo Cont+CT.RAD.BRZ ordered. EDMS EDMS 11:53 11:53 Head Angio+CT.RAD.BRZ ordered. EDMS EDMS 11:53 11:53 Neck Angio+CT.RAD.BRZ ordered. EDMS EDMS
[2024-02-17 13:41] VITALS: BP 141/91; TEMP 98.2; O2SAT 99
== END 2024-02-17 13:29 | disposition home or self-care (01) ==
LOC: ER 11:43
DX: I10 Essential (primary) hypertension (principal); R51.9 Headache, unspecified; R42 Dizziness and giddiness; M54.2 Cervicalgia
CPT/HCPCS: 36415; 70450; 70496; 70498; 80048; 82565; 84484; 85025; 85610; 85730; Q9967

== ENCOUNTER 2024-02-21 21:17 | Emergency (ER) | payer SELFPAY ==
--- OUTSIDE RECORDS SUMMARY | 2024-02-21 21:21 | XMS REPORT | Continuity of Care Document ---
Author Name Unknown Address [address] [place] [address] [facility] thconnect Address [address] [place] [address] Care Team Providers Care Network Systems Analyst Name Role Phone PCP, PATIENT DOES NOT HAVE A Primary Care Physic floyd Unavailable TANYA MUNIZ Attending Clinician Unavailab Tanya Estevez DO Attending Clinician Karlene Stephen Attending Clinician Unavailable Roshni Carr Attending Clinician Unavailable MARÍA HERNANDEZ Attending Clinician Unavailable MIMI SCHWARTZ MD Attending Clinician MARIUM ANDERS Attending Clinician Unavailable Daniel Coronado Attending Clinician Unavailable PROVIDER, ED TEMP Attending Clinician UnavailJM Tracy Attending Clinician UnavailMARÍA Trujillo Admitting Clinician Unavailable Payers Payer Name Policy Type Policy Number Effective Date Expiration Date Source MEDICAID PENDING NA [facility] JOVANNA CARE PENDING NA [facility] Problems Condition Name Condition Details Condition [...] 09-09 00:00: 00 [facility] NO KNOWN ALLERGIE S Drug Class Active [facility] Social History Social Habit Start Date Stop Date Quantity Comments Source Exposure to SARS-CoV-2 (event) 2022-03-24 00:00:00 2022-04-03 00:24:00 Not sure [facility] Sex Assigned At 1970 00:00:00 1970 00:00:00 [facility] Smoking Status Start Date Stop Date Source Tobacco smoking consumption unknown [facility] Never smoker [facility] (LUF/LIOR/SA) Medications Ordered Medication Name Filled Medication Name Start Date Stop Date Current Medication? Ordering Clinician Indication Dosage Frequency Signature (SIG) Comments Components Source NaCl 0.9% (NS) bolus infusion 500 mL 04-03 07:00: 00 04-03 07:04 :00 No 500mL at 999 mL/hr, 500 mL, IV Infusion, ONCE, 1 dose, On Thu04/03/22 at 0200, STAT [facility] maalox:diph enhydrAMINE :lidocaine 2 % viscous 1:1:1 ([facility]) oral suspension 15 mL 04-03 06:00: 00 04-03 06:12 :00 No 15mL 15 mL, Oral, ONCE, 1 dose, On Thu04/03/22 at 0100, Routine [facility] Vital Signs Vital Name Observation Time Observation Value Comments S anna Systolic blood pressure 2022-04-03 05:26:00 157 mm[facility]Hg[facility] Diastolic blood pressure 2022-04-03 05:26:00 100 mm[Hg] [facility] Heart rate 2022-04-03 05:26:00 71 /min [facility] temperature 2022-04-03 05:26:00 36.56 Sylvie [facility] Respiratory rate 2022-04-03 05:26:00 18 /min [facility] Body height 2022-04-03 05:26:00 167.6 cm [facility] Body weight 2022-04-03 05:26:00 66.225 kg [facility] BMI 2022-04-03 05:26:00 23.57 kg/m2 [facility] Oxygen saturation in Arterial blood by Pulse oximetry 2022-04-03 05:26:00 97 /min [facility] Body Temperature 2018-08-08 05:01:00 98.9 F [facility] (LUF/LIOR/SA) Pulse Rate 2018-08-08 05:01:00 87 /min [facility] (LUF/LIOR/SA) Respiratory Rate 2018-08-08 05:01:00 18 /min [facility] (F/LIOR/SA) O2% BldC Oximetry 2018-08-08 05:01:00 98 % [facility] (LUF/LIOR/SA) BP Systolic 2018-08-08 05:01:00 160 mm[Hg] [facility] (LUF/LIOR/SA) BP Diastolic 2018-08-08 05:01:00 110 mm[Hg] [facility] (F/LIOR/SA) Height 2018-08-08 05:01:00 66 in [facility] (LUF/LIOR/SA) Weight Measured 2018-08-08 05:01:00 154.32 lbs [facility] (LUF/LIOR/SA) BMI (Body Mass Index) 2018-08-08 05:01:00 25 [facility] ([facility]/LIOR/SA) Procedures Procedure Date / Time Performed Performing Clinicia n Source TROPONIN I 2022-04-03 06:11:[address] [facility] COMP. METABOLIC PANEL (66537) 2022-04-03 06:11:00 Faulconer, Tanya [facility] CBC WITH DIFF 2022-04-03 06:11:[address] [facility] NOTICE OF PRIVACY PRACTICES 2022-04-03 05:18:55 Doctor Unassigned, [place] [facility] CONSENT/REFUSAL FOR DIAGNOSIS AND TREATMENT 2022-04-03 05:18:14 Doctor Unassigned, [place] [facility] Encounters Start Date/Time End Date/Time Encounter Type Admission Type Attending [facility] Care Department Encounter ID Source 2022-04-03 00:20:00 2022-04-03 02:21:00 Emergency X ALTONMASONJEREMIAH TANYA [facility] ERT [id number] [facility] 2022-04-03 00:20:00 2022-04-03 02:21:00 Emergency Tanya Muniz [facility] [id number] [facility] 2021-06-16 02:24:00 2021-06-16 02:24:00 Emergency ER Karlene Stephen [facility] [id number] [facility] 2021-06-15 15:02:00 2021-06-15 15:02:00 Emergency ER Karlene Stephen [facility] [id number] [facility] 2021-05-28 13:51:00 2021-05-28 16:10:00 Emergency ER Roshni Carr [facility] [id number] [facility] 2018-08-08 04:58:00 2018-08-08 11:31:00 Inpatient MARÍA CAICEDO [facility], [address], [facility], [place], [place] [address] [facility]LY [facility] [id number] [facility] Jairo l (ALL/KALINA Nava/SA) 2018-07-01 19:23:00 2018-07-01 20:28:00 Departed Emergency MIMI SCHWARTZ [facility] [id number] [address] [facility] Results Test Description Test Time Test Comments Results Result Co mments Source [facility]. METABOLIC PANEL (16011)2022-04-03 06:33:58* Test Item Value Reference Range Interpretation Comme nts NA (test code = 8109685949) 138 mmol/L 135-145 K (test code = 7393395667) 3.8 mmol/L 3.5-5 CL (test code = 8101368530) 106 mmol/L 98-108 CO2 TOTAL (test code = 7326021006) 26 mmol/L 23-31 AGAP (test code = 6413903730) 2-16 BUN (test code = 3727935595) 16 mg/dL 7-23 GLUCOSE (test code = 1375790940) 118 mg/dL 70-110 H CREATININE (test code = 8894071793) 0.96 mg/dL 0.6-1.25 TOTAL BILI (test code = 5510986779) 0.1 mg/dL 0.1-1.1 CALCIUM (test code = 3040961594) 8.5 mg/dL 8.6-10.6 L T PROTEIN (test code = 9782999819) 5.5 g/dL 6.3-8.2 L ALBUMIN (test code = 3363372387) 3.4 g/dL 3.5-5 L ALK PHOS (test code = 2844399483) 45 U/L 34-122 ALTv (test code = 1742-6) 16 U/L 5-50 AST(SGOT) (test code = 4649796080) 16 U/L 13-40 eGFR (test code = 6200982302) mL/min/1.73m2 APOLINAR (test code = APOLINAR) Association [...] imaging tests). Lab Interpretation (test code = 67077-9) Abnormal [facility] WITH OPNQ6127-02-14 06:21:14* Test Item Value Reference Range Interpretation Comme nts WBC (test code = 6690-2) See_Comment [Automated [employer]] The system which generated this result transmitted reference range: 4.20 - 10.70 10*3/?L. The reference range was not used to interpret this result as normal/abnormal. RBC (test code = 789-8) See_Comment [[employer]] The system which generated this result transmitted [...] 34.8 g/dL 31.2-35 RDW-SD (test code = 63512-8) 39.1 fL 38.5-51.6 RDW-CV (test code = 788-0) 11.9 % 12.1-15.4 L PLT (test code = 777-3) See_Comment [Automated messa ge] The system which generated this result transmitted reference range: 150 - 328 10*3/?L. The reference range was not used to interpret this result as normal/abnormal. MPV (test code = 08333-2) 9.6 fL 9.8-13 L NRBC/100 WBC (test code = 9811395716) See_Comment [Automated [employer] ssage] The system which generated this result transmitted reference range: 0.0 - 10.0 /100 WBCs. The reference range was not used to interpret this result as normal/abnormal. NRBC x10^3 (test code = 0457061994) See_Comment [Automated messa ge] The system which generated this result transmitted reference range: 10*3/?L. The reference range was not used to interpret this result as normal/abnormal. GRAN MAT (NEUT) % (test code = 770-8) 53.1 % IMM GRAN % (test code = 9241352792) 0.20 % LYMPH % (test code = 736-9) 33.2 % MONO % (test code = 5905-5) 7.6 % EOS % (test code = 713-8) 5.7 % BASO % (test code = 706-2) 0.2 % GRAN MAT x10^3(ANC) (test code = 6989663157) 3.37 10*3/uL 1.99-6.95 IMM GRAN x10^3 (test code = 1212305338) 0-0.06 LYMPH x10^3 (test code = 731-0) 2.10 10*3/uL 1.09-3.23 MONO x10^3 (test code = 742-7) 0.48 10*3/uL 0.36-1.02 EOS x10^3 (test code = 711-2) 0.36 10*3/uL 0.06-0.53 BASO x10^3 (test code = 704-7) 0.01-0.09 Lab Interpretation (test code = 21863-5) [facility]* Test Item Value Reference Range Interpretation Comme nts Chemistry (test code = CKMBM-T) 2.2 ng/mL 0-6.6 N Rmsorfexc2305-20-96 16:04:00* Test Item Value Reference Range Interpretation [...] code = ALT) 13 U/L 8-55 N Xbrziapgz6991-60-29 16:04:00* Test Item Value Reference Range Interpretation Comme nts Chemistry (test code = CK) 95 U/L 30-200 N Rvxqmjdam5439-47-84 16:04:00* Test Item Value Reference Range Interpretation Comme nts Chemistry (test code = TROPI-R) Less than 0.010 ng/mL < 0.028 * Reference Range 0.00 - 0.028 ng/mL Negative 0.029 - 0.29 ng/mL Indeterminate Greater or Equal to 0.3 ng/mL Strongly suggests LA Kvonzidjpo8939-81-16 15:47:00* Test Item Value Reference Range Interpretation Comme [facility] Hematology (test code = WBCT) 10.0 [...] mg/dl Toxicity >30 mg/dl Lethal >70 mg/dl [facility] 06:42:00* Test Item Value Reference Range [...] assessment and management of chronic kidney failure. [facility]ACETAMINOPHEN (Tyenol)2018-08-08 06:41:00* Test Item Value Reference Range Interpretation Comme nts Acetaminophen (test code = ACET) <2 ug/ml 10-25 L [facility]ALCO[facility], VSTXC8971-27-90 06:41:00* Test Item Value Reference Range Interpretation Comme nts Alcohol % (test code = ALCPC) 0 % 0.00-0.00 N Ethanol % 0.00 - 0.10 Sub-clinical 0.11 - 0.20 Emotional Instability 0.21 - 0.30 Confusion 0.31 - 0.40 Stupor 0.41 - 0.50 Coma >.50 Fatal [facility] WITH AUTO QQFH0944-81-60 06:13:00* Test Item Value Reference Range Interpretation [...] (test code = IG%) 0.4 % 0.0-0.4 [facility] HospitalOoqimi-HhxmwvsokqKihxfslubjw1096-20-11 08:45:00* Test Item Value Reference Range Interpretation [...] Anticoagulant? NONEMedical Necessity SUSPECT COAGULOPATHYAnticoagulant? NONEMedical Necessity: ALRZCTJZKcbgwnnfzry2589-79-53 08:45:00* Test Item Value Reference Range Interpretation Comme [facility] Coagulation (test code = PTT) 27.2 SEC 22.9-36.1 N Anticoagulant? NONEMedical Necessity SUSPECT COAGULOPATHYAnticoagulant? NONEMedical Necessity: WSCNTYYLPgqdgdocv6067-32-16 08:44:00* Test Item Value Reference Range Interpretation Comme nts Chemistry (test code = CKMBM-T) 2.9 ng/mL 0-6.6 N Chemistry (test code = TROPI-T) 0.015 ng/mL < 0.028 Reference Range 0.00 - 0.028 ng/mL Negative 0.029 - 0.29 ng/mL Indeterminate Greater or Equal to 0.3 ng/mL Strongly suggests LA Yeaxzktjk7496-04-76 08:40:00* Test Item Value Reference Range Interpretation [...] code = ALT) 17 U/L 8-55 N Xdaskkesz4720-51-35 08:40:00* Test Item Value Reference Range Interpretation Comme nts Chemistry (test code = CK) 119 U/L 30-200 N Gyxkzxtbhj0452-82-70 08:23:00* Test Item Value Reference Range Interpretation [...] code = BASO#) 0.1 thou/uL 0.0-0.2 N Sxytiwihg4358-27-16 19:03:00* Test Item Value Reference Range Interpretation [...] code = ALT) 16 U/L 8-55 N Apakoawrtr3138-00-08 18:46:00* Test Item Value Reference Range Interpretation [...] code = BASO#) 0.1 thou/uL 0.0-0.2 N Ouyyozdjqh8886-91-93 18:45:00* Test Item Value Reference Range Interpretation [...] Negative Negative Comment clear yellowUrine Source: Urine CqbwkzViqgtbvdmh2924-31-00 18:45:00* Test Item Value Reference Range Interpretation Comme nts Urinalysis (test code = UARBC) 0-3 HPF 0-3 Urinalysis (test code = UAWBC) 4-6 HPF 0-3 A Urinalysis (test code = UASQUAM) 0-3 HPF 0-3 Urinalysis (test code = UABAC) 1+ HPF None Seen A Comment clear yellowUrine Source: Urine RqaqdhUvbhfregkr3315-52-83 20:56:00* Test Item Value Reference Range Interpretation [...] CAST LPF 0-3 Hyaline Urine Source: Urine UvmbkvEbohnbwtg5767-89-36 19:22:00* Test Item Value Reference Range Interpretation Comme nts Chemistry (test code = TROPI-T) Less than 0.010 ng/mL < 0.028 * Reference Range 0.00 - 0.028 ng/mL Negative 0.029 - 0.29 ng/mL Indeterminate Greater or Equal to 0.3 ng/mL Strongly suggests LA Comment Pls draw at 7 pm.Bzucninnyke2955-42-72 16:36:00* Test Item Value Reference Range Interpretation [...] Anticoagulant? NONEMedical Necessity SUSPECT COAGULOPATHYAnticoagulant? NONEMedical Necessity: ULWRMMIBMofslgsoona6209-20-52 16:36:00* Test Item Value Reference Range Interpretation Comme [facility] Coagulation (test code = PTT) 26.2 SEC 22.9-36.1 N Anticoagulant? NONEMedical Necessity SUSPECT COAGULOPATHYAnticoagulant? NONEMedical Necessity: UIGVPMVKMcudximny9748-31-65 16:34:00* Test Item Value Reference Range Interpretation Comme [facility] Chemistry (test code = CKMBM-T) 2.5 ng/mL 0-6.6 N Chemistry (test code = TROPI-T) Less than 0.010 ng/mL < 0.028 * Reference Range 0.00 - 0.028 ng/mL Negative 0.029 - 0.29 ng/mL Indeterminate Greater or Equal to 0.3 ng/mL Strongly suggests LA Ynrkzlowu3749-06-64 16:31:00* Test Item Value Reference Range Interpretation Comme [facility] Chemistry (test code = NA-T) 142 [...] code = ALT) 17 U/L 8-55 N Hkyesmiupd3366-20-38 16:13:00* Test Item Value Reference Range Interpretation [...] N XR Chest 1 View Portable [facility] 1970 [facility] Pt Name: KERRY QUIROZ [address] Phys: [place] [address] : 1970 Age: 50 SEX:M [phone] Exam Date: 06/15/21 Status: REG ER Acct: [id number] Loc: [facility] Pt Unit #: [id number] Report #: [id number] CC: Karlene Stephen MD IMAGING SERVICES REPORT Order # Category/Exam [id number] RAD/XR Chest 1 View Portable ([id number]): . Results XR Chest 1 View Portable History: Chest pain Comparison: None. Findings: Lungs are clear. No pneumothorax or effusion. Cardiac silhouette and mediastinal contoursare within normal limits. Impression: No acute intrathoracic abnormality. Reported By: KARLENE HARP Electronically Signed Date/Time: 06/15/211550 Technologist: Dictated Date/Time: 06/15/211550 Transcribed Date/Time: Notes Date/Time Note Provider Source 2018-08-08 11:31:00 [id number]/VqyeGPY+X dh5N 3TdE2CIT/tHJHGEFGSau7kIoWHkgMf7554-22-29V64: 31:00Discharge Instructions 2Discharge Diagnosismethamphetamine abuse / bipolar [...] education providedDischarge InstructionsDischarge InstructionsDischarge Instructions 2018-08-08 (Encounter: [id number] for patient careSTLMLCNovant Health [facility] ([facility]/SA)9680-46-33I94:39:43 [facility] ([facility]/[place])
[2024-02-21 21:59] LABS: SARS-CoV-2 Antigen CONTROL BLUE LINE VIS/BG OK; SARS-CoV-2 Antigen Rapid Res Negative (Negative)
[2024-02-21] MEDS ORDERED: ONDANSETRON 4 MG/2 ML VIAL ONE (22:10)
[2024-02-21] MEDS ORDERED: NA CHLORIDE 0.9% 1,000 ML ONE (22:10)
[2024-02-21] MEDS ORDERED: ACETAMINOPHEN 500 MG TAB ONE (22:10)
[2024-02-21 22:12] LABS: Absolute Basophils 0.1 K/uL (0-0.5); Absolute Eosinophils 0.2 K/uL (0-0.5); Absolute Lymphocytes (CBC) 0.5 K/uL (0.7-4.9); Absolute Monocytes 0.9 K/uL (0.1-1.3); Absolute Neutrophil 9.4 K/uL (1.8-8.0); Basophils % 0.5 % (0-1.3); Eosinophils % 1.8 % (0-4.4); Hematocrit 46.1 % (39.6-49.0); Lymphocytes % 4.8 % (15.3-44.8); MCH 31.7 pg (27.0-35.0); MCHC 34.8 g/dL (32.0-36.0); MCV 91.1 fL (80-100); MPV 7.5 fL (7.6-11.3); Monocytes % 8.1 % (3.3-12.3); Neutrophils % 84.8 % (41.7-73.7); Nucleated Red Blood Cells % 0.1 % (0-0); Platelets 292 thou/uL (152-406); RBC Red Blood Cell Count 5.06 M/uL (4.33-5.43); Red Cell Distribution Width 13.7 % (12.1-15.2)
[2024-02-21 22:26] LABS: PT Prothrombin Time 11.6 SECONDS (9.5-12.5); PTT, Activated Partial Thromb 32.2 SECONDS (24.3-36.9); Protime INR 1.06
--- NOTE | 2024-02-21 22:29 | RAD REPORT ---
EXAM DESCRIPTION: RAD - Chest Single View - 02/21/2024 10:22 pm CLINICAL HISTORY: Congestion;Cough Chest pain. COMPARISON: Chest Single View dated 11/27/2021; Chest Single View dated 09/18/2021; Chest Single View dated 07/23/2021 FINDINGS: Portable technique limits examination quality. The lungs are grossly clear. The heart is normal in size. No displaced fractures. IMPRESSION: No acute intrathoracic process suspected.
[2024-02-21 22:35] LABS: Albumin 3.8 g/dL (3.4-5.0); Anion Gap 11.6 mEq/L (5.0-15.0); Bilirubin Total 0.5 mg/dL (0.2-1.0); Globulin 3.7 g/dL (2.3-3.5); Potassium 3.6 mEq/L (3.5-5.1); Protein, Total 7.5 g/dL (6.4-8.2)
[2024-02-21] MEDS ORDERED: FAMOTIDINE 20 MG/2 ML VIAL IV ONE (23:03)
[2024-02-21] MEDS ORDERED: LIDOCAINE VISCOUS 2% 10ML ORAL SOLN ONE (23:03)
[2024-02-21] MEDS ORDERED: MAGNES/ALUMIN/SIMET 30ML UCUP ONE (23:03)
[2024-02-21 23:08] LABS: Renal Epithelial <5 /HPF (None Seen); Specific Gravity 1.012 (1.005-1.030); Sqamous Epithelial <5 /HPF (None Seen); Urine Bacteria None Seen /HPF (<20); Urine Bilirubin NEGATIVE (Negative); Urine Blood Trace (Negative); Urine Clarity Turbid (Clear); Urine Color Light-Yellow (Yellow); Urine Culture Reflex Order NOT NEEDED; Urine Glucose NEGATIVE (Negative); Urine Ketones NEGATIVE (Negative); Urine Microscopic Reflex YN ORDER UMIC; Urine Mucus Slight /HPF (None Seen); Urine Nitrite NEGATIVE (Negative); Urine Protein TRACE (Negative); Urine RBC None Seen /HPF (None Seen); Urine Urobilinogen Normal (Normal); Urine WBC <5 /HPF (<5); Urine pH 5.5 (5.0-7.0)
--- NOTE | 2024-02-21 23:17 | ER ---
Nurse's Notes [facility] Name: Jasmin Haley Age: 53 yrs Sex: Male : 1970 Arrival Date: 02/21/2024 Time: 21:17 Bed 8 Private MD: Diagnosis: Acute bronchitis, unspecified Presentation: 02/20 21:32 Chief complaint: Patient states: cough, congestion, sinus pressure, N/V x2 days. lg3 Coronavirus screen: Client denies travel out of the [place] in the last 14 days. Client presents with at least one sign or symptom that may indicate coronavirus-19. Standard/surgical mask placed on the client. Ebola Screen: No symptoms or risks identified at this time. Initial Sepsis Screen: Does the patient meet any 2 criteria? No. Patient's initial sepsis screen is negative. Does the patient have a suspected source of infection? No. Patient's initial sepsis screen is negative. Risk Assessment: Do you want to hurt yourself or someone else? Patient reports no desire to harm self or others. Onset of symptoms was February 19, 2024. 21:32 Method Of Arrival: Ambulatory lg3 21:32 Acuity: GISELA 3 lg3 Triage Assessment: 21:33 General: Appears in no apparent distress. uncomfortable, Behavior is calm, cooperative. lg3 Pain: Denies pain. EENT: No deficits noted. No signs and/or symptoms were reported regarding the EENT system. Reports nasal congestion nasal discharge. Neuro: No deficits noted. [place] Agitation-Sedation Scale (RASS): 0 - Alert and Calm Level of Consciousness is awake, alert, obeys commands, Oriented to person, place, time, situation. Cardiovascular: No deficits noted. Denies chest pain, shortness of breath, Capillary refill < 3 seconds Clubbing of nail beds is absent JVD is absent Patient's skin is warm and dry. Respiratory: Reports cough that is persistent Airway is patent Trachea midline Respiratory effort is even, unlabored, Respiratory pattern is regular, symmetrical. GI: No deficits noted. Abdomen is flat, non-distended, Reports nausea, vomiting. : No deficits noted. No signs and/or symptoms were reported regarding the genitourinary system. Derm: No deficits noted. No signs and/or symptoms reported regarding the dermatologic system. Skin is intact, is healthy with good turgor, Skin is dry, Skin is normal, Skin temperature is warm. Musculoskeletal: No deficits noted. No signs and/or symptoms reported regarding the musculoskeletal system. Circulation, motion, and sensation intact. Range of motion: intact in all extremities. Historical: - Allergies: : Ibuprofen; lg3 - Home Meds: : lithium carbonate 300 mg Oral tab 1 tab 2 times per day [Active]; prazosin 1 mg Oral lg3 cap 1 cap nightly [Active]; - PMHx: : bipolar/schizo; CVA; Hypertension; lg3 - PSHx: : None; lg3 - Immunization history:: Adult Immunizations up to date, Client reports receiving the 2nd dose of the Covid vaccine, Flu vaccine is up to date. - Infectious Disease History:: Denies. - Social history:: Smoking status: Patient reports the use of cigarette tobacco products, smokes one-half pack cigarettes per day, Patient uses alcohol, weekly. Patient/guardian denies using street drugs. Screenin:04 [facility] ED Fall Risk Assessment (Adult) History of falling in the last 3 months, tm6 including since admission No falls in past 3 months (0 pts) Confusion or Disorientation No (0 pts) Intoxicated or Sedated No (0 pts) Impaired Gait No (0 pts) Mobility Assist Device Used No (0 pt) Altered Elimination No (0 pt) Score/Fall Risk Level 0 - 2 = Low Risk Oriented to surroundings, Maintained a safe environment, Educated pt \T\ family on fall prevention, incl call for assistance when getting out of bed. Abuse screen: Denies threats or abuse. Denies injuries from another. Nutritional screening: No deficits noted. Tuberculosis screening: No symptoms or risk factors identified. Assessment: 22:04 General: Appears uncomfortable, Behavior is calm, cooperative. Pain: Complains of pain tm6 in right eye and left eye Pain does not radiate. Pain currently is 5 out of 10 on a pain scale. Quality of pain is described as pressure. Neuro: Level of Consciousness is awake, alert, obeys commands, Oriented to person, place, time, situation. Cardiovascular: Patient's skin is warm and dry. Respiratory: Reports cough that is non-productive, persistent since x4 days Airway is patent Respiratory effort is even, unlabored, Respiratory pattern is regular, symmetrical. GI: Abdomen is flat, non-distended, Reports nausea, vomiting. : No signs and/or symptoms were reported regarding the genitourinary system. EENT: No signs and/or symptoms were reported regarding the EENT system. Derm: No signs and/or symptoms reported regarding the dermatologic system. Musculoskeletal: No signs and/or symptoms reported regarding the musculoskeletal system. 23:25 Reassessment: Patient appears in no apparent distress at this time. Patient and/or tm6 family updated on plan of care and expected duration. Pain level reassessed. Patient is alert, oriented x 3, equal unlabored respirations, skin warm/dry/pink. Vital Signs: 21:32 BP 126 / 82; Pulse 99; Resp 17 S; Temp 99.9(O); Pulse Ox 96% on R/A; Weight 75.3 kg lg3 (R); Height 5 ft. 6 in. (R); 22:17 BP 139 / 77; Pulse 91; Pulse Ox 100% on R/A; tm6 23:25 BP 123 / 74; Pulse 78; Resp 19; Temp 98.2(TE); Pulse Ox 100% on R/A; Pain 0/10; tm6 21:32 Body Mass Index 26.79 (75.30 kg, 167.64 cm) lg3 23:25 Pain Scale: Adult tm6 ED Course: 21:21 Patient arrived in ED. ra3 21:25 [facility] Bowden [facility]C [facility]. kb 21:25 Avelino Sanford MD is Attending Physician. kb 21:30 Brittany gutierrez, RN is Primary Nurse. pc2 21:33 Triage completed. lg3 21:33 SARS-COV-2 Antigen Rapid Sent. pc2 21:33 Flu Sent. pc2 21:33 Arm band placed on right wrist. lg3 22:04 Urinalysis w/ reflexes Sent. tm6 22:04 Ptt, Activated Sent. tm6 22:04 Protime (+inr) Sent. tm6 22:04 Lactate w/ 2H reflex if indic. Sent. tm6 22:04 CMP Sent. tm6 22:04 CBC with Diff Sent. tm6 22:04 Blood Culture Adult (2) Sent. tm6 22:04 Inserted saline lock: 20 gauge in right forearm, using aseptic technique. tm6 22:04 Patient has correct armband on for positive identification. Bed in low position. Call tm6 light in reach. Side rails up X 1. Provided Education on: use of call joya. Client placed on continuous cardiac and pulse oximetry monitoring. NIBP monitoring applied. monitoring engineer on. Pulse ox on. NIBP on. Door closed. Noise minimized. 22:16 Tato Gonzalez, RN is Primary Nurse. tm6 22:16 EKG done, by ED staff, reviewed by Dina HENSON. tm6 22:24 Chest Single View XRAY In Process Unspecified. EDMS 23:26 No provider procedures requiring assistance completed. IV discontinued, intact, tm6 bleeding controlled, No redness/swelling at site. Pressure dressing applied. Administered Medications: 22:16 Drug: NS 0.9% IV 1000 ml IV at 1000 ml once Route: IV; Rate: 1000 ml; Site: right tm6 forearm; 23:08 Follow up: IV Status: Completed infusion; IV Intake: 200ml ; patient stated it was tm6 making him nauseous and refused to receive the rest of the bag 22:16 Drug: Ondansetron IVP 4 mg IVP once; over 2 minutes Route: IVP; Site: right forearm; tm6 22:16 Drug: Acetaminophen PO 1000 mg PO once Route: PO; tm6 23:08 Drug: Famotidine IVP 20 mg IVP once; dilute with 10 mL 0.9% NaCl; give over 2 minutes tm6 Route: IVP; Site: right forearm; 23:08 Drug: GI Cocktail without - (Maalox PO 30 ml, Lidocaine Mucous Membrane 2 % 15 tm6 ml) PO once Route: PO; 23:20 Drug: predniSONE PO 40 mg PO once Route: PO; tm6 Medication: 22:04 VIS not applicable for this client. tm6 Intake: 23:08 IV: 200ml; Total: 200ml. tm6 Outcome: 23:16 Discharge ordered by MD. houser 23:26 Discharged to home ambulatory, with family, tm6 23:26 Condition: stable 23:26 Discharge instructions given to patient, family, Instructed on discharge instructions, follow up and referral plans. medication usage, Demonstrated understanding of instructions, follow-up care, medications, Prescriptions given X 3, 23:26 Patient left the ED. tm6 Signatures: Dispatcher [employer] EDCT Dina Bowden FNP-C FNP-Ckb Marylin Geronimo, RN RN lg3 Tato Gonzalez, RN RN tm6 Shanthi Delgado ra3 Brittany gutierrez, RN RN pc2
--- NOTE | 2024-02-21 23:17 | EDPHYS ---
Physician Documentation [facility] Name: Jasmin Haley Age: 53 yrs Sex: Male : 1970 Arrival Date: 02/21/2024 Time: 21:17 Bed 8 Private MD: ED Physician Avelino Sanford HPI: 02/20 22:15 This 53 yrs old Male presents to ER via Ambulatory with complaints of Cold Symptoms, kb Fever, Vomiting. 22:15 Patient is a 53-year-old male who presents for cough, congestion, nausea, vomiting, kb fever, chills, headache that started 4 days ago. Denies diarrhea or abdominal pain.. Historical: - Allergies: 21:33 Ibuprofen; lg3 - Home Meds: 21:33 lithium carbonate 300 mg Oral tab 1 tab 2 times per day [Active]; prazosin 1 mg Oral lg3 cap 1 cap nightly [Active]; - PMHx: 21:33 bipolar/schizo; CVA; Hypertension; lg3 - PSHx: 21:33 None; lg3 - Immunization history:: Adult Immunizations up to date, Client reports receiving the 2nd dose of the Covid vaccine, Flu vaccine is up to date. - Infectious Disease History:: Denies. - Social history:: Smoking status: Patient reports the use of cigarette tobacco products, smokes one-half pack cigarettes per day, Patient uses alcohol, weekly. Patient/guardian denies using street drugs. ROS: 22:16 Constitutional: As per HPI kb Exam: 22:15 Constitutional: This is a well developed, well nourished patient who is awake, alert, kb and in no acute distress. Head/Face: Normocephalic, atraumatic. ENT: Moist Mucous membranes Cardiovascular: Regular rate Abdomen/GI: Soft, non-tender. No distention Skin: Warm, dry with normal turgor. Normal color. MS/ Extremity: Pulses equal, no cyanosis. Neurovascular intact. Full, normal range of motion. Neuro: Awake and alert, GCS 15, oriented to person, place, time, and situation. Moves all extremities. Normal gait. 22:15 ECG was reviewed by the Attending Physician. 22:15 Respiratory: the patient does not display signs of respiratory distress, Respirations: normal, Breath sounds: wheezing: expiratory that is mild, is heard in the left upper lobe and left lower lobe, Vital Signs: 21:32 BP 126 / 82; Pulse 99; Resp 17 S; Temp 99.9(O); Pulse Ox 96% on R/A; Weight 75.3 kg lg3 (R); Height 5 ft. 6 in. (R); 22:17 BP 139 / 77; Pulse 91; Pulse Ox 100% on R/A; tm6 23:25 BP 123 / 74; Pulse 78; Resp 19; Temp 98.2(TE); Pulse Ox 100% on R/A; Pain 0/10; tm6 21:32 Body Mass Index 26.79 (75.30 kg, 167.64 cm) lg3 23:25 Pain Scale: Adult tm6 MDM: 21:25 Patient medically screened. kb 22:16 Differential diagnosis:. kb 23:16 Data reviewed: vital signs, nurses notes. I considered the following discharge kb prescriptions or medication management in the emergency department I discussed and recommended Over The Counter medications, Antibiotics: At this time antibiotics are not recommended. Counseling: I had a detailed discussion with the patient and/or guardian regarding the historical points, exam findings, and any diagnostic results supporting the discharge/admit diagnosis, lab results, radiology results, the need for outpatient follow up, a family practitioner, to return to the emergency department if symptoms worsen or persist or if there are any questions or concerns that arise at home. 02/20 21:28 Order name: Flu; Complete Time: 22:05 kb 02/20 21:28 Order name: SARS-COV-2 Antigen Rapid; Complete Time: 22:05 kb 02/20 21:37 Order name: Blood Culture Adult (2) 02/20 21:37 Order name: CBC with Diff; Complete Time: 22:23 kb 02/20 21:37 Order name: CMP; Complete Time: 22:58 kb 02/20 21:37 Order name: Lactate w/ 2H reflex if indic.; Complete Time: 22:58 kb 02/20 21:37 Order name: Protime (+inr); Complete Time: 22:27 kb 02/20 21:37 Order name: Ptt, Activated; Complete Time: 22:27 kb 02/20 21:37 Order name: Urinalysis w/ reflexes; Complete Time: 23:09 kb 02/20 22:08 Order name: Glucose, Ancillary Testing; Complete Time: 22:14 EDMS 02/20 21:37 Order name: Chest Single View XRAY; Complete Time: 22:58 kb 02/20 21:37 Order name: Accucheck; Complete Time: 22:04 kb 02/20 21:37 Order name: Cardiac monitoring; Complete Time: 22:16 kb 02/20 21:37 Order name: EKG - Nurse/Tech; Complete Time: 22:16 kb 02/20 21:37 Order name: IV Saline Lock - Large Bore; Complete Time: 22:04 kb 02/20 21:37 Order name: Labs collected and sent; Complete Time: 22:04 kb 02/20 21:37 Order name: O2 Per Protocol; Complete Time: 22:04 kb 02/20 21:37 Order name: O2 Sat Monitoring; Complete Time: 22:04 kb 02/20 21:37 Order name: Vital Signs; Complete Time: 22:04 kb EC:15 Rate is 97 beats/min. Rhythm is regular. QRS [place] is Normal. CT interval is normal at kb 136 msec. QRS interval is normal at 72 msec. QT interval is normal at 464 msec. Administered Medications: 22:16 Drug: NS 0.9% IV 1000 ml IV at 1000 ml once Route: IV; Rate: 1000 ml; Site: right tm6 forearm; 23:08 Follow up: IV Status: Completed infusion; IV Intake: 200ml ; patient stated it was tm6 making him nauseous and refused to receive the rest of the bag 22:16 Drug: Ondansetron IVP 4 mg IVP once; over 2 minutes Route: IVP; Site: right forearm; tm6 22:16 Drug: Acetaminophen PO 1000 mg PO once Route: PO; tm6 23:08 Drug: Famotidine IVP 20 mg IVP once; dilute with 10 mL 0.9% NaCl; give over 2 minutes tm6 Route: IVP; Site: right forearm; 23:08 Drug: GI Cocktail without - (Maalox PO 30 ml, Lidocaine Mucous Membrane 2 % 15 tm6 ml) PO once Route: PO; 23:20 Drug: predniSONE PO 40 mg PO once Route: PO; tm6 Disposition Summary: 02/21/24 23:16 Discharge Ordered Notes: Location: Home kb Condition: Stable kb Diagnosis - Acute bronchitis, unspecified kb Followup: kb - With: Emergency Department - When: As needed - Reason: Worsening of condition Followup: kb - With: Private Physician - When: 2 - 3 days - Reason: Recheck today's complaints, Continuance of care, Re-evaluation by your physician Discharge Instructions: - Discharge Summary Sheet kb - Acute Bronchitis, Adult, [id number] kb Forms: - Work release form kb - Medication Reconciliation Form kb - Antibiotic Education kb - Prescription Opioid Use kb - Patient Portal Instructions kb - Leadership Thank You Letter kb Prescriptions: - albuterol sulfate 90 mcg/actuation Inhalation HFA Aerosol Inhaler - inhale 2 puff INHALATION route every 4 to 6 hours As needed; 1 unit; Refills: kb 0, Product Selection Permitted - Prednisone 20 mg Oral Tablet - take 1 tablet ORAL route once daily for 5 days; 5 tablet; Refills: 0, Product kb Selection Permitted - Zofran 4 mg Oral tablet - take 1 tablet ORAL route every 6 hours As needed; 12 tablet; Refills: 0, kb Product Selection Permitted Signatures: Dispatcher [employer] EDMS Dina Bowden, JEANNA-Marylin Scanlon, RN RN lg3 Tato Gonzalez, RN RN tm6 Corrections: (The following items were deleted from the chart) 21:28 21:28 Influenza Screen (A \T\ B)+BA.LAB.BRZ ordered. EDMS EDMS 21:28 21:28 SARS-COV-2 Antigen Rapid+I.LAB.BRZ ordered. EDMS EDMS 21:38 21:38 BLOOD CULTURE*+BA.LAB.BRZ ordered. EDMS EDMS 21:38 21:38 CBC+H.LAB.BRZ ordered. EDMS EDMS 21:38 21:38 COMPREHENSIVE METABOLIC PANEL+C.LAB.BRZ ordered. EDMS EDMS 21:38 21:38 LACTATE+C.LAB.BRZ ordered. EDMS EDMS 21:38 21:38 PROTIME (+INR)+COAG.LAB.BRZ ordered. EDMS EDMS 21:38 21:38 PTT, ACTIVATED+COAG.LAB.BRZ ordered. EDMS EDMS 21:38 21:38 Urinalysis+U.LAB.BRZ ordered. EDMS EDMS 21:38 21:38 Chest Single View+RAD.RAD.BRZ ordered. EDMS EDMS
[2024-02-21] MEDS ORDERED: predniSONE 20 MG TAB ONE (23:18)
[2024-02-21 23:52] VITALS: BP 123/74; TEMP 98.2; O2SAT 100
--- NOTE | 2024-02-22 14:52 | EKG ---
Test Date: 2024-02-21 Test Time: 22:05:53 Legal Financial Specialist: MELODY MEASUREMENT RESULTS: Intervals: Rate: 97 GA: 136 QRSD: 72 QT: 366 QTc: 464 [place]: P: 71 GA: 136 QRS: 81 T: 45 INTERPRETIVE STATEMENTS: Normal sinus rhythm Normal ECG Compared to ECG 02/17/2024 11:52:44 No significant changes Electronically Signed On 02-22-24 14:50:48 CDT by Keenan Castillo
== END 2024-02-21 23:26 | disposition home or self-care (01) ==
LOC: ER 21:17
DX: J20.9 Acute bronchitis, unspecified (principal); I10 Essential (primary) hypertension; Z79.899 Other long term (current) drug therapy; Z86.73 Personal history of transient ischemic attack (TIA), and cerebral infarction without residual deficits
CPT/HCPCS: 36415; 71045; 80053; 81001; 82947; 83605; 85025; 85610; 85730; 87040; 87804; 87811; 93005; J2405; J7030; J7512

== ENCOUNTER 2024-04-27 10:32 | Emergency (ER) | payer SELFPAY ==
--- OUTSIDE RECORDS SUMMARY | 2024-04-27 10:35 | XMS REPORT | Continuity of Care Document ---
Author Name Unknown Address [address] [place] [address] [facility] thconnect Address [address] [place] [address] Care Team Providers Care Supervisor [employer] Name Role Phone Pcp, Patient Does Not Have A Primary Care Physic floyd Debbie AGUILAR Attending Clinician Unavailable Debbie AGUILAR Attending Clinician Unavailable Debbie Avila Attending Clinician TANYA MUNIZ Attending Clinician Unavailab Tanya Estevez DO Attending Clinician [phone] Karlene Stephen Attending Clinician Unavailable Roshni Carr Attending Clinician Unavailable MARÍA HERNANDEZ Attending Clinician Unavailable MIMI SCHWARTZ MD Attending Clinician [phone] MARIUM ANDERS Attending Clinician Unavailable Daniel Coronado Attending Clinician Unavailable PROVIDER, ED TEMP Attending Clinician UnavailJM Tracy Attending Clinician UnavailMARÍA Trujillo Admitting Clinician Unavailable Payers Payer Name Policy Type Policy Number Effective Date Expiration Date Source MEDICAID PENDING NA [facility] JOVANNA CARE PENDING [facility] Problems Condition Name Condition Details Condition Category Status Onset Date Resolution Date Last Treatment Date Treating Clinician Comments Source Bipolar disorder Bipolar disorder Problem Active 2018-1 2-02 00:00: [address] [facility] [...] s DA Active U 09-09 00:00: 00 B[facility] NO KNOWN ALLERGIE S Drug Class Active [facility] Social History Social Habit Start Date Stop Date Quantity Comments Source [facility] Exposure to SARS-CoV-2 (event) 2022-03-24 00:00:00 2022-04-03 00:24:[address] [facility] Sex assigned at 1970 00:00:00 1970 00:00:00 [facility] Smoking Status Start Date Stop Date Source Never sm[facility]) Tobacco smoking consumption unknown [facility] Medications Ordered Medication Name Filled Medication Name Start Date Stop Date Current Medication? Ordering Clinician Indication Dosage Frequency Signature (SIG) Comments Components Source NaCl 0.9% (NS) bolus infusion 500 mL 04-03 07:00: 00 04-03 07:04 :00 No 500mL at 999 mL/hr, 500 mL, IV Infusion, ONCE, 1 dose, On Thu04/03/22 at 0200, STAT [facility] maalox:diph enhydrAMINE :lidocaine 2 % viscous 1:1:1 (FIRST-MOUT HWASH BLM) oral suspension 15 mL 04-03 06:00: 00 04-03 06:12 :00 No 15mL 15 mL, Oral, ONCE, 1 dose, On Thu04/03/22 at 0100, Routine [facility] Vital Signs Vital Name Observation Time Observation Value Comments Loren castillo Systolic blood pressure 2024-04-12 15:42:00 154 mm[Hg] [facility] Diastolic blood pressure 2024-04-12 15:42:00 114 mm[Hg] [facility] Heart rate 2024-04-12 15:42:00 74 /min [facility] Body temperature 2024-04-12 15:42:[address] [facility] Respiratory rate 2024-04-12 15:42:00 18 /min [facility] Body height 2024-04-12 15:42:00 167.6 cm [facility] Body weight 2024-04-12 15:42:00 73.936 kg [facility] BMI 2024-04-12 15:42:00 26.31 kg/m2 [facility] Oxygen saturation in Arterial blood by Pulse oximetry 2024-04-12 15:42:00 97 /min [facility] Systolic blood pressure 2022-04-03 05:26:00 157 mm[Hg] [facility] Diastolic blood pressure 2022-04-03 05:26:00 100 mm[Hg] [facility] Heart rate 2022-04-03 05:26:00 71 /min [facility] Body temperature 2022-04-03 05:26:[address] [facility] Respiratory rate 2022-04-03 05:26:00 18 /min [facility] Body height 2022-04-03 05:26:00 167.6 cm [facility] Body weight 2022-04-03 05:26:00 66.225 kg [facility] BMI 2022-04-03 05:26:00 23.57 kg/m2 [facility] Oxygen saturation in Arterial blood by Pulse oximetry 2022-04-03 05:26:00 97 /min [facility] O2% BldC Oximetry 2018-08-08 05:01:00 98 % [facility] (LUF/LIOR/SA) BP Systolic 2018-08-08 05:01:00 160 mm[Hg] [facility] (LUF/LIOR/SA) BP Diastolic 2018-08-08 05:01:00 110 mm[Hg] [facility] (F/LIOR/SA) Height 2018-08-08 05:01:00 66 in [facility] (LUF/LIOR/SA) Weight Measured 2018-08-08 05:01:00 154.32 lbs [facility] (LUF/LIOR/SA) BMI (Body Mass Index) 2018-08-08 05:01:00 25 [facility] (LUF/LIOR/SA) Body Temperature 2018-08-08 05:01:00 98.9 F [facility] (F/LIOR/SA) Pulse Rate 2018-08-08 05:01:00 87 /min [facility] (F/LIOR/SA) Respiratory Rate 2018-08-08 05:01:00 18 /min [facility] (F/LIOR/SA) Procedures Procedure Date / Time Performed Performing Clinicia n Source TROPONIN I 2022-04-03 06:11:[address] [facility] COMP. METABOLIC PANEL (34206) 2022-04-03 06:11:[address] [facility] CBC WITH DIFF 2022-04-03 06:11:00 Tanya Muniz [facility] NOTICE OF PRIVACY PRACTICES 2022-04-03 05:18:55 Doctor Unassigned, [place] [facility] CONSENT/REFUSAL FOR DIAGNOSIS AND TREATMENT 2022-04-03 05:18:14 Doctor Unassigned, [place] [facility] Encounters Start Date/Time End Date/Time Encounter Type Admission Type Attending Clinicians Care Facility Care Department Encounter ID Source 2024-04-12 10:43:00 2024-04-12 12:18:00 Emergency X Debbie AGUILAR K [facility] ERT [id number] [facility] 2024-04-12 10:43:00 2024-04-12 12:18:00 Emergency Debbie Aguilar [facility] [id number] [facility] 2022-04-03 00:20:00 2022-04-03 02:21:00 Emergency X TANYA MUNIZ [facility] ERT [id number] [facility] 2022-04-03 00:20:00 2022-04-03 02:21:00 Emergency Tanya Muniz [facility] [id number] [facility] 2021-06-16 02:24:00 2021-06-16 02:24:00 Emergency ER Karlene Stephen [facility] [id number] [facility] 2021-06-15 15:02:00 2021-06-15 15:02:00 Emergency ER Karlene Stephen [facility] [id number] [facility] 2021-05-28 13:51:00 2021-05-28 16:10:00 Emergency ER Roshni Carr [facility] [id number] [facility] 2018-08-08 04:58:00 2018-08-08 11:31:00 Inpatient MARÍA CAICEDO [facility] [place] [address] [facility] [id number] [facility] (LUF[facility]LI V/SA[facility] 2018-07-01 19:23:00 2018-07-01 20:28:00 Departed Emergency MIMI SCHWARTZ [facility] [id number] [facility] Results Test Description Test Time Test Comments Results Result Co mments Source [facility] (23718)2022-04-03 06:33:58* Test Item Value Reference Range Interpretation Comme nts NA (test code = 6878863371) 138 mmol/L 135-145 K (test code = 4266865001) 3.8 mmol/L 3.5-5 CL (test code = 4103700784) 106 mmol/L 98-108 CO2 TOTAL (test code = 3537438686) 26 mmol/L 23-31 AGAP (test code = 1586259456) 2-16 BUN (test code = 0882781263) 16 mg/dL 7-23 GLUCOSE (test code = 0979094022) 118 mg/dL 70-110 H CREATININE (test code = 2483219992) 0.96 mg/dL 0.6-1.25 TOTAL BILI (test code = 7369742752) 0.1 mg/dL 0.1-1.1 CALCIUM (test code = 6204585843) 8.5 mg/dL 8.6-10.6 L T PROTEIN (test code = 3899627858) 5.5 g/dL 6.3-8.2 L ALBUMIN (test code = 6343098349) 3.4 g/dL 3.5-5 L ALK PHOS (test code = 5706250290) 45 U/L 34-122 ALTv (test code = 1742-6) 16 U/L 5-50 AST(SGOT) (test code = 8549841960) 16 U/L 13-40 eGFR (test code = 7310519041) mL/min/1.73m2 APOLINAR (test code = APOLINAR) Association [...] imaging tests). Lab Interpretation (test code = 79000-0) Abnormal [facility] WITH [id number] 06:21:14* Test Item Value Reference Range Interpretation Comme nts WBC (test code = 6690-2) See_Comment [RealDirect] The system which generated this result transmitted reference range: 4.20 - 10.70 10*3/?L. The reference range was not used to interpret this result as normal/abnormal. RBC (test code = 789-8) See_Comment [RealDirect] The system which generated this result transmitted [...] 34.8 g/dL 31.2-35 RDW-SD (test code = 67800-9) 39.1 fL 38.5-51.6 RDW-CV (test code = 788-0) 11.9 % 12.1-15.4 L PLT (test code = 777-3) See_Comment [RealDirect] The system which generated this result transmitted reference range: 150 - 328 10*3/?L. The reference range was not used to interpret this result as normal/abnormal. MPV (test code = 67877-7) 9.6 fL 9.8-13 L NRBC/100 WBC (test code = 0100257618) See_Comment [Automated me ssage] The system which generated this result transmitted reference range: 0.0 - 10.0 /100 WBCs. The reference range was not used to interpret this result as normal/abnormal. NRBC x10^3 (test code = 9452791977) See_Comment [Automated messa ge] The system which generated this result transmitted reference range: 10*3/?L. The reference range was not used to interpret this result as normal/abnormal. GRAN MAT (NEUT) % (test code = 770-8) 53.1 % IMM GRAN % (test code = 0709401504) 0.20 % LYMPH % (test code = 736-9) 33.2 % MONO % (test code = 5905-5) 7.6 % EOS % (test code = 713-8) 5.7 % BASO % (test code = 706-2) 0.2 % GRAN MAT x10^3(ANC) (test code = 1082318874) 3.37 10*3/uL 1.99-6.95 IMM GRAN x10^3 (test code = 4773661113) 0-0.06 LYMPH x10^3 (test code = 731-0) 2.10 10*3/uL 1.09-3.23 MONO x10^3 (test code = 742-7) 0.48 10*3/uL 0.36-1.02 EOS x10^3 (test code = 711-2) 0.36 10*3/uL 0.06-0.53 BASO x10^3 (test code = 704-7) 0.01-0.09 Lab Interpretation (test code = 68207-2) [facility]normal [facility] 16:05:00* Test Item Value Reference Range Interpretation Comme nts Chemistry (test code = CKMBM-T) 2.2 ng/mL 0-6.6 N Tbkzhpqds0017-74-00 16:04:00* Test Item Value Reference Range Interpretation [...] code = ALT) 13 U/L 8-55 N Ljztmudyj7445-12-09 16:04:00* Test Item Value Reference Range Interpretation Comme nts Chemistry (test code = CK) 95 U/L 30-200 N Vajcvhjqe2939-02-78 16:04:00* Test Item Value Reference Range Interpretation Comme nts Chemistry (test code = TROPI-R) Less than 0.010 ng/mL < 0.028 * Reference Range 0.00 - 0.028 ng/mL Negative 0.029 - 0.29 ng/mL Indeterminate Greater or Equal to 0.3 ng/mL Strongly suggests ND Xbgkbgcqdk3381-94-67 15:47:00* Test Item Value Reference Range Interpretation [...] mg/dl Lethal >70 mg/dl [facility] 06:42:00* Test Item Value Reference [...] of chronic kidney failure. [facility] CenterACETAMINOPHEN (Tyenol)2018-08-08 06:41:00* Test Item Value Reference Range Interpretation Comme nts Acetaminophen (test code = ACET) <2 ug/ml 10-25 L [facility] CenterALCOHOL, OVKHS8499-65-58 06:41:00* Test Item Value Reference Range Interpretation Comme nts Alcohol % (test code = ALCPC) 0 % 0.00-0.00 N Ethanol % 0.00 - 0.10 Sub-clinical 0.11 - 0.20 Emotional Instability 0.21 - 0.30 Confusion 0.31 - 0.40 Stupor 0.41 - 0.50 Coma >.50 Fatal [facility] CenterCBC WITH AUTO [id number] 06:13:00* Test Item Value Reference Range Interpretation [...] IG%) 0.4 % 0.0-0.4 [facility] CenterCvvrzn-XtdvgqzkdaYdzgwsqdmat4358-35-11 08:45:00* Test Item Value Reference Range Interpretation Comme [facility] Coagulation (test code = PT-T) 12.7 SEC 12.0-14.7 N Coagulation (test code = INR) 0.9 ATTENTION: READ CAREFULLY The recommended therapeutic ranges for oral anticoagulanttreatments are: ------ Low Intensity: 1.5 - 2.0 Moderate Intensity: 2.0 - 3.0 High Intensity (1): 2.5 - 3.5 High Intensity (2): 3.0 - 4.0 CRITICAL: > 4.0 Anticoagulant? NONEMedical Necessity SUSPECT COAGULOPATHYAnticoagulant? NONEMedical Necessity: UNSGHCXXRdkultllupx8882-47-74 08:45:00* Test Item Value Reference Range Interpretation Comme [facility] Coagulation (test code = PTT) 27.2 SEC 22.9-36.1 N Anticoagulant? NONEMedical Necessity SUSPECT COAGULOPATHYAnticoagulant? NONEMedical Necessity: PBTXPLIZLtiwwcajt1379-33-13 08:44:00* Test Item Value Reference Range Interpretation Comme nts Chemistry (test code = CKMBM-T) 2.9 ng/mL 0-6.6 N Chemistry (test code = TROPI-T) 0.015 ng/mL < 0.028 Reference Range 0.00 - 0.028 ng/mL Negative 0.029 - 0.29 ng/mL Indeterminate Greater or Equal to 0.3 ng/mL Strongly suggests ND Zyeucxwcj8484-02-24 08:40:00* Test Item Value Reference Range Interpretation [...] code = ALT) 17 U/L 8-55 N Kgwrudxpu8974-49-77 08:40:00* Test Item Value Reference Range Interpretation Comme nts Chemistry (test code = CK) 119 U/L 30-200 N Kfcfpmjqhm3593-15-88 08:23:00* Test Item Value Reference Range Interpretation [...] code = BASO#) 0.1 thou/uL 0.0-0.2 N Oxzsptpbf1446-42-17 19:03:00* Test Item Value Reference Range Interpretation [...] code = ALT) 16 U/L 8-55 N Ewutdvrmps9514-76-94 18:46:00* Test Item Value Reference Range Interpretation [...] code = BASO#) 0.1 thou/uL 0.0-0.2 N Emoyctkrcw2088-69-18 18:45:00* Test Item Value Reference Range Interpretation [...] Negative Negative Comment clear yellowUrine Source: Urine LzxmljSbwcjfhatd2371-43-82 18:45:00* Test Item Value Reference Range Interpretation Comme nts Urinalysis (test code = UARBC) 0-3 HPF 0-3 Urinalysis (test code = UAWBC) 4-6 HPF 0-3 A Urinalysis (test code = UASQUAM) 0-3 HPF 0-3 Urinalysis (test code = UABAC) 1+ HPF None Seen A Comment clear yellowUrine Source: Urine IgszinMmlwbrbbyh4463-56-75 20:56:00* Test Item Value Reference Range Interpretation [...] CAST LPF 0-3 Hyaline Urine Source: Urine YouvqdCdbgssikj9367-44-23 19:22:00* Test Item Value Reference Range Interpretation Comme [facility] Chemistry (test code = TROPI-T) Less than 0.010 ng/mL < 0.028 * Reference Range 0.00 - 0.028 ng/mL Negative 0.029 - 0.29 ng/mL Indeterminate Greater or Equal to 0.3 ng/mL Strongly suggests ND Comment Pls draw at 7 pm.Zyhcwrprqed9677-47-93 16:36:00* Test Item Value Reference Range Interpretation Comme [facility] Coagulation (test code = PT-T) 12.7 SEC 12.0-14.7 N Coagulation (test code = INR) 0.9 ATTENTION: READ CAREFULLY The recommended therapeutic ranges for oral anticoagulanttreatments are: ------ Low Intensity: 1.5 - 2.0 Moderate Intensity: 2.0 - 3.0 High Intensity (1): 2.5 - 3.5 High Intensity (2): 3.0 - 4.0 CRITICAL: > 4.0 Anticoagulant? NONEMedical Necessity SUSPECT COAGULOPATHYAnticoagulant? NONEMedical Necessity: IGNIGNJMZrpfuwehxmz3733-05-31 16:36:00* Test Item Value Reference Range Interpretation Comme [facility] Coagulation (test code = PTT) 26.2 SEC 22.9-36.1 N Anticoagulant? NONEMedical Necessity SUSPECT COAGULOPATHYAnticoagulant? NONEMedical Necessity: SYSKFNCDTyiqmqejd7606-96-33 16:34:00* Test Item Value Reference Range Interpretation Comme nts Chemistry (test code = CKMBM-T) 2.5 ng/mL 0-6.6 N Chemistry (test code = TROPI-T) Less than 0.010 ng/mL < 0.028 * Reference Range 0.00 - 0.028 ng/mL Negative 0.029 - 0.29 ng/mL Indeterminate Greater or Equal to 0.3 ng/mL Strongly suggests ND Cfgoxpeth6363-90-27 16:31:00* Test Item Value Reference Range Interpretation [...] code = ALT) 17 U/L 8-55 N Erjvhxxpdg0241-00-61 16:13:00* Test Item Value Reference Range Interpretation [...] 0.0-0.2 N XR Chest 1 [facility] Portable [facility] 1970 [facility] Pt Name: KERRY QUIROZ [address] Phys: [place] [address] : 1970 Age: 50 SEX:M [phone] Exam Date: 06/15/21 Status: REG ER Acct: [id number] Loc: [facility] Pt Unit #: [id number] Report #: [id number] CC: Karlene Stephen MD IMAGING SERVICES REPORT Order # Category/Exam [id number] RAD/XR Chest 1 View Portable ([id number]): . Results XR Chest 1 View Portable History: Chest pain Comparison: None. Findings: Lungs are clear. No pneumothorax or effusion. Cardiac silhouette and mediastinal contoursare within normal limits. Impression: No acute intrathoracic abnormality. Reported By: KARLENE HARP Electronically Signed Date/Time: 06/15/211550 Technologist: Dictated Date/Time: 06/15/211550 Transcribed Date/Time: Notes Date/Time Note Provider Source 2024-04-12 11:25:00 RCO notified pt leaving Stephania Solis RN [facility] 2024-04-12 10:40:14 Patient states "I have stage two kidney failure, I have been hurting a couple of days. I used the bathroom this morning, but that is not it." Patient c/o right sided lower back pain. Shola Musa RN [facility] 2018-08-08 11:31:00 Discharge Instructions 2 Discharge Diagnosis methamphetamine abuse / bipolar disorder Important Information Consult your physician or return to the Emergency Department immediately if worse, if not better as expected, or if any problems arise. Follow Up Care Yes Important Information Please understand that you have received care only on an emergency basis. If your condition does not improve, you should call your personal physician for follow-up care. If you do not have a physician, you may call the referred physician listed. If you have questions about your care or these discharge instructions, you may call the Emergency Department. Please take your discharge paperwork with you to any follow-up appointments. Follow-Up With: Primary Care Physician Activity Level As tolerated, unrestricted Diet Regular Prescriptions Given Via: N/A Patient Teaching Patient education provided [facility] (LUF/LIOR/SA)
[2024-04-27] MEDS ORDERED: NA CHLORIDE 0.9% 1,000 ML ONE (11:03)
[2024-04-27] MEDS ORDERED: METOCLOPRAMIDE 10 MG/2mL INJ ONE (11:03)
[2024-04-27] MEDS ORDERED: NA CHLORIDE 0.9% 100 ML ONE (11:03)
[2024-04-27] MEDS ORDERED: DIPHENHYDRAMINE 50 MG/ML VIAL ONE (11:03)
[2024-04-27] MEDS ORDERED: KETOROLAC 30 MG/ML INJ ONE (11:03)
[2024-04-27 11:07] LABS: Absolute Basophils 0.1 K/uL (0-0.5); Absolute Eosinophils 0.3 K/uL (0-0.5); Absolute Lymphocytes (CBC) 1.7 K/uL (0.7-4.9); Absolute Monocytes 0.5 K/uL (0.1-1.3); Absolute Neutrophil 5.4 K/uL (1.8-8.0); Basophils % 0.9 % (0-1.3); Eosinophils % 3.8 % (0-4.4); Hematocrit 47.2 % (39.6-49.0); Hemoglobin 15.8 g/dL (13.6-17.9); Lymphocytes % 21.3 % (15.3-44.8); MCHC 33.5 g/dL (32.0-36.0); MCV 92.5 fL (80-100); MPV 7.4 fL (7.6-11.3); Monocytes % 5.7 % (3.3-12.3); Neutrophils % 68.3 % (41.7-73.7); Platelets 282 thou/uL (152-406); Red Cell Distribution Width 13.9 % (12.1-15.2)
[2024-04-27 11:27] LABS: Anion Gap 7.1 mEq/L (5.0-15.0); Potassium 4.1 mEq/L (3.5-5.1); Troponin High Sensitivity 3.8 pg/mL (<58.9)
--- NOTE | 2024-04-27 11:31 | EDPHYS ---
Physician Documentation [facility] Name: Jasmin Haley Age: 53 yrs Sex: Male : 1970 Arrival Date: 04/27/2024 Time: 10:32 Bed DX4 Private MD: ED Physician Cesar Moran HPI: 04/27 10:52 This 53 yrs old Male presents to ER via Ambulatory with complaints of High ec2 Blood Pressure, Blurred Vision. 10:52 Patient arrives today for evaluation of generalized headache along with bilateral ec2 blurred vision that has been ongoing for 20 years. Patient reports that he has previously been on blood pressure medications however has not been on this for "some time ". Unclear what he is previously been on. Reports that he has been having high blood pressures as well.. Historical: - Allergies: 10:47 Ibuprofen; ph - Home Meds: 10:47 lithium carbonate 300 mg Oral tab 1 tab 2 times per day [Active]; prazosin 1 mg Oral ph cap 1 cap nightly [Active]; - PMHx: 10:47 bipolar/schizo; CVA; Hypertension; ph - Immunization history:: Adult Immunizations unknown. - Infectious Disease History:: Denies. ROS: 10:52 Constitutional: as per hpi ec2 Exam: 10:52 Constitutional: GEN: NAD Head: atraumatic Eyes: EOMI Ears: External ears are ec2 normal. CV: regular rate LUNGS: no respiratory distress ABD: non-distended SKIN: no evidence of rashes MSK: no evidence of trauma. Neuro: Cranial nerves II through XII intact, strength intact all 4 extremities. Vital Signs: 10:50 BP 174 / 107; Pulse 65; Resp 18; Temp 98.8; Pulse Ox 99% ; Weight 64.86 kg; Height 5 ph ft. 6 in. ; 10:50 Body Mass Index 23.08 (64.86 kg, 167.64 cm) ph MDM: 10:52 Data reviewed: vital signs. ED course: Patient arrives today for evaluation of ec2 headache. Examination remarkable for neuro intact individuals otherwise in no acute distress with a reassuring examination. Will obtain lab work to evaluate for renal dysfunction we will give the patient medication for his headache. Suspect chronic hypertension, headache syndrome, doubt intracranial brain bleed, accordingly will forego CT imaging of the head. Additionally doubt intracranial mass.. 10:55 Patient medically screened. ec2 11:29 ED course: Labs are unrevealing. Will start the patient on hydrochlorothiazide and have ec2 the patient follow-up outpatient expectantly. Patient discharged home. Precautions given.. 04/27 10:52 Order name: CBC with Diff; Complete Time: 11:28 ec2 04/27 10:52 Order name: BMP; Complete Time: 11:28 ec2 04/27 10:52 Order name: Troponin High Sensitivity; Complete Time: 11:28 ec2 Administered Medications: 11:10 Drug: diphenhydrAMINE IVP 25 mg IVP once Route: IVP; Site: left antecubital; ph 11:55 Follow up: Response: No adverse reaction ph 11:11 Drug: NS 0.9% IV 1000 ml IV at 1 bolus Per protocol; 1000 mL bolus Route: IV; Rate: 1 ph bolus; Site: left antecubital; 11:55 Follow up: Response: No adverse reaction; IV Status: Completed infusion; IV Intake: ph 1000ml 11:11 Drug: Ketorolac IVP 15 mg IVP once Route: IVP; Site: left antecubital; ph 11:55 Follow up: Response: No adverse reaction; Pain is decreased ph 11:11 Drug: metoCLOPramide IVP 10 mg IVP once; over 1 to 2 minutes Route: IVP; Site: left ph antecubital; 11:55 Follow up: Response: No adverse reaction; Pain is decreased ph Disposition Summary: 04/27/24 11:30 Discharge Ordered Notes: Location: Home ec2 Condition: Stable ec2 Diagnosis - Headache ec2 - Essential (primary) hypertension ec2 Followup: ec2 - With: Private Physician - When: - Reason: Re-evaluation by your physician Discharge Instructions: - Discharge Summary Sheet ec2 - General Headache Without Cause ec2 Forms: - Medication Reconciliation Form ec2 - Antibiotic Education ec2 - Prescription Opioid Use ec2 - Patient Portal Instructions ec2 - Leadership Thank You Letter ec2 Prescriptions: - Hydrochlorothiazide 12.5 mg Oral Tablet - take 1 tablet ORAL route once daily; 30 tablet; Refills: 0, Product Selection ec2 Permitted Signatures: Dispatcher [employer] Jessica Sommers RN RN Cesar Moran MD MD ec2
--- NOTE | 2024-04-27 11:31 | ER ---
Nurse's Notes [facility] Name: Jasmin Haley Age: 53 yrs Sex: Male : 1970 Arrival Date: 04/27/2024 Time: 10:32 Bed DX4 Private MD: Diagnosis: Headache;Essential (primary) hypertension Presentation: 04/27 10:46 Chief complaint: Patient states: Went to donate plasma and BP was 183/128, had ph dizziness, blurred vision and headache on the way to the hospital. Initial Sepsis Screen: Does the patient meet any 2 criteria? No. Patient's initial sepsis screen is negative. Does the patient have a suspected source of infection? No. Patient's initial sepsis screen is negative. Risk Assessment: Do you want to hurt yourself or someone else? Patient reports no desire to harm self or others. 10:46 Method Of Arrival: Ambulatory ph 10:50 Coronavirus screen: Vaccine status: Patient reports receiving the 2nd dose of the covid ph vaccine. Ebola Screen: No symptoms or risks identified at this time. Onset of symptoms was April 27, 2024. 10:50 Acuity: GISELA 3 ph Triage Assessment: 10:50 General: Appears in no apparent distress. Behavior is calm, cooperative. Pain: ph Complains of pain in headache. Neuro: Level of Consciousness is awake, alert, obeys commands, Oriented to person, place, time, situation, Reports headache. Cardiovascular: Capillary refill < 3 seconds in bilateral fingers Patient's skin is warm and dry. Derm: Skin is pink, warm \T\ dry. Historical: - Allergies: 10:47 Ibuprofen; ph - Home Meds: 10:47 lithium carbonate 300 mg Oral tab 1 tab 2 times per day [Active]; prazosin 1 mg Oral ph cap 1 cap nightly [Active]; - PMHx: 10:47 bipolar/schizo; CVA; Hypertension; ph - Immunization history:: Adult Immunizations unknown. - Infectious Disease History:: Denies. Screenin:00 [facility] ED Fall Risk Assessment (Adult) History of falling in the last 3 months, ph including since admission No falls in past 3 months (0 pts) Confusion or Disorientation No (0 pts) Intoxicated or Sedated No (0 pts) Impaired Gait No (0 pts) Mobility Assist Device Used No (0 pt) Altered Elimination No (0 pt) Score/Fall Risk Level 0 - 2 = Low Risk Oriented to surroundings, Maintained a safe environment, Hourly rounding (assess needs \T\ fall precautionary measures) done. Abuse screen: Denies threats or abuse. Denies injuries from another. Nutritional screening: No deficits noted. Tuberculosis screening: No symptoms or risk factors identified. Vital Signs: 10:50 BP 174 / 107; Pulse 65; Resp 18; Temp 98.8; Pulse Ox 99% ; Weight 64.86 kg; Height 5 ph ft. 6 in. ; 10:50 Body Mass Index 23.08 (64.86 kg, 167.64 cm) ph ED Course: 10:34 Patient arrived in ED. im 10:36 Cesar Moran MD is Attending Physician. ec2 10:45 Patient has correct armband on for positive identification. ph 10:48 Arm band placed on. ph 10:51 Triage completed. ph 11:01 Jessica Bay RN is Primary Nurse. ph 11:10 Initial lab(s) drawn, by me, sent to lab. Inserted saline lock: 20 gauge in left ph antecubital area, using aseptic technique. Blood collected. Flushed with 10 mL NS. 11:58 No provider procedures requiring assistance completed. IV discontinued, intact, ph bleeding controlled, No redness/swelling at site. Pressure dressing applied. Administered Medications: 11:10 Drug: diphenhydrAMINE IVP 25 mg IVP once Route: IVP; Site: left antecubital; ph 11:55 Follow up: Response: No adverse reaction ph 11:11 Drug: NS 0.9% IV 1000 ml IV at 1 bolus Per protocol; 1000 mL bolus Route: IV; Rate: 1 ph bolus; Site: left antecubital; 11:55 Follow up: Response: No adverse reaction; IV Status: Completed infusion; IV Intake: ph 1000ml 11:11 Drug: Ketorolac IVP 15 mg IVP once Route: IVP; Site: left antecubital; ph 11:55 Follow up: Response: No adverse reaction; Pain is decreased ph 11:11 Drug: metoCLOPramide IVP 10 mg IVP once; over 1 to 2 minutes Route: IVP; Site: left ph antecubital; 11:55 Follow up: Response: No adverse reaction; Pain is decreased ph Medication: 11:11 VIS not applicable for this client. ph Intake: 11:55 IV: 1000ml; Total: 1000ml. ph Outcome: 11:30 Discharge ordered by . ec2 11:58 Patient left the ED. ph 11:58 Discharged to home ambulatory, with significant other, ph 11:58 Condition: good 11:58 Discharge instructions given to patient, Instructed on discharge instructions, follow up and referral plans. medication usage, Demonstrated understanding of instructions, follow-up care, medications, Prescriptions given X 1, Signatures: Jessica Bay RN RN Aurea Lemon Edwin, MD MD ec2
[2024-04-27 12:21] VITALS: BP 174/107; TEMP 98.8; O2SAT 99
== END 2024-04-27 11:58 | disposition home or self-care (01) ==
LOC: ER 10:32
DX: R51.9 Headache, unspecified (principal); I10 Essential (primary) hypertension
CPT/HCPCS: 36415; 80048; 84484; 85025; J1200; J2765; J7030

== ENCOUNTER 2024-05-02 09:11 | Emergency (ER) | payer SELFPAY ==
--- OUTSIDE RECORDS SUMMARY | 2024-05-02 09:18 | XMS REPORT | Continuity of Care Document ---
Author Name Unknown Address [address] [facility] [address] [place] [address] [facility] Address [address] 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 Role Phone Pcp, Patient Does Not Have A Primary Care Physic floyd Debbie AGUILAR Attending Clinician Unavailable Debbie AGUILAR Attending Clinician Unavailable Debbie Avila Attending Clinician [phone] TANYA MUNIZ Attending Clinician Unavailab Tanya Estevez [...] Date Expiration Date Source MEDICAID PENDING NA [facility] JOVANNA CARE PENDING NA [facility] Problems Condition Name Condition Details Condition [...] s DA Active U 09-09 00:00: 00 [facility] NO KNOWN ALLERGIE S Drug Class Active [facility] Social History Social Habit Start Date Stop Date Quantity Comments Source Sexual orientation U [facility] Exposure to SARS-CoV-2 (event) 2022-03-24 00:00:00 2022-04-03 00:24:00 Not sure [facility] Sex assigned at 1970 00:00:00 1970 00:00:00 [facility] Smoking Status Start Date Stop Date Source Never smoker [facility] (LUF/LIOR/SA) Tobacco smoking consumption unknown [facility] Medications Ordered Medication Name Filled Medication Name Start Date Stop Date Current Medication? Ordering Clinician Indication Dosage Frequency Signature (SIG) Comments Components Source NaCl 0.9% (NS) bolus infusion 500 mL 04-03 07:00: 00 04-03 07:04 :00 No 500mL at 999 mL/hr, 500 mL, IV Infusion, ONCE, 1 dose, On Roxana 04/03/22 at 0200, STAT [facility] maalox:diph enhydrAMINE :lidocaine 2 % viscous 1:1:1 (FIRST-MOUT HWASH BLM) oral suspension 15 mL 04-03 06:00: 00 04-03 06:12 :00 No 15mL 15 mL, Oral, ONCE, 1 dose, On Roxana 04/03/22 at 0100, Routine [facility] Vital Signs Vital Name Observation Time Observation Value Heather castillo Systolic blood pressure 2024-04-12 15:42:00 154 mm[Hg] [facility] Diastolic blood pressure 2024-04-12 15:42:00 114 mm[Hg] [facility] Heart rate 2024-04-12 15:42:00 74 /min [facility] Body temperature 2024-04-12 15:42:00 36.5 Sylvie [facility] Respiratory rate 2024-04-12 15:42:00 18 /min [facility] Body height 2024-04-12 15:42:00 167.6 cm [facility] Body weight 2024-04-12 15:42:00 73.936 kg [facility] BMI 2024-04-12 15:42:00 26.31 kg/m2 [facility] Oxygen saturation in Arterial blood by Pulse oximetry 2024-04-12 15:42:00 97 /min [facility] Systolic blood pressure 2022-04-03 05:26:00 157 mm[Hg] [facility] Diastolic blood pressure 2022-04-03 05:26:00 100 mm[Hg] [facility] Heart rate 2022-04-03 05:26:00 71 /min [facility] Body temperature 2022-04-03 05:26:00 36.56 Sylvie [facility] Respiratory rate 2022-04-03 05:26:00 18 /min [facility] Body height 2022-04-03 05:26:00 167.6 cm [facility] Body weight 2022-04-03 05:26:00 66.225 kg [facility] BMI 2022-04-03 05:26:00 23.57 kg/m2 [facility] Oxygen saturation in Arterial blood by Pulse oximetry 2022-04-03 05:26:00 97 /min [facility] BP Diastolic 2018-08-08 05:01:00 110 mm[Hg] [facility] (F/LIOR/SA) Height 2018-08-08 05:01:00 66 in [facility] S [facility] (F/LIOR/SA) Weight Measured 2018-08-08 05:01:00 154.32 lbs [facility] (LUF/LIOR/SA) BMI (Body Mass Index) 2018-08-08 05:01:00 25 [facility] (F/LIOR/SA) Body Temperature 2018-08-08 05:01:00 98.9 F [facility] (F/LIOR/SA) Pulse Rate 2018-08-08 05:01:00 87 /min [facility] (F/LIOR/SA) Respiratory Rate 2018-08-08 05:01:00 18 /min [facility] (F/LIOR/SA) O2% BldC Oximetry 2018-08-08 05:01:00 98 % [facility] (F/LIOR/SA) BP Systolic 2018-08-08 05:01:00 160 mm[Hg] [facility] (F/LIOR/SA) Procedures Procedure Date / Time Performed Performing Clinicia n Source TROPONIN I 2022-04-03 06:11:00 Tanya Muniz Un [facility] COMP. METABOLIC PANEL (64514) 2022-04-03 06:11:00 Tanya Muniz [facility] CBC WITH DIFF 2022-04-03 06:11:00 Tanya Muniz U [facility] NOTICE OF PRIVACY PRACTICES 2022-04-03 05:18:55 Doctor Unassigned, [place] [facility] CONSENT/REFUSAL FOR DIAGNOSIS AND TREATMENT 2022-04-03 05:18:14 Doctor Unassigned, [place] [facility] Encounters Start Date/Time End Date/Time Encounter Type Admission Type Attending Clinicians Care Facility Care Department Encounter ID Source 2024-04-12 10:43:00 2024-04-12 12:18:00 Emergency X Debbie AGUIALR K [facility] ERT [id number] [facility] 2024-04-12 10:43:00 2024-04-12 12:18:00 Emergency Debbie Aguilar AT [facility] [id number] [facility] 2022-04-03 00:20:00 2022-04-03 02:21:00 Emergency X TANYA MUNIZ [facility] ERT [id number] [facility] 2022-04-03 00:20:00 2022-04-03 02:21:00 Emergency Tanya Muniz [facility] [id number] [facility] 2021-06-16 02:24:00 2021-06-16 02:24:00 Emergency ER Karlene Stephen [facility] [id number] [facility] 2021-06-15 15:02:00 2021-06-15 15:02:00 Emergency ER Karlene Stephen [facility] [id number] [facility] 2021-05-28 13:51:00 2021-05-28 16:10:00 Emergency ER Roshni Carr [facility] [id number] [facility] 2018-08-08 04:58:00 2018-08-08 11:31:00 Inpatient MARÍA CAICEDO [facility], [address] [place] [address] [facility] [id number] [facility] (LUF/KALINA V/SA) 2018-07-01 19:23:00 2018-07-01 20:28:00 Departed Emergency MIMI SCHWARTZ [facility] [id number] [address] [facility] Results Test Description Test Time Test Comments Results Result Co mments Source [facility] (02217)2022-04-03 06:33:58* Test Item Value Reference Range Interpretation Comme nts NA (test code = 3149423860) 138 mmol/L 135-145 K (test code = 1715940538) 3.8 mmol/L 3.5-5 CL (test code = 4454427066) 106 mmol/L 98-108 CO2 TOTAL (test code = 4722698930) 26 mmol/L 23-31 AGAP (test code = 9866763017) 2-16 BUN (test code = 1721151708) 16 mg/dL 7-23 GLUCOSE (test code = 1324790252) 118 mg/dL 70-110 H CREATININE (test code = 7736407234) 0.96 mg/dL 0.6-1.25 TOTAL BILI (test code = 8753527798) 0.1 mg/dL 0.1-1.1 CALCIUM (test code = 1255383304) 8.5 mg/dL 8.6-10.6 L T PROTEIN (test code = 7635025209) 5.5 g/dL 6.3-8.2 L ALBUMIN (test code = 6487436014) 3.4 g/dL 3.5-5 L ALK PHOS (test code = 3594139021) 45 U/L 34-122 ALTv (test code = 1742-6) 16 U/L 5-50 AST(SGOT) (test code = 5111634557) 16 U/L 13-40 eGFR (test code = 4257900318) mL/min/1.73m2 APOLINAR (test code = APOLINAR) Association [...] imaging tests). Lab Interpretation (test code = 10093-6) Abnormal [facility] WITH [id number] 06:21:14* Test Item Value Reference Range Interpretation Comme nts WBC (test code = 6690-2) See_Comment [Automated gamigo] The system which generated this result transmitted reference range: 4.20 - 10.70 10*3/?L. The reference range was not used to interpret this result as normal/abnormal. RBC (test code = 789-8) See_Comment [Automated [employer]oon[employer] Heroku] The system which generated this result transmitted [...] 34.8 g/dL 31.2-35 RDW-SD (test code = 29651-0) 39.1 fL 38.5-51.6 RDW-CV (test code = 788-0) 11.9 % 12.1-15.4 L PLT (test code = 777-3) See_Comment [Automated [employer]] The system which generated this result transmitted reference range: 150 - 328 10*3/?L. The reference range was not used to interpret this result as normal/abnormal. MPV (test code = 30113-5) 9.6 fL 9.8-13 L NRBC/100 WBC (test code = 4574439238) See_Comment [Automated me ssage] The system which generated this result transmitted reference range: 0.0 - 10.0 /100 WBCs. The reference range was not used to interpret this result as normal/abnormal. NRBC x10^3 (test code = 5824952227) See_Comment [Automated messa ge] The system which generated this result transmitted reference range: 10*3/?L. The reference range was not used to interpret this result as normal/abnormal. GRAN MAT (NEUT) % (test code = 770-8) 53.1 % IMM GRAN % (test code = 6326473131) 0.20 % LYMPH % (test code = 736-9) 33.2 % MONO % (test code = 5905-5) 7.6 % EOS % (test code = 713-8) 5.7 % BASO % (test code = 706-2) 0.2 % GRAN MAT x10^3(ANC) (test code = 5471381756) 3.37 10*3/uL 1.99-6.95 IMM GRAN x10^3 (test code = 3104923302) 0-0.06 LYMPH x10^3 (test code = 731-0) 2.10 10*3/uL 1.09-3.23 MONO x10^3 (test code = 742-7) 0.48 10*3/uL 0.36-1.02 EOS x10^3 (test code = 711-2) 0.36 10*3/uL 0.06-0.53 BASO x10^3 (test code = 704-7) 0.01-0.09 Lab Interpretation (test code = 53875-4) Abnormal [facility] 16:05:00* Test Item Value Reference Range Interpretation Comme nts Chemistry (test code = CKMBM-T) 2.2 ng/mL 0-6.6 N Tbiolffod8426-79-63 16:04:00* Test Item Value Reference Range Interpretation [...] code = ALT) 13 U/L 8-55 N Tjyhlhwyk4173-18-75 16:04:00* Test Item Value Reference Range Interpretation Comme nts Chemistry (test code = CK) 95 U/L 30-200 N Rquwjuady8636-25-37 16:04:00* Test Item Value Reference Range Interpretation Comme nts Chemistry (test code = TROPI-R) Less than 0.010 ng/mL < 0.028 * Reference Range 0.00 - 0.028 ng/mL Negative 0.029 - 0.29 ng/mL Indeterminate Greater or Equal to 0.3 ng/mL Strongly suggests RI Ypdhlmxhmm5203-88-50 15:47:00* Test Item Value Reference Range Interpretation [...] mg/dl Toxicity >30 mg/dl Lethal >70 mg/dl [facility] 06:42:00* Test Item Value Reference Range Interpretation [...] assessment and management of chronic kidney failure. [facility] InstituteACETAMINOPHEN (Tyenol)2018-08-08 06:41:00* Test Item Value Reference Range Interpretation Comme nts Acetaminophen (test code = ACET) <2 ug/ml 10-25 L [facility] InstituteALCOHOL, BKAOX7027-21-05 06:41:00* Test Item Value Reference Range Interpretation Comme nts Alcohol % (test code = ALCPC) 0 % 0.00-0.00 N Ethanol % 0.00 - 0.10 Sub-clinical 0.11 - 0.20 Emotional Instability 0.21 - 0.30 Confusion 0.31 - 0.40 Stupor 0.41 - 0.50 Coma >.50 Fatal [facility] InstituteCB WITH AUTO [id number] 06:13:00* Test Item Value Reference Range Interpretation [...] (test code = IG%) 0.4 % 0.0-0.4 [facility] InstitutePmlrcn-FigxsiaibsJppnfcwjdku8658-33-11 08:45:00* Test Item Value Reference Range Interpretation [...] Anticoagulant? NONEMedical Necessity SUSPECT COAGULOPATHYAnticoagulant? NONEMedical Necessity: LWAXCVRAJnjawhloupj2250-61-21 08:45:00* Test Item Value Reference Range Interpretation Comme nts Coagulation (test code = PTT) 27.2 SEC 22.9-36.1 N Anticoagulant? NONEMedical Necessity SUSPECT COAGULOPATHYAnticoagulant? NONEMedical Necessity: MOHEKNLMDrtgbxlql3240-73-36 08:44:00* Test Item Value Reference Range Interpretation Comme nts Chemistry (test code = CKMBM-T) 2.9 ng/mL 0-6.6 N Chemistry (test code = TROPI-T) 0.015 ng/mL < 0.028 Reference Range 0.00 - 0.028 ng/mL Negative 0.029 - 0.29 ng/mL Indeterminate Greater or Equal to 0.3 ng/mL Strongly suggests RI Ckfjcbmvw4031-67-65 08:40:00* Test Item Value Reference Range Interpretation [...] code = ALT) 17 U/L 8-55 N Spzclqthe5732-66-59 08:40:00* Test Item Value Reference Range Interpretation Comme nts Chemistry (test code = CK) 119 U/L 30-200 N Kbirzvgemn7808-09-68 08:23:00* Test Item Value Reference Range Interpretation [...] code = BASO#) 0.1 thou/uL 0.0-0.2 N Uejahxmlz1617-55-37 19:03:00* Test Item Value Reference Range Interpretation [...] code = ALT) 16 U/L 8-55 N Trwxuccpwx0137-54-61 18:46:00* Test Item Value Reference Range Interpretation [...] code = BASO#) 0.1 thou/uL 0.0-0.2 N Suzcphwibv8108-55-67 18:45:00* Test Item Value Reference Range Interpretation [...] Negative Negative Comment clear yellowUrine Source: Urine FrkawsRjpmborygi9941-72-63 18:45:00* Test Item Value Reference Range Interpretation Comme nts Urinalysis (test code = UARBC) 0-3 HPF 0-3 Urinalysis (test code = UAWBC) 4-6 HPF 0-3 A Urinalysis (test code = UASQUAM) 0-3 HPF 0-3 Urinalysis (test code = UABAC) 1+ HPF None Seen A Comment clear yellowUrine Source: Urine OlrzexGyylrtzsbi8299-76-18 20:56:00* Test Item Value Reference Range Interpretation [...] CAST LPF 0-3 Hyaline Urine Source: Urine DchgupQzsmtdyfs3762-43-43 19:22:00* Test Item Value Reference Range Interpretation Comme [facility] Chemistry (test code = TROPI-T) Less than 0.010 ng/mL < 0.028 * Reference Range 0.00 - 0.028 ng/mL Negative 0.029 - 0.29 ng/mL Indeterminate Greater or Equal to 0.3 ng/mL Strongly suggests RI Comment Pls draw at 7 pm.Wmygjusmwdh4790-25-65 16:36:00* Test Item Value Reference Range Interpretation Comme [facility] Coagulation (test code = PT-T) 12.7 SEC 12.0-14.7 N Coagulation (test code = INR) 0.9 ATTENTION: READ CAREFULLY The recommended therapeutic ranges for oral anticoagulanttreatments are: ------ Low Intensity: 1.5 - 2.0 Moderate Intensity: 2.0 - 3.0 High Intensity (1): 2.5 - 3.5 High Intensity (2): 3.0 - 4.0 CRITICAL: > 4.0 Anticoagulant? NONEMedical Necessity SUSPECT COAGULOPATHYAnticoagulant? NONEMedical Necessity: CJTPMZUZFfbzmatbifo1028-67-16 16:36:00* Test Item Value Reference Range Interpretation Comme nts Coagulation (test code = PTT) 26.2 SEC 22.9-36.1 N Anticoagulant? NONEMedical Necessity SUSPECT COAGULOPATHYAnticoagulant? NONEMedical Necessity: WMQUPLVQXktblfbxu6402-83-79 16:34:00* Test Item Value Reference Range Interpretation Comme nts Chemistry (test code = CKMBM-T) 2.5 ng/mL 0-6.6 N Chemistry (test code = TROPI-T) Less than 0.010 ng/mL < 0.028 * Reference Range 0.00 - 0.028 ng/mL Negative 0.029 - 0.29 ng/mL Indeterminate Greater or Equal to 0.3 ng/mL Strongly suggests RI Hjkqxjubo4051-58-75 16:31:00* Test Item Value Reference Range Interpretation [...] code = ALT) 17 U/L 8-55 N Ywzkenradc3609-78-61 16:13:00* Test Item Value Reference Range Interpretation [...] [facility] 1970 [facility] KERRY QUIROZ [address] Phys: [place] [address] : 1970 Age: 50 SEX:M [phone] Exam Date: 06/15/21 Status: REG ER Acct: [id number] [facility]: [facility] Pt Unit #: [id number] Report #: [id number] CC: Karlene Stephen MD IMAGING SERVICES REPORT Order # Category/Exam [id number] RAD/XR Chest 1 View Portable ([id number]): . Results XR Chest 1 View Portable History: Chest pain Comparison: None. Findings: Lungs are clear. No pneumothorax or effusion. Cardiac silhouette and mediastinal contoursare within normal limits. Impression: No acute intrathoracic abnormality. Reported By: KARLENE HARP Electronically Signed Date/Time: Technologist: Dictated Date/Time: 06/15/21 1551 Transcribed Date/Time: Notes Date/Time Note Provider Source 2024-04-12 11:25:00 RCO notified pt leaving Stephania Solis RN [facility] 2024-04-12 10:40:14 Patient states "I have stage two kidney failure, I have been hurting a couple of days. I used the bathroom this morning, but that is not it." Patient c/o right sided lower back pain. Shola Musa RN [facility] 2018-08-08 11:31:00 Discharge Instructions 2 Discharge [...] provided [facility] (LUF/LIOR/SA)
--- NOTE | 2024-05-02 10:03 | EDPHYS ---
Physician Documentation [facility] Name: Jasmin Haley Age: 53 yrs Sex: Male : 1970 Arrival Date: 05/02/2024 Time: 09:11 Bed IW10 Private MD: ED Physician Cesar Moran MDM: 05/02 09:22 Patient medically screened. ec2 05/02 09:22 Order name: Eye Tray ec2 05/02 09:22 Order name: Fluoresene Opth strip ec2 Administered Medications: No medications were administered Disposition Summary: 05/02/24 10:03 Eloped Notes: Disposition: before being seen by provider ec2 Reason: unknown ec2 Diagnosis - Eloped ec2 Followup: ec2 - With: Private Physician - When: - Reason: Re-evaluation by your physician Signatures: Cesar Moran MD MD ec2
== END 2024-05-02 10:06 | disposition left against medical advice (07) ==
LOC: ER 09:11
DX: Z02.9 Encounter for administrative examinations, unspecified (principal)

== ENCOUNTER 2024-05-02 20:09 | Emergency (ER) | payer SELFPAY ==
--- OUTSIDE RECORDS SUMMARY | 2024-05-02 20:15 | XMS REPORT | Continuity of Care Document ---
Author Name Unknown Address [address] [place] [address] [facility] Address [address] [place] [address] Care Team Providers Care Plasterer Stucco Name Role Phone Pcp, Patient Does Not Have A Primary Care Physic floyd Debbie AGUILAR Attending Clinician Unavailable Debbie AGUILAR Attending Clinician Unavailable Debbie Avila Attending Clinician TANYA MUNIZ Attending Clinician Unavailab Tanya Estevez DO Attending Clinician Karlene Stephen Attending Clinician Unavailable Roshni Carr Attending Clinician Unavailable MARÍA HERNANDEZ Attending Clinician Unavailable MIMI SCHWARTZ MD Attending Clinician [phone] MARIUM ANDERS Attending Clinician Unavailable Daniel Coronado Attending Clinician Unavailable PROVIDER, ED TEMP Attending Clinician UnavailJM Tracy Attending Clinician UnavailMARÍA Trujillo Admitting Clinician Unavailable Payers Payer Name Policy Type Policy Number Effective Date Expiration Date Source MEDICAID PENDING NA [facility] JOVANNA CARE PENDING NA [facility] Problems Condition Name Condition Details [...] s DA Active U 09-09 00:00: 00 [facility] NO KNOWN ALLERGIE S Drug Class Active [facility] Social History Social Habit Start Date Stop Date Quantity Comments Source Sexual orientation U [facility] Exposure to SARS-CoV-2 (event) 2022-03-24 00:00:00 2022-04-03 00:24:00 Not sure [facility] Sex assigned at 1970 00:00:00 1970 00:00:00 [facility] Smoking Status Start Date Stop Date Source Tobacco smoking consumption unknown [facility] Never smoker [facility] (LUF/LIOR/SA) Medications Ordered Medication Name Filled Medication Name Start Date Stop Date Current Medication? Ordering Clinician Indication Dosage Frequency Signature (SIG) Comments Components Source NaCl 0.9% (NS) bolus infusion 500 mL 04-03 07:00: 00 04-03 07:04 :00 No 500mL at 999 mL/hr, 500 mL, IV Infusion, ONCE, 1 dose, On Roxana 04/03/22 at 0200, STAT [facility] maalox:diph enhydrAMINE :lidocaine 2 % viscous 1:1:1 (FIRST-MOUT HWASH BLM) oral suspension 15 mL 04-03 06:00: 00 04-03 06:12 :00 No 15mL 15 mL, Oral, ONCE, 1 dose, On Roxana 04/03/22 at 0100, Routine [facility] Vital Signs Vital Name Observation Time Observation Value Comments S anna Systolic blood pressure 2024-04-12 15:42:00 154 mm[Hg] [facility] Diastolic blood pressure 2024-04-12 15:42:00 114 mm[Hg] [facility] Heart rate 2024-04-12 15:42:00 74 /min [facility] Body temperature 2024-04-12 15:42:00 36.5 Sylvie [facility] Respiratory rate 2024-04-12 15:42:00 18 /min [facility] Body height 2024-04-12 15:42:00 167.6 cm [facility] Body weight 2024-04-12 15:42:00 73.936 kg [facility] BMI 2024-04-12 15:42:00 26.31 kg/m2 [facility] Oxygen saturation in Arterial blood by Pulse oximetry 2024-04-12 15:42:00 97 /min [facility] Body height 2022-04-03 05:26:00 167.6 cm [facility] Body weight 2022-04-03 05:26:00 66.225 kg [facility] BMI 2022-04-03 05:26:00 23.57 kg/m2 [facility] Oxygen saturation in Arterial blood by Pulse oximetry 2022-04-03 05:26:00 97 /min [facility] Systolic blood pressure 2022-04-03 05:26:00 157 mm[Hg] [facility] Diastolic blood pressure 2022-04-03 05:26:00 100 mm[Hg] [facility] Heart rate 2022-04-03 05:26:00 71 /min [facility] Body temperature 2022-04-03 05:26:00 36.56 Sylvie [facility] Respiratory rate 2022-04-03 05:26:00 18 /min [facility] Body Temperature 2018-08-08 05:01:00 98.9 F [facility] (LUF/LIOR/SA) Pulse Rate 2018-08-08 05:01:00 87 /min [facility] (LUF/LIOR/SA) Respiratory Rate 2018-08-08 05:01:00 18 /min [facility] (LUF/LIOR/SA) O2% BldC Oximetry 2018-08-08 05:01:00 98 % [facility] (LUF/LIOR/SA) BP Systolic 2018-08-08 05:01:00 160 mm[Hg] [facility] (LUF/LIOR/SA) BP Diastolic 2018-08-08 05:01:00 110 mm[Hg] [facility] (LUF/LIOR/SA) Height 2018-08-08 05:01:00 66 in [facility] (LUF/LIOR/SA) Weight Measured 2018-08-08 05:01:00 154.32 lbs [facility] (LUF/LIOR/SA) BMI (Body Mass Index) 2018-08-08 05:01:00 25 [facility] (F/LIOR/SA) Procedures Procedure Date / Time Performed Performing Clinicia n Source TROPONIN I 2022-04-03 06:11:00 Tanya Muniz [facility] COMP. METABOLIC PANEL (70684) 2022-04-03 06:11:00 Tanya Muniz [facility] CBC WITH DIFF 2022-04-03 06:11:00 Tanya Muniz [facility] NOTICE OF PRIVACY PRACTICES 2022-04-03 05:18:55 Doctor Unassigned, [place] [facility] CONSENT/REFUSAL FOR DIAGNOSIS AND TREATMENT 2022-04-03 05:18:14 Doctor Unassigned, [place] [facility] Encounters Start Date/Time End Date/Time Encounter Type Admission Type Attending Clinicians Care Facility Care Department Encounter ID Source 2024-04-12 10:43:00 2024-04-12 12:18:00 Emergency X Debbie AGUILAR [facility] [id number] [facility] 2024-04-12 10:43:2024-04-12 12:18:00 Emergency Debbie Aguilar [facility] [id number] [facility] 2022-04-03 00:20:00 2022-04-03 02:21:00 Emergency X TANYA MUNIZ [facility] ERT [id number] [facility] 2022-04-03 00:20:00 2022-04-03 02:21:00 Emergency Tanya Muniz [facility] [id number] [facility] 2021-06-16 02:24:00 2021-06-16 02:24:[address] Karlene Stephen [facility] [id number] [facility] 2021-06-15 15:02:00 2021-06-15 15:02:[address] Karlene Stephen [facility] [id number] [facility] 2021-05-28 13:51:00 2021-05-28 16:10:00 Emergency [address] Roshni Carr [facility] [id number] [facility] 2018-08-08 04:58:00 2018-08-08 11:31:00 Inpatient MARÍA CAICEDO [facility], [address], [place] [address] [facility] [id number] [facility] (ALL/KALINA V/SA) 2018-07-01 19:23:00 2018-07-01 20:28:00 Departed Emergency MIMI SCHWARTZ [facility] [id number] [facility] Results Test Description Test Time Test Comments Results Result Co mments Source [facility]84155[facility]2022-04-03 06:33:58* Test Item Value Reference Range Interpretation Comme nts NA (test code = 0286762840) 138 mmol/L 135-145 K (test code = 7872052994) 3.8 mmol/L 3.5-5 CL (test code = 8737638021) 106 mmol/L 98-108 CO2 TOTAL (test code = 4437764538) 26 mmol/L 23-31 AGAP (test code = 7055203569) 2-16 BUN (test code = 8979491242) 16 mg/dL 7-23 GLUCOSE (test code = 3169268600) 118 mg/dL 70-110 H CREATININE (test code = 1332795369) 0.96 mg/dL 0.6-1.25 TOTAL BILI (test code = 7121941852) 0.1 mg/dL 0.1-1.1 CALCIUM (test code = 9715367010) 8.5 mg/dL 8.6-10.6 L T PROTEIN (test code = 5853426157) 5.5 g/dL 6.3-8.2 L ALBUMIN (test code = 0995660390) 3.4 g/dL 3.5-5 L ALK PHOS (test code = 2624062906) 45 U/L 34-122 ALTv (test code = 1742-6) 16 U/L 5-50 AST(SGOT) (test code = 6795311914) 16 U/L 13-40 eGFR (test code = 2358497710) mL/min/1.73m2 APOLINAR (test code = APOLINAR) Association [...] imaging tests). Lab Interpretation (test code = 34301-5) Abnormal [facility] WITH GEPP5497-45-03 06:21:14* Test Item Value Reference Range Interpretation Comme nts WBC (test code = 6690-2) See_Comment [Automated Xinrong] The system which generated this result transmitted reference range: 4.20 - 10.70 10*3/?L. The reference range was not used to interpret this result as normal/abnormal. RBC (test code = 789-8) See_Comment [Automated Xinrong] The system which generated this result transmitted [...] 34.8 g/dL 31.2-35 RDW-SD (test code = 58494-6) 39.1 fL 38.5-51.6 RDW-CV (test code = 788-0) 11.9 % 12.1-15.4 L PLT (test code = 777-3) See_Comment [Automated Xinrong] The system which generated this result transmitted reference range: 150 - 328 10*3/?L. The reference range was not used to interpret this result as normal/abnormal. MPV (test code = 13924-4) 9.6 fL 9.8-13 L NRBC/100 WBC (test code = 9536008315) See_Comment [Automated me ssage] The system which generated this result transmitted reference range: 0.0 - 10.0 /100 WBCs. The reference range was not used to interpret this result as normal/abnormal. NRBC x10^3 (test code = 4159980421) See_Comment [Automated messa ge] The system which generated this result transmitted reference range: 10*3/?L. The reference range was not used to interpret this result as normal/abnormal. GRAN MAT (NEUT) % (test code = 770-8) 53.1 % IMM GRAN % (test code = 8107371931) 0.20 % LYMPH % (test code = 736-9) 33.2 % MONO % (test code = 5905-5) 7.6 % EOS % (test code = 713-8) 5.7 % BASO % (test code = 706-2) 0.2 % GRAN MAT x10^3(ANC) (test code = 6639498896) 3.37 10*3/uL 1.99-6.95 IMM GRAN x10^3 (test code = 0620774617) 0-0.06 LYMPH x10^3 (test code = 731-0) 2.10 10*3/uL 1.09-3.23 MONO x10^3 (test code = 742-7) 0.48 10*3/uL 0.36-1.02 EOS x10^3 (test code = 711-2) 0.36 10*3/uL 0.06-0.53 BASO x10^3 (test code = 704-7) 0.01-0.09 Lab Interpretation (test code = 23067-0) [facility]:05:00* Test Item Value Reference Range Interpretation Comme nts Chemistry (test code = CKMBM-T) 2.2 ng/mL 0-6.6 N Esdegqmig4378-06-85 16:04:00* Test Item Value Reference Range Interpretation [...] code = ALT) 13 U/L 8-55 N Rwricffyj9549-34-88 16:04:00* Test Item Value Reference Range Interpretation Comme nts Chemistry (test code = CK) 95 U/L 30-200 N Dipchzdvs2893-49-74 16:04:00* Test Item Value Reference Range Interpretation Comme nts Chemistry (test code = TROPI-R) Less than 0.010 ng/mL < 0.028 * Reference Range 0.00 - 0.028 ng/mL Negative 0.029 - 0.29 ng/mL Indeterminate Greater or Equal to 0.3 ng/mL Strongly suggests RI Edwwedsxib0807-37-75 15:47:00* Test Item Value Reference Range Interpretation [...] Toxicity >30 mg/dl Lethal >70 mg/dl [facility] 06:42:00* Test Item Value Reference Range [...] and management of chronic kidney failure. [facility] HospitalACETAMINOPHEN (Tyenol)2018-08-08 06:41:00* Test Item Value Reference Range Interpretation Comme nts Acetaminophen (test code = ACET) <2 ug/ml 10-25 L [facility] HospitalALCOHOL, AQODA2631-29-72 06:41:00* Test Item Value Reference Range Interpretation Comme nts Alcohol % (test code = ALCPC) 0 % 0.00-0.00 N Ethanol % 0.00 - 0.10 Sub-clinical 0.11 - 0.20 Emotional Instability 0.21 - 0.30 Confusion 0.31 - 0.40 Stupor 0.41 - 0.50 Coma >.50 Fatal [facility] HospitalCBC WITH AUTO FIMA1082-49-84 06:13:00* Test Item Value Reference Range Interpretation [...] code = IG%) 0.4 % 0.0-0.4 [facility] HospitalLijrtq-NidlngsakmFieazgtxzpo7218-13-11 08:45:00* Test Item Value Reference Range Interpretation [...] Anticoagulant? NONEMedical Necessity SUSPECT COAGULOPATHYAnticoagulant? NONEMedical Necessity: RTQTNNTHQlvfwwjzpxg5767-50-28 08:45:00* Test Item Value Reference Range Interpretation Comme nts Coagulation (test code = PTT) 27.2 SEC 22.9-36.1 N Anticoagulant? NONEMedical Necessity SUSPECT COAGULOPATHYAnticoagulant? NONEMedical Necessity: NYMVVFXMPdozgtvon5807-20-79 08:44:00* Test Item Value Reference Range Interpretation Comme [facility] Chemistry (test code = CKMBM-T) 2.9 ng/mL 0-6.6 N Chemistry (test code = TROPI-T) 0.015 ng/mL < 0.028 Reference Range 0.00 - 0.028 ng/mL Negative 0.029 - 0.29 ng/mL Indeterminate Greater or Equal to 0.3 ng/mL Strongly suggests RI Sbnfwsfyi7796-76-07 08:40:00* Test Item Value Reference Range Interpretation [...] code = ALT) 17 U/L 8-55 N Ysevnjobq8202-35-31 08:40:00* Test Item Value Reference Range Interpretation Comme nts Chemistry (test code = CK) 119 U/L 30-200 N Rehnrcnymp8679-92-13 08:23:00* Test Item Value Reference Range Interpretation [...] code = BASO#) 0.1 thou/uL 0.0-0.2 N Ugqezpefj0430-65-44 19:03:00* Test Item Value Reference Range Interpretation [...] code = ALT) 16 U/L 8-55 N Azudddkuif2132-95-77 18:46:00* Test Item Value Reference Range Interpretation [...] code = BASO#) 0.1 thou/uL 0.0-0.2 N Eswmsrnlhy5261-17-45 18:45:00* Test Item Value Reference Range Interpretation [...] Negative Negative Comment clear yellowUrine Source: Urine KdjxafWhzgjbdufr8209-81-94 18:45:00* Test Item Value Reference Range Interpretation Comme nts Urinalysis (test code = UARBC) 0-3 HPF 0-3 Urinalysis (test code = UAWBC) 4-6 HPF 0-3 A Urinalysis (test code = UASQUAM) 0-3 HPF 0-3 Urinalysis (test code = UABAC) 1+ HPF None Seen A Comment clear yellowUrine Source: Urine NlfezvDshzmzrnah1910-96-78 20:56:00* Test Item Value Reference Range Interpretation [...] CAST LPF 0-3 Hyaline Urine Source: Urine IrjuawJtuqfopnx2046-55-24 19:22:00* Test Item Value Reference Range Interpretation Comme [facility] Chemistry (test code = TROPI-T) Less than 0.010 ng/mL < 0.028 * Reference Range 0.00 - 0.028 ng/mL Negative 0.029 - 0.29 ng/mL Indeterminate Greater or Equal to 0.3 ng/mL Strongly suggests RI Comment Pls draw at 7 pm.Tggmmuetywq4726-60-01 16:36:00* Test Item Value Reference Range Interpretation [...] Anticoagulant? NONEMedical Necessity SUSPECT COAGULOPATHYAnticoagulant? NONEMedical Necessity: GKXAJFNHXahlmzxzgfi7365-11-26 16:36:00* Test Item Value Reference Range Interpretation Comme nts Coagulation (test code = PTT) 26.2 SEC 22.9-36.1 N Anticoagulant? NONEMedical Necessity SUSPECT COAGULOPATHYAnticoagulant? NONEMedical Necessity: RKDTKGHUGhmoawlaz0198-66-59 16:34:00* Test Item Value Reference Range Interpretation Comme nts Chemistry (test code = CKMBM-T) 2.5 ng/mL 0-6.6 N Chemistry (test code = TROPI-T) Less than 0.010 ng/mL < 0.028 * Reference Range 0.00 - 0.028 ng/mL Negative 0.029 - 0.29 ng/mL Indeterminate Greater or Equal to 0.3 ng/mL Strongly suggests RI Iqeiimrny1678-94-71 16:31:00* Test Item Value Reference Range Interpretation [...] code = ALT) 17 U/L 8-55 N Trtrmwqcdn6380-99-05 16:13:00* Test Item Value Reference Range Interpretation [...] 0.0-0.2 N XR Chest 1 View Portable [facility] 1970 [facility]: KERRY QUIROZ [address] Phys: [place] [address] : 1970 Age: 50 SEX:M [phone] Exam Date: 06/15/21 Status: REG ER Acct: [id number] Loc: [facility] Pt Unit #: [id number] Report #: [id number] CC: Karlene Stephen MD IMAGING SERVICES REPORT Order # Category/Exam [id number] RAD/XR Chest 1 View Portable ([id number]): . Results XR Chest 1 View Portable History: Chest pain Comparison: None. Findings: Lungs are clear. No pneumothorax or effusion. Cardiac silhouette and mediastinal contoursare within normal limits. Impression: No acute intrathoracic abnormality. Reported By: KARLENE HARP Electronically Signed Date/Time: 551 Technologist: Dictated Date/Time: 06/15/21 1551 Transcribed Date/Time: Notes Date/Time Note Provider Source 2024-04-12 11:25:00 RCO notified pt leaving Stephania Solis RN [facility] 2024-04-12 10:40:14 Patient states "I have stage two kidney failure, I have been hurting a couple of days. I used the bathroom this morning, but that is not it." Patient c/o right sided lower back pain. Shola Musa RN [facility] 2018-08-08 11:31:00 Discharge Instructions 2 Discharge Diagnosis [...] N/A Patient Teaching Patient education provided [facility] (LUF/LIOR/SA)
[2024-05-02] MEDS ORDERED: TETRACAINE HCL 0.5% 4ML OPTH ONE (23:21)
[2024-05-02] MEDS ORDERED: HYDROCODONE/APAP 5/325 MG TAB ONE (23:21)
[2024-05-02] MEDS ORDERED: FLUORESCEIN SODIUM 1 MG/WRAP ONE ×2 (23:26→23:27)
--- NOTE | 2024-05-02 23:34 | EDPHYS ---
Physician Documentation [facility] Name: Jasmin Haley Age: 53 yrs Sex: Male : 1970 Arrival Date: 05/02/2024 Time: 20:09 Bed 9 Private MD: ED Physician Guanaco Huynh HPI: 05/02 23:23 This 53 yrs old Male presents to ER via Ambulatory with complaints of Eye Injury, Eye kb Pain, Eye Problem, Redness of Eye, Welding eye injury. 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 States the pain has gotten better, but has not gone away. Denies drainage. . Historical: - Allergies: 20:26 Ibuprofen; ss - PMHx: 20:26 bipolar/schizo; CVA; Hypertension; ss - Immunization history:: Client reports receiving the 2nd dose of the Covid vaccine. - Infectious Disease History:: Denies. - Social history:: Smoking status: Patient reports the use of cigarette tobacco products, smokes one pack cigarettes per day. ROS: 23:23 Constitutional: As per HPI kb Exam: 23:23 Constitutional: This is a well developed, well nourished patient who is awake, alert, kb and in no acute distress. Head/Face: Normocephalic, atraumatic. ENT: Moist Mucous membranes Cardiovascular: Regular rate Respiratory: Respirations even and unlabored. No increased work of breathing. Talking in full sentences Skin: Warm, dry with normal turgor. Normal color. MS/ Extremity: Pulses equal, no cyanosis. Neurovascular intact. Full, normal range of motion. Neuro: Awake and alert, GCS 15, oriented to person, place, time, and situation. Moves all extremities. Normal gait. 23:23 Eyes: Periorbital structures: appear normal, Pupils: equal, round, and reactive to light and accomodation, Extraocular movements: intact throughout, Conjunctiva: injected, bilaterally, 23:32 Eyes: Corneas: abrasion, is not appreciated, foreign body, on the left, at 9 o'clock, kb spec of unknown substance, eye flushed and FB removed, a fluorescein strip employed to appreciate the findings, Vital Signs: 20:25 BP 177 / 110; Pulse 83; Resp 16; Temp 98.6(TE); Pulse Ox 98% on R/A; Weight 65.32 kg; ss Height 5 ft. 6 in. ; Pain 10/10; 20:25 Body Mass Index 23.24 (65.32 kg, 167.64 cm) ss 20:25 Pain Scale: Adult ss MDM: 20:19 Patient medically screened. kb 23:25 Differential diagnosis: Corneal abrasion of Corneal ulcer of Foreign body in Acute kb iritis of Ultraviolet keratitis in. Data reviewed: vital signs, nurses notes. Historians other than the Patient: Spouse/Significant Other: . 23:32 Counseling: I had a detailed discussion with the patient and/or guardian regarding the kb historical points, exam findings, and any diagnostic results supporting the discharge/admit diagnosis, the need for outpatient follow up, an opthalmologist, to return to the emergency department if symptoms worsen or persist or if there are any questions or concerns that arise at home. 05/02 20:31 Order name: Eye Tray; Complete Time: 23:21 kb 05/02 20:31 Order name: Fluoresene Opth strip; Complete Time: 23:21 kb Administered Medications: 23:25 Drug: HYDROcodone-acetaminophen PO 5 mg-325 mg 1 tabs PO once Route: PO; 23:28 Drug: Tetracaine Ophthalmic Drops 0.5 % 1 drops Ophthalmic once {Note: administered by randee Arroyo NP.} Route: Ophthalmic; Site: both eyes; Disposition: 05/03 01:07 Co-signature as Attending Physician, Guanaco Huynh MD I reviewed the patient's care rt provided by the Advanced Practice Provider and agree with the diagnosis and treatment plan. Disposition Summary: 05/02/24 23:33 Discharge Ordered Notes: Location: Home kb Condition: Stable kb Diagnosis - Photokeratitis, bilateral kb Followup: kb - With: Emergency Department - When: As needed - Reason: Worsening of condition Followup: kb - With: Private Physician - When: 2 - 3 days - Reason: Recheck today's complaints, Continuance of care, Re-evaluation by your physician Discharge Instructions: - Discharge Summary Sheet kb - How to Use Eye Drops and Eye Ointments kb - Ultraviolet Keratitis, Kset-nn-Fuzz kb Forms: - Medication Reconciliation Form kb - Antibiotic Education kb - Prescription Opioid Use kb - Patient Portal Instructions kb - Leadership Thank You Letter kb Prescriptions: - Vigamox 0.5 % Ophthalmic Drops - instill 1 drop OPHTHALMIC route every 8 hours for 7 days; 5 milliliter; kb Refills: 0, Product Selection Permitted Signatures: Dina Bowden FNP-C FNP-Ckb Blanchard, Shelby, RN RN ss Guanaco Huynh MD MD rt
--- NOTE | 2024-05-02 23:34 | ER ---
Nurse's Notes [facility] Name: Jasmin Haley Age: 53 yrs Sex: Male : 1970 Arrival Date: 05/02/2024 Time: 20:09 Bed 9 Private MD: Diagnosis: Photokeratitis, bilateral Presentation: 05/02 20:25 Chief complaint: Patient states: bilateral eye pain and redness that began yesterday. 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 Coronavirus screen: Client denies travel out of the [place] in the last 14 days. Ebola Screen: Patient denies exposure to infectious person. Patient denies travel to an Ebola-affected area in the 21 days before illness onset. Mechanism of Injury: blurry/ double vision. The patient denies any loss of vision. Initial Sepsis Screen: Does the patient meet any 2 criteria? No. Patient's initial sepsis screen is negative. Does the patient have a suspected source of infection? No. Patient's initial sepsis screen is negative. Risk Assessment: Do you want to hurt yourself or someone else? Patient reports no desire to harm self or others. Onset of symptoms was May 01, 2024. 20:25 Method Of Arrival: Ambulatory ss 20:25 Acuity: GISELA 2 ss Triage Assessment: 20:26 General: Appears uncomfortable, Behavior is calm, cooperative. Pain: Complains of pain ss in right eye and left eye Pain currently is 10 out of 10 on a pain scale. Neuro: Level of Consciousness is awake, alert, obeys commands, Oriented to person, place, time, situation. Respiratory: Airway is patent Respiratory effort is even, unlabored. Historical: - Allergies: 20:26 Ibuprofen; ss - PMHx: 20:26 bipolar/schizo; CVA; Hypertension; ss - Immunization history:: Client reports receiving the 2nd dose of the Covid vaccine. - Infectious Disease History:: Denies. - Social history:: Smoking status: Patient reports the use of cigarette tobacco products, smokes one pack cigarettes per day. Vital Signs: 20:25 BP 177 / 110; Pulse 83; Resp 16; Temp 98.6(TE); Pulse Ox 98% on R/A; Weight 65.32 kg; ss Height 5 ft. 6 in. ; Pain 10/10; 20:25 Body Mass Index 23.24 (65.32 kg, 167.64 cm) 20:25 Pain Scale: Adult ss ED Course: 20:17 Patient arrived in ED. gm2 20:19 Dina Bowden FNP-C is [facility] kb 20:19 Guanaco Huynh MD is Attending Physician. kb 20:26 Triage completed. ss 20:26 Arm band placed on right wrist. ss Administered Medications: 23:25 Drug: HYDROcodone-acetaminophen PO 5 mg-325 mg 1 tabs PO once Route: PO; ss 23:28 Drug: Tetracaine Ophthalmic Drops 0.5 % 1 drops Ophthalmic once {Note: administered by NEHAL Arroyo.} Route: Ophthalmic; Site: both eyes; Outcome: 23:33 Discharge ordered by . kb 05/03 00:06 Patient left the ED. tl4 Signatures: Dina Bowden FNP-C FNP-Rani Yi RN RN Fazrana Joiner gm2 Ananda Doe RN RN tl4
[2024-05-03 01:00] VITALS: BP 177/110; TEMP 98.6; O2SAT 98
== END 2024-05-03 00:06 | disposition home or self-care (01) ==
LOC: ER 20:09
DX: H16.133 Photokeratitis, bilateral (principal)
CPT/HCPCS: 99282

== ENCOUNTER 2024-06-19 20:56 | Emergency (ER) | payer SELFPAY ==
--- OUTSIDE RECORDS SUMMARY | 2024-06-19 21:00 | XMS REPORT | Continuity of Care Document ---
Author Name Unknown Address [address] [facility] [address] [place] [address] [facility] Address [address] [facility] 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 Phone Pcp, Patient Does Not Have A Primary Care Physic floyd Debbie AGUILAR Attending Clinician Unavailable Debbie AGUILAR Attending Clinician Unavailable Debbie Avila Attending Clinician TANYA MUNIZ Attending Clinician Unavailab Tanya Estevez DO Attending Clinician [phone] Karlene Stephen Attending Clinician Unavailable Roshni Carr Attending Clinician Unavailable MARÍA HERNANDEZ Attending Clinician Unavailable MIMI SCHWARTZ MD Attending Clinician MARIUM ANDERS Attending Clinician Unavailable Daniel Coronado Attending Clinician Unavailable PROVIDER, ED TEMP Attending Clinician UnavailJM Tracy Attending Clinician UnavailMARÍA Trujillo Admitting Clinician Unavailable Payers Payer Name Policy Type Policy Number Effective Date Expiration Date Source MEDICAID PENDING NA [facility] JOVANNA CARE PENDING NA [facility] Problems Condition Name Condition Details Condition Category Status Onset Date Resolution Date Last Treatment Date Treating Clinician Comments Source 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 2017-09 00:00: [address] [facility] (LUF/LI V/SA) Bipolar disorder Bipolar disorder Problem Active 2017-09 [...] s DA Active U 09-09 00:00: 00 [facility] NO KNOWN ALLERGIE S Drug Class Active [facility] Social History Social Habit Start Date Stop Date Quantity Comments Source Sexual orientation U [facility] Exposure to SARS-CoV-2 (event) 2022-03-24 00:00:00 2022-04-03 00:24:00 Not sure [facility] Sex assigned at 1970 00:00:00 1970 00:00:00 [facility] Smoking Status Start Date Stop Date Source Never smoker [facility] ([facility]OR/SA) Tobacco smoking consumption unknown [facility] Medications Ordered Medication Name Filled Medication Name Start Date Stop Date Current Medication? Ordering Clinician Indication Dosage Frequency Signature (SIG) Comments Components Source NaCl 0.9% (NS) bolus infusion 500 mL 04-03 07:00: 00 04-03 07:04 :00 No 500mL at 999 mL/hr, 500 mL, IV Infusion, ONCE, 1 dose, On Thu04/03/22 at 0200, STAT [facility] maalox:diph enhydrAMINE :lidocaine 2 % viscous 1:1:1 (FIRST-MOUT HWASH BLM) oral suspension 15 mL 04-03 06:00: 00 04-03 06:12 :00 No 15mL 15 mL, Oral, ONCE, 1 dose, On Roxana 04/03/22 at 0100, Routine [facility] Vital Signs Vital Name Observation Time Observation Value Heather castillo Body weight 2024-04-12 15:42:00 73.936 kg [facility] BMI 2024-04-12 15:42:00 26.31 kg/m2 [facility] Oxygen saturation in Arterial blood by Pulse oximetry 2024-04-12 15:42:00 97 /min [facility] Systolic blood pressure 2024-04-12 15:42:00 154 mm[Hg] [facility] Diastolic blood pressure 2024-04-12 15:42:00 114 mm[Hg] [facility] Heart rate 2024-04-12 15:42:00 74 /min [facility] Body temperature 2024-04-12 15:42:00 36.5 Sylvie [facility] Respiratory rate 2024-04-12 15:42:00 18 /min [facility] Body height 2024-04-12 15:42:00 167.6 cm [facility] Systolic blood pressure 2022-04-03 05:26:00 157 mm[Hg] [facility] Diastolic blood pressure 2022-04-03 05:26:00 100 mm[Hg] [facility] Heart rate 2022-04-03 05:26:00 71 /min [facility] Body temperature 2022-04-03 05:26:00 36.56 Sylvie [facility] Respiratory rate 2022-04-03 05:26:00 18 /min [facility] Body height 2022-04-03 05:26:00 167.6 cm [facility] Body weight 2022-04-03 05:26:00 66.225 kg [facility] BMI 2022-04-03 05:26:00 23.57 kg/m2 [facility] Oxygen saturation in Arterial blood by Pulse oximetry 2022-04-03 05:26:00 97 /min [facility] Body Temperature 2018-08-08 05:01:00 98.9 F [facility] (LUF/LIOR/SA) Pulse Rate 2018-08-08 05:01:00 87 /min [facility] (F/LIOR/SA) Respiratory Rate 2018-08-08 05:01:00 18 /min [facility] (F/LIOR/SA) O2% BldC Oximetry 2018-08-08 05:01:00 98 % [facility] (LUF/LIOR/SA) BP Systolic 2018-08-08 05:01:00 160 mm[Hg] [facility] (LUF/LIOR/SA) BP Diastolic 2018-08-08 05:01:00 110 mm[Hg] [facility] (F/LIOR/SA) Height 2018-08-08 05:01:00 66 in [facility] (F/LIOR/SA) Weight Measured 2018-08-08 05:01:00 154.32 lbs [facility] (LUF/LIOR/SA) BMI (Body Mass Index) 2018-08-08 05:01:00 25 [facility] (F/LIOR/SA) Procedures Procedure Date / Time Performed Performing Clinicia n Source TROPONIN I 2022-04-03 06:11:00 Tanya Muniz Un [facility] COMP. METABOLIC PANEL (77751) 2022-04-03 06:11:00 Tnaya Muniz [facility] CBC WITH DIFF 2022-04-03 06:11:00 Tanya Muniz U [facility] NOTICE OF PRIVACY PRACTICES 2022-04-03 05:18:55 Doctor Unassigned, [place] [facility] CONSENT/REFUSAL FOR DIAGNOSIS AND TREATMENT 2022-04-03 05:18:14 Doctor Unassigned, [place] [facility] Encounters Start Date/Time End Date/Time Encounter Type Admission Type Attending Clinicians Care Facility Care Department Encounter ID Source 2024-04-12 10:43:00 2024-04-12 12:18:00 Emergency X Debbie AGUILAR K [facility] ERT [id number] [facility] 2024-04-12 10:43:00 2024-04-12 12:18:00 Emergency Debbie Aguilar [facility] [id number] [facility] 2022-04-03 00:20:00 2022-04-03 02:21:00 Emergency X TANYA MUNIZ [facility] ERT [id number] [facility] 2022-04-03 00:20:00 2022-04-03 02:21:00 Emergency Tanya Muniz [facility] [id number] [facility] 2021-06-16 02:24:00 2021-06-16 02:24:00 Emergency ER Karlene Stephen [facility] [id number] [facility] 2021-06-15 15:02:00 2021-06-15 15:02:00 Emergency ER Karlene Stephen [facility] [id number] [facility] 2021-05-28 13:51:00 2021-05-28 16:10:00 Emergency ER Roshni Carr [facility] [id number] [facility] 2018-08-08 04:58:00 2018-08-08 11:31:00 Inpatient MARÍA CAICEDO [facility], [address] [place] [address] [facility] ED [id number] [facility] (LUF/LI V/SA) 2018-07-01 19:23:00 2018-07-01 20:28:00 Departed Emergency MIMI SCHWRATZ [facility] [id number] [address] [facility] Results Test Description Test Time Test Comments Results Result Co mments Source [facility] MET[facility]OLIC PAN[facility] ([id number])2022-04-03 06:33:58* Test Item Value Reference Range Interpretation Comme nts NA (test code = 5726882123) 138 mmol/L 135-145 K (test code = 4974352975) 3.8 mmol/L 3.5-5 CL (test code = 9128956920) 106 mmol/L 98-108 CO2 TOTAL (test code = 0094263558) 26 mmol/L 23-31 AGAP (test code = 2777114554) 2-16 BUN (test code = 3529565287) 16 mg/dL 7-23 GLUCOSE (test code = 5817428952) 118 mg/dL 70-110 H CREATININE (test code = 8136050999) 0.96 mg/dL 0.6-1.25 TOTAL BILI (test code = 0589068245) 0.1 mg/dL 0.1-1.1 CALCIUM (test code = 2214469775) 8.5 mg/dL 8.6-10.6 L T PROTEIN (test code = 6602413562) 5.5 g/dL 6.3-8.2 L ALBUMIN (test code = 7371172723) 3.4 g/dL 3.5-5 L ALK PHOS (test code = 2794253151) 45 U/L 34-122 ALTv (test code = 1742-6) 16 U/L 5-50 AST(SGOT) (test code = 7767487632) 16 U/L 13-40 eGFR (test code = 6123282115) mL/min/1.73m2 APOLINAR (test code = APOLINAR) Association [...] imaging tests). Lab Interpretation (test code = 97385-5) Abnormal [facility] WITH [id number] 06:21:14* Test Item Value Reference Range Interpretation Comme nts WBC (test code = 6690-2) See_Comment [Automated [employer]] The system which generated this result transmitted reference range: 4.20 - 10.70 10*3/?L. The reference range was not used to interpret this result as normal/abnormal. RBC (test code = 789-8) See_Comment [Automated [employer]] The system which generated this result transmitted [...] 34.8 g/dL 31.2-35 RDW-SD (test code = 31143-0) 39.1 fL 38.5-51.6 RDW-CV (test code = 788-0) 11.9 % 12.1-15.4 L PLT (test code = 777-3) See_Comment [Automated [employer]] The system which generated this result transmitted reference range: 150 - 328 10*3/?L. The reference range was not used to interpret this result as normal/abnormal. MPV (test code = 62553-0) 9.6 fL 9.8-13 L NRBC/100 WBC (test code = 2047548165) See_Comment [Automated me ssage] The system which generated this result transmitted reference range: 0.0 - 10.0 /100 WBCs. The reference range was not used to interpret this result as normal/abnormal. NRBC x10^3 (test code = 7946416855) See_Comment [Automated messa ge] The system which generated this result transmitted reference range: 10*3/?L. The reference range was not used to interpret this result as normal/abnormal. GRAN MAT (NEUT) % (test code = 770-8) 53.1 % IMM GRAN % (test code = 9849735813) 0.20 % LYMPH % (test code = 736-9) 33.2 % MONO % (test code = 5905-5) 7.6 % EOS % (test code = 713-8) 5.7 % BASO % (test code = 706-2) 0.2 % GRAN MAT x10^3(ANC) (test code = 5641848075) 3.37 10*3/uL 1.99-6.95 IMM GRAN x10^3 (test code = 5506745304) 0-0.06 LYMPH x10^3 (test code = 731-0) 2.10 10*3/uL 1.09-3.23 MONO x10^3 (test code = 742-7) 0.48 10*3/uL 0.36-1.02 EOS x10^3 (test code = 711-2) 0.36 10*3/uL 0.06-0.53 BASO x10^3 (test code = 704-7) 0.01-0.09 Lab Interpretation (test code = 94841-0) Abnormal [facility] 16:05:00* Test Item Value Reference Range Interpretation Comme nts Chemistry (test code = CKMBM-T) 2.2 ng/mL 0-6.6 N Shmctafwh4907-75-44 16:04:00* Test Item Value Reference Range Interpretation [...] code = ALT) 13 U/L 8-55 N Mxnlxgvwy1819-09-92 16:04:00* Test Item Value Reference Range Interpretation Comme nts Chemistry (test code = CK) 95 U/L 30-200 N Cxbtlmyhz5925-78-63 16:04:00* Test Item Value Reference Range Interpretation Comme nts Chemistry (test code = TROPI-R) Less than 0.010 ng/mL < 0.028 * Reference Range 0.00 - 0.028 ng/mL Negative 0.029 - 0.29 ng/mL Indeterminate Greater or Equal to 0.3 ng/mL Strongly suggests IN Oaotkxvvds7866-26-05 15:47:00* Test Item Value Reference Range Interpretation [...] mg/dl Toxicity >30 mg/dl Lethal >70 mg/dl [facility] 06:42:00* Test Item Value Reference Range Interpretation [...] assessment and management of chronic kidney failure. [facility] ServicesACETAMINOPHEN (Tyenol)2018-08-08 06:41:00* Test Item Value Reference Range Interpretation Comme nts Acetaminophen (test code = ACET) <2 ug/ml 10-25 L [facility] ServicesALCOHOL, HKIHS8062-21-08 06:41:00* Test Item Value Reference Range Interpretation Comme nts Alcohol % (test code = ALCPC) 0 % 0.00-0.00 N Ethanol % 0.00 - 0.10 Sub-clinical 0.11 - 0.20 Emotional Instability 0.21 - 0.30 Confusion 0.31 - 0.40 Stupor 0.41 - 0.50 Coma >.50 Fatal [facility] ServicesCBC WITH AUTO [id number] 06:13:00* Test Item Value Reference Range Interpretation [...] (test code = IG%) 0.4 % 0.0-0.4 [facility] ServicesThlrrt-MzwlmentxwDpgaktaftsj6731-31-11 08:45:00* Test Item Value Reference Range Interpretation [...] Anticoagulant? NONEMedical Necessity SUSPECT COAGULOPATHYAnticoagulant? NONEMedical Necessity: QTFRUXEYKjuvxkatuto1550-31-18 08:45:00* Test Item Value Reference Range Interpretation Comme nts Coagulation (test code = PTT) 27.2 SEC 22.9-36.1 N Anticoagulant? NONEMedical Necessity SUSPECT COAGULOPATHYAnticoagulant? NONEMedical Necessity: MTPPIYZXAvritngwh9014-71-86 08:44:00* Test Item Value Reference Range Interpretation Comme nts Chemistry (test code = CKMBM-T) 2.9 ng/mL 0-6.6 N Chemistry (test code = TROPI-T) 0.015 ng/mL < 0.028 Reference Range 0.00 - 0.028 ng/mL Negative 0.029 - 0.29 ng/mL Indeterminate Greater or Equal to 0.3 ng/mL Strongly suggests IN Xoscgzcay4259-38-91 08:40:00* Test Item Value Reference Range Interpretation [...] code = ALT) 17 U/L 8-55 N Gzwkwmgju5225-11-53 08:40:00* Test Item Value Reference Range Interpretation Comme nts Chemistry (test code = CK) 119 U/L 30-200 N Snhzkcbsnj5064-93-44 08:23:00* Test Item Value Reference Range Interpretation [...] code = BASO#) 0.1 thou/uL 0.0-0.2 N Hjnddmstk7143-24-68 19:03:00* Test Item Value Reference Range Interpretation [...] code = ALT) 16 U/L 8-55 N Cpzpoxlcpl3603-39-56 18:46:00* Test Item Value Reference Range Interpretation [...] code = BASO#) 0.1 thou/uL 0.0-0.2 N Nqcnhnmeij3732-24-80 18:45:00* Test Item Value Reference Range Interpretation [...] Negative Negative Comment clear yellowUrine Source: Urine DmgbdnMvdzxgziby9330-13-51 18:45:00* Test Item Value Reference Range Interpretation Comme nts Urinalysis (test code = UARBC) 0-3 HPF 0-3 Urinalysis (test code = UAWBC) 4-6 HPF 0-3 A Urinalysis (test code = UASQUAM) 0-3 HPF 0-3 Urinalysis (test code = UABAC) 1+ HPF None Seen A Comment clear yellowUrine Source: Urine TibocbIwioqleeyx7426-62-51 20:56:00* Test Item Value Reference Range Interpretation [...] CAST LPF 0-3 Hyaline Urine Source: Urine RjtnlfYjfzfakuc9006-74-94 19:22:00* Test Item Value Reference Range Interpretation Comme [facility] Chemistry (test code = TROPI-T) Less than 0.010 ng/mL < 0.028 * Reference Range 0.00 - 0.028 ng/mL Negative 0.029 - 0.29 ng/mL Indeterminate Greater or Equal to 0.3 ng/mL Strongly suggests IN Comment Pls draw at 7 pm.Kudijayvnkv5937-63-71 16:36:00* Test Item Value Reference Range Interpretation Comme [facility] Coagulation (test code = PT-T) 12.7 SEC 12.0-14.7 N Coagulation (test code = INR) 0.9 ATTENTION: READ CAREFULLY The recommended therapeutic ranges for oral anticoagulanttreatments are: ------ Low Intensity: 1.5 - 2.0 Moderate Intensity: 2.0 - 3.0 High Intensity (1): 2.5 - 3.5 High Intensity (2): 3.0 - 4.0 CRITICAL: > 4.0 Anticoagulant? NONEMedical Necessity SUSPECT COAGULOPATHYAnticoagulant? NONEMedical Necessity: PLZZGWVLDrxrgejtqkq7593-99-24 16:36:00* Test Item Value Reference Range Interpretation Comme [facility] Coagulation (test code = PTT) 26.2 SEC 22.9-36.1 N Anticoagulant? NONEMedical Necessity SUSPECT COAGULOPATHYAnticoagulant? NONEMedical Necessity: NHJOIEPRJnyjscdpo4565-37-10 16:34:00* Test Item Value Reference Range Interpretation Comme nts Chemistry (test code = CKMBM-T) 2.5 ng/mL 0-6.6 N Chemistry (test code = TROPI-T) Less than 0.010 ng/mL < 0.028 * Reference Range 0.00 - 0.028 ng/mL Negative 0.029 - 0.29 ng/mL Indeterminate Greater or Equal to 0.3 ng/mL Strongly suggests IN Qbstojuiw2804-49-45 16:31:00* Test Item Value Reference Range Interpretation [...] code = ALT) 17 U/L 8-55 N Oxhhcwjtjl1509-50-42 16:13:00* Test Item Value Reference Range Interpretation [...] 0.0-0.2 N XR Chest 1 View Portable [facility] : 1970 [facility] Name: KERRY QUIROZ [address] Phys: [place] [address] : 1970 Age: 50 SEX:M [phone] Exam Date: 06/15/21 Status: REG ER Acct: [id number] Loc: [facility] Pt Unit #: [id number] Report #: [id number] CC: Karlene Stephen MD IMAGING SERVICES REPORT Order # Category/Exam [id number] RAD/XR Chest 1 View Portable ([id number]): . Results XR Chest 1 View Portable History: Chest pain Comparison: None. Findings: Lungs are clear. No pneumothorax or effusion. Cardiac silhouette and mediastinal contoursare within normal limits. Impression: No acute intrathoracic abnormality. Reported By: KARLENE HARP Electronically Signed Date/Time: 551 Technologist: Dictated Date/Time: 06/15/21 1551 Transcribed Date/Time: Notes Date/Time Note Provider Source 2024-04-12 11:25:00 RCO notified pt leaving Stephania Solis RN [facility] 2024-04-12 10:40:14 Patient states "I have stage two kidney failure, I have been hurting a couple of days. I used the bathroom this morning, but that is not it." Patient c/o right sided lower back pain. Shola Musa RN [facility] 2018-08-08 11:31:00 Discharge Instructions 2 Discharge [...] N/A Patient Teaching Patient education provided [facility] (LUF/LIOR/SA)
[2024-06-19 21:34] LABS: Absolute Basophils 0.1 K/uL (0-0.5); Absolute Eosinophils 0.5 K/uL (0-0.5); Absolute Lymphocytes (CBC) 2.4 K/uL (0.7-4.9); Absolute Monocytes 0.7 K/uL (0.1-1.3); Absolute Neutrophil 4.6 K/uL (1.8-8.0); Basophils % 1.5 % (0-1.3); Eosinophils % 6.5 % (0-4.4); Hematocrit 45.3 % (39.6-49.0); Hemoglobin 15.5 g/dL (13.6-17.9); Lymphocytes % 28.1 % (15.3-44.8); MCH 31.7 pg (27.0-35.0); MCHC 34.2 g/dL (32.0-36.0); MCV 92.6 fL (80-100); MPV 7.3 fL (7.6-11.3); Monocytes % 8.8 % (3.3-12.3); Neutrophils % 55.1 % (41.7-73.7); Platelets 299 thou/uL (152-406); RBC Red Blood Cell Count 4.89 M/uL (4.33-5.43); Red Cell Distribution Width 13.4 % (12.1-15.2)
[2024-06-19] MEDS ORDERED: NA CHLORIDE 0.9% 1,000 ML ONE (21:41)
[2024-06-19] MEDS ORDERED: ONDANSETRON 4 MG/2 ML VIAL ONE (21:41)
[2024-06-19 21:47] LABS: Specific Gravity > 1.030 (1.005-1.030); Sqamous Epithelial <5 /HPF (None Seen); Urine Bacteria <20 /HPF (<20); Urine Bilirubin NEGATIVE (Negative); Urine Blood Trace (Negative); Urine Clarity Clear (Clear); Urine Color Yellow (Yellow); Urine Culture Reflex Order NOT NEEDED; Urine Glucose TRACE (Negative); Urine Ketones TRACE (Negative); Urine Microscopic Reflex YN ORDER UMIC; Urine Mucus 2+ /HPF (None Seen); Urine Nitrite NEGATIVE (Negative); Urine Protein TRACE (Negative); Urine RBC <5 /HPF (None Seen); Urine Urobilinogen 2+ (Normal); Urine WBC <5 /HPF (<5); Urine Yeast (Budding) Trace /HPF (None Seen); Urine pH 5.5 (5.0-7.0)
[2024-06-19 21:53] LABS: Albumin 3.6 g/dL (3.4-5.0); Albumin/Globulin Ratio 1.2 (1.1-1.8); Anion Gap 7.6 mEq/L (5.0-15.0); Bilirubin Total 0.3 mg/dL (0.2-1.0); Globulin 3.1 g/dL (2.3-3.5); Potassium 3.6 mEq/L (3.5-5.1); Protein, Total 6.7 g/dL (6.4-8.2); Troponin High Sensitivity 7.5 pg/mL (<58.9)
--- NOTE | 2024-06-19 22:42 | ER ---
Nurse's Notes [facility] Name: Jasmin Haley Age: 53 yrs Sex: Male : 1970 Arrival Date: 06/19/2024 Time: 20:56 Bed 13 Private MD: Diagnosis: Vomiting;Syncope Near;Tobacco abuse counseling;Tobacco use;UTI/ Urinary tract infection, site not specified Presentation: 06/19 21:07 Chief complaint: Patient states: Nausea, vomiting and headache onset today. Coronavirus cm10 screen: Client denies travel out of the [place] in the last 14 days. Ebola Screen: Patient denies travel to an Ebola-affected area in the 21 days before illness onset. Initial Sepsis Screen: Does the patient meet any 2 criteria? No. Patient's initial sepsis screen is negative. Does the patient have a suspected source of infection? No. Patient's initial sepsis screen is negative. Risk Assessment: Do you want to hurt yourself or someone else? Patient reports no desire to harm self or others. Onset of symptoms was June 19, 2024. 21:07 Method Of Arrival: Ambulatory cm10 21:07 Acuity: GISELA 3 cm10 Triage Assessment: 21:09 General: Appears in no apparent distress. comfortable, Behavior is calm, cooperative. cm10 Neuro: No deficits noted. Level of Consciousness is awake, alert, obeys commands, Oriented to person, place, time, situation, Appropriate for age. Respiratory: No deficits noted. Airway is patent Respiratory effort is even, unlabored, Respiratory pattern is regular, symmetrical. Historical: - Allergies: 21:08 Ibuprofen; cm10 - PMHx: 21:08 bipolar/schizo; CVA; Hypertension; PTSD; cm10 - Immunization history:: Adult Immunizations up to date. - Infectious Disease History:: Denies. - Social history:: Smoking status: Patient reports the use of cigarette tobacco products, smokes one-half pack cigarettes per day. - Family history:: not pertinent. Screenin:32 [facility] ED Fall Risk Assessment (Adult) History of falling in the last 3 months, kj2 including since admission No falls in past 3 months (0 pts) Confusion or Disorientation No (0 pts) Intoxicated or Sedated No (0 pts) Impaired Gait No (0 pts) Mobility Assist Device Used No (0 pt) Altered Elimination No (0 pt) Score/Fall Risk Level 0 - 2 = Low Risk Maintained a safe environment, Educated pt \T\ family on fall prevention, incl call for assistance when getting out of bed, Hourly rounding (assess needs \T\ fall precautionary measures) done. Abuse screen: Denies threats or abuse. Denies injuries from another. Nutritional screening: No deficits noted. Tuberculosis screening: No symptoms or risk factors identified. Assessment: 21:20 General: Appears in no apparent distress. Behavior is calm, cooperative. Pain: kj2 Complains of pain in headache Pain currently is 6 out of 10 on a pain scale. Neuro: Level of Consciousness is awake, alert, obeys commands, Oriented to person, place, time, situation. Cardiovascular: Patient's skin is warm and dry. Respiratory: Airway is patent Respiratory effort is even, unlabored. GI: Reports nausea, vomiting, since 1700 today. 22:05 Reassessment: Patient appears in no apparent distress at this time. Patient and/or kj2 family updated on plan of care and expected duration. Pain level reassessed. Patient is alert, oriented x 3, equal unlabored respirations, skin warm/dry/pink. 22:58 Reassessment: Patient appears in no apparent distress at this time. Patient and/or kj2 family updated on plan of care and expected duration. Pain level reassessed. Patient is alert, oriented x 3, equal unlabored respirations, skin warm/dry/pink. Vital Signs: 21:07 BP 175 / 102; Pulse 83; Resp 18; Temp 97.4; Pulse Ox 94% on R/A; Weight 73.94 kg; cm10 Height 5 ft. 6 in. ; Pain 10/10; 21:20 BP 158 / 106; Pulse 79; Resp 18; Pulse Ox 95% on R/A; kj2 22:05 BP 147 / 91; Pulse 70; Resp 18; Pulse Ox 100% on R/A; kj2 22:58 BP 142 / 88; Pulse 74; Resp 18; Temp 98; Pulse Ox 100% on R/A; kj2 21:07 Body Mass Index 26.31 (73.94 kg, 167.64 cm) cm10 21:07 Pain Scale: Adult cm10 ED Course: 20:57 Patient arrived in ED. jj6 21:04 Avelino Sanford MD is Attending Physician. [facility] 21:08 Triage completed. cm10 21:09 Arm band placed on Patient placed in an exam room, on a stretcher. cm10 21:15 Sarai Cid, RN is Primary Nurse. kj2 21:31 Inserted saline lock: 20 gauge in right forearm, using aseptic technique. Blood kj2 collected. Flushed with 10 mL NS. 21:32 Patient has correct armband on for positive identification. Bed in low position. Call kj2 light in reach. Adult w/ patient. Provided Education on: call light. 22:59 No provider procedures requiring assistance completed. kj2 22:59 IV discontinued, intact, bleeding controlled, No redness/swelling at site. Pressure kj2 dressing applied. Administered Medications: 21:58 Drug: NS 0.9% IV 1000 ml IV at 1000 ml once; to be given as a bolus over 60 minutes kj2 Route: IV; Rate: 1000 ml; Site: right forearm; 22:56 Follow up: IV Status: Completed infusion; IV Intake: 1000ml kj2 21:58 Drug: Ondansetron IVP 4 mg IVP once; over 2 minutes Route: IVP; Site: right forearm; kj2 22:30 Follow up: Response: No adverse reaction; Nausea is decreased kj2 22:49 Drug: Rocephin - Rocephin (cefTRIAXone) IVPB 1 grams IVPB once over 30 mins; (mix in 50 kj2 mL NS) Route: IVPB; Infused Over: 30 mins; Site: right forearm; 23:20 Follow up: Response: No adverse reaction; IV Status: Completed infusion; IV Intake: kj2 100ml 22:49 Drug: Ciprofloxacin PO 500 mg PO once Route: PO; kj2 22:55 Follow up: Response: No adverse reaction kj2 Medication: 21:32 VIS not applicable for this client. kj2 Intake: 22:56 IV: 1000ml; Total: 1000ml. kj2 23:20 IV: 100ml; Total: 1100ml. kj2 Outcome: 22:42 Discharge ordered by . [facility] 22:59 Discharged to home ambulatory, with family, kj2 22:59 Condition: stable 22:59 Discharge instructions given to patient, family, Instructed on discharge instructions, follow up and referral plans. medication usage, Demonstrated understanding of instructions, follow-up care, medications, Prescriptions given X 2, 23:25 Patient left the ED. kj2 Signatures: Avelino Sanford MD MD cha Jeffries, Jennifer jj6 Fiordaliza Pride, RN RN cm10 Sarai Cid RN RN kj2
--- NOTE | 2024-06-19 22:42 | EDPHYS ---
Physician Documentation [facility] Name: Jasmin Haley Age: 53 yrs Sex: Male : 1970 Arrival Date: 06/19/2024 Time: 20:56 Bed 13 Private MD: DEBBIE Physician Avelino Sanford HPI: 06/19 21:38 This 53 yrs old Male presents to ER via Ambulatory with complaints of lilia Nausea/Vomiting, Headache. 21:38 The patient presents to the emergency department with nausea. Onset: The lilia symptoms/episode began/occurred today. Possible causes: unknown, bad food exposure. The symptoms are aggravated by nothing. The symptoms are alleviated by nothing. Associated signs and symptoms: Pertinent positives: nausea, vomiting. Severity of symptoms: At their worst the symptoms were moderate in the emergency department the symptoms have improved moderately. The patient has experienced similar episodes in the past, a few times. Historical: - Allergies: 21:08 Ibuprofen; cm10 - PMHx: 21:08 bipolar/schizo; CVA; Hypertension; PTSD; cm10 - Immunization history:: Adult Immunizations up to date. - Infectious Disease History:: Denies. - Social history:: Smoking status: Patient reports the use of cigarette tobacco products, smokes one-half pack cigarettes per day. - Family history:: not pertinent. ROS: 21:38 Constitutional: Negative for fever, chills, and weight loss, Eyes: Negative for injury, lilia pain, redness, and discharge, ENT: Negative for injury, pain, and discharge, Neck: Negative for injury, pain, and swelling, Cardiovascular: Negative for chest pain, palpitations, and edema, Respiratory: Negative for shortness of breath, cough, wheezing, and pleuritic chest pain, Back: Negative for injury and pain, : Negative for injury, bleeding, discharge, and swelling, MS/Extremity: Negative for injury and deformity, Skin: Negative for injury, rash, and discoloration, Neuro: Negative for headache, weakness, numbness, tingling, and seizure, Psych: Negative for depression, anxiety, suicide ideation, homicidal ideation, and hallucinations, Allergy/Immunology: Negative for hives, rash, and allergies, Endocrine: Negative for neck swelling, polydipsia, polyuria, polyphagia, and marked weight changes, Hematologic/Lymphatic: Negative for swollen nodes, abnormal bleeding, and unusual bruising, 21:38 Abdomen/GI: Positive for nausea and vomiting, Exam: 21:38 Constitutional: This is a well developed, well nourished patient who is awake, alert, lilia and in no acute distress. Head/Face: Normocephalic, atraumatic. Eyes: Pupils equal round and reactive to light, extra-ocular motions intact. Lids and lashes normal. Conjunctiva and sclera are non-icteric and not injected. Cornea within normal limits. Periorbital areas with no swelling, redness, or edema. ENT: Nares patent. No nasal discharge, no septal abnormalities noted. Tympanic membranes are normal and external auditory canals are clear. Oropharynx with no redness, swelling, or masses, exudates, or evidence of obstruction, uvula midline. Mucous membranes moist. Neck: Trachea midline, no thyromegaly or masses palpated, and no cervical lymphadenopathy. Supple, full range of motion without nuchal rigidity, or vertebral point tenderness. No Meningismus. Chest/axilla: Normal chest wall appearance and motion. Nontender with no deformity. No lesions are appreciated. Cardiovascular: Regular rate and rhythm with a normal S1 and S2. No gallops, murmurs, or rubs. Normal PMI, no JVD. No pulse deficits. Respiratory: Lungs have equal breath sounds bilaterally, clear to auscultation and percussion. No rales, rhonchi or wheezes noted. No increased work of breathing, no retractions or nasal flaring. Abdomen/GI: Soft, non-tender, with normal bowel sounds. No distension or tympany. No guarding or rebound. No evidence of tenderness throughout. Back: No spinal tenderness. No costovertebral tenderness. Full range of motion. Male : Normal genitalia with no discharge or lesions. Skin: Warm, dry with normal turgor. Normal color with no rashes, no lesions, and no evidence of cellulitis. MS/ Extremity: Pulses equal, no cyanosis. Neurovascular intact. Full, normal range of motion. Neuro: Awake and alert, GCS 15, oriented to person, place, time, and situation. Cranial nerves II-XII grossly intact. Motor strength 5/5 in all extremities. Sensory grossly intact. Cerebellar exam normal. Normal gait. Psych: Awake, alert, with orientation to person, place and time. Behavior, mood, and affect are within normal limits. 23:04 ECG was reviewed by the Attending Physician. [facility] Vital Signs: 21:07 BP 175 / 102; Pulse 83; Resp 18; Temp 97.4; Pulse Ox 94% on R/A; Weight 73.94 kg; cm10 Height 5 ft. 6 in. ; Pain 10/10; 21:20 BP 158 / 106; Pulse 79; Resp 18; Pulse Ox 95% on R/A; kj2 22:05 BP 147 / 91; Pulse 70; Resp 18; Pulse Ox 100% on R/A; kj2 22:58 BP 142 / 88; Pulse 74; Resp 18; Temp 98; Pulse Ox 100% on R/A; kj2 21:07 Body Mass Index 26.31 (73.94 kg, 167.64 cm) cm10 21:07 Pain Scale: Adult cm10 MDM: 21:04 Patient medically screened. [facility] 23:01 Differential diagnosis: Nonspecific abd pain, gastritis, cholecystitis, pancreatitis, lilia appendicitis, diverticulitis, viral gastroenteritis, gastroenteritis. Data reviewed: vital signs, nurses notes, lab test result(s), EKG. Consideration of Admission/Observation Escalation of care including admission/observation considered. I considered the following discharge prescriptions or medication management in the emergency department Medications were administered in the Emergency Department. See MAR. Independent interpretation of the following test(s) in the Emergency Department EKG: See my EKG interpretation above X-Ray: My interpretation is cxr. Care significantly affected by the following chronic conditions: bipolar, schizo, cva, ptsd. Counseling: I had a detailed discussion with the patient and/or guardian regarding the historical points, exam findings, and any diagnostic results supporting the discharge/admit diagnosis, the presence of at least one elevated blood pressure reading (>120/80) during this emergency department visit, lab results, radiology results, the need for outpatient follow up, for definitive care, a family practitioner. 06/19 21:14 Order name: CBC with Diff; Complete Time: 21:37 [facility] 06/19 21:14 Order name: Comprehensive Metabolic Panel; Complete Time: 22:15 [facility] 06/19 21:14 Order name: Lipase; Complete Time: 22:15 [facility] 06/19 21:14 Order name: Urinalysis w/ reflexes; Complete Time: 22:15 [facility] 06/19 21:14 Order name: Troponin High Sensitivity; Complete Time: 22:15 lilia 06/19 21:14 Order name: EKG - Nurse/Tech [facility] 06/19 22:37 Order name: EKG - Nurse/Tech; Complete Time: 22:55 lilia EC:04 Rate is 72 beats/min. Rhythm is regular. QRS [place] is Normal. QRS interval is normal. QT lilia interval is normal. No Q waves. T waves are Normal. No ST changes noted. Clinical impression: Normal ECG and No evidence of ischemia. Interpreted by me. Reviewed by me. Administered Medications: 21:58 Drug: NS 0.9% IV 1000 ml IV at 1000 ml once; to be given as a bolus over 60 minutes kj2 Route: IV; Rate: 1000 ml; Site: right forearm; 22:56 Follow up: IV Status: Completed infusion; IV Intake: 1000ml kj2 21:58 Drug: Ondansetron IVP 4 mg IVP once; over 2 minutes Route: IVP; Site: right forearm; kj2 22:30 Follow up: Response: No adverse reaction; Nausea is decreased kj2 22:49 Drug: Rocephin - Rocephin (cefTRIAXone) IVPB 1 grams IVPB once over 30 mins; (mix in 50 kj2 mL NS) Route: IVPB; Infused Over: 30 mins; Site: right forearm; 23:20 Follow up: Response: No adverse reaction; IV Status: Completed infusion; IV Intake: kj2 100ml 22:49 Drug: Ciprofloxacin PO 500 mg PO once Route: PO; kj2 22:55 Follow up: Response: No adverse reaction kj2 Disposition Summary: 06/19/24 22:42 Discharge Ordered Notes: Location: Home lilia Problem: new lilia Symptoms: have improved lilia Condition: Stable lilia Diagnosis - Vomiting lilia - Syncope Near lilia - Tobacco abuse counseling lilia - Tobacco use lilia - UTI/ Urinary tract infection, site not specified lilia Followup: lilia - With: Private Physician - When: 2 - 3 days - Reason: Recheck today's complaints, Continuance of care, Re-evaluation by your physician Discharge Instructions: - Discharge Summary Sheet lilia - Near-Syncope lilia - Steps to Quit Smoking lilia - Health Risks of Smoking lilia - Urinary Tract Infection, Adult lilia - Urinary Tract Infection, Adult, Jheb-wf-Otnp lilia - Near-Syncope, Kghp-ip-Ukko lilia - Steps to Quit Smoking, Lsrw-sg-Roqk lilia - Vomiting, Adult [facility] Forms: - Medication Reconciliation Form lilia - Antibiotic Education lilia - Prescription Opioid Use lilia - Patient Portal Instructions lilia - Leadership Thank You Letter [facility] Prescriptions: - ondansetron 4 mg Oral Tablet,disintegrating - take 1 tablet ORAL route every 6-8 hours for 5 days as needed for nausea and lilia vomiting; 20 tablet; Refills: 0, Product Selection Permitted - Cipro 250 mg Oral tablet - take 1 tablet ORAL route every 12 hours; 14 tablet; Refills: 0, Product lilia Selection Permitted Signatures: Dispatcher [employer] EDAvelino Metzger MD MD cha Martinez, Clarissa, RN RN cm10 Sarai Cid RN RN kj2 Corrections: (The following items were deleted from the chart) 22:26 22:26 Urine Culture+[id number].LAB.BRZ ordered. [facility] DEBBIEMI
[2024-06-19] MEDS ORDERED: CIPROFLOXACIN HCL 500 MG TAB ONE (22:43)
[2024-06-19] MEDS ORDERED: CEFTRIAXONE 1000 MG/VIAL ONE (22:43)
[2024-06-20 03:44] VITALS: O2SAT 100
[2024-06-20 03:46] VITALS: BP 142/88; TEMP 98
== END 2024-06-19 23:25 | disposition home or self-care (01) ==
LOC: ER 20:56
DX: N39.0 Urinary tract infection, site not specified (principal); R55 Syncope and collapse; Z72.0 Tobacco use; Z71.6 Tobacco abuse counseling
CPT/HCPCS: 36415; 80053; 81001; 83690; 84484; 85025; 93005; J0696; J2405; J7030

== ENCOUNTER 2024-07-20 18:09 | Emergency (ER) | payer OTHER, SELFPAY ==
[2024-07-20 18:54] LABS: SARS-CoV-2 Antigen CONTROL BLUE LINE VIS/BG OK; SARS-CoV-2 Antigen Rapid Res Negative (Negative)
--- NOTE | 2024-07-20 19:48 | RAD REPORT ---
EXAMINATION: TWO VIEW CHEST XR CLINICAL INDICATION: COUGH TECHNIQUE: 2 views of the chest was performed. COMPARISON: 02/21/2024 FINDINGS: The lungs are well inflated and clear. The heart is normal in size. No displaced fractures evident. IMPRESSION: No acute or significant abnormalities.
[2024-07-20] MEDS ORDERED: LEVALBUTEROL 1.25 MG/3 ML NEB ONE (21:04)
[2024-07-20] MEDS ORDERED: NA CHLORIDE 0.9% 1,000 ML ONE (21:04)
[2024-07-20] MEDS ORDERED: FAMOTIDINE 20 MG/2 ML VIAL IV ONE (21:04)
[2024-07-20] MEDS ORDERED: ONDANSETRON 4 MG/2 ML VIAL ONE (21:04)
[2024-07-20 21:58] LABS: Absolute Basophils 0.1 K/uL (0-0.5); Absolute Eosinophils 0.5 K/uL (0-0.5); Absolute Lymphocytes (CBC) 1.6 K/uL (0.7-4.9); Absolute Monocytes 0.8 K/uL (0.1-1.3); Absolute Neutrophil 7.8 K/uL (1.8-8.0); Basophils % 0.9 % (0-1.3); Eosinophils % 4.7 % (0-4.4); Hematocrit 43.5 % (39.6-49.0); Hemoglobin 14.7 g/dL (13.6-17.9); Lymphocytes % 14.6 % (15.3-44.8); MCH 31.1 pg (27.0-35.0); MCHC 33.8 g/dL (32.0-36.0); MPV 8.2 fL (7.6-11.3); Monocytes % 7.2 % (3.3-12.3); Neutrophils % 72.6 % (41.7-73.7); Platelets 300 thou/uL (152-406); RBC Red Blood Cell Count 4.73 M/uL (4.33-5.43); Red Cell Distribution Width 13.3 % (12.1-15.2)
[2024-07-20 22:07] LABS: Albumin 3.5 g/dL (3.4-5.0); Albumin/Globulin Ratio 1.1 (1.1-1.8); Anion Gap 7.7 mEq/L (5.0-15.0); Bilirubin Total 0.4 mg/dL (0.2-1.0); Globulin 3.3 g/dL (2.3-3.5); Potassium 3.7 mEq/L (3.5-5.1); Protein, Total 6.8 g/dL (6.4-8.2)
--- NOTE | 2024-07-20 22:30 | RAD REPORT ---
EXAMINATION: CT ABDOMEN AND PELVIS WITHOUT CONTRAST CLINICAL INDICATION: vomiting;Abd pain TECHNIQUE: CT abdomen and pelvis was performed, without IV contrast, as per department protocol. Axia l, sagittal and coronal reconstructions were obtained. One or more of the following dose reduction techniques were used: Automated exposure control, adjustment of the mA and kV according to the patien t size, and iterative reconstruction. Unless otherwise specified, incidental findings do not require dedicated imaging follow-up. COMPARISON: No prior exam. FINDINGS: The lack of intravenous contrast limits the sensitivity of this exam for evaluation of solid visceral organs, vascular structures, and retroperitoneum. LOWER CHEST: The visualized lung bases are clear. LIVER:Normal in size and contour. No focal lesion. Grossly unremarkable gallbladder. SPLEEN: Normal size. No focal lesion. PANCREAS: No mass, ductal dilation, or hakeem-pancreatic fluid. ADRENALS: Normal; no mass. KIDNEYS AND URETERS: Normal size and contour. No hydronephrosis. URINARY BLADDER: Normal contour. GASTROINTESTINAL TRACT: No evidence of bowel obstruction, significant free fluid, free air or abscess . Small fat-containing umbilical hernia. Moderate stool retained throughout the colon. APPENDIX: Normal appendix. LYMPH NODES: No lymphadenopathy. MUSCULOSKELETAL: No acute or suspicious osseous abnormality. ADDITIONAL FINDINGS: None. IMPRESSION: No acute or concerning abnormalities in the abdomen or pelvis, with evaluation limited by lack of IV contrast.
--- NOTE | 2024-07-20 22:43 | ER ---
Nurse's Notes [facility] Name: Jasmin Haley Age: 53 yrs Sex: Male : 1970 Arrival Date: 07/20/2024 Time: 18:09 Bed 17 Private MD: Diagnosis: Acute viral Gastroenteritis, Acute viral illness, Nausea and vomiting Presentation: 07/20 18:26 Chief complaint: Patient states: cough, congestion, fever for couple days, getting ko1 worse, n/v. Coronavirus screen: chills, congestion, cough unrelated to allergies, difficulty breathing, fatigue, fever, headache, nausea, runny nose, vomiting. Client presents with at least one sign or symptom that may indicate coronavirus-19. Standard/surgical mask placed on the client. Ebola Screen: No symptoms or risks identified at this time. Initial Sepsis Screen: Does the patient meet any 2 criteria? No. Patient's initial sepsis screen is negative. Does the patient have a suspected source of infection? No. Patient's initial sepsis screen is negative. Risk Assessment: Do you want to hurt yourself or someone else? Patient reports no desire to harm self or others. Onset of symptoms is unknown. 18:26 Method Of Arrival: Ambulatory ko1 18:26 Acuity: GISELA 3 ko1 Triage Assessment: 18:28 General: Appears in no apparent distress. ill, Behavior is calm, cooperative, ko1 appropriate for age. Pain: Denies pain. Cardiovascular: Reports chest pain. Historical: - Allergies: 18:28 Ibuprofen; ko1 - PMHx: 18:28 bipolar/schizo; CVA; Hypertension; PTSD; ko1 - PSHx: 18:28 None; ko1 - Immunization history:: Adult Immunizations unknown, Client reports receiving the 2nd dose of the Covid vaccine, Client reports receiving the 1st dose of the Covid vaccine. - Infectious Disease History:: Denies. - Social history:: Smoking status: Patient reports the use of cigarette tobacco products, smokes one pack cigarettes per day. - Family history:: not pertinent. - Hospitalizations: : No recent hospitalization is reported. Screenin:40 [facility] ED Fall Risk Assessment (Adult) History of falling in the last 3 months, jb4 including since admission No falls in past 3 months (0 pts) Confusion or Disorientation No (0 pts) Intoxicated or Sedated No (0 pts) Impaired Gait No (0 pts) Mobility Assist Device Used No (0 pt) Altered Elimination No (0 pt) Score/Fall Risk Level 0 - 2 = Low Risk Oriented to surroundings, Maintained a safe environment. Abuse screen: Denies threats or abuse. Nutritional screening: No deficits noted. Tuberculosis screening: No symptoms or risk factors identified. Assessment: 20:00 Reassessment: Patient appears in no apparent distress at this time. Patient and/or jb4 family updated on plan of care and expected duration. Pain level reassessed. Patient is alert, oriented x 3, equal unlabored respirations, skin warm/dry/pink. 21:00 Reassessment: Patient appears in no apparent distress at this time. Patient and/or jb4 family updated on plan of care and expected duration. Pain level reassessed. Patient is alert, oriented x 3, equal unlabored respirations, skin warm/dry/pink. 22:39 Reassessment: Patient appears in no apparent distress at this time. Patient and/or jb4 family updated on plan of care and expected duration. Pain level reassessed. Patient is alert, oriented x 3, equal unlabored respirations, skin warm/dry/pink. Vital Signs: 18:26 BP 144 / 95; Pulse 86; Resp 19; Temp 98.8; Pulse Ox 99% ; ko1 22:57 BP 125 / 77; Pulse 78; Resp 16; Pulse Ox 98% on R/A; jb4 ED Course: 18:11 Patient arrived in ED. ra3 18:13 Bairon Olsen MD is Attending Physician. rn 18:26 Flu Sent. rn 18:26 SARS-COV-2 Antigen Rapid Sent. rn 18:28 Triage completed. ko1 18:28 Arm band placed on right wrist. Patient placed in waiting room, Patient notified of ko1 wait time. 18:31 Radiology exam delayed due to lab results not completed at this time. (BUN/Creatinine). sm9 18:31 Radiology exam delayed due to IV insertion attempt and/or patient not having sm9 appropriate IV at this time. 19:17 Radiology exam delayed due to lab results not completed at this time. (BUN/Creatinine) nj IV insertion attempt and/or patient not having appropriate IV at this time. 19:35 XRAY Chest Pa And Lat (2 Views) In Process Unspecified. EDMS 20:35 Attending Physician role handed off by Bairon Olsen MD sp4 20:35 Migel Linares MD is Attending Physician. sp4 21:20 Initial lab(s) drawn, by me, sent to lab. Inserted saline lock: 18 gauge in right jb4 antecubital area, using aseptic technique. Blood collected. 22:27 Abdomen In Process Unspecified. EDMS 22:39 Daniel Figueroa, RN is Primary Nurse. jb4 22:40 Patient maintains SpO2 saturation greater than 95% on room air. jb4 22:40 Patient has correct armband on for positive identification. Bed in low position. Call jb4 light in reach. Side rails up X 1. Provided Education on: plan of care. 22:57 No provider procedures requiring assistance completed. IV discontinued, intact, jb4 bleeding controlled, No redness/swelling at site. Pressure dressing applied. Administered Medications: 21:20 Drug: Famotidine IVP 20 mg IVP once; dilute with 10 mL 0.9% NaCl; give over 2 minutes jb4 Route: IVP; Site: right antecubital; 22:00 Follow up: Response: No adverse reaction jb4 21:20 Drug: Ondansetron IVP 4 mg IVP once; over 2 minutes Route: IVP; Site: right antecubital;jb4 22:00 Follow up: Response: Marked relief of symptoms jb4 21:20 Drug: NS 0.9% IV 1000 ml IV at 1 bolus Per protocol; to be given as a bolus over 60 jb4 minutes Route: IV; Rate: 1 bolus; Site: right antecubital; 22:20 Follow up: Response: No adverse reaction; IV Status: Completed infusion; IV Intake: jb4 1000ml 21:20 Drug: Levalbuterol Inhalation 1.25 mg Inhalation once Route: Inhalation; jb4 23:00 Drug: Acetaminophen-Codeine PO (300 mg-30 mg) 2 tabs PO once; RASS on ADMIN: Combtv4, jb4 Very Agttd3, Agttd2, Rstlss1, AlertClm0, Drwsy-1, Lt Sdtn-2, Mod Sdtn-3, Dp Sdtn-4, UnArsble-5 Route: PO; 23:03 Follow up: Response: Medication administered at discharge. jb4 23:00 Drug: Dicyclomine PO 20 mg PO once Route: PO; jb4 23:03 Follow up: Response: Medication administered at discharge. jb4 23:00 Drug: MetoCLOPramide PO 10 mg PO once Route: PO; jb4 23:02 Follow up: Response: Medication administered at discharge. jb4 23:00 Drug: Ondansetron PO 4 mg PO once Route: PO; jb4 23:02 Follow up: Response: Medication administered at discharge. jb4 Medication: 22:57 VIS not applicable for this client. jb4 Intake: 22:20 IV: 1000ml; Total: 1000ml. jb4 Outcome: 22:42 Discharge ordered by MD. sp4 22:57 Discharged to home ambulatory, with family, jb4 22:57 Condition: stable 22:57 Discharge instructions given to patient, Instructed on discharge instructions, follow up and referral plans. medication usage, Demonstrated understanding of instructions, follow-up care, medications, Prescriptions given X 3, 23:01 Patient left the ED. jb4 Signatures: Dispatcher [employer] EDMS Bairon Olsen MD MD rn Bryson, James RN RN jb4 Joel Cid Kathy, RN RN ko1 Migel Linares MD MD sp4 Dang Earl Ruby ra3
--- NOTE | 2024-07-20 22:43 | EDPHYS ---
Physician Documentation [facility] Name: Jasmin Haley Age: 53 yrs Sex: Male : 1970 Arrival Date: 07/20/2024 Time: 18:09 Bed 17 Private MD: ED Physician Migel Linares HPI: 07/20 18:41 This 53 yrs old Male presents to ER via Ambulatory with complaints of Chest Pain - rn Covid symptoms. 19:02 The patient or guardian reports chest pain that is located primarily in the anterior rn chest wall. Onset: yesterday. The pain does not radiate. Associated signs and symptoms: Pertinent positives: abdominal pain, cough, shortness of breath, Pertinent negatives:. The chest pain is described as sharp, stabbing. Duration: The patient or guardian reports multiple episodes, that are intermittent. Modifying factors: The symptoms are alleviated by nothing. the symptoms are aggravated by cough. Severity of pain: At its worst the pain was mild in the emergency department the pain is unchanged. The patient has experienced a previous episode. Patient reports feels like he is getting sick. 2 days of chills. No fever. Reports headache, cough, shortness of breath, epigastric abdominal pain with nausea and vomiting. States the last time he had this he was diagnosed with COVID.. Historical: - Allergies: 18:28 Ibuprofen; ko1 - PMHx: 18:28 bipolar/schizo; CVA; Hypertension; PTSD; ko1 - PSHx: 18:28 None; ko1 - Immunization history:: Adult Immunizations unknown, Client reports receiving the 2nd dose of the Covid vaccine, Client reports receiving the 1st dose of the Covid vaccine. - Infectious Disease History:: Denies. - Social history:: Smoking status: Patient reports the use of cigarette tobacco products, smokes one pack cigarettes per day. - Family history:: not pertinent. - Hospitalizations: : No recent hospitalization is reported. ROS: 19:02 Constitutional: Positive for fever and chills Cardiovascular: Positive for chest pain rn Respiratory: Positive for cough and shortness of breath Abdomen/GI: Positive for epigastric abdominal pain with vomiting MS/Extremity: Negative for injury and deformity, Neuro: Positive for headache and generalized weakness Exam: 19:02 Constitutional: This is a well developed, well nourished patient who is awake, alert, rn and in no acute distress. Ambulatory to room without difficulty or assistance Head/Face: Normocephalic, atraumatic. Cardiovascular: Regular rate and rhythm. No pulse deficits. Respiratory: Mild tachypnea, no retractions Abdomen/GI: Soft, epigastric tenderness without guarding or rebound MS/ Extremity: Pulses equal, no cyanosis. Neuro: Awake and alert, GCS 15 Vital Signs: 18:26 BP 144 / 95; Pulse 86; Resp 19; Temp 98.8; Pulse Ox 99% ; ko1 22:57 BP 125 / 77; Pulse 78; Resp 16; Pulse Ox 98% on R/A; jb4 MDM: 18:13 Medical Screening Exam initiated rn 22:45 ED course: EXAMINATION: TWO VIEW CHEST XR CLINICAL INDICATION: COUGH TECHNIQUE: 2 views sp4 of the chest was performed. COMPARISON: 02/21/2024 FINDINGS: The lungs are well inflated and clear. The heart is normal in size. No displaced fractures evident. IMPRESSION: No acute or significant abnormalities. . ED course: EXAMINATION: CTABDOMEN AND PELVIS WITHOUT CONTRAST CLINICAL INDICATION: vomiting;Abd pain TECHNIQUE: CT abdomen and pelvis was performed, without IV contrast, as per department protocol. Axial, sagittal and coronal reconstructions were obtained. One or more of the following dose reduc tion techniques were used: Automated exposure control, adjustment of the mA and kV according to the patient size, and iterative reconstruction. Unless otherwise specified, incidental findings do not require dedicated imaging follow-up. COMPARISON: No prior exam. FINDINGS: The lack of intravenous contrast limits the sensitivity of this exam for evaluation of solid visceral organs, vascular structures, and retroperitoneum. LOWER CHEST: The visualized lung bases are clear. LIVER:Normal in size and contour. No focal lesion. Grossly unremarkable gallbladder. SPLEEN: Normal size. No focal lesion. PANCREAS: No mass, ductal dilation, or hakeem-pancreatic fluid. ADRENALS: Normal; no mass. KIDNEYS AND URETERS: Normal size and contour. No hydronephrosis. URINARYBLADDER: Normal contour. GASTROINTESTINAL TRACT: No evidence of bowel obstruction, significant free fluid, free air or abscess. Small fat-containing umbilical hernia. Moderate stool retained throughout the colon. APPENDIX: Normal appendix. LYMPH NODES: No lymphadenopathy. MUSCULOSKELETAL: No acute or suspicious osseous abnormality. ADDITIONAL FINDINGS: None. IMPRESSION: No acute or concerning abnormalities in the abdomen or pelvis, with evaluation limited by lack of IV contrast. Reported By: Jake Vela. 22:46 Differential diagnosis: anxiety, esophagitis, gastritis, gastroesophageal reflux sp4 disease (GERD). Data reviewed: vital signs, lab test result(s), radiologic studies, CT scan, plain films. ED course: Patient's symptoms consistent with acute viral illness. Reported vomiting likely acute viral gastroenteritis. Stable for discharge home.. 07/20 18:14 Order name: SARS-COV-2 Antigen Rapid; Complete Time: 19:29 rn 07/20 18:19 Order name: CBC with Diff; Complete Time: 22:32 rn 07/20 18:19 Order name: CMP; Complete Time: 22:32 rn 07/20 18:19 Order name: Lipase; Complete Time: 22:32 rn 07/20 18:19 Order name: Flu; Complete Time: 19:29 rn 07/20 18:14 Order name: XRAY Chest Pa And Lat (2 Views); Complete Time: 20:21 rn 07/20 22:24 Order name: Abdomen ; Complete Time: 22:32 EDME 07/20 18:19 Order name: IV Saline Lock; Complete Time: 21:20 rn 07/20 18:19 Order name: Labs collected and sent; Complete Time: 21:20 rn Administered Medications: 21:20 Drug: Famotidine IVP 20 mg IVP once; dilute with 10 mL 0.9% NaCl; give over 2 minutes jb4 Route: IVP; Site: right antecubital; 22:00 Follow up: Response: No adverse reaction jb4 21:20 Drug: Ondansetron IVP 4 mg IVP once; over 2 minutes Route: IVP; Site: right antecubital;jb4 22:00 Follow up: Response: Marked relief of symptoms jb4 21:20 Drug: NS 0.9% IV 1000 ml IV at 1 bolus Per protocol; to be given as a bolus over 60 jb4 minutes Route: IV; Rate: 1 bolus; Site: right antecubital; 22:20 Follow up: Response: No adverse reaction; IV Status: Completed infusion; IV Intake: jb4 1000ml 21:20 Drug: Levalbuterol Inhalation 1.25 mg Inhalation once Route: Inhalation; jb4 23:00 Drug: Acetaminophen-Codeine PO (300 mg-30 mg) 2 tabs PO once; RASS on ADMIN: Combtv4, jb4 Very Agttd3, Agttd2, Rstlss1, AlertClm0, Drwsy-1, Lt Sdtn-2, Mod Sdtn-3, Dp Sdtn-4, UnArsble-5 Route: PO; 23:03 Follow up: Response: Medication administered at discharge. jb4 23:00 Drug: Dicyclomine PO 20 mg PO once Route: PO; jb4 23:03 Follow up: Response: Medication administered at discharge. jb4 23:00 Drug: MetoCLOPramide PO 10 mg PO once Route: PO; jb4 23:02 Follow up: Response: Medication administered at discharge. jb4 23:00 Drug: Ondansetron PO 4 mg PO once Route: PO; jb4 23:02 Follow up: Response: Medication administered at discharge. jb4 Disposition Summary: 07/20/24 22:42 Discharge Ordered Notes: Location: Home sp4 Problem: new sp4 Symptoms: have improved sp4 Condition: Stable sp4 Diagnosis - Acute viral Gastroenteritis, Acute viral illness, Nausea and vomiting sp4 Followup: sp4 - With: Private Physician - When: 7 - 10 days - Reason: Recheck today's complaints Discharge Instructions: - Discharge Summary Sheet sp4 - Clear Liquid Diet, Adult, Kvjc-mb-Toux sp4 Forms: - Work release form sp4 - Patient Portal Instructions sp4 Prescriptions: - ondansetron 8 mg Oral Tablet,disintegrating - take 1 tablet ORAL route every 6 hours PRN nausea; 30 tablet; Refills: 0, sp4 Product Selection Permitted - Tramadol 50 mg Oral Tablet - take 1 tablet ORAL route every 8 hours as needed; 12 tablet; Refills: 0, sp4 Product Selection Permitted - dicyclomine 20 mg Oral tablet - take 1 tablet ORAL route every 6 hours PRN abdominal pain; 30 tablet; Refills: sp4 0, Product Selection Permitted Signatures: Dispatcher [employer] EDBairon Joaquin MD MD rn Bryson, James RN RN jb4 Isa Ly RN RN ko1 Migel Linares MD MD sp4 Corrections: (The following items were deleted from the chart) 18:15 18:15 Chest Pa And Lat (2 Views)+RAD.RAD.BRZ ordered. EDMS EDMS 18:15 18:15 SARS-COV-2 Antigen Rapid+I.LAB.BRZ ordered. EDMS EDMS 22:24 18:19 Abdomen Pelvis W Con+CT.RAD.BRZ ordered. EDMS EDMS
[2024-07-20] MEDS ORDERED: ONDANSETRON 4 MG (ODT) TAB ONE (22:51)
[2024-07-20] MEDS ORDERED: DICYCLOMINE HCL 10 MG CAP ONE (22:51)
[2024-07-20] MEDS ORDERED: METOCLOPRAMIDE 5 MG TAB ONE (22:52)
[2024-07-20] MEDS ORDERED: CODEINE 30MG/APAP 300MG TAB ONE (22:52)
[2024-07-20 23:15] VITALS: TEMP 98.8
[2024-07-20 23:17] VITALS: BP 125/77; O2SAT 98
== END 2024-07-20 23:01 | disposition home or self-care (01) ==
LOC: ER 18:09
DX: A08.4 Viral intestinal infection, unspecified (principal); B34.9 Viral infection, unspecified; R07.9 Chest pain, unspecified; Z11.52 Encounter for screening for COVID-19; I10 Essential (primary) hypertension; Z86.73 Personal history of transient ischemic attack (TIA), and cerebral infarction without residual deficits
CPT/HCPCS: 85025; 36415; 83690; 80053; 87804 ×2; 74176; 71046; 87811; Q0162; J7614; J2405; J7030

== ENCOUNTER 2024-08-22 20:07 | Emergency (ER) | payer OTHER ==
[2024-08-22] MEDS ORDERED: ALBUTEROL 2.5 MG/3 ML NEB SOL ONE (22:09)
[2024-08-22] MEDS ORDERED: METHYLPREDNISOLONE 125 MG INJ ONE (22:10)
[2024-08-22] MEDS ORDERED: IPRATROPIUM BROM 0.5MG/2.5ML ONE (22:10)
[2024-08-22] MEDS ORDERED: LORazepam 2 MG/ML VIAL ONE (22:10)
[2024-08-22] MEDS ORDERED: DIPHENHYDRAMINE 50 MG/ML VIAL ONE (22:11)
[2024-08-22] MEDS ORDERED: MORPHINE 4 MG/ML SYR ONE (22:12)
[2024-08-22] MEDS ORDERED: NA CHLORIDE 0.9% 1,000 ML ONE (22:12)
[2024-08-22] MEDS ORDERED: METOCLOPRAMIDE 10 MG/2mL INJ ONE (22:12)
[2024-08-22] MEDS ORDERED: Magnesium Sulfate 2gm IVPB 2 G/50 ML BAG IV ONE (22:12)
[2024-08-22 22:26] LABS: Absolute Basophils 0.1 K/uL (0-0.5); Absolute Eosinophils 0.5 K/uL (0-0.5); Absolute Lymphocytes (CBC) 1.8 K/uL (0.7-4.9); Absolute Monocytes 0.9 K/uL (0.1-1.3); Absolute Neutrophil 7.1 K/uL (1.8-8.0); Basophils % 0.7 % (0-1.3); Eosinophils % 4.5 % (0-4.4); Hematocrit 46.9 % (39.6-49.0); Hemoglobin 15.8 g/dL (13.6-17.9); Lymphocytes % 16.9 % (15.3-44.8); MCH 31.3 pg (27.0-35.0); MCHC 33.6 g/dL (32.0-36.0); MCV 93.1 fL (80-100); MPV 7.7 fL (7.6-11.3); Monocytes % 8.8 % (3.3-12.3); Neutrophils % 69.1 % (41.7-73.7); Platelets 272 thou/uL (152-406); RBC Red Blood Cell Count 5.04 M/uL (4.33-5.43); Red Cell Distribution Width 13.3 % (12.1-15.2)
[2024-08-22 22:27] LABS: PT Prothrombin Time 10.5 SECONDS (9.4-12.5); Protime INR 0.94
[2024-08-22 22:45] LABS: ALT/SGPT 23 U/L (16-61); AST/SGOT 17 U/L (15-37); Albumin 3.6 g/dL (3.4-5.0); Alkaline Phosphatase 60 U/L (45-117); Anion Gap 11.2 mEq/L (5.0-15.0); BUN Blood Urea Nitrogen 14 mg/dL (7-18); Bicarbonate 29 mEq/L (21-32); Bilirubin Total 0.3 mg/dL (0.2-1.0); Globulin 3.6 g/dL (2.3-3.5); Glomerular Filtration Rate 68 ml/min (=/>90); Glucose Level 97 mg/dL (74-106); Magnesium 2.1 mg/dL (1.6-2.4); NT PRO-BNP 102 pg/mL (<125); Potassium 4.2 mEq/L (3.5-5.1); Protein, Total 7.2 g/dL (6.4-8.2); Sodium Level 145 mEq/L (136-145)
[2024-08-22 22:58] LABS: Bilirubin Direct < 0.2 mg/dL (0-0.2); Bilirubin Indirect, Calculated 0.1 mg/dL (0.2-0.8)
--- NOTE | 2024-08-23 00:54 | RAD REPORT ---
CLINICAL HISTORY: Chest pain, cough, SOB. Hx of HTN, PTSD, bipolar. COMPARISON: XR Chest 10/06/2023. TECHNIQUE: CT CHEST ANGIOGRAPHY WITH IV CONTRAST on 08/22/2024 8:56 PM ELECTRONICS ENGINEERING TECHNOLOGIST. MIPS reconstructions were generated. This exam was performed according to our departmental dose-optimization program, which includes autom ated exposure control, adjustment of the mA and/or kV according to patient size and/or use of iterative reconstruction technique. MIP images were generated. FINDINGS: Thoracic aorta is normal in course and caliber without aneurysm or dissection. Pulmonary arteries are adequately opacified without acute or chronic filling defects. The heart is normal in size. There is no pericardial effusion. Intrathoracic lymph nodes are not enla rged. There is no pleural effusion, pleural thickening or pneumothorax. Central airways are patent. There i s mild upper lung centrilobular emphysema. There are no acute abnormalities within the limited images of the upper abdomen. There are no acute osseous findings. No suspicious bony lesions. IMPRESSION: No aortic dissection or aneurysm. No pulmonary embolus. No pneumonia. Electronically signed by: Phill Lindsay MD 08/23/2024 12:44 AM ELECTRONICS ENGINEERING TECHNOLOGIST RP Due to temporary technical issues with the PACS/[employer] reporting system, reports are being savanna d by the in-house radiologist without review as a courtesy to ensure prompt reporting the interpreting radiologist is fully responsible for the content of the report. Transcribed Date/Time: 08/23/2024 12:54 AM
--- NOTE | 2024-08-23 01:48 | EDPHYS ---
Physician Documentation [facility] Name: Jasmin Haley Age: 54 yrs Sex: Male : 1970 Arrival Date: 08/22/2024 Time: 20:07 Bed 15 Private MD: ED Physician Migel Linares HPI: 08/22 20:31 This 54 yrs old Male presents to ER via Unassigned with complaints of sp4 Breathing Difficulty, Headache. 08/23 05:09 54-year-old male presents with acute onset of cough, shortness of breath, feeling sp4 unwell, headaches, dyspnea on exertion, pains in the neck and the spine. Patient has reported he has history of asthma.. Historical: - Allergies: 08/22 20:37 Ibuprofen; cm10 - PMHx: 20:37 bipolar/schizo; CVA; Hypertension; PTSD; cm10 - Immunization history:: Adult Immunizations up to date. - Infectious Disease History:: Denies. - Social history:: Smoking status: Patient reports the use of cigarette tobacco products, smokes one-half pack cigarettes per day. - Family history:: not pertinent. ROS: 08/23 05:09 Constitutional: Negative for fever, chills, and weight loss, positive cough congestion sp4 headache dyspnea on exertion. Positive headache, positive spinal aches All other systems are negative, Exam: 05:09 Constitutional: This is a well developed, well nourished patient who is awake, alert, sp4 and in no acute distress. Head/Face: Normocephalic, atraumatic. Eyes: Pupils equal round and reactive to light, extra-ocular motions intact. Lids and lashes normal. Conjunctiva and sclera are not injected. Cornea within normal limits. Periorbital areas with no swelling, redness, or edema. ENT: Nares patent. No nasal discharge, no septal abnormalities noted. Tympanic membranes are normal and external auditory canals are clear. Oropharynx with no redness, swelling, or masses, exudates, or evidence of obstruction, uvula midline. Mucous membranes moist. Neck: Trachea midline, no thyromegaly or masses palpated, and no cervical lymphadenopathy. Supple, full range of motion without nuchal rigidity, or vertebral point tenderness. Chest/axilla: Normal chest wall appearance and motion. Nontender with no deformity. No lesions are appreciated. Cardiovascular: Regular rate and rhythm with a normal S1 and S2. No gallops, murmurs, or rubs. Normal PMI, no JVD. No pulse deficits. Respiratory: Lungs have equal breath sounds bilaterally, clear to auscultation and percussion. No rales, rhonchi or wheezes noted. No increased work of breathing, no retractions or nasal flaring. Abdomen/GI: Soft, with normal bowel sounds. No distension or tympany. No guarding or rebound. No evidence of tenderness throughout. Back: No spinal tenderness. No costovertebral tenderness. Skin: Warm, dry with normal turgor. Normal color with no rashes, no lesions, and no evidence of cellulitis. MS/ Extremity: Pulses equal, no cyanosis. Neurovascular intact. Full, normal range of motion. Neuro: Awake and alert, GCS 15, oriented to person, place, time, and situation. Cranial nerves II-XII grossly intact. Motor strength 5/5 in all extremities. Sensory grossly intact. Psych: Awake, alert, with orientation to person, place and time. Behavior, mood, and affect are within normal limits 05:09 ECG was reviewed by the Attending Physician. EKG at 2336 EKG reveals normal sinus rhythm rate 82. Otherwise normal Vital Signs: 08/22 20:36 BP 143 / 84; Pulse 85; Resp 22; Temp 97.4(TE); Pulse Ox 96% on R/A; Weight 62.6 kg; cm10 Height 5 ft. 6 in. ; Pain 10/10; 22:00 BP 137 / 91; Pulse 76; Resp 16; Pulse Ox 99% ; me1 22:42 Pain 3/10; me1 22:42 Pain 3/10; me1 23:00 BP 121 / 77; Pulse 82; Resp 17; Pulse Ox 91% ; me1 08/23 00:00 BP 127 / 79; Pulse 79; Resp 16; Pulse Ox 96% on R/A; jb4 01:00 BP 127 / 84; Pulse 71; Resp 16; Pulse Ox 93% on R/A; jb4 08/22 20:36 Body Mass Index 22.27 (62.60 kg, 167.64 cm) cm10 08/22 20:36 Pain Scale: Adult cm10 22:42 Pain Scale: Adult me1 22:42 Pain Scale: Adult me1 08/22 23:00 sleeping, snoring. o2 at 2 lpm via nc applied. Sat increased to 95% me1 MDM: 20:32 Medical Screening Exam initiated sp4 23:36 Differential diagnosis: Anxiety Reaction asthma, Bronchitis CHF exacerbation, Chronic sp4 Obstructive Pulmonary Disease pneumonia. Data reviewed: vital signs, nurses notes, old medical records, lab test result(s), EKG, radiologic studies, CT scan. Consideration of Admission/Observation Escalation of care including admission/observation considered. ED course: Patient is positive for influenza B which explains patient's symptoms. Patient stable for discharge home with p.o. Tamiflu and symptomatic medications.. 08/23 01:46 ED course: CLINICAL HISTORY: Chest pain, cough, SOB. Hx of HTN, PTSD, bipolar. sp4 COMPARISON: XR Chest 10/06/2023. TECHNIQUE: CT CHESTANGIOGRAPHYWITH IV CONTRAST on 08/22/2024 8:56 PM CANVAS WORKER. MIPS reconstructions were generated. This exam was performed according to our departmental dose-optimization program, which includes automated exposure control, adjustment of the mA and/or kV according to patient size and/or use of iterative reconstruction technique. MIP images were generated. FINDINGS: Thoracic aorta is normal in course and caliber without aneurysm or dissection. Pulmonary arteries are adequately opacified without acute or chronic filling defects. The heart is normal in size. There is no pericardial effusion. Intrathoracic lymph nodes are not enlarged. There is no pleural effusion, pleural thickening or pneumothorax. Central airways are patent. There is mild upper lung centrilobular emphysema. There are no acute abnormalities within the limited images of the upper abdomen. There are no acute osseous findings. No suspicious bony lesions. IMPRESSION: No aortic dissection or aneurysm. No pulmonary embolus. No pneumonia. Electronically signed by: Phill Lindsay MD 08/23/2024 12:44 AM CANVAS WORKER. 08/22 20:32 Order name: Influenza Screen (a \T\ B); Complete Time: 01:40 sp4 08/22 20:55 Order name: Basic Metabolic Panel; Complete Time: 01:40 sp4 08/22 20:55 Order name: CBC with Diff; Complete Time: 01:40 sp4 08/22 20:55 Order name: LFT's; Complete Time: 01:40 sp4 08/22 20:55 Order name: Magnesium; Complete Time: 01:40 4 08/22 20:55 Order name: NT PRO-BNP; Complete Time: 01:40 4 08/22 20:55 Order name: PT-INR; Complete Time: 01:40 4 08/22 20:55 Order name: Troponin HS; Complete Time: 01:40 4 08/22 20:56 Order name: CRP; Complete Time: 01:40 4 08/22 20:56 Order name: CT Chest For PE Angio [facility] 08/22 20:55 Order name: EKG; Complete Time: 20:55 [facility] 08/22 20:55 Order name: Cardiac monitoring; Complete Time: 00:08 [facility] 08/22 20:55 Order name: EKG - Nurse/Tech; Complete Time: 00:08 [facility] 08/22 20:55 Order name: IV Saline Lock; Complete Time: 22:01 4 08/22 20:55 Order name: Labs collected and sent; Complete Time: 22:01 [facility] 08/22 20:55 Order name: O2 Per Protocol; Complete Time: 22:01 [facility] 08/22 20:55 Order name: O2 Sat Monitoring; Complete Time: 22:01 sp4 EC/16 23:36 Rate is 82 beats/min. Rhythm is regular, Normal Sinus Rhythm. QRS [place] is Normal. MA sp4 interval is normal. QRS interval is normal. QT interval is normal. No Q waves. T waves are Normal. No ST changes noted. Clinical impression: No evidence of ischemia. Interpreted by me. Reviewed by me. Administered Medications: 22:31 Drug: diphenhydrAMINE IVP 25 mg IVP once Route: IVP; Site: right antecubital; [facility] 22:42 Follow up: Pain 3/10 Adult; Response: No adverse reaction; Pain is decreased me1 22:31 Drug: morphine IVP or IV 4 mg IVP once over 4 mins Route: IVP; Infused Over: 4 mins; ak1 Site: right antecubital; 22:42 Follow up: Pain 3/10 Adult; Response: No adverse reaction; Pain is decreased me1 22:31 Drug: Ativan IVP 1 mg IVP once Route: IVP; Site: right antecubital; ak1 22:42 Follow up: Response: No adverse reaction; Anxiety decreased me1 22:31 Drug: MethylPrednisoLONE IVP 125 mg IVP once Route: IVP; Site: right antecubital; me1 22:41 Follow up: Response: No adverse reaction me1 22:31 Drug: Magnesium Sulfate IVPB 2 grams IVPB once over 2 hrs Route: IVPB; Infused Over: 2 me1 hrs; Site: right antecubital; 22:31 Drug: NS 0.9% IV 1000 ml IV at 1 bolus Per protocol; to be given as a bolus over 60 me1 minutes Route: IV; Rate: 1 bolus; Site: right antecubital; 22:32 Drug: metoCLOPramide IVP 10 mg IVP once; over 1 to 2 minutes Route: IVP; Site: right me1 antecubital; 22:42 Follow up: Response: No adverse reaction; Nausea is decreased me1 22:32 Drug: DuoNeb Nebulize (2.5 mg - 0.5 mg) 3 ml Nebulizer once Route: Nebulizer; me1 22:41 Follow up: Response: No adverse reaction; Wheezing diminished me1 Disposition: 08/23 05:12 Chart complete. sp4 Disposition Summary: 08/23/24 01:47 Discharge Ordered Notes: Location: Home sp4 Problem: new sp4 Symptoms: have improved sp4 Condition: Stable sp4 Diagnosis - Influenza B, Acute systemic Viral illness, Acute Wheezing sp4 Followup: sp4 - With: Private Physician - When: 7 - 10 days - Reason: Recheck today's complaints Discharge Instructions: - Discharge Summary Sheet sp4 - Louie Influenza, Adult sp4 Forms: - Patient Portal Instructions sp4 Prescriptions: - dextromethorphan-guaifenesin 20-400 mg Oral tablet - take 1 tablet ORAL route every 4 hours PRN cough; 40 tablet; Refills: 0, sp4 Product Selection Permitted - miscellaneous medical supply - administer 1 Pack NEBULIZATION route every 4 hours Dispense One Nebulizer with sp4 Adult Mask; 1 Pack; Refills: 0, Product Selection Permitted - Albuterol Sulfate 2.5 mg /3 mL (0.083 %) Inhalation Solution for Nebulization - inhale 1 unit NEBULIZATION route every 4 hours As needed PRN wheezing, sp4 Dispense 50 vials; 50 unit; Refills: 0, Product Selection Permitted - Tamiflu 75 mg Oral capsule - take 1 tablet ORAL route every 12 hours for 5 days; 10 tablet; Refills: 0, sp4 Product Selection Permitted Signatures: Dispatcher [employer] Migel Romero MD MD sp4 Fiordaliza Pride RN RN cm10 Yanelis Virgen RN RN me1
--- NOTE | 2024-08-23 01:48 | ER ---
Nurse's Notes [facility] Name: Jasmin Haley Age: 54 yrs Sex: Male : 1970 Arrival Date: 08/22/2024 Time: 20:07 Bed 15 Private MD: Diagnosis: Influenza B, Acute systemic Viral illness, Acute Wheezing Presentation: 08/22 20:36 Chief complaint: Patient states: COUGH AND SHORTNESS OF BREATH ONSET LAST NIGHT. cm10 Coronavirus screen: Client denies travel out of the [place] in the last 14 days. Ebola Screen: Patient denies travel to an Ebola-affected area in the 21 days before illness onset. No symptoms or risks identified at this time. Initial Sepsis Screen: Does the patient meet any 2 criteria? No. Patient's initial sepsis screen is negative. Does the patient have a suspected source of infection? No. Patient's initial sepsis screen is negative. Risk Assessment: Do you want to hurt yourself or someone else? Patient reports no desire to harm self or others. Onset of symptoms was August 22, 2024. 20:36 Method Of Arrival: Ambulatory 10 20:36 Acuity: GISELA 3 cm10 Triage Assessment: 20:37 General: Appears in no apparent distress. uncomfortable, Behavior is calm, cooperative. cm10 Neuro: No deficits noted. Level of Consciousness is awake, alert, obeys commands, Oriented to person, place, time, situation, Appropriate for age. Respiratory: Reports shortness of breath cough that is pain with cough Airway is patent Respiratory effort is even, unlabored, Respiratory pattern is regular, symmetrical. Historical: - Allergies: 20:37 Ibuprofen; cm10 - PMHx: 20:37 bipolar/schizo; CVA; Hypertension; PTSD; cm10 - Immunization history:: Adult Immunizations up to date. - Infectious Disease History:: Denies. - Social history:: Smoking status: Patient reports the use of cigarette tobacco products, smokes one-half pack cigarettes per day. - Family history:: not pertinent. Screenin:38 [facility] ED Fall Risk Assessment (Adult) History of falling in the last 3 months, me1 including since admission No falls in past 3 months (0 pts) Confusion or Disorientation No (0 pts) Intoxicated or Sedated No (0 pts) Impaired Gait No (0 pts) Mobility Assist Device Used No (0 pt) Altered Elimination No (0 pt) Score/Fall Risk Level 0 - 2 = Low Risk Maintained a safe environment, Provided non-skid footwear, Hourly rounding (assess needs \T\ fall precautionary measures) done. Abuse screen: Denies threats or abuse. Nutritional screening: No deficits noted. Tuberculosis screening: No symptoms or risk factors identified. Assessment: 22:38 General: Appears ill, well developed, well nourished, Behavior is cooperative, me1 appropriate for age, Reports cough and sob that started last night. c/o ELDER 7/10 that started today. Pain: Complains of pain in head Pain does not radiate. Pain currently is 7 out of 10 on a pain scale. Quality of pain is described as aching, Pain began suddenly, Is continuous. Neuro: Level of Consciousness is awake, alert, obeys commands, Oriented to person, place, time, situation, Appropriate for age. Cardiovascular: Patient's skin is warm and dry. Respiratory: Reports shortness of breath since yesterday cough that is persistent since yesterday Airway is patent Respiratory effort is even, unlabored, Respiratory pattern is regular, symmetrical, Breath sounds with wheezes bilaterally. GI: No signs and/or symptoms were reported involving the gastrointestinal system. : No signs and/or symptoms were reported regarding the genitourinary system. EENT: No signs and/or symptoms were reported regarding the EENT system. Derm: Skin is intact, is healthy with good turgor, Skin is pink, warm \T\ dry. Musculoskeletal: No signs and/or symptoms reported regarding the musculoskeletal system. 08/23 00:00 Reassessment: Patient appears in no apparent distress at this time. Patient and/or jb4 family updated on plan of care and expected duration. Pain level reassessed. Patient is alert, oriented x 3, equal unlabored respirations, skin warm/dry/pink. 01:23 Reassessment: Patient appears in no apparent distress at this time. Patient and/or jb4 family updated on plan of care and expected duration. Pain level reassessed. Patient is alert, oriented x 3, equal unlabored respirations, skin warm/dry/pink. Vital Signs: 08/22 20:36 BP 143 / 84; Pulse 85; Resp 22; Temp 97.4(TE); Pulse Ox 96% on R/A; Weight 62.6 kg; cm10 Height 5 ft. 6 in. ; Pain 10/10; 22:00 BP 137 / 91; Pulse 76; Resp 16; Pulse Ox 99% ; me1 22:42 Pain 3/10; me1 22:42 Pain 3/10; me1 23:00 BP 121 / 77; Pulse 82; Resp 17; Pulse Ox 91% ; me1 08/23 00:00 BP 127 / 79; Pulse 79; Resp 16; Pulse Ox 96% on R/A; jb4 01:00 BP 127 / 84; Pulse 71; Resp 16; Pulse Ox 93% on R/A; jb4 08/22 20:36 Body Mass Index 22.27 (62.60 kg, 167.64 cm) cm10 08/22 20:36 Pain Scale: Adult cm10 22:42 Pain Scale: Adult me1 22:42 Pain Scale: Adult me1 08/22 23:00 sleeping, snoring. o2 at 2 lpm via nc applied. Sat increased to 95% tx1 ED Course: 20:19 Patient arrived in ED. gm2 20:31 Migel Linares MD is Attending Physician. sp4 20:37 Triage completed. cm10 20:37 Arm band placed on right wrist. Patient placed in waiting room. cm10 21:57 Yanelis Virgen, RN is Primary Nurse. me1 22:01 Inserted saline lock: 20 gauge in right antecubital area, using aseptic technique. af3 Blood collected. Flushed with 10 mL NS. 22:32 CRP Sent. me1 22:37 Influenza Screen (a \T\ B) Sent. me1 22:37 Flu and/or RSV swab sent to lab. me1 22:38 Patient has correct armband on for positive identification. Bed in low position. Call tx1 light in reach. Side rails up X2. Provided Education on: POC. Verbalized understanding.. Client placed on continuous cardiac and pulse oximetry monitoring. NIBP monitoring applied. satellite project site monitor on. Pulse ox on. NIBP on. 22:38 No provider procedures requiring assistance completed. me1 23:39 Notified ED physician of a critical lab result(s). positive for flu B. me1 23:44 CT Chest For PE Angio In Process Unspecified. EDMS 08/23 02:03 IV discontinued, intact, bleeding controlled, No redness/swelling at site. Pressure jb4 dressing applied. Administered Medications: 08/22 22:31 Drug: diphenhydrAMINE IVP 25 mg IVP once Route: IVP; Site: right antecubital; me1 22:42 Follow up: Pain 3/10 Adult; Response: No adverse reaction; Pain is decreased me1 22:31 Drug: morphine IVP or IV 4 mg IVP once over 4 mins Route: IVP; Infused Over: 4 mins; me1 Site: right antecubital; 22:42 Follow up: Pain 3/10 Adult; Response: No adverse reaction; Pain is decreased me1 22:31 Drug: Ativan IVP 1 mg IVP once Route: IVP; Site: right antecubital; me1 22:42 Follow up: Response: No adverse reaction; Anxiety decreased me1 22:31 Drug: MethylPrednisoLONE IVP 125 mg IVP once Route: IVP; Site: right antecubital; me1 22:41 Follow up: Response: No adverse reaction me1 22:31 Drug: Magnesium Sulfate IVPB 2 grams IVPB once over 2 hrs Route: IVPB; Infused Over: 2 me1 hrs; Site: right antecubital; 22:31 Drug: NS 0.9% IV 1000 ml IV at 1 bolus Per protocol; to be given as a bolus over 60 me1 minutes Route: IV; Rate: 1 bolus; Site: right antecubital; 22:32 Drug: metoCLOPramide IVP 10 mg IVP once; over 1 to 2 minutes Route: IVP; Site: right me1 antecubital; 22:42 Follow up: Response: No adverse reaction; Nausea is decreased me1 22:32 Drug: DuoNeb Nebulize (2.5 mg - 0.5 mg) 3 ml Nebulizer once Route: Nebulizer; me1 22:41 Follow up: Response: No adverse reaction; Wheezing diminished me1 Medication: 22:38 VIS not applicable for this client. me1 Outcome: 08/23 01:47 Discharge ordered by . spSandy 02:03 Discharged to home ambulatory, jb4 02:03 Condition: stable 02:03 Discharge instructions given to patient, family, Instructed on discharge instructions, follow up and referral plans. medication usage, Demonstrated understanding of instructions, follow-up care, medications, Prescriptions given X 4, 02:04 Patient left the ED. jb4 Signatures: Dispatcher [employer] EDMS Daniel Figueroa RN RN jb4 Migel Linares MD MD sp4 Fiordaliza Pride RN RN cm10 Yanelis Virgen RN RN me1 Farzana Joiner 2 Melissa Cooper 3 Corrections: (The following items were deleted from the chart) 08/22 22:38 20:36 Chief complaint: Patient states: COUGH AND SHORTNESS OF BREATH ONSET LAST NIGHT. me1 cm10 23:29 22:00 BP 121 / 77; Pulse 82bpm; Resp 17bpm; Pulse Ox 91%; sleeping, snoring. o2 at 2 me1 lpm via nc applied. Sat increased to 95%; me1
[2024-08-23 02:37] VITALS: TEMP 97.4
[2024-08-23 02:46] VITALS: BP 127/84; O2SAT 93
--- NOTE | 2024-08-23 11:56 | EKG ---
Test Date: 2024-08-22 Test Time: 23:36:27 Factory Supervisor: MEASUREMENT RESULTS: Intervals: Rate: 82 NM: 158 QRSD: 94 QT: 402 QTc: 469 [place]: P: 70 NM: 158 QRS: 75 T: 69 INTERPRETIVE STATEMENTS: Normal sinus rhythm Normal ECG Compared to ECG 06/19/2024 22:55:33 No significant changes Electronically Signed On 08-23-24 11:55:31 WARM IN WORKER by Rahul Robles
== END 2024-08-23 02:04 | disposition home or self-care (01) ==
LOC: ER 20:07
DX: J10.1 Influenza due to other identified influenza virus with other respiratory manifestations (principal); B34.9 Viral infection, unspecified; F17.210 Nicotine dependence, cigarettes, uncomplicated
CPT/HCPCS: 93005; 85025; 80048; 36415; 83735; 85610; 80076; 84484; 83880; 86140; 87804 ×2; 71275; 96375; 96374; 99285; Q9967; J3475; J2765; J1200; J7613; J7644; J2919; J7030

== ENCOUNTER 2024-09-18 02:38 | Emergency (ER) | payer OTHER ==
[2024-09-18] MEDS ORDERED: DIAZEPAM 5 MG TABLET ONE (03:07)
--- NOTE | 2024-09-18 03:13 | ER ---
Nurse's Notes [facility] Name: Jasmin Haley Age: 54 yrs Sex: Male : 1970 Arrival Date: 09/18/2024 Time: 02:38 Bed 19 Private MD: Diagnosis: [place] Withdrawal Presentation: 09/18 02:55 Chief complaint: Patient states: I've been out of my lithium for 3 weeks and im lg3 starting to have really bad anxiety, night terrors, inability to sleep, hearing and seeing things that are not there and its worsening. Denies SI/HI at this time. Coronavirus screen: Client denies travel out of the [place] in the last 14 days. At this time, the client does not indicate any symptoms associated with coronavirus-19. Ebola Screen: No symptoms or risks identified at this time. Initial Sepsis Screen: Does the patient meet any 2 criteria? No. Patient's initial sepsis screen is negative. Does the patient have a suspected source of infection? No. Patient's initial sepsis screen is negative. Risk Assessment: Do you want to hurt yourself or someone else? Patient reports no desire to harm self or others. Onset of symptoms is unknown. 02:55 Method Of Arrival: Ambulatory lg3 02:55 Acuity: GISELA 3 lg3 Triage Assessment: 02:58 General: Appears in no apparent distress. comfortable, Behavior is cooperative, lg3 anxious. Pain: Denies pain. EENT: No deficits noted. No signs and/or symptoms were reported regarding the EENT system. Neuro: No deficits noted. [place] Agitation-Sedation Scale (RASS): 0 - Alert and Calm Level of Consciousness is awake, alert, obeys commands, Oriented to person, place, time, situation. Cardiovascular: No deficits noted. Denies chest pain, shortness of breath, Capillary refill < 3 seconds Clubbing of nail beds is absent JVD is absent Patient's skin is warm and dry. Respiratory: No deficits noted. Airway is patent Respiratory effort is even, unlabored, Respiratory pattern is regular, symmetrical. GI: No deficits noted. No signs and/or symptoms were reported involving the gastrointestinal system. : No signs and/or symptoms were reported regarding the genitourinary system. Derm: No deficits noted. No signs and/or symptoms reported regarding the dermatologic system. Skin is intact, is healthy with good turgor, Skin is dry, Skin is normal, Skin temperature is warm. Musculoskeletal: No deficits noted. No signs and/or symptoms reported regarding the musculoskeletal system. Circulation, motion, and sensation intact. Range of motion: intact in all extremities. Historical: - Allergies: 02:58 Ibuprofen; lg3 - Home Meds: 02:58 [place] Carbonate Oral [Active]; unknown HTM medication [Active]; lg3 - PMHx: 02:58 bipolar/schizo; CVA; Hypertension; PTSD; lg3 - PSHx: 02:58 None; lg3 - Immunization history:: Adult Immunizations up to date. - Infectious Disease History:: Denies. - Social history:: Smoking status: Patient reports the use of cigarette tobacco products, smokes one pack cigarettes per day. Patient uses alcohol, occasionally. Patient/guardian denies using street drugs. Screenin:03 [facility] ED Fall Risk Assessment (Adult) History of falling in the last 3 months, rg5 including since admission No falls in past 3 months (0 pts) Confusion or Disorientation No (0 pts) Intoxicated or Sedated No (0 pts) Impaired Gait No (0 pts) Mobility Assist Device Used Yes (1 pt) Altered Elimination No (0 pt) Score/Fall Risk Level 0 - 2 = Low Risk Oriented to surroundings, Maintained a safe environment, Hourly rounding (assess needs \T\ fall precautionary measures) done. Abuse screen: Denies threats or abuse. Nutritional screening: No deficits noted. Tuberculosis screening: No symptoms or risk factors identified. Assessment: 03:03 General: Appears in no apparent distress. Behavior is calm, cooperative. Pain: Denies rg5 pain. Neuro: Level of Consciousness is awake, alert, Oriented to person, place, time. Cardiovascular: Patient's skin is warm and dry. Respiratory: Airway is patent Trachea midline Respiratory effort is even, unlabored, Respiratory pattern is. GI: Abdomen is round non-distended, Abd is soft and non tender. : No signs and/or symptoms were reported regarding the genitourinary system. EENT: No deficits noted. Derm: Skin is intact, Skin is dry, Skin is normal, Skin temperature is warm. Musculoskeletal: Circulation, motion, and sensation intact. Range of motion: intact in all extremities. Vital Signs: 02:55 BP 177 / 102; Pulse 77; Resp 18 S; Temp 97.8(O); Pulse Ox 98% on R/A; Weight 73.03 kg lg3 (R); Height 5 ft. 6 in. (R); 03:01 BP 177 / 102; Pulse 77; Resp 18; Temp 97.8; Pulse Ox 98% on R/A; rg5 02:55 Body Mass Index 25.99 (73.03 kg, 167.64 cm) lg3 ED Course: 02:41 Patient arrived in ED. jj6 02:46 Cesar Moran MD is Attending Physician. ec2 02:56 Harrison Reis, RN is Primary Nurse. rg5 02:58 Triage completed. lg3 02:58 Arm band placed on right wrist. lg3 03:03 Patient has correct armband on for positive identification. Door closed. Noise rg5 minimized. Verbal reassurance given. 03:03 No provider procedures requiring assistance completed. rg5 03:16 Patient did not have IV access during this emergency room visit. rg5 03:17 Provided Education on: post er care. rg5 Administered Medications: 03:09 Drug: Diazepam PO 10 mg PO once Route: PO; rg5 03:16 Follow up: Response: No adverse reaction rg5 Medication: 03:03 VIS not applicable for this client. rg5 Outcome: 03:13 Discharge ordered by . ec2 03:16 Discharged to home ambulatory, rg5 03:16 Condition: stable 03:16 Discharge instructions given to patient, Instructed on discharge instructions, Demonstrated understanding of instructions, follow-up care, medications, Prescriptions given X 1, 03:18 Patient left the ED. rg5 Signatures: Marylin Geronimo RN RN lg3 Jeanette Ramsey jj6 Cesar Moran MD MD ec2 Harrison Reis, RN RN rg5
--- NOTE | 2024-09-18 03:13 | EDPHYS ---
Physician Documentation [facility] Name: Jasmin Haley Age: 54 yrs Sex: Male : 1970 Arrival Date: 09/18/2024 Time: 02:38 Bed 19 Private MD: ED Physician Cesar Moran HPI: 09/18 03:12 This 54 yrs old Male presents to ER via Ambulatory with complaints of H/O ec2 BIPOLAR II AND SCHIZOPHRENIA, PT HAS BEEN OUT OF MEDS FOR 2 WKS, HAVING HALLUCINATIONS, INSOMNIA, ANXIETY, AND NERVOUS TICKS. 03:12 Patient arrives today due to concern for anxiety. Patient states that he recently ec2 stopped taking his lithium a couple weeks ago as he is changing prescribers and has not been able to have his medication refilled. Patient states he is feeling increased restlessness, anxiety, inability to sleep. Denies SI or HI. Historical: - Allergies: 02:58 Ibuprofen; lg3 - Home Meds: 02:58 [place] Carbonate Oral [Active]; unknown HTM medication [Active]; lg3 - PMHx: 02:58 bipolar/schizo; CVA; Hypertension; PTSD; lg3 - PSHx: 02:58 None; lg3 - Immunization history:: Adult Immunizations up to date. - Infectious Disease History:: Denies. - Social history:: Smoking status: Patient reports the use of cigarette tobacco products, smokes one pack cigarettes per day. Patient uses alcohol, occasionally. Patient/guardian denies using street drugs. ROS: 03:12 Constitutional: as per hpi ec2 Exam: 03:12 Constitutional: GEN: NAD Head: atraumatic Eyes: EOMI Ears: External ears are ec2 normal. CV: regular rate LUNGS: no respiratory distress ABD: non-distended SKIN: no evidence of rashes MSK: no evidence of trauma. Psych: Cooperative individual is in no acute distress who is not responding to external stimuli without SI or HI Vital Signs: 02:55 BP 177 / 102; Pulse 77; Resp 18 S; Temp 97.8(O); Pulse Ox 98% on R/A; Weight 73.03 kg lg3 (R); Height 5 ft. 6 in. (R); 03:01 BP 177 / 102; Pulse 77; Resp 18; Temp 97.8; Pulse Ox 98% on R/A; rg5 02:55 Body Mass Index 25.99 (73.03 kg, 167.64 cm) lg3 MDM: 02:52 Medical Screening Exam initiated ec2 03:12 Data reviewed: vital signs, nurses notes. ED course: Patient arrives today for ec2 evaluation of restlessness and anxiety. Examination yields well-appearing nontoxic individual who is cooperative. I suspect patient is suffering from lithium withdrawal. I will work on treating his symptoms and prescribe benzodiazepines to help. Will have the patient follow-up with psychiatrist, states he has psychiatry follow-up this week.. Administered Medications: 03:09 Drug: Diazepam PO 10 mg PO once Route: PO; rg5 03:16 Follow up: Response: No adverse reaction rg5 Disposition Summary: 09/18/24 03:13 Discharge Ordered Notes: Location: Home ec2 Condition: Stable ec2 Diagnosis - [place] Withdrawal ec2 Followup: ec2 - With: Private Physician - When: - Reason: Re-evaluation by your physician Discharge Instructions: - Discharge Summary Sheet ec2 Forms: - Medication Reconciliation Form ec2 - Antibiotic Education ec2 - Prescription Opioid Use ec2 - Patient Portal Instructions ec2 - Leadership Thank You Letter ec2 Prescriptions: - Valium 10 mg Oral tablet - take 1 tablet ORAL route every 8 hours As needed; 15 tablet; Refills: 0, ec2 Product Selection Permitted Signatures: Marylin Geronimo RN RN lg3 Cesar Moran MD MD ec2 Harrison Reis RN RN rg5
[2024-09-20 15:50] VITALS: BP 177/102; TEMP 97.8; O2SAT 98
== END 2024-09-18 03:18 | disposition home or self-care (01) ==
LOC: ER 02:38
DX: F13.239 Sedative, hypnotic or anxiolytic dependence with withdrawal, unspecified (principal); F31.9 Bipolar disorder, unspecified; F43.10 Post-traumatic stress disorder, unspecified; I10 Essential (primary) hypertension; F17.210 Nicotine dependence, cigarettes, uncomplicated; Z86.73 Personal history of transient ischemic attack (TIA), and cerebral infarction without residual deficits
CPT/HCPCS: 99283

== ENCOUNTER 2024-10-29 12:19 | Emergency (ER) | payer OTHER ==
[2024-10-29 13:02] LABS: Influenza A Ag Negative; Influenza B Ag Negative; SARS-CoV-2 Antigen Rapid Res Negative (Negative)
--- NOTE | 2024-10-29 13:56 | RAD REPORT ---
EXAMINATION: TWO VIEW CHEST XR CLINICAL INDICATION: Male, 54 years old. [facility] MAIN Cough;Congestion Bed Name: 2 TECHNIQUE: 2 view radiographs of the chest were performed. COMPARISON: 07/20/2024. FINDINGS: The lungs are well inflated and clear. No pneumothorax or sizable effusion. The heart is normal in si ze. Mediastinal contours are unremarkable. IMPRESSION: No acute or significant abnormalities.
[2024-10-29] MEDS ORDERED: DIAZEPAM 5 MG TABLET ONE (14:32)
--- NOTE | 2024-10-29 14:40 | ER ---
Nurse's Notes [facility] Name: Jasmin Haley Age: 54 yrs Sex: Male : 1970 Arrival Date: 10/29/2024 Time: 12:19 Bed 10 Private MD: Diagnosis: Cough;Fever, unspecified Presentation: 10/29 12:25 Chief complaint: Patient states: "my temples are hurting, i feel bad. I haven't even ap3 smoked a cigarette in 2 days. My back ribs are hurting, I don't know if it is from coughing or what is going on. It is taking the wind out of my breath." Patient currently rates his pain as an 8/10 on the pain scale. Coronavirus screen: Client presents with at least one sign or symptom that may indicate coronavirus-19. Ebola Screen: No symptoms or risks identified at this time. Initial Sepsis Screen: Does the patient meet any 2 criteria? No. Patient's initial sepsis screen is negative. Does the patient have a suspected source of infection? No. Patient's initial sepsis screen is negative. Risk Assessment: Do you want to hurt yourself or someone else? Patient reports no desire to harm self or others. Onset of symptoms was October 26, 2024. 12:25 Method Of Arrival: Ambulatory ap3 12:25 Acuity: GISELA 3 ap3 Triage Assessment: 12:27 General: Appears ill, Behavior is calm, cooperative, appropriate for age. Pain: ap3 Complains of pain in face and back Pain currently is 8 out of 10 on a pain scale. Pain began 2-3 days ago. Neuro: Level of Consciousness is awake, alert, obeys commands, Oriented to person, place, time, situation, Appropriate for age. Cardiovascular: Patient's skin is warm and dry. Respiratory: Reports cough that is pain with cough. Historical: - Allergies: 12:27 Ibuprofen; ap3 - PMHx: 12:27 bipolar/schizo; CVA; Hypertension; PTSD; ap3 - Immunization history:: Adult Immunizations up to date. - Infectious Disease History:: Denies. - Social history:: Smoking status: Patient reports the use of cigarette tobacco products. Screenin:28 Abuse screen: Denies threats or abuse. Nutritional screening: No deficits noted. ap3 Tuberculosis screening: No symptoms or risk factors identified. 15:00 [facility] ED Fall Risk Assessment (Adult) History of falling in the last 3 months, hb including since admission No falls in past 3 months (0 pts) Confusion or Disorientation No (0 pts) Intoxicated or Sedated No (0 pts) Impaired Gait No (0 pts) Mobility Assist Device Used No (0 pt) Altered Elimination No (0 pt) Score/Fall Risk Level 0 - 2 = Low Risk Oriented to surroundings, Maintained a safe environment, Educated pt \\T\\ family on fall prevention, incl call for assistance when getting out of bed. Assessment: 15:00 Reassessment: Patient appears in no apparent distress at this time. Patient and/or hb family updated on plan of care and expected duration. Pain level reassessed. Patient is alert, oriented x 3, equal unlabored respirations, skin warm/dry/pink. Vital Signs: 12:25 BP 141 / 91; Pulse 72; Resp 18; Temp 98.2(O); Pulse Ox 97% ; Pain 8/10; ap3 12:29 Weight 73.03 kg; Height 5 ft. 6 in. ; ap3 12:29 Body Mass Index 25.99 (73.03 kg, 167.64 cm) ap3 12:25 Pain Scale: Adult ap3 ED Course: 12:20 Patient arrived in ED. mr 12:23 Dina Bowden FNP-C [facility]. kb 12:23 Avelino Sanford MD is Attending Physician. kb 12:27 Triage completed. ap3 12:28 Arm band placed on left wrist. ap3 13:20 Chest Pa And Lat (2 Views) XRAY In Process Unspecified. EDMS 14:30 Waqas Londono, GISELLE is Primary Nurse. jl7 15:00 Patient has correct armband on for positive identification. Provided Education on: hb medication, follow up. 15:00 No provider procedures requiring assistance completed. Patient did not have IV access hb during this emergency room visit. Administered Medications: 14:42 Drug: Diazepam PO 5 mg PO once Route: PO; jl7 Medication: 15:00 VIS not applicable for this client. hb Outcome: 14:39 Discharge ordered by . kb 15:00 Discharged to home ambulatory, with family, hb 15:00 Condition: stable 15:00 Discharge instructions given to patient, Instructed on discharge instructions, follow up and referral plans. medication usage, Demonstrated understanding of instructions, follow-up care, medications, Prescriptions given X 2, 15:01 Patient left the ED. hb Signatures: Dispatcher [employer] EDDina Kelly, GENERAL DENTIST-C GENERAL DENTIST-Mikaela Tavera, Reg Reg mr Lindy Stark, RN RN Waqas Londono RN RN jl7 Tasha Ward RN RN ap3
--- NOTE | 2024-10-29 14:40 | EDPHYS ---
Physician Documentation [facility] Name: Jasmin Haley Age: 54 yrs Sex: Male : 1970 Arrival Date: 10/29/2024 Time: 12:19 Bed 10 Private MD: ED Physician Avelino Sanford HPI: 10/29 14:41 This 54 yrs old Male presents to ER via Ambulatory with complaints of Flu Symptoms, Rib kb pain. 14:41 Pt is a 54 year old male who presents for cough, congestion, headache, bodyaches, kb chills that started 3 days ago. States he has rib pain with deep breath and cough. . Historical: - Allergies: 12:27 Ibuprofen; ap3 - PMHx: 12:27 bipolar/schizo; CVA; Hypertension; PTSD; ap3 - Immunization history:: Adult Immunizations up to date. - Infectious Disease History:: Denies. - Social history:: Smoking status: Patient reports the use of cigarette tobacco products. ROS: 14:40 Constitutional: As per HPI kb Exam: 14:40 Constitutional: This is a well developed, well nourished patient who is awake, alert, kb and in no acute distress. Head/Face: Normocephalic, atraumatic. ENT: Moist Mucous membranes Cardiovascular: Regular rate Respiratory: Respirations even and unlabored. No increased work of breathing. Talking in full sentences Abdomen/GI: Soft, non-tender. No distention Skin: Warm, dry with normal turgor. Normal color. MS/ Extremity: Pulses equal, no cyanosis. Neurovascular intact. Full, normal range of motion. Neuro: Awake and alert, GCS 15, oriented to person, place, time, and situation. Vital Signs: 12:25 BP 141 / 91; Pulse 72; Resp 18; Temp 98.2(O); Pulse Ox 97% ; Pain 8/10; ap3 12:29 Weight 73.03 kg; Height 5 ft. 6 in. ; ap3 12:29 Body Mass Index 25.99 (73.03 kg, 167.64 cm) ap3 12:25 Pain Scale: Adult ap3 MDM: 12:23 Medical Screening Exam initiated kb 14:40 Differential diagnosis: flu, covid, uri, bronchitis, pneumonia. Data reviewed: vital kb signs, nurses notes. I considered the following discharge prescriptions or medication management in the emergency department I discussed and recommended Over The Counter medications, Antibiotics: At this time antibiotics are not recommended, Antivirals: At this time, antivirals are not recommended. Historians other than the Patient: Spouse/Significant Other: . Counseling: I had a detailed discussion with the patient and/or guardian regarding the historical points, exam findings, and any diagnostic results supporting the discharge/admit diagnosis, lab results, radiology results, the need for outpatient follow up, a family practitioner, to return to the emergency department if symptoms worsen or persist or if there are any questions or concerns that arise at home. 10/29 12:32 Order name: Flu kb 10/29 12:32 Order name: SARS-COV-2 Antigen Rapid kb 10/29 12:49 Order name: COVID-19 Ag + Flu A+B Ag; Complete Time: 13:04 EDMS 10/29 12:32 Order name: Chest Pa And Lat (2 Views) XRAY; Complete Time: 14:06 kb Administered Medications: 14:42 Drug: Diazepam PO 5 mg PO once Route: PO; [id number] Disposition Summary: 10/29/24 14:39 Discharge Ordered Notes: Location: Home kb Condition: Stable kb Diagnosis - Cough kb - Fever, unspecified kb Followup: kb - With: Emergency Department - When: As needed - Reason: Worsening of condition Followup: kb - With: Private Physician - When: 2 - 3 days - Reason: Recheck today's complaints, Continuance of care, Re-evaluation by your physician Discharge Instructions: - Discharge Summary Sheet kb - Cough, Adult, [id number] kb - Viral Respiratory Infection, [id number] kb Forms: - Medication Reconciliation Form kb - Antibiotic Education kb - Prescription Opioid Use kb - Patient Portal Instructions kb - Leadership Thank You Letter kb Prescriptions: - orphenadrine citrate 100 mg Oral Tablet Sustained Release - take 1 tablet ORAL route 2 times per day As needed; 20 tablet; Refills: 0, kb Product Selection Permitted - Zithromax 500 mg Oral Tablet - take 1 tablet ORAL route once daily for 5 days; 5 tablet; Refills: 0, Product kb Selection Permitted Addendum: 10/31/2024 12:43 Co-signature as Attending Physician, Avelino Sanford MD I agree with the assessment and c plan of care. Signatures: Dispatcher [employer] EDDina Kelly FNP-C MESS COOK-CkAvelino Paul MD MD cha Baxter, Heather, RN RN Waqas Londono RN RN jl7 Tasha Ward RN RN ap3 Corrections: (The following items were deleted from the chart) 10/29 12:32 12:32 Chest Pa And Lat (2 Views)+[email or web address] ordered. EDMS EDMS 12:49 12:47 Influenza Screen (A ordered. EDMS EDMS
[2024-10-29 17:49] VITALS: BP 141/91; TEMP 98.2; O2SAT 97
== END 2024-10-29 15:01 | disposition home or self-care (01) ==
LOC: ER 12:19
DX: R05.9 Cough, unspecified (principal); R50.9 Fever, unspecified; Z11.52 Encounter for screening for COVID-19; Z72.0 Tobacco use
CPT/HCPCS: 36415; 71046; 87428; 99283